=== PATIENT | male | born 1975 | race Caucasian/White ===

== ENCOUNTER → 2020-03-17 14:40 | Outpatient (CLI) | payer OTHER, SELFPAY ==
--- NOTE | ~2020-03-17 | XR_ITS ---
EXAMINATION: XR lumbar spine min 4V DATE: 03/17/2020 15:01 INDICATION: Low back pain. Right-sided sciatica. TECHNIQUE: 7 views of lumbar spine including flexion and extension views were obtained. COMPARISON: Lumbar spine radiographs 11/18/2015 FINDINGS: Bone alignment is normal. There is no abnormal motion with flexion and extension. Vertebral body heights are normal. There is mildly decreased disc height at L4-L5. The facet joints are normal . IMPRESSION: 1. Mild degenerative disc disease at L4-L5. Reviewed, dictated and finalized at location A. ING MACHINE OPERATOR
== END ==
PROVIDERS: PCP Family Medicine; Visit Provider Family Medicine
DX: M54.41 Lumbago with sciatica, right side (principal); M51.36 Other intervertebral disc degeneration, lumbar region
CPT/HCPCS: 72110

== ENCOUNTER 2020-04-30 12:30 | Outpatient (RCR) | payer OTHER, SELFPAY ==
--- NOTE | 2020-03-31 14:49 | PTOPEVAL ---
PHYSICAL THERAPY EVALUATION Thank you for referring Juno Sky to [facility].? Eliud was evaluated with a dx of low back pain/right leg radiculopathy. The patient is scheduled to be seen for therapy? 2x/week for 4 weeks. Please review, sign, date and return this plan of care JAKE. I agree with and certify that the following plan of care is medically necessary. Referring Physician Date Attending Provider: Ximena Swan, MD *PT Outpatient Evaluation Start: 03/31/20 13:25 Freq: Status: Active Protocol: Document 03/31/20 13:25 MLV (Rec: 03/31/20 14:49 MLV [id number]) Therapy Assessment Status Assessment Status Assessment Status Evaluation Outpatient Past Medical History Cardiovascular History Hx Hypertension Yes Evaluation Information Problem Diagnosis low back pain with left leg radiculopathy Onset 2 months Cause sneezed Additional Evaluation Detail Pain began 2 months ago, was helping parents do rehab on their home. Patient sneezed and had pain immediately. Patient now has numbness at thigh into toes-constant at the thigh and off/on at lower leg. Patient had very minimal back issues in past. Subjective Information patient stretches every Query Text:As Reported By Patient/ morning as part of a martial Family arts routine he had 5 years ago. 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 Patient is off work now due to pain. Diagnostic Tests X-Rays For This Problem Yes: results unknown Previous Treatments Previous Treatments For This Problem none Pain Assessment Timing of Pain Assessment Timing of Pain Assessment Assessment Pain Scale Pain Scale Used Numeric (1 - 10) Self Report Pain Assessment Right Leg(s) Reported Pain Level 0 Pain Description Numbness,Sharp,Shooting Pain Frequency Acute Other Pain Description pain is sharp and short lived Greatest Pain Intensity 10 Pain Aggravating Factors Walking,Weight Bearing/ Standing Right Back Reported Pain Level 0 Pain Description Aching,Dull Pain Frequency Acute Other Pain Description certain movements flares pain Pain Aggravating Factors Prolonged Position,Walking Other Pain Aggravating Factors sidelying Pain Score Pain Score 0,0: Self Report Inte
--- NOTE | 2020-04-02 10:37 | PCPTNOTE ---
Patient did not show up for scheduled appointment this date. Called patient, however, his message stated he was not accepting call at this time.
--- NOTE | 2020-04-21 13:10 | PCPTNOTE ---
Patient called & cancelled scheduled appointment this date. Will reschedule at next appointment.
--- NOTE | 2020-04-30 12:58 | PTOPEVAL ---
PHYSICAL THERAPY DISCHARGE Thank you for referring Juno Sky to [facility].? The patient has been seen for therapy? 2x/week for 4 weeks. Progress has peaked and goals are not met. Physical therapy is discontinued at this time. Please review, sign, date and return this plan of care. I agree with and certify the following plan of care. Referring Physician Date Attending Provider: Ximena Swan, MD *PT Outpatient Evaluation Start: 03/31/20 13:25 Freq: Status: Active Protocol: Document 04/30/20 12:35 MLV (Rec: 04/30/20 12:58 MLV [id number]) Assessment Status Discharge Discharge Information Problem Additional Evaluation Detail Patient reports feeling about 25% better than when first starting therapy. The patient reports continued leg numbness (constant)-no change. The back pain is still aggravated by bending and lifting. Pain Assessment Timing of Pain Assessment Timing of Pain Assessment Assessment Pain Scale Pain Scale Used Numeric (1 - 10) Self Report Pain Assessment Right Leg(s) Reported Pain Level 0 Pain Description Numbness Right Back Reported Pain Level 2 Other Pain Description certain movements flares pain Greatest Pain Intensity 8 Pain Aggravating Factors Exercise/Activity,Weight Bearing/Standing Other Pain Aggravating Factors severe pain with standing longer than 5 minutes Pain Score Pain Score 0,2: Self Report Interventions Used Interventions Used By Clinicians Education,Electrical Stimulation,Exercise,Heat Pain Relief Interventions Used By Inactivity/Rest Patient Other Alleviating Interventions tylenol/advil gives no relief Cervical and Lumbar ROM Lumbar ROM Lumbar Flexion Active Mid Dejesus Query Text:Hands to: Lumbar Extension (0-40) 30 Query Text:Active in Degrees Lumbar Lateral Flexion Right (0-40) 30 Query Text:Active in Degrees Lumbar Lateral Flexion Left (0-40) 40 Query Text:Active in Degrees Lateral Rotation Right (0-45) 45 Query Text:Active in Degrees Lateral Rotation Left (0-45) 45 Query Text:Active in Degrees Lumbar Comments pain at right hip/leg with flexion and right sidebending Lower Extremity Range of Motion General Lower Extremity Range of Motion Gross Lower Extremity Range of Motion hip rotation limited dong. but Comments movement more fluid and less painful
== END 2020-04-30 15:26 | disposition home or self-care (01) ==
LOC: ANHPT 12:30
PROVIDERS: PCP Family Medicine; Visit Provider Family Medicine
DX: M54.41 Lumbago with sciatica, right side (principal)
CPT/HCPCS: 97012; 97014; 97110; 97140; 97162; G0283

== ENCOUNTER 2021-05-18 11:04 | Emergency (ER) | payer OTHER, SELFPAY ==
[2021-05-18] VITALS (39 sets, daily range): BP systolic 127–239; BP diastolic 76–164; PULSE 54–103; RESP 11–27; TEMP 36.6; O2SAT 96–100
--- NOTE | ~2021-05-18 | CT_ITS ---
EXAMINATION: CT brain wo con DATE: 05/18/2021 12:17 INDICATION: Headache. TECHNIQUE: Computed tomography (CT) of the head was performed without intravenous contrast. The mA wa s adjusted according to patient size. Iterative reconstruction technique was employed. The dose-lengt h product was 605.33 mGy-cm. COMPARISON: Head CT 12/21/2018 FINDINGS: There is no intracranial hemorrhage, acute infarction, or abnormal intracranial mass lesion . The ventricles are normal in size. The paranasal sinuses are clear. The orbits are normal. The mast oid air cells are normal. IMPRESSION: 1. Normal brain. Reviewed, dictated and finalized at location A. E STRIPPER IMPRESSION: 1. Normal brain.
--- NOTE | ~2021-05-18 | XR_ITS ---
EXAMINATION: XR chest 2V DATE: 05/18/2021 11:55 INDICATION: Hypertension, shortness of breath and left-sided chest pain TECHNIQUE: frontal and lateral views of the chest were obtained. COMPARISON: Chest radiograph dated 12/19/2018 FINDINGS: The lungs remain clear with no focal airspace opacities, pulmonary edema, pleural effusion or pneumot horax. The cardiomediastinal silhouette is normal. Visualized bones and soft tissues are unremarkable . IMPRESSION: 1. No acute cardiopulmonary disease. Reviewed, dictated and finalized at location B. ER OFF BEARER
--- NOTE | 2021-05-18 11:16 | ECG_ITS ---
Measurements Intervals [place] Rate: 81 P: 24 CA: 154 QRS: -15 QRSD: 92 T: 24 QT: 373 QTc: 435 Interpretive Statements SINUS RHYTHM POSSIBLE LEFT ATRIAL ENLARGEMENT INCOMPLETE RIGHT BUNDLE BRANCH BLOCK POSSIBLE LEFT VENTRICULAR HYPERTROPHY BORDERLINE R WAVE PROGRESSION, ANTERIOR LEADS BORDERLINE ECG Electronically Signed On 05-18-2021 11:25:48 LITHOGRAPHED PLATE INSPECTOR by Rodney Root D.O.
[2021-05-18 11:34] LABS: Basophils Absolute Auto 0.1 K/mm3 (0.0-0.1); Basophils Percent Auto 0.6 % (0.2-1.2); Eosinophils Absolute Auto 0.2 K/mm3 (0-0.3); Eosinophils Percent Auto 2.1 % (0-4.4); Hemoglobin 18.5 g/dL (14.0-18.0); Immature Granulocyte Absolute 0.06 K/mm3 (0.00-0.031); Immature Granulocyte Percent A 0.7 % (0-0.5); Lymphocytes Absolute Auto 2.14 K/mm3 (0.9-3.2); Lymphocytes Percent Auto 25.5 % (18.3-44.2); Mean Corpuscular HGB Conc 34.3 g/dl (32-36); Mean Corpuscular Volume 87.5 fl (80-100); Mean Platelet Volume 9.8 fl (7.4-10.4); Monocytes Absolute Auto 0.5 K/mm3 (0.1-0.6); Monocytes Percent Auto 5.6 % (2.6-8.5); Neutrophils Absolute Auto 5.5 K/mm3 (1.3-6.7); Neutrophils Percent Auto 65.5 % (45.5-73.1); Platelet Count Result 211 k/mm3 (150-375); Red Blood Count 6.17 M/mm3 (4.6-6.20); Red Cell Distribution Width 13.2 % (11.5-14.5); White Blood Count 8.4 K/mm3 (4.5-10.0)
--- NOTE | 2021-05-18 11:34 | ED.CHESTPAIN ---
HPI - Chest Pain General Chief Complaint: Chest Pain Stated Complaint: sob, rubio, arm pain Time Seen by Provider: 05/18/21 11:33 Source: patient Mode of arrival: ambulatory Limitations: no limitations History of Present Illness HPI narrative: Patient is a 45 yo male with a history of HTN presenting with severe headache on the superior part of his head which has been present and constant over the past 2 days. Patient states he has been off of his medications for two weeks as his PCP Dr. Swan reportedly retired, and he did not refill his prescriptions prior to this. Pt previously was taking Losartan and Spironolactone. Pt reports blurry vision over past two weeks. Pt reports sharp chest pain on the left side with radiation to the left arm. No jaw or neck pain. Pt with nausea without vomiting. Denies focal weakness or numbness. No thunderclap sensation to headache. Pt has had one of his covid vaccinations. Pt has never followed with a web merchant. Related Data Allergies Allergy/AdvReac Type Severity Reaction Status Date / Time No Known Allergies Allergy Unverified 12/19/18 18:39 Review of Systems Review of Systems: CONSTITUTIONAL: Denies fever, chills, or sweats. EYES: Denies visual changes, redness, or discharge. ENT: Denies rhinorrhea, congestion, sore throat, or otalgia. CARDIOVASCULAR: Reports chest pain, denies palpitations RESPIRATORY: Denies cough, reports shortness of breath with GASTROINTESTINAL: Denies abdominal pain, nausea without vomiting GENITOURINARY: Denies dysuria or hematuria. SKIN: Denies rash or itching. MUSCULOSKELETAL: Denies back pain, joint pain, or myalgia. NEUROLOGIC: Reports headache PSYCH: reports history of anxiety [facility] Family History Family History (Updated 11/10/17 @ 14:19 by DOCTOR UNKNOWN) Mother Family history of glaucoma Hypertension Other Family history of kidney disease Family history of mental disorder Social History Social History Smoking status: Current every day smoker Alcohol intake: current Exam Narrative: GENERAL: Awake, alert, conversant HEAD: Normocephalic, atraumatic. EYES: PERRLA and EOMI. ENT: Nares clear, no rhinorrhea or epistaxis. Mucous membranes moist. NECK: Supple. CHEST: No respiratory distress, breathing even and non labored, no chest wall tenderness HEART: Regular rate, sinus rhythm ABDOMEN:Non distended, non tender EXTREMITIES: Normal range of motion. No edema. SKIN: Warm, dry, no rash. NEURO:No focal deficits. Alert and oriented x3. Finger to nose intact bilaterally. EOMs intact without nystagmus. No facial droop/asymmetry noted bilaterally. Grimace intact. Intact sensation in face. Hearing intact bilaterally. Shoulder shrug intact. Strength 5/5 bilateral upper extremities. Strength 5/5 bilateral lower extremities. Reflexes 2+ patellar. Heel to aceves intact bilaterally. Ambulatory exam with a normal based, steady gait. Course Vital Signs Vital signs: Vital Signs Temperature 36.6 C 05/18/21 11:18 Pulse Rate 87 05/18/21 11:18 Respiratory Rate 20 05/18/21 11:18 Blood Pressure 239/164 H 05/18/21 11:18 Pulse Oximetry 98 05/18/21 11:18 Temperature 36.6 C 05/18/21 11:18 Pulse Rate 78 05/18/21 17:16 Respiratory Rate 18 05/18/21 17:16 Blood Pressure 135/93 H 05/18/21 17:16 Pulse Oximetry 99 05/18/21 17:16 MDM - Chest Pain MDM Narrative Medical decision making narrative: The patient was evaluated in the emergency department for headache in the setting of elevated BP. Patient's headache pain was not sudden or maximal in onset. There are no focal deficits on exam. Pt with negative CT head. There is no history of fever and neck is supple to evaluation without meningismus. Meningitis is felt to be unlikely. No traumatic history or signs of trauma on evaluation. Risk factors for cerebral venous thrombosis reviewed,and seems unlikely. No ocular signs of acute glaucoma. Patient was given anti hypertensives of
[2021-05-18 11:45] LABS: Alanine Aminotransferase 63 U/L (4-50); Albumin Level 3.9 g/dL (3.5-5.1); Alkaline Phosphatase 93 U/L (38-126); Anion Gap 9 mmol/L (8-16); Aspartate Amino Transferase 38 U/L (17-59); Bilirubin,Total 0.3 mg/dL (0.2-1.3); Blood Urea Nitrogen 16 mg/dL (9-20); Calcium 8.7 mg/dL (8.4-10.2); Carbon Dioxide 21 mmol/L (22-30); Chloride 108 mmol/L (98-107); Estimated CRCL calculation 83 ml/min; Estimated Glomerular Filt Rate 60; Glucose 138 mg/dL (65-110); Lipase 78 U/L (23-300); Potassium 4.3 mmol/L (3.4-5.0); Sodium 138 mmol/L (137-145)
[2021-05-18] MEDS: ASPIRIN 81 MG CHEWABLE TABLET 324 MG PO (11:46)
[2021-05-18 11:47] LABS: INR 0.9; Prothrombin Time 12.4 Seconds (11.1-14.7)
[2021-05-18 11:48] LABS: Partial Thromboplastin Time 28.3 SECONDS (22.3-36.8)
[2021-05-18 11:57] LABS: Troponin I < 0.012 ng/mL (0.000-0.034)
[2021-05-18] MEDS: ONDANSETRON INJ 4 MG/2 ML VIAL IV PUSH ×2 (12:21→14:27)
[2021-05-18] MEDS: ACETAMINOPHEN 500 MG TABLET 1000 MG PO (12:21)
[2021-05-18] MEDS: hydrALAZINE HCL 20 MG/ML VIAL IV PUSH (12:21)
[2021-05-18] MEDS: SODIUM CHLORIDE 0.9% IV 1,000 ML 999 ML IV CONT (12:21)
[2021-05-18] MEDS: KETOROLAC 15 MG/ML VIAL (*BKC) IV PUSH (13:29)
[2021-05-18] MEDS: LORazepam INJ (*CRX) 2 MG/ML VIAL 0.5 MG IV PUSH (13:29)
[2021-05-18] MEDS: NITROGLYCERIN SL 0.4 MG TABLET SUBLINGUAL (13:38)
[2021-05-18 13:44] LABS: Add Urine Microscopic? YES; Appearance Urine Clear (Clear); Bilirubin Urine Negative (Negative); Blood Urine Negative (Negative); Color Urine Yellow (Yellow); Glucose Urine UA 1+ mg/dL (Negative); Ketones Urine Negative (Negative); Leukocyte Esterase Ur Negative LEU/UL (Negative); Mucus Urine Rare /lpf; Nitrate Urine Negative (Negative); Protein Urine 3+ mg/dL (Negative); Specific Grav Ur 1.013 (1.001-1.035); Squamous Epithelial Cell Urine Rare /hpf (Few); Urobilinogen Urine Negative mg/dL (<2.0); WBC Urine 0-3 /hpf
[2021-05-18] MEDS: LOSARTAN POTASSIUM 100 MG TABLET PO (14:27)
[2021-05-18 15:52] LABS: Troponin I < 0.012 ng/mL (0.000-0.034)
[2021-05-18] MEDS: diazePAM (*CRX) 2 MG TABLET PO (17:10)
== END 2021-05-18 17:20 | disposition home or self-care (01) ==
PROVIDERS: Emergency Provider Emergency Medicine
DX: I16.9 Hypertensive crisis, unspecified (principal); R51.9 Headache, unspecified; F17.200 Nicotine dependence, unspecified, uncomplicated; R94.31 Abnormal electrocardiogram [ECG] [EKG]; I45.10 Unspecified right bundle-branch block
CPT/HCPCS: 36415; 70450; 71046; 80053; 81001; 83690; 84484; 85025; 85610; 85730; 93005; 96361; 96374; 96375; 96376; 99284; A9270; J0360; J1885; J2060; J2405; J7030

== ENCOUNTER 2021-07-15 14:29 | Emergency (ER) | payer OTHER, SELFPAY ==
[2021-07-15 14:44] VITALS: BP 159/119; PULSE 97; RESP 18; TEMP 36.8; O2SAT 99
[2021-07-15 14:47] VITALS: BP 159/119; PULSE 97; RESP 18; TEMP 36.8; O2SAT 99
--- NOTE | 2021-07-15 14:55 | ED.GENADULT ---
HPI - General Adult General Chief complaint: Unspecified Stated complaint: Medication Time Seen by Provider: 07/15/21 14:56 Source: patient Mode of arrival: ambulatory Limitations: no limitations History of Present Illness HPI narrative: 45-year-old male presented for complaint of right sided headache, onset last night. He states this is how he feels when he runs out of his blood pressure medication. He states he has not had any medicine for about 2 weeks. He takes spironolactone and losartan. Was seen in the ER on 06/14/2021 for the same, however he was in hypertensive crisis at the time. Head CT neg at that time, did not stay for recommended CTA. Patient has not followed up with ekg tech. He has not been able to establish with a new PCP after his retired. Denies chest pain, palpitations, shortness of breath, dizziness/syncope, vision changes, n/v, fever or chills. Related Data Home Medications Medication Instructions Recorded Confirmed hydroxyzine pamoate 25 mg PO PRN PRN 07/15/21 07/15/21 Allergies Allergy/AdvReac Type Severity Reaction Status Date / Time No Known Allergies Allergy Verified 07/15/21 14:45 Review of Systems Review of Systems: CONSTITUTIONAL: Denies body aches, fever, chills, or sweats. EYES: Denies visual changes, redness, or discharge. ENT: Denies rhinorrhea, congestion, sore throat, or otalgia. CARDIOVASCULAR: Denies chest pain, palpitations, or edema. RESPIRATORY: Denies cough or dyspnea. GASTROINTESTINAL: Denies abdominal pain, nausea, vomiting, or diarrhea. GENITOURINARY: Denies dysuria or hematuria. SKIN: Denies rash, itching, or wounds. MUSCULOSKELETAL: Denies back pain, joint pain, or myalgia. NEUROLOGIC: Endorses headache, denies numbness, tingling, or weakness. PSYCH: Denies depression or anxiety. All systems reviewed & are unremarkable except as noted in HPI and below PMFSH Family History Family History Mother Family history of glaucoma Hypertension Other Family history of kidney disease Family history of mental disorder Social History Social History Smoking status: Current every day smoker Alcohol intake: current Comments At time of signature, I have reviewed and agree with nursing past medical, surgical, social and family history unless otherwise noted. Please see nursing chart for further information. There is no relevant family history pertinent to the presenting complaint Exam Narrative: GENERAL: Well-appearing, well-nourished HEAD: Normocephalic, atraumatic. EYES: PERRLA, EOMI. No redness or drainage. Conjunctivae normal. ENT: Mucous membranes pink and moist. No rhinorrhea. TMs normal bilaterally. Throat normal. Uvula midline. NECK: Normal AROM. Supple. No lymphadenopathy. CHEST: No respiratory distress. Clear to auscultation. HEART: Regular rate and rhythm. No murmur appreciated. Normal peripheral pulses. ABDOMEN: Soft, nontender, nondistended, normal active bowel sounds. MUSCULOSKELETAL: No bony tenderness. EXTREMITIES: Normal range of motion. No edema. SKIN: Warm, dry, no rash. Capillary refill normal. Normal skin turgor. NEURO: No focal deficits. No facial droop. Alert and oriented x3. Gait steady. PSYCH: Normal affect. No signs of depression or anxiety. Course Course Emergency Course: Patient is aware of diagnosis, understands and agrees to treatment plan. Plans to call insurance company to help with finding PCP. Reviewed lifestyle modifications to help reduce bp. Anticipatory guidance given. Patient agrees to follow-up as directed and is aware of reasons to seek care at the emergency department. Portions of this record may have been created with voice recognition software Level of Care: Express Care Visit Vital Signs Vital signs: Vital Signs Temperature 98.2 F 07/15/21 14:44 Pulse Rate 97 07/15/21 14:44 Respira
== END 2021-07-15 15:09 | disposition home or self-care (01) ==
PROVIDERS: Emergency Provider Nurse Practitioner Family
DX: I10 Essential (primary) hypertension (principal); K21.9 Gastro-esophageal reflux disease without esophagitis; F41.9 Anxiety disorder, unspecified
CPT/HCPCS: 99211; G0463

== ENCOUNTER 2021-09-12 13:13 | Emergency (ER) | payer OTHER, SELFPAY ==
[2021-09-12 13:23] VITALS: BP 205/148; PULSE 80; RESP 18; TEMP 36.7; O2SAT 99
--- NOTE | 2021-09-12 13:41 | ED.GENADULT ---
HPI - General Adult General Chief complaint: Recheck/Abnormal Lab/Rx Stated complaint: requesting blood pressure check Source: patient Mode of arrival: ambulatory Limitations: no limitations History of Present Illness HPI narrative: Patient presents for evaluation of headache that started last night. Pain was in right parietal region. He indicates he has experienced similar symptoms in the past when his blood pressure has not been well controlled. He was previously on spironolactone 100mg daily and losartan 100mg daily. He ran out of medication about one month ago. He has been unable to schedule and appointment with a PCP as he has been told that they are not accepting new patients with [facility]. He states his headache has resolved. No chest pain or SOB. Reports high stress levels related to previous DIU and difficulty finding employment as a result of this. 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 No other illicit drugs. No additional complaints or concerns. Related Data Home Medications Medication Instructions Recorded Confirmed No Home Medications 09/12/21 09/12/21 Allergies Allergy/AdvReac Type Severity Reaction Status Date / Time No Known Allergies Allergy Verified 09/12/21 13:32 Review of Systems Review of Systems: CONSTITUTIONAL: Denies fever, chills, or sweats. EYES: Denies visual changes, redness, or discharge. ENT: Denies rhinorrhea, congestion, sore throat, or otalgia. CARDIOVASCULAR: Denies chest pain, palpitations, or edema. RESPIRATORY: Denies cough or dyspnea. GASTROINTESTINAL: Denies abdominal pain, nausea, vomiting, or diarrhea. GENITOURINARY: Denies dysuria or hematuria. SKIN: Denies rash or itching. MUSCULOSKELETAL: Denies back pain, joint pain, or myalgia. NEUROLOGIC: Reports recent headache, none currently. Denies numbness, dizziness, or weakness. PSYCHIATRIC: Denies anxiety or depression. [facility] Past Medical History Medical History Anxiety Anxiety Hypertension Surgical History Surgical History Hx of cholecystectomy Family History Family History Mother Family history of glaucoma Hypertension Father Hypertension Other Family history of kidney disease Family history of mental disorder Social History Social History Smoking status: Current every day smoker Additional smoking assessment comments: 4 cigarettes/week Alcohol intake: current Alcohol use details: Once per week, 4 beers at a time Substance use type: amphetamines Living arrangements: with family Gender identity (if verbalized by the patient): Male Sexual Orientation (if Verbalized by the Patient): Straight or Heterosexual Spiritual care concerns: No Exam Narrative: GENERAL: Well-appearing, well-nourished, and in no acute distress. HEAD: Normocephalic, atraumatic. EYES: PERRLA and EOMI. ENT: Nares clear, no rhinorrhea or epistaxis. Mucous membranes moist. Oropharynx without tonsillar hypertrophy exudate or other lesions. Bilateral TMs pearly mustafa nonbulging NECK: Supple. No adenopathy or masses. No carotid bruits or JVD CHEST: Clear to auscultation. No respiratory distress. No wheezes rales or rhonchi HEART: Regular rate and rhythm. No murmur heard. Normal peripheral pulses. ABDOMEN: Soft, nontender, nondistended, normal active bowel sounds. EXTREMITIES: Normal range of motion. No edema. SKIN: Warm, dry, no rash. NEURO: No focal deficits. Alert and oriented x3. PSYCH: Normal mood and affect. Course Course Emergency Course: This is a 45-year-old male who presented with complaints of headache last night now resolved with a history of hypertension, off medication. Blood pressure here was 205/148. He has a neurolog
== END 2021-09-12 13:40 | disposition short-term general hospital (02) ==
PROVIDERS: Emergency Provider Nurse Practitioner
DX: I16.0 Hypertensive urgency (principal); F17.210 Nicotine dependence, cigarettes, uncomplicated
CPT/HCPCS: 99211; 99212; G0463

== ENCOUNTER 2022-07-18 09:22 | Emergency (ER) | payer OTHER, SELFPAY ==
--- NOTE | ~2022-07-18 | CT_ITS ---
EXAMINATION: CT soft tissue neck w con DATE: 07/18/2022 10:59 INDICATION: Left facial swelling. TECHNIQUE: Computed tomography (CT) of the neck was performed with 75 mL Omnipaque-350 intravenous co ntrast. Automated exposure control and iterative reconstruction technique were employed. The dose-shantanu gth product was 552.36 mGy-cm. COMPARISON: None FINDINGS: Tooth 2 is broken with periapical lucencies extending to the roots of tooth 3. Tooth 31 has a carious lesion and periapical lucencies. Tooth 19 has a carious lesion and periapical lucencies wi th breech of the buccal cortex of the alveolar process. Tooth 18 has a carious lesion and periapical lucencies. There is a 2.3 x 0.4 cm abscess deep to the body of left mandible containing fluid and gas . There is gas and free fluid in the left submandibular region. Free fluid extends to the left side o f the pharynx and supraglottic larynx with mass effect on the airway. There is fat stranding in the l eft neck. There are enlarged left submandibular and high left internal jugular lymph nodes. The inter nal jugular veins are patent. IMPRESSION: 1. Extensive dental disease with subperiosteal abscess at the left body of the mandible with gas and fluid extending in the left neck deep spaces. 2. Mild left submandibular and internal jugular chain lymphadenopathy, likely reactive. Reviewed, dictated and finalized at location A. [place] [facility] IMPRESSION: 1. Extensive dental disease with subperiosteal abscess at the left body of the mandible with gas and fluid extending in the left neck deep spaces. 2. Mild left submandibular and internal jugular chain lymphadenopathy, likely r eactive.
[2022-07-18 09:25] VITALS: BP 185/120; PULSE 123; RESP 19; TEMP 37; O2SAT 99
--- NOTE | 2022-07-18 09:38 | ED.DENTAL ---
HPI - Dental/Oral General Chief complaint: Dental/Oral <Gem Ramirez PA-C - Last Filed: 07/18/22 17:29> Stated complaint: tooth abcess <RANDELL Rosado Last Filed: 07/18/22 17:29> Time Seen by Provider: 07/18/22 09:29 <RANDELL Rosado Last Filed: 07/18/22 17:29> History of Present Illness HPI Narrative: 46-year-old male here for evaluation of left-sided facial pain for the past several weeks. Patient states that he has a cavity but has been unable to see a dentist until September. With the past several days he is pain has progressed and the left side of his face is now very swollen and painful. States that he noticed some sort of pus material come out of his mouth this morning and he could not swallow his medicines which prompted his ED eval. he is tolerating his secretions. Denies any fevers. No new medicines or history of allergic reactions. <Gem Ramirez PA-C - Last Filed: 07/18/22 17:29> Related Data Home medications: Home Medications Medication Instructions Recorded Confirmed amlodipine 10 mg tablet mg 07/18/22 hydralazine 50 mg tablet mg 07/18/22 hydroxyzine pamoate 25 mg capsule mg 07/18/22 losartan 100 mg tablet mg 07/18/22 07/18/22 <RANDELL Rosado Last Filed: 07/18/22 17:29> Allergies/adverse reactions: Allergies Allergy/AdvReac Type Severity Reaction Status Date / Time No Known Allergies Allergy Verified 07/18/22 09:28 <RANDELL Rosado Last Filed: 07/18/22 17:29> Review of Systems Review of Systems: Gen: Denies fevers or chills Eyes: Denies eye pain or visual change ENT: Reports dental pain Respiratory: Denies shortness of breath or cough CV: Denies chest pain or palpitations GI: Denies abdominal pain nausea, emesis or diarrhea denies burning, urgency, frequency or hematuria Musculoskeletal: Denies back pain or muscle pain Neuro: Denies numbness, tingling, weakness or focal weakness Skin: Denies rash Except as documented, all other systems reviewed and negative <Gem Ramirez PA-C - Last Filed: 07/18/22 17:29> [facility] Past Medical History Medical History: Medical History Anxiety Anxiety Hypertension <Gem Ramirez PA-C - Last Filed: 07/18/22 17:29> Surgical History Surgical History: Surgical History Hx of cholecystectomy <Gem Ramirez PA-C - Last Filed: 07/18/22 17:29> Family History Family History: Family History Mother Family history of glaucoma Hypertension Father Hypertension Other Family history of kidney disease Family history of mental disorder <Gem Ramirez PA-C - Last Filed: 07/18/22 17:29> Social History Social History: Social History Smoking status: Current every day smoker Additional smoking assessment comments: 4 cigarettes/week Alcohol intake: current Alcohol use details: Once per week, 4 beers at a time Substance use type: amphetamines Living arrangements: with family Gender identity (if verbalized by the patient): Male Sexual Orientation (if Verbalized by the Patient): Straight or Heterosexual Spiritual care concerns: No <Gem Ramirez PA-C - Last Filed: 07/18/22 17:29> Exam Narrative: APPEARANCE: Uncomfortable appearing, large amount of facial swelling, speaking in full sentences and tolerating his secretions Head: Normocephalic and atraumatic. EYES: PERRLA/EOMI, conjunctivae clear NOSE: No nasal drainage EARS: External ear normal in appearance THROAT: Patient has purulent/scaly material noted on his tongue with a large amount of fluctuance and induration to his left lower gumline near his molars. Dry mucous membranes. No
[2022-07-18] MEDS: AMPICILLIN SULB 3 GM/NS 100 ML 3 GM/100 ML VIAL IVPB ×2 (09:55→18:14)
[2022-07-18] MEDS: methylPREDNISolone SOD SUCC 125 MG VIAL IV PUSH (09:56)
[2022-07-18] MEDS: LACTATED RINGERS 1,000 ML 999 ML IV CONT ×2 (09:56→11:13)
[2022-07-18] MEDS: KETOROLAC 15 MG/ML VIAL (*BKC) IV PUSH (09:59)
[2022-07-18 10:10] LABS: Basophils Absolute Auto 0.1 K/mm3 (0.0-0.1); Basophils Percent Auto 0.3 % (0.2-1.2); Eosinophils Absolute Auto 0.1 K/mm3 (0-0.3); Eosinophils Percent Auto 0.3 % (0-4.4); Hemoglobin 16.9 g/dL (14.0-18.0); Immature Granulocyte Percent A 0.7 % (0-0.5); Lymphocytes Absolute Auto 1.16 K/mm3 (0.9-3.2); Lymphocytes Percent Auto 7.8 % (18.3-44.2); Mean Corpuscular HGB Conc 33.8 g/dl (32-36); Mean Corpuscular Hemoglobin 29.3 pg (26-34); Mean Corpuscular Volume 86.7 fl (80-100); Mean Platelet Volume 10.5 fl (7.4-10.4); Monocytes Absolute Auto 0.8 K/mm3 (0.1-0.6); Monocytes Percent Auto 5.5 % (2.6-8.5); Neutrophils Absolute Auto 12.7 K/mm3 (1.3-6.7); Neutrophils Percent Auto 85.4 % (45.5-73.1); Platelet Count Result 235 k/mm3 (150-375); Red Blood Count 5.77 M/mm3 (4.6-6.20); Red Cell Distribution Width 13.2 % (11.5-14.5); White Blood Count 14.9 K/mm3 (4.5-10.0)
[2022-07-18 10:23] LABS: Lactic Acid Reflex 1.3 mmol/L (0.7-2.0)
[2022-07-18 10:24] LABS: Alanine Aminotransferase 50 U/L (6-50); Albumin Level 4.3 g/dL (3.5-5.1); Alkaline Phosphatase 126 U/L (38-126); Anion Gap 10 mmol/L (8-16); Aspartate Amino Transferase 40 U/L (17-59); Bilirubin,Total 0.9 mg/dL (0.2-1.3); Blood Urea Nitrogen 16 mg/dL (9-20); Calcium 9.2 mg/dL (8.4-10.2); Carbon Dioxide 22 mmol/L (22-30); Chloride 102 mmol/L (98-107); Estimated CRCL calculation 71 ml/min; Estimated Glomerular Filt Rate 51; Glucose 256 mg/dL (65-110); Sodium 134 mmol/L (137-145)
[2022-07-18 11:13] VITALS: BP 170/112; PULSE 115; RESP 21; O2SAT 96
[2022-07-18 12:06] VITALS: BP 175/115; PULSE 109; RESP 18; O2SAT 95
[2022-07-18 12:39] LABS: Influenza A QL RT-PCR Negative (Negative); Influenza B QL RT-PCR Negative (Negative); SARS-CoV-2 RNA PCR Negative
[2022-07-18 13:13] VITALS: BP 180/129; PULSE 107; RESP 18; O2SAT 95
[2022-07-18] MEDS: LACTATED RINGERS 1,000 ML 150 ML IV CONT (13:13)
[2022-07-18] MEDS: hydrALAZINE HCL 20 MG/ML VIAL 10 MG IV PUSH (13:35)
[2022-07-18 15:25] VITALS: BP 172/100; PULSE 103; RESP 21; O2SAT 98
--- NOTE | 2022-07-18 18:21 | PC.NURSE ---
1130 am [facility] waiting for bed, [facility] accepted to ICU, waiting for a bed in ICU to become available/cleaned., 1624 called [facility] transfer line for update, vitals and no status change given per [employer], 1710 accepted to [facility]. [address] [facility] to do transfer eta about 45 min., Amb. here 1800.
--- NOTE | 2022-07-27 10:52 | PC.NURSE ---
LATE ENTRY This note is being entered to document information to the patient's record. The following information was omitted on [07/18/22], by [Livier Navarrete RN]. Ampicillin infusion completed at 1910, Lactated ringers completed at 1410
== END 2022-07-18 18:17 | disposition short-term general hospital (02) ==
PROVIDERS: Emergency Provider Physician Assistant
DX: M27.2 Inflammatory conditions of jaws (principal); K02.9 Dental caries, unspecified; Z20.822 Contact with and (suspected) exposure to COVID-19; I10 Essential (primary) hypertension; F17.210 Nicotine dependence, cigarettes, uncomplicated
CPT/HCPCS: 36415; 70491; 80053; 83605; 85025; 87040; 87636; 96361; 96365; 96367; 96375; 99285; J0131; J0295; J0360; J1885; J2930; J7120; Q9967

== ENCOUNTER 2022-09-10 11:23 | Emergency (ER) | payer OTHER, SELFPAY ==
[2022-09-10 11:37] VITALS: BP 143/93; PULSE 108; RESP 18; TEMP 36.7; O2SAT 99
--- NOTE | 2022-09-10 11:42 | ED.URI ---
HPI - URI/Sore Throat General Chief Complaint: Upper Respiratory Infection Stated Complaint: Sinus Time Seen by Provider: 09/10/22 11:36 Source: patient and RN notes reviewed Mode of arrival: ambulatory Limitations: no limitations History of Present Illness HPI Narrative: Patient presents today complaining of a 10+ day history of cough, congestion, hoarse voice, rhinorrhea. Denies sore throat, shortness cough, fever. Denies history of asthma or COPD. He has been taking Mucinex and Benadryl without much relief. History of diabetes for which he takes Jardiance, Lantus, and Januvia. States his blood sugars are under control. Related Data Home Medications Medication Instructions Recorded Confirmed amlodipine 10 mg tablet 10 mg PO DAILY 07/18/22 09/10/22 hydralazine 50 mg tablet 50 mg PO DAILY 07/18/22 09/10/22 losartan 100 mg tablet 50 mg PO DAILY 07/18/22 09/10/22 aspirin 81 mg chewable tablet 81 mg PO DAILY 09/10/22 09/10/22 empagliflozin 25 mg tablet 25 mg PO DAILY 09/10/22 09/10/22 (Jardiance) insulin glargine 100 unit/mL 14 unit subcut DAILY 09/10/22 09/10/22 subcutaneous solution (Lantus U-100 Insulin) sitagliptin phosphate 50 mg tablet 50 mg PO DAILY 09/10/22 09/10/22 (Januvia) Allergies Allergy/AdvReac Type Severity Reaction Status Date / Time No Known Allergies Allergy Verified 09/10/22 11:33 Review of Systems Review of Systems: CONSTITUTIONAL: Denies body aches, fever, chills, or sweats. EYES: Denies visual changes, redness, or discharge. ENT: Denies sore throat, or otalgia.+ rhinorrhea, congestion, hoarseness CARDIOVASCULAR: Denies chest pain, palpitations, or edema. RESPIRATORY: Denies dyspnea.+ cough GASTROINTESTINAL: Denies abdominal pain, nausea, vomiting, or diarrhea. GENITOURINARY: Denies dysuria or hematuria. SKIN: Denies rash, itching, or wounds. MUSCULOSKELETAL: Denies back pain, joint pain, or myalgia. NEUROLOGIC: Denies headache, numbness, tingling, or weakness. PSYCH: Denies depression or anxiety. [facility] Past Medical History Medical History Anxiety Anxiety Hypertension Surgical History Surgical History Hx of cholecystectomy Family History Family History Mother Family history of glaucoma Hypertension Father Hypertension Other Family history of kidney disease Family history of mental disorder Social History Social History Smoking status: Current every day smoker Additional smoking assessment comments: 4 cigarettes/week Alcohol intake: current Alcohol use details: Once per week, 4 beers at a time Substance use type: amphetamines Living arrangements: with family Gender identity (if verbalized by the patient): Male Sexual Orientation (if Verbalized by the Patient): Straight or Heterosexual Spiritual care concerns: No Comments At time of signature, I have reviewed and agree with nursing past medical, surgical, social and family history unless otherwise noted. Please see nursing chart for further information. There is no relevant family history pertinent to the presenting complaint Exam Narrative: GENERAL: Well-appearing, well-nourished, and in no acute distress. HEAD: Normocephalic, atraumatic. EYES: EOMI. No redness or drainage. Conjunctivae normal. ENT: Mucous membranes pink and moist. Nares congested. No rhinorrhea. TMs normal bilaterally. Throat mildly erythematous without edema or exudate. Uvula midline. NECK: Normal AROM. Supple. No lymphadenopathy. CHEST: No respiratory distress. Clear to auscultation. HEART: Regular rate and rhythm. No murmur appreciated. EXTREMITIES: Normal range of motion. No edema. SKIN: Warm, dry, no rash. Capillary refill normal. Normal skin turgor. NEURO: N
== END 2022-09-10 11:47 | disposition home or self-care (01) ==
PROVIDERS: Emergency Provider Nurse Practitioner; PCP Family Medicine
DX: J32.9 Chronic sinusitis, unspecified (principal); F17.210 Nicotine dependence, cigarettes, uncomplicated; I10 Essential (primary) hypertension; F41.9 Anxiety disorder, unspecified; F15.90 Other stimulant use, unspecified, uncomplicated; Z79.82 Long term (current) use of aspirin
CPT/HCPCS: 99213; G0463

== ENCOUNTER 2022-10-30 10:46 | Emergency (ER) | payer OTHER, SELFPAY ==
[2022-10-30] VITALS (30 sets, daily range): BP systolic 111–150; BP diastolic 63–112; PULSE 73–96; RESP 9–24; TEMP 36.4; O2SAT 91–100
--- NOTE | ~2022-10-30 | XR_ITS ---
XR chest 1V portable DATE: 10/30/2022 11:22 INDICATION: Chest pressure starting today. History of hypertension. TECHNIQUE: Portable AP chest on 10/30/2022 at 1117 hours 06/04/2021 COMPARISON: Two-view chest on 05/18/2021 FINDINGS: Normal heart size. No hilar or mediastinal enlargement. No pulmonary infiltrate or consolidation, pleural effusion or pulmonary vascular congestion or pneumo thorax is detected. Included skeletal structures are unremarkable. IMPRESSION: No active cardiopulmonary disease Reviewed, dictated and finalized at location A.
--- NOTE | 2022-10-30 10:58 | ECG_ITS ---
Measurements Intervals [place] Rate: 87 P: 14 AL: 151 QRS: 9 QRSD: 101 T: 24 QT: 362 QTc: 436 Interpretive Statements SINUS RHYTHM NORMAL ECG COMPARED TO ECG 05/18/2021 11:20:42 NO SIGNIFICANT CHANGES Electronically Signed On 10-30-2022 13:23:03 CDT by Saurabh Mukherjee M.D.
--- NOTE | 2022-10-30 11:08 | ED.CHESTPAIN ---
HPI - Chest Pain General Chief Complaint: Chest Pain Stated Complaint: chest pressure Time Seen by Provider: 10/30/22 10:52 History of Present Illness HPI narrative: Patient is a 46-year-old male with a history of diabetes and hypertension, previous smoking history here for evaluation of chest pressure today. Patient states he woke up with a pressure-like sensation in the center of his chest that does not radiate, mild, not ripping or tearing in nature. States he tried to walk it off but the sensation persisted. Did not worsen with exertion. 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 +nausea but no vomiting. Patient remembers having a stress test about a decade ago when he was diagnosed with hypertension that he states was normal but he has never had chest pain in the past. Related Data Home Medications Medication Instructions Recorded Confirmed amlodipine 10 mg tablet 10 mg PO DAILY 07/18/22 09/10/22 hydralazine 50 mg tablet 50 mg PO DAILY 07/18/22 09/10/22 losartan 100 mg tablet 50 mg PO DAILY 07/18/22 09/10/22 aspirin 81 mg chewable tablet 81 mg PO DAILY 09/10/22 09/10/22 empagliflozin 25 mg tablet 25 mg PO DAILY 09/10/22 09/10/22 (Jardiance) insulin glargine 100 unit/mL 14 unit subcut DAILY 09/10/22 09/10/22 subcutaneous solution (Lantus U-100 Insulin) sitagliptin phosphate 50 mg tablet 50 mg PO DAILY 09/10/22 09/10/22 (Januvia) Allergies Allergy/AdvReac Type Severity Reaction Status Date / Time No Known Allergies Allergy Verified 09/10/22 11:33 Review of Systems Review of Systems: Gen.: Denies fevers or chills Eyes: Denies eye pain or visual change ENT: Denies congestion Respiratory: Denies shortness of breath or cough CV: Reports chest pain GI: Denies abdominal pain nausea, emesis or diarrhea denies burning, urgency, frequency or hematuria Musculoskeletal: Denies back pain or muscle pain Neuro: Denies numbness, tingling, weakness or focal weakness Skin: Denies rash Except as documented, all other systems reviewed and negative [facility] Past Medical History Medical History Anxiety Anxiety Hypertension Surgical History Surgical History Hx of cholecystectomy Family History Family History Mother Family history of glaucoma Hypertension Father Hypertension Other Family history of kidney disease Family history of mental disorder Social History Social History Smoking status: Current every day smoker Additional smoking assessment comments: 4 cigarettes/week Alcohol intake: current Alcohol use details: Once per week, 4 beers at a time Substance use type: amphetamines Living arrangements: with family Gender identity (if verbalized by the patient): Male Sexual Orientation (if Verbalized by the Patient): Straight or Heterosexual Spiritual care concerns: No Exam Narrative: APPEARANCE: Well appearing, no pain in distress, well-nourished. Head: Normocephalic and atraumatic. EYES: PERRLA/EOMI, conjunctivae clear NOSE: No nasal drainage EARS: External ear normal in appearance THROAT: Oropharynx is clear. Mucous membranes are moist. NECK: Supple. No adenopathy, no masses. RESPIRATORY: Airway patent, respirations nonlabored. Clear to auscultation bilaterally, no rales, rhonchi, wheezing. CARDIOVASCULAR: Regular rate and rhythm without murmurs, rubs, or gallops. ABDOMINAL: Normoactive bowel sounds. Soft, nontender, nondistended. No rebound tenderness or guarding. MUSCULOSKELETAL: no tenderness to palpation of the chest wall. Extremities are warm and well-perfused. Moves all extremities well. No edema.
[2022-10-30 11:19] LABS: Basophils Absolute Auto 0.1 K/mm3 (0.0-0.1); Basophils Percent Auto 0.8 % (0.2-1.2); Eosinophils Absolute Auto 0.1 K/mm3 (0-0.3); Eosinophils Percent Auto 0.8 % (0-4.4); Hematocrit 50.2 % (42.0-52.0); Hemoglobin 16.3 g/dL (14.0-18.0); Immature Granulocyte Absolute 0.04 K/mm3 (0.00-0.031); Immature Granulocyte Percent A 0.5 % (0-0.5); Lymphocytes Absolute Auto 1.51 K/mm3 (0.9-3.2); Lymphocytes Percent Auto 19.6 % (18.3-44.2); Mean Corpuscular HGB Conc 32.5 g/dl (32-36); Mean Corpuscular Hemoglobin 28.9 pg (26-34); Mean Platelet Volume 9.5 fl (7.4-10.4); Monocytes Absolute Auto 0.5 K/mm3 (0.1-0.6); Monocytes Percent Auto 6.5 % (2.6-8.5); Neutrophils Absolute Auto 5.5 K/mm3 (1.3-6.7); Neutrophils Percent Auto 71.8 % (45.5-73.1); Platelet Count Result 260 k/mm3 (150-375); Red Blood Count 5.64 M/mm3 (4.6-6.20); Red Cell Distribution Width 13.8 % (11.5-14.5); White Blood Count 7.7 K/mm3 (4.5-10.0)
[2022-10-30 11:38] LABS: D Dimer < 0.27 ug/mL (<0.48)
[2022-10-30 11:38] LABS: Alanine Aminotransferase 35 U/L (6-50); Albumin Level 4.4 g/dL (3.5-5.1); Alkaline Phosphatase 56 U/L (38-126); Anion Gap 13 mmol/L (8-16); Aspartate Amino Transferase 36 U/L (17-59); Bilirubin,Total 0.4 mg/dL (0.2-1.3); Blood Urea Nitrogen 25 mg/dL (9-20); Calcium 8.4 mg/dL (8.4-10.2); Carbon Dioxide 18 mmol/L (22-30); Chloride 110 mmol/L (98-107); Estimated CRCL calculation 51 ml/min; Estimated Glomerular Filt Rate 36; Glucose 91 mg/dL (65-110); Lipase 70 U/L (23-300); Potassium 4.3 mmol/L (3.4-5.0); Sodium 141 mmol/L (137-145)
[2022-10-30 11:43] LABS: Prothrombin Time 13.2 Seconds (11.1-14.7)
[2022-10-30 11:45] LABS: Troponin I < 0.012 ng/mL (0.000-0.034)
[2022-10-30] MEDS: NITROGLYCERIN SL 0.4 MG TABLET SUBLINGUAL (11:59)
[2022-10-30] MEDS: SODIUM CHLORIDE 0.9% IV 1,000 ML 999 ML IV CONT (12:00)
[2022-10-30 14:39] LABS: Troponin I < 0.012 ng/mL (0.000-0.034)
== END 2022-10-30 15:18 | disposition home or self-care (01) ==
PROVIDERS: Emergency Provider Physician Assistant; PCP Family Medicine
DX: R07.89 Other chest pain (principal); I10 Essential (primary) hypertension; E11.9 Type 2 diabetes mellitus without complications; Z90.49 Acquired absence of other specified parts of digestive tract; Z79.82 Long term (current) use of aspirin; Z79.84 Long term (current) use of oral hypoglycemic drugs; Z79.4 Long term (current) use of insulin; F17.210 Nicotine dependence, cigarettes, uncomplicated
CPT/HCPCS: 36415; 71045; 80053; 83690; 84484; 85025; 85380; 85610; 85730; 93005; 96360; 99284; A9270; J7030

== ENCOUNTER 2023-04-18 11:27 | Emergency (ER) | payer OTHER, SELFPAY ==
[2023-04-18 11:53] VITALS: BP 142/109; PULSE 108; RESP 18; TEMP 36.6; O2SAT 100
--- NOTE | 2023-04-18 12:14 | ED.URI ---
HPI - URI/Sore Throat General Chief Complaint: Upper Respiratory Infection Stated Complaint: congestion,cough,fever Time Seen by Provider: 04/18/23 12:03 Source: patient and RN notes reviewed Mode of arrival: ambulatory Limitations: no limitations History of Present Illness HPI Narrative: Patient presents today with a 2 week history of headache, body aches, congestion, fever up to 101, cough, fatigue, and shortness of breath with exertion which is tightness. He has been taking DayQuil, Tylenol p.m. without much relief. 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 Related Data Home Medications Medication Instructions Recorded Confirmed amlodipine 10 mg tablet 10 mg PO DAILY 07/18/22 04/18/23 hydralazine 50 mg tablet 50 mg PO DAILY 07/18/22 04/18/23 losartan 100 mg tablet 50 mg PO DAILY 07/18/22 04/18/23 aspirin 81 mg chewable tablet 81 mg PO DAILY 09/10/22 04/18/23 empagliflozin 25 mg tablet 25 mg PO DAILY 09/10/22 04/18/23 (Jardiance) insulin glargine 100 unit/mL 14 unit subcut DAILY 09/10/22 04/18/23 subcutaneous solution (Lantus U-100 Insulin) sitagliptin phosphate 50 mg tablet 50 mg PO DAILY 09/10/22 04/18/23 (Januvia) Allergies Allergy/AdvReac Type Severity Reaction Status Date / Time No Known Allergies Allergy Verified 04/18/23 12:04 Review of Systems Review of Systems: CONSTITUTIONAL: + body aches, fever, fatigue EYES: Denies visual changes, redness, or discharge. ENT: Denies rhinorrhea, sore throat, or otalgia.+ congestion CARDIOVASCULAR: Denies chest pain, palpitations, or edema. RESPIRATORY: + cough, shortness of breath with exertion GASTROINTESTINAL: Denies abdominal pain, nausea, vomiting, or diarrhea. GENITOURINARY: Denies dysuria or hematuria. SKIN: Denies rash, itching, or wounds. MUSCULOSKELETAL: Denies back pain, joint pain, or myalgia. NEUROLOGIC: Denies numbness, tingling, or weakness.+ headache PSYCH: Denies depression or anxiety. [facility] Past Medical History Medical History Anxiety Anxiety Hypertension Surgical History Surgical History Hx of cholecystectomy Family History Family History Mother Family history of glaucoma Hypertension Father Hypertension Other Family history of kidney disease Family history of mental disorder Social History Social History Smoking status: Current every day smoker Additional smoking assessment comments: 4 cigarettes/week Alcohol intake: current Alcohol use details: Once per week, 4 beers at a time Substance use type: amphetamines Living arrangements: with family Gender identity (if verbalized by the patient): Male Sexual Orientation (if Verbalized by the Patient): Straight or Heterosexual Spiritual care concerns: No Comments At time of signature, I have reviewed and agree with nursing past medical, surgical, social and family history unless otherwise noted. Please see nursing chart for further information. There is no relevant family history pertinent to the presenting complaint Exam Narrative: GENERAL: Ill-appearing, well-nourished, and in no acute distress. HEAD: Normocephalic, atraumatic. EYES: EOMI. No redness or drainage. Conjunctivae normal. ENT: Mucous membranes pink and moist. Nares congested with purulent nasal discharge. TMs normal bilaterally. Throat normal. Uvula midline. NECK: Normal AROM. Supple. No lymphadenopathy. CHEST: No respiratory distress. Clear to auscultation. HEART: Regular rate and rhythm. No murmur appreciated. EXTREMITIES: Normal range of motion. No edema. SKIN: Warm, dry, no rash. Capillary refill normal. Normal skin turgor. NEURO: No focal deficits. Alert and oriented x3. Gait steady. PSYCH: Normal affect.
== END 2023-04-18 12:22 | disposition home or self-care (01) ==
PROVIDERS: Emergency Provider Nurse Practitioner; PCP Family Medicine
DX: J01.90 Acute sinusitis, unspecified (principal); F17.210 Nicotine dependence, cigarettes, uncomplicated; F15.90 Other stimulant use, unspecified, uncomplicated; F41.9 Anxiety disorder, unspecified; I10 Essential (primary) hypertension; E11.9 Type 2 diabetes mellitus without complications; Z79.4 Long term (current) use of insulin; Z79.84 Long term (current) use of oral hypoglycemic drugs
CPT/HCPCS: 99213; G0463

== ENCOUNTER 2023-08-22 15:00 | Emergency (ER) | payer BC, OTHER, SELFPAY ==
--- NOTE | ~2023-08-22 | XR_ITS ---
EXAMINATION: XR wrist LT min 3V DATE: 08/22/2023 15:53 INDICATION: Left wrist injury and pain. TECHNIQUE: 4 views of left wrist were obtained. COMPARISON: None. FINDINGS: There is a nondisplaced transverse fracture of scaphoid waist. Joint spaces are normal. IMPRESSION: 1. Nondisplaced transverse fracture of scaphoid waist. Reviewed, dictated and finalized at location A.
[2023-08-22 15:29] VITALS: BP 153/130; PULSE 107; RESP 14; TEMP 36.6; O2SAT 98
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
[2023-08-22 16:09] VITALS: BP 150/109
== END 2023-08-22 16:40 | disposition home or self-care (01) ==
PROVIDERS: Emergency Provider Nurse Practitioner; PCP Family Medicine
DX: S62.002A Unspecified fracture of navicular [scaphoid] bone of left wrist, initial encounter for closed fracture (principal); V48.5XXA Car driver injured in noncollision transport accident in traffic accident, initial encounter; I10 Essential (primary) hypertension; F17.210 Nicotine dependence, cigarettes, uncomplicated
CPT/HCPCS: 29125; 73110; 99214; A4565; G0463

== ENCOUNTER 2024-10-18 17:27 | Observation (INO) | payer OTHER, SELFPAY ==
[2024-10-18] VITALS (10 sets, daily range): BP systolic 159–200; BP diastolic 103–136; PULSE 90–105; RESP 18–21; TEMP 36.5–36.8; O2SAT 94–100; BMI 31.8
--- NOTE | ~2024-10-18 | US_ITS ---
EXAMINATION: US retroperitoneal duplex ltd DATE: 10/19/2024 12:18 CDT INDICATION: Uncontrolled hypertension. TECHNIQUE: Sonographic imaging of the kidneys was performed with a 3.5 MHz transducer. Retroperitone al duplex sonogram of the renal arteries also obtained. FINDINGS: No focal flow abnormalities are seen in the renal arteries on color Doppler. The peak syst olic velocity ranges of the right and left renal arteries and aorta are 31 cm per second, 28 cm per s econd, and 83 cm per second, respectively. The velocities and renal to aortic ratios are within freeman l limits. IMPRESSION: 1. No Doppler evidence of renal artery stenosis. Reviewed, dictated and finalized at location A.
--- NOTE | ~2024-10-18 | CT_ITS ---
CT brain wo con Ordering provider: Gem Bahena History: 48 years Male with . headache, hypertension . Comparison: May 18, 2021 Technique: CT of the head without contrast. Radiation reduction technique utilized.The dose-length pr oduct was 681 mGy-cm. FINDINGS: BRAIN PARENCHYMA AND CSF SPACES: No midline shift, mass effect or hemorrhage. The brain parenchyma a nd CSF spaces are otherwise normal. VISUALIZED PARANASAL SINUSES: Well aerated. MASTOIDS: Well aerated. BONES: The bones appear intact. SOFT TISSUES: Visualized nasopharynx is normal. Superficial soft tissues are normal. IMPRESSION: No acute intracranial findings. Reviewed, dictated and finalized at location A.
--- NOTE | ~2024-10-18 | NM_ITS ---
EXAMINATION: NM [place] stress w perfusion DATE: 10/22/2024 13:41 INDICATION: Chest pain TECHNIQUE: Rest images were obtained following intravenous administration of 9.5 mCi Tc99m tetrofosmi n (Myoview). The patient was infused intravenously with Lexiscan (Regadenoson). Then, 28.4 mCi Tc99m tetrofosmin (Myoview) was administered intravenously, and stress images were obtained. Data was recon structed into short axis and horizontal and vertical long axis SPECT images. Gated SPECT images were also obtained. COMPARISON: None. FINDINGS: Small mild fixed perfusion defect at the apical lateral segment consistent with infarct. No reversible perfusion defects to suggest ischemia. There is normal left ventricular chamber size wit h mild global hypokinesis resulting in mildly decreased left ventricular ejection fraction measuring 44%. IMPRESSION: 1. Small mild fixed infarct at the apical lateral segment. No reversible ischemia. 2. Mild global hypokinesis with mildly decreased left ventricular ejection fraction measuring 44%. Reviewed, dictated and finalized at location A. IMPRESSION: 1. Small mild fixed infarct at the apical lateral segment. No reversible ischem ia. 2. Mild global hypokinesis with mildly decreased left ventricular ejection frac tion measuring 44%.
--- NOTE | ~2024-10-18 | XR_ITS ---
XR chest 2V Ordering provider: Nahid Russo MD History: 48 years Male with . cp . Comparison: October 30, 2022 FINDINGS: MEDIASTINUM: The cardiac silhouette is not enlarged. LUNGS: No infiltrates, effusions or pneumothorax. OTHER: No free air under the diaphragm. IMPRESSION: No acute cardiopulmonary pathology. Reviewed, dictated and finalized at location A.
--- NOTE | ~2024-10-18 | US_ITS ---
US renal BI 10/19/2024 12:08 Procedure: Realtime transabdominal ultrasound of the kidneys and bladder. Indication: Uncontrolled hypertension. Chronic kidney disease. Comparison: 12/20/2018 Findings: Renal echotexture is normal bilaterally without hydronephrosis, contour deforming mass or r enal calculus. Increased renal cortical echotexture with decreased cortical medullary differentiation , consistent with chronic medical renal disease. The right kidney measures 9.8 cm and left kidney nia sures 10.2 cm. Bladder within normal limits. Impression: 1: Increased renal cortical echotexture, consistent with chronic renal disease. Reviewed, dictated and finalized at location A. Impression: 1: Increased renal cortical echotexture, consistent with chronic renal disease.
--- OUTSIDE RECORDS SUMMARY | 2024-10-18 17:29 | XMS_ITS | Clinical Summary ---
Author Organization [facility] Address [address] [place] [address] Phone Care Team Providers Care Senior Warehouse Clerk Name Role Phone Unavailable Primary Care Provider Unavailabl e Allergies No known active allergies Medications hydralazine HCl (HYDRALAZINE ORAL) Take by mouth. Activ e amlodipine besylate (AMLODIPINE ORAL) Take by mouth. Activ e blood sugar diagnostic Strip TEST BLOOD GLUCOSE FOUR TIMES DAILY DIRECTED 100 Each 07/23/2022 4:05 PM AUTOMATION SALES MANAGER 3 Active Blood-Glucose Meter (OneTouch Verio Reflect Meter) USE DIRECTED TO TEST BLOOD GLUCOSE 1 Each 07/23/2022 4:05 PM AUTOMATION SALES MANAGER 3 Active lancets (One Touch Delica) 33 gauge USE DIRECTED TO TEST BLOOD GLUCOSE FOUR TIMES DAILY 100 Each 07/23/2022 4:05 PM AUTOMATION SALES MANAGER 3 Active oxyCODONE-aceta minophen (PERCOCET) 5-325 mg tabletIndicatio ns:Dental abscess Take 1-2 Tablets by mouth every 4 hours as needed for Pain. Max Daily Amount: 12 Tablets 20 Tablet 07/23/2022 4:05 PM AUTOMATION SALES MANAGER 3 Active sennosides-docu sate sodium (SENNA-S) 8.6-50 mg tablet Take 1 Tablet by mouth 1 time daily as needed for Constipation. 3 Active insulin glargine-yfgn 100 unit/mL pen syringe Inject 23 Units by subcutaneous injection daily with breakfast. 15 mL 3 Active insulin lispro (HumaLOG) 100 unit/mL pen syringe Inject 0-9 Units by subcutaneous injection 4 times daily with meals and at bedtime. Check blood sugar before Eating. Give the following Insulin dose based on before meal blood sugar reading. 80-100 = give 0 units, 100 - 139 = give 3 units, 140 - 175 = give 5 units, 176 - 200 = give 6 units, 201 - 250 = give 8 units, 251 - 299 = give 10 units, 300 and greater = give 12 units 15 mL Active Active Problems Problem Noted Date Diagnosed Date Type 2 diabetes mellitus with hyperglycemia 12/2022 New onset type 2 diabetes mellitus 07/21/2022 Class 1 obesity due to exces s calories with serious comorbidity and body mass index (BMI) of 34.0 to 34.9 in adult 07/21/2022 Dental abscess 07/19/2022 Encounter for weaning from ventilator 07/19/2022 Laryngeal edema 07/19/2022 Pain 07/19/2022 HTN (hypertension), benign 07/18/2022 Submandibular abscess 07/18/2022 Respiratory failure 07/18/2022 Social History Tobacco Use Types Packs/Day Years Used Date Smoking Tobacco: Former Cigarettes Tobacco Cessation:Counseling Given: No Alcohol Use Standard Drinks/Week Comments Not Currently 5 (1 standard drink = 0.6 oz pur e alcohol) Sex and Gender Information Value Date Recorded Sex Assigned at Not on file Legal Sex Male 11:16 PM CDT Gender Identity Not on file Sexual Orientation Not on file Last Filed Vital Signs Vital Sign Reading Time Taken Comments Blood Pressure 128/82 07/23/2022 5:06 PM AUTOMATION SALES MANAGER Pulse 82 07/23/2022 5:06 PM AUTOMATION SALES MANAGER Temperature 36.7 C (98.1 F) 07/23/2022 5:06 PM AUTOMATION SALES MANAGER Respiratory Rate 16 07/23/2022 5:06 PM AUTOMATION SALES MANAGER Oxygen Saturation 97% 07/23/2022 5:06 PM AUTOMATION SALES MANAGER Inhaled Oxygen Concentration - - Weight 113.6 kg (250 lb 6.4 oz) 07/20/2022 6:00 AM AUTOMATION SALES MANAGER Height 180.3 cm (5' 11) 07/18/2022 7:39 PM AUTOMATION SALES MANAGER Body Mass Index 34.92 07/18/2022 7:39 PM AUTOMATION SALES MANAGER Plan of Treatment Health Maintenance Due Date Last Done Comments DIABETES ANNUAL FOOT EXAM 11/24/1995 DIABETES ANNUAL RETINAL EXAM 11/24/1995 DIABETES MICROALBUMIN ANNUAL SCREEN 11/24/1995 DTAP/TDAP/TD VACCINES (1 - Tdap) 1996 HEPATITIS B VACCINES (1 of 3 - 19+ 3-dose series) 1996 COLORECTAL SCREENING 2022 Colorectal Cancer Screening 2022 FIT-DNA Q 3 years 2022 FIT/FOBT Q 1 year 2022 Flex Sig/CT Colonography Q 5 years 2022 DIABETES HBA1C Q 6 MONTHS 01/20/20232022, 09/13/2021 LDL CHOLESTEROL ANNUAL 07/23/2023 07/22/2022 INFLUENZA VACCINE (#1) 2023 HPV VACCINES Aged Out No longer eligi ble based on patient's age to complete this topic Procedures Procedure Name Priority Date/Time Associated Diagnosis Comments LIPID PANEL Routine 07/22/2022 7:43 AM AUTOMATION SALES MANAGER HEMOGLOBIN A1C Routine 07/20/2022 4:18 AM AUTOMATION SALES MANAGER from Last 3 Months or Most Recently Relevant to Health Maintenance Results * (ABNORMAL) LIPID PANEL (07/22/2022 7:43 AM AUTOMATION SALES MANAGER) Pathologist [facility] CHOLESTEROL 206(H) <200 mg/dL 07/22/2022 9:06 AM [facility] [email or web address] [facility] TRIGLYCERIDE 379(H) <150 mg/dL 07/22/2022 9:06 AM [facility] [email or web address] [facility] HDL 34(L) 40 - 59 mg/dL 07/22/2022 9:06 AM [facility] LDL CALCULATED 96 <100 mg/dL 07/22/2022 9:06 AM [facility] [email or web address] [facility] NON-HDL CHOLESTEROL 172(H) <130 mg/dL 07/22/2022 9:06 AM [facility] Blood Venipuncture / Unknown 07/22/2022 7:43 AM AUTOMATION SALES MANAGER 07/22/2022 8:33 AM AUTOMATION SALES MANAGER [facility] LABORATORY [facility] - 07/22/2022 9:06 AM AUTOMATION SALES MANAGER TOTAL CHOLESTEROL mg/dL Desirable <200 Borderline high 200-239 High >=240 TRIGLYCERIDES mg/dL Normal <150 Borderline high 150-199 High 200-499 Very high >=500 HDL CHOLESTEROL mg/dL Low <40 Normal 40-59 Desirable >=60 NON HDL CHOLESTEROL mg/dL Optimal <130 Near Optimal 130-159 Borderline High 160-189 Very High >=190 CALCULATED LDL mg/dL LDL <70, OPTIMAL if have Atherosclerotic cardiovascular disease (ASCVD) or intermediate or higher (>7.5%) 10 year risk of ASCVD including most adults with diabetes. LDL <100, Optimal in adult patients with low (<7.5%) 10 year ASCVD risk LDL 100-160, Suboptimal LDL >160, High LDL >190, Very high ATPIII Guidelines Reference Ranges for Lipid Panels (NCEP/AMA) . Patrice Fontana DO CHEMISTRY ORDERABLES Final Resu lt Performing Organization Address [facility]/ZIP Co de Phone Number [facility] [email or web address] [facility] CLIA# [id number] [place] [address] * (ABNORMAL) HEMOGLOBIN A1C (07/20/2022 4:18 AM AUTOMATION SALES MANAGER) HEMOGLOBIN A1C 11.6(H) <=5.6 % 07/20/2022 7:55 PM AUTOMATION SALES MANAGER [facility] [email or web address] [facility] EST. AVG GLUCOSE, A1C 286 mg/dL 07/20/2022 7:55 PM AUTOMATION SALES MANAGER [facility] [email or web address] [facility] Blood Venipuncture / Unknown 07/20/2022 4:18 AM AUTOMATION SALES MANAGER 07/20/2022 4:29 AM AUTOMATION SALES MANAGER Narrative [facility] LABORATORY [facility] - 07/20/2022 7:55 PM AUTOMATION SALES MANAGER HGB A1C INTERPRETATION NORMAL: <5.7% PRE-DIABETES: 5.7 - 6.4% DIABETES: 6.5% OR GREATER Nic Ramos NP CHEMISTRY ORDERABLES Final Yajaira gill Performing Organization Address [facility]/ZIP Co de Phone Number [facility] [email or web address] [facility] CLIA# [id number] [place] [address] from Last 3 Months or Most Recently Relevant to Health Maintenance Insurance [facility] [employer] [facility] [employer] Commercial Advance Directives For more information, please contact: [phone] * Full Code (Latest Code Status on File) Date Activated Date Inactivated Comments 07/18/2022 8:41 PM 07/23/2022 7:47 PM
--- OUTSIDE RECORDS SUMMARY | 2024-10-18 17:29 | XMS_ITS | Encounter Summary ---
Author Organization [facility] Address [address] [place] [address] Care Team Providers Care Open Hearth Melter Name Role Phone Unavailable Primary Care Provider Unavailabl e Reason for Visit * Reason Onset Date Comments new diabetes diagonosis 07/22/2022 Spoke jim Burns at 's office Encounter Details Date Type Department Care Team (Late st Contact Info) Description 07/22/2022 Telephone [facility] Admitting [address] [place] [address] Patrice Fontana DO NO ADDRESS ON FILE new diabetes diagonosis (Spoke with Katy at 's office) Social History Tobacco Use Types Packs/Day Years Used Date Smoking Tobacco: Former Cigarettes Alcohol Use Standard Drinks/Week Comments Not Currently 5 (1 standard drink = 0.6 oz pur e alcohol) Sex and Gender Information Value Date Recorded Sex Assigned at Not on file Legal Sex Male 11:16 PM CDT Gender Identity Not on file Sexual Orientation Not on file COVID-19 Exposure Response Date Recorded In the last 10 days, have yo u been in contact with someone who was confirmed or suspected to have Coronavirus/COVID-19? No / Unsure 07/18/2022 7:45 PM PREPARATION SUPERVISOR [employer] documented as of this encounter Plan of Treatment Not on file documented as of this encounter Visit Diagnoses Not on filedocumented in this encounter
--- OUTSIDE RECORDS SUMMARY | 2024-10-18 17:29 | XMS_ITS | CONTINUITY OF CARE DOCUMENT ---
Author Name nitin taveras Address Unknown Organization [facility] Address [address] [place] [address] Phone [phone] Care Team Providers Care Electrical Design Engineer Name Role Phone Scott KHAN, [facility] Unavailable PANDA DARLING MD Unavailable PANDA DARLING MD Unavailable [phone] INSURANCE PROVIDERS Payer name Policy type / Coverage type [place] red democrat ID [facility] Blue [facility] [id number] [place] [employer] (2) Medicaid [id number]
--- OUTSIDE RECORDS SUMMARY | 2024-10-18 17:29 | XMS_ITS | Continuity of Care Document ---
Author Organization [facility] Address [address] [place] [address] Phone Care Team Providers Care Director Of Midwifery/Staff Midwife Name Role Phone Juan Carlos Tran MD Unavailable Unavailable Allergies, Adverse Reactions, Alerts Substance Reaction Status Criticality No Known Allergies Active No Inform ation Medications Medication Instructions Dosage Effective Dates (start - stop) Status Comments losartan 50 mg tablet take 1 tablet (50M G) by oral route every day 50 MG - Active Norvasc 10 mg tablet take 1 tablet (10MG ) by oral route every day 10 MG - Active Procedures Procedure Date PREV VISIT, EST, AGE 18-39 OFFICE/OUTPATIENT VISIT, [facility] Advance Directives Directive Yes / No Effective Date File Name No Information Encounters Encounter Description Practice Location Reason(s) For Visit Diagnoses Date Provider Providers Copied on Encounter [facility], [address] [employer] [place], [place], [id number], tel:[phone] [facility] Medicine No Information 4 Marc Rangel. [address], [place], [id number] , [place]. tel:[phone] Referring Provider: Juan Carlos Tran, [address], [place], [place], [id number]. tel:[phone] PREV VISIT, EST, AGE 18-39 [facility], [address] [employer] [place], [id number], tel:[phone] [facility] Medicine Physical (chief complaint) Dietary surveillance and counselingRoutine Medical ExamRoutine Medical Exam 3 Marc Rangel. [address], [address], [id number] , . tel:[phone] Referring Provider: Juan Carlos Tran, [address], [place], [place], [id number]. tel:[phone] OFFICE/OUTPA TIENT VISIT, [facility], [address], [place], [place], [id number], [place] tel:[phone] [facility] Muscle pain (chief complaint) HTN (chief complaint) Dietary surveillance and counselingHypertens ion, UnspecifiedMyalgia and myositis, unspecified 3 Marc Rangel. [address], [place], [place], [id number] , [place]. tel:[phone] Family History Family Member Type Diagnosis Age At Onset Mother Problem (finding) Alive and well Mother Problem (finding) unknwno Brother Problem (finding) Alcoholism Brother Problem (finding) Alive and well Father Problem (finding) Hyperlipidemia Father Problem (finding) Hypertension Father Problem (finding) Anxiety Payers Payer name Insurance type Covered alliance party ID Authoriza tion(s) No Information Social History Type Description Quantity Date Captured Comments Sex Male Smoking Status No Information Chief Complaint And Reason For Visit No Information Plan Of Treatment Date Type Action Status Goal Tobacco cessation counseling completed Goal Tobacco cessation counseling completed History Of Present Illness Encounter Date Complaint History Of Prese nt Illness No Information Instructions Date Instruction Additional Infor mation Dietary counseling Related to Di etary surveillance counseling Decrease caloric intake Related to Dietary surveillance counseling Decrease caloric intake Related to Dietary surveillance counseling Dietary counseling Related to Di etary surveillance counseling Assessments Type Assessment Date No Information
--- OUTSIDE RECORDS SUMMARY | 2024-10-18 17:30 | XMS_ITS | Data Portability ---
Author Organization [facility], Main Office Address [address] [place] [address] Care Team Providers Care Crown Blocker Name Role Phone GLEN AUGUSTE Primary Care Provider [phone] Assessment Encounter Date Assessment Date Assessment LastModified by Organization Details LastModified Time 09/28/2022 09/28/2022 Assessment: Very severe OSAHS, AHI = 72 PLMD Narcolepsy Hypoventilation Plan: The following were reviewed and explained to the patient: primary care/referral note [facility] home sleep study 09/08/22 AHI = 72, supine AHI = 73 General information on sleep disordered breathing, evaluation of sleep disordered breathing, treatment with PAP therapy, and living with PAP therapy were covered. Chapter 3 of educational DVD was shown. PSG is medically necessary to determine the degree of and management of sleep apnea. We discussed with the patient the impact of weight on: Sleep disordered breathing Hypertension Mixed hyperlipidemia DM DELROY CKD We discussed with the patient the benefit of PAP therapy on: Sleep disordered breathing Anxiety Rhinitis Erythrocytosis Hypertension DM DELROY CKD Educated the patient on sleep hygiene measures. Relaxing rituals to rest easy, understanding foods with positive and negative impact on sleep, creating a peaceful sleep environment, timing of exercise, using herbal sleep aids, and practicing sleep-friendly meditation were covered. To determine how much sleep is needed, the patient will assess where he falls on the spectrum, examine what lifestyle factors such as work schedules and stress are affecting the quality and quantity of sleep. In general, adults need 7-9 hours of sleep. Educated the patient regarding foods that promote sleep. These include but are not limited to cherries, bananas, toast, oatmeal, and warm milk. Educated the patient regarding foods and drinks to avoid before bedtime. These include but are not limited to aged cheese, chocolate, spicy foods, tomato-based sauces, soy, ginseng tea and processed meat. Advocated influenza vaccination annually and pneumonia vaccination JAKE. Advocated weight loss through diet and exercise. Patient's ideal body weight according to height and gender is up to 180 lbs. Encouraged patient to adjust caloric intake to maintain/achieve ideal body weight, emphasizing on fruits, vegetables, whole grains, and fat-free or low-fat products. These include lean meats, poultry, fish, beans, eggs, and nuts and foods that are low in saturated fats, trans-fats, cholesterol, salt (sodium), and glycemic index. Stressed the importance of regular exercise up to the patient's capacity limits. In this case, we recommend 20 min daily walking, 2 days a week of resistance training. Patient to monitor BP daily and bring records to PCP for further management. Follow-up: 1 week after titration sleep study Not available 09/28/2022 16:25:57 10/26/2022 10/26/2022 46 yo M with - WELL ADULT VISIT - DM II, uncontrolled - HLD, uncontrolled - HTG, uncontrolled - HTN - ANXIETY - ALLERGIC RHINITIS, Seasonal - CALVIN - OBESITY I - EX-SMOKER (Quitted 04/06) HbA1c: 9.1(08/09/22) CT head wo: 09/13/21. CXR: 09/13/21. D/w pt in detail about his findings, recent labs & imagines and further plan of care. Will do routine labs, cxr. Explained about different options for him. Meds as directed. Diet and exercise explained in detail. BP & DM diary education given and call us if any concerns. Encouraged pt to quit smoking. Educated pt about alarming symptoms to monitor at home. F/u with Nephro as per schedule. F/u with Cardio as per schedule. F/u with Psych as per schedule. Cont f/u with sleep study as per schedule. Cont f/u with Ophtho as per schedule. Offered to refer to counsellor; but pt declined. Offered to refer to Endo; but pt declined. HM: Flu - Pt declined. Tdap - At HD. F/u in 2-3 weeks. Annual labs in 11/06. [email or web address] Not available 10/26/2022 11:01:04 07/04/2023 07/04/2023 Assessment: Hypertension Rhinitis Very severe OSAHS, AHI = 72 PLMD Plan: The following were reviewed and explained to the patient: [facility] home sleep study 09/08/22 AHI = 72, supine AHI = 73 [facility] titration sleep study 01/12/23 ResMed medium AirFit F30 full face mask @ 6-11 cmH2O, PLMI = 8 Elevation in periodic limb movement index may be contributed by hydroxyzine. Non-pharmacologic therapy options for periodic limb movement disorder include avoidance of aggravating drugs and substances, mental alerting activities, short daily hemodialysis for patients in renal failure, exercise, leg massage, stretching calf muscles, use of a weighted blanket and applied heat. Patient will cut down on alcohol consumption and caffeine intake. We will check BUN, Creatinine, Vitamin E, Vitamin B12, RBC folate, Iron, TIBC, Ferritin, ESR, Magnesium, Hgb and Hct levels. Educated the patient on problems and solutions associated with positive airway pressure (PAP) use. Difficulty tolerating pressure, mask leaks, intolerance of interface, nasal congestion, claustrophobic response, dry mouth, and unintentional mask removal during sleep were covered. Patient experiences nasal congestion. Patient will use nasal saline spray before starting PAP, use heated PAP humidifier, clean/air dry humidifier reservoir daily, use nasal steroid spray, use ipratropium bromide nasal spray if rhinitis/rhinorrhe a is present or obtain an oronasal/oral interface. Patient experiences claustrophobic response. Patient will practice wearing PAP mask daily while awake and undergo PAP desensitization. We will check fit of patient's mask and provide a sleeker alternative as necessary. Dry mouth is a normal occurrence for people who just start out on PAP therapy because they are not used to air blowing in to the throat to hold open. Dry mouth is exacerbated for people who wear nasal PAP mask and whose jaw drops open during sleep. Not only does this create a much less efficient therapy because of leakage, it also causes dry mouth. There are a couple solutions to help prevent this type of problem. A simple solution would be to wear a chinstrap which essentially holds the jaw in place. A second solution would be a switch to a full face mask which covers both the nose and mouth. Although this is another easy solution, using a full face mask for some could seem claustrophobic or confining. There is no silver bullet solution as no single mask is right for everybody. Sometimes it takes a bit of experimentation to find a PAP mask which best meets the patient's needs as well as fits comfortably. Another tactic is to use a humidifier on your PAP machine. Most new PAP machines have integrated humidifiers. Humidification is pham when dealing with symptoms of dry mouth because the humidifier can supply both warm and room temperate air. Even a small amount of humidity in the airflow will help nasal passages to stay hydrated. If a person is using both a full face mask and a PAP machine with a heated humidifier and is still experiencing dry mouth, an ill-fitted PAP mask might be causing the problem. Leakage can be caused by a mask that is to large or small, the wrong style mask, the cushion is degraded or simply because the mask's straps aren't adjusted correctly. If leakage occurs, dry air from the room can leak in while humidification escapes. The result is reduced humidification within the circuit and resulting in dry throat and mouth. Finally, beyond factors involving the PAP machine and mask, dry mouth can also be caused or worsened by dehydration. The general recommendation to during eight 8 oz. glasses of water a day might be too little for many people. When people drink large amounts of coffee or other caffeine beverages, or sweat a lot during the day, making sure to rehydrate is an important part of PAP therapy. ResMed Air Sense 11 auto set unit with heated humidifier, supplies, ResMed medium AirFit F30 full face mask @ 6-11 cmH2O ordered. Further titration will be based on clinical response. Provided the patient with a list of local home care stores where positive airway pressure (PAP) units, accoutrement, and services are available. Home care store selection is based on patient's insurance carrier. Patient will setup an appointment with [facility] for supplies and pressure adjustments. A major predictor of success with use of PAP is follow-up with both the respiratory supplier and the treating physician. The respiratory supplier optimally will follow-up within two weeks after starting use while the treating physician optimally will follow-up within 90 days after starting therapy to assess adherence and effectiveness of treatment. The download results can show the treating physician information about adherence to treatment, residual AHI while on treatment and presence of large mask leakage. This information is especially helpful if the patient has residual sleepiness despite treatment. General information on sleep disordered breathing, evaluation of sleep disordered breathing, treatment with PAP therapy, and living with PAP therapy were covered. We discussed with the patient the impact of weight on: Sleep disordered breathing Hypertension Mixed hyperlipidemia DM DELROY CKD We discussed with the patient the benefit of PAP therapy on: Sleep disordered breathing Anxiety Rhinitis Erythrocytosis Hypertension DM DELROY CKD Educated the patient on sleep hygiene measures. Relaxing rituals to rest easy, understanding foods with positive and negative impact on sleep, creating a peaceful sleep environment, timing of exercise, using herbal sleep aids, and practicing sleep-friendly meditation were covered. To determine how much sleep is needed, the patient will assess where he falls on the spectrum, examine what lifestyle factors such as work schedules and stress are affecting the quality and quantity of sleep. In general, adults need 7-9 hours of sleep. Educated the patient regarding foods that promote sleep. These include but are not limited to cherries, bananas, toast, oatmeal, and warm milk. Educated the patient regarding foods and drinks to avoid before bedtime. These include but are not limited to aged cheese, chocolate, spicy foods, tomato-based sauces, soy, ginseng tea and processed meat. Advocated influenza vaccination annually and pneumonia vaccination JAKE. Advocated weight loss through diet and exercise. Patient's ideal body weight according to height and gender is up to 180 lbs. Encouraged patient to adjust caloric intake to maintain/achieve ideal body weight, emphasizing on fruits, vegetables, whole grains, and fat-free or low-fat products. These include lean meats, poultry, fish, beans, eggs, and nuts and foods that are low in saturated fats, trans-fats, cholesterol, salt (sodium), and glycemic index. Stressed the importance of regular exercise up to the patient's capacity limits. In this case, we recommend 20 min daily walking, 2 days a week of resistance training. Patient to monitor BP daily and bring records to PCP for further management. Follow-up: 3 weeks Not available 07/04/2023 16:14:58 09/13/2023 09/13/2023 47 yo M with - WELL ADULT VISIT - DM II, uncontrolled - HLD, uncontrolled - HTG, uncontrolled - HTN - ANXIETY - ALLERGIC RHINITIS, Seasonal - CALVIN - OBESITY I - EX-SMOKER (Quitted 04/06) HbA1c: 9.1(08/09/22) CALVIN: 01/12/23. CXR: 10/30/22. CT head wo: 09/13/21. CXR: 09/13/21. D/w pt in detail about his findings, recent labs & imagines and further plan of care. Medication compliance and regular f/u explained in detail. Will do routine labs. Pt declined for cxr. Will refer pt to Cardio again. Explained about different options for him. Meds as directed. Diet and exercise explained in detail. BP & DM diary education given and call us if any concerns. Encouraged pt to quit smoking. Educated pt about alarming symptoms to monitor at home. F/u with Cardio as per schedule. F/u with Psych as per schedule. Cont f/u with Ophtho as per schedule. Cont f/u with Ortho as per schedule. Offered to refer to counsellor; but pt declined. Offered to refer to Endo; but pt declined. HM: Colonoscopy - Pt declined. Cologuard ordered. Flu - Pt declined. Tdap - At HD. F/u in 2-3 weeks. Annual labs in 09/07. Not available 09/13/2023 15:37:57 10/04/2023 10/04/2023 47 yo M with - ELEVATED LFTs, new - DM II, stable - HLD, uncontrolled - HTG, uncontrolled - HTN - CKD III - ANXIETY - ALLERGIC RHINITIS, Seasonal - CALVIN - VIT D DEFICIENCY - OBESITY I - EX-SMOKER (Quitted 04/06) HbA1c: 9.1(08/09/22) - 5.5(09/13/23) Annual labs: 09/13/23. CALVIN: 01/12/23. CXR: 10/30/22. CT head wo: 09/13/21. CXR: 09/13/21. D/w pt in detail about his findings, recent labs & imagines and further plan of care. Medication compliance and regular f/u explained in detail. Will refer pt to Nephro. Meds as directed. Diet and exercise explained in detail. BP & DM diary education given and call us if any concerns. Advised pt to cut down on alcohol intake and stop it. Encouraged pt to quit smoking. Educated pt about alarming symptoms to monitor at home. F/u with Nephro as per schedule. F/u with Cardio as per schedule. F/u with Psych as per schedule. Cont f/u with Ophtho as per schedule. Cont f/u with Ortho as per schedule. Offered to refer to counsellor; but pt declined. Offered to refer to Endo; but pt declined. HM: Colonoscopy - Pt declined. Cologuard ordered. Flu - Pt declined. Tdap - At HD. F/u in 3 months. A1c, lipids, LFT in 01/06. Annual labs in 09/07. [email or web address] Not available 10/04/2023 17:49:04 Plan of Treatment Reminders Order Date Submit Date Provider Last Modified By Organization Details Last Modified Time Details Appointments None recorded. Lab lipid panel, serum [address] (Lab), [address] [place], [address], 4 08:03:39 HbA1c (hemoglobi n A1c), blood [address] (Lab), [address] [place], [address], 4 08:03:39 hepatic function panel, serum [address] (Lab), [address] [place], [address], 4 08:03:39 CMP, serum or plasma 2023 024 [facility] (Lab), [address] [place], [address], 4 21:32:57 CBC w/ auto diff 2023 024 [facility] (Lab), [address] [place], [address], 4 19:42:50 lipid panel, blood [address] (Lab), [address] [place], [address], 4 08:04:00 TSH, serum, reflex free T4 [address] (Lab), [address] [place], [address], 4 08:04:00 PSA, serum or plasma [address] (Lab), [address] [place], [address], 4 08:04:00 urinalysis complete, reflex culture [address] (Lab), [address] [place], [address], 4 08:04:00 vitamin D, 25-hydroxy , total, serum [address] (Lab), [address] [place], [address], 4 08:04:01 microalbum in, urine [address] (Lab), [address] [place], [address], 4 08:04:00 HbA1c (hemoglobi n A1c), blood [address] (Lab), [address] [place], [address], 4 08:04:00 noninvasiv e colorectal cancer DNA + occult blood screening, QL, stool 2023 024 [email or web address] [address] [facility] (Cologuard Orders Only), [address], [address], [place], [address], 4 08:04:01 iron + TIBC + ferritin, serum 2023 024 [email or web address] 5 [facility] (Lab), [address] [place], [address], 4 11:15:15 folate, RBC 2023 024 5 [facility] (Lab), [address] [place], [address], 4 11:15:15 vitamin B12, serum 2023 024 [email or web address] 5 [facility] (Lab), [address] [place], [address], 4 11:15:15 ESR (erythrocy te sedimentat ion rate), blood 2023 024 [email or web address] 5 [facility] (Lab), [address] [place], [address], 4 11:15:15 hemoglobin + hematocrit , blood 2023 024 5 [facility] (Lab), [address] [place], [address], 4 11:15:16 bun (blood urea nitrogen), serum or plasma 2023 024 [email or web address] 5 [facility] (Lab), [address] [place], [address], 4 11:15:16 creatinine , serum or plasma 2023 024 5 [facility] (Lab), [address] [place], [address], 4 11:15:16 magnesium, serum or plasma 2023 024 [email or web address] 5 [facility] (Lab), [address] [place], [address], 4 11:15:16 vitamin E, serum 2023 024 [email or web address] 5 [facility] (Lab), [address] [place], [address], 4 11:15:16 CMP, serum or plasma [address] (Lab), [address] [place], [address], 3 10:56:58 CBC w/ auto diff [address] (Lab), [address] [place], [address], 3 10:56:58 lipid panel, blood [address] (Lab), [address] [place], [address], 3 10:56:58 TSH, serum, reflex free T4 [address] (Lab), [address] [place], [address], 3 10:56:58 PSA, serum or plasma [address] (Lab), [address] [place], [address], 3 10:56:58 urinalysis complete, reflex culture [address] (Lab), [address] [place], [address], 3 10:56:58 vitamin D, 25-hydroxy , total, serum [address] (Lab), [address] [place], [address], 3 10:56:59 microalbum in, urine [address] (Lab), [address] [place], [address], 3 10:56:58 HbA1c (hemoglobi n A1c), blood [address] (Lab), [address] [place], [address], 3 10:56:[address] referral - Please call patient to schedule an appointmen t. Thank you. 2023 024 [email or web address] Maxi Belcher MD, [address], [address], [place], [address], 4 09:05:[address] referral - Please call patient to schedule an appointmen t. Thank you 2023 024 [email or web address] Estuardo Aldridge MD, [address], [address], [place], [address], 4 09:14:[address] referral - Please call patient to schedule an appointmen t. Thank you. 2023 024 [email or web address] [facility], [address], [place], [address], 4 09:12:39 Procedures None recorded. Surgeries None recorded. Imaging XR, chest, 2 view 2022 023 [facility] ([facility]), [address] [place], [address], 3 13:13:37 polysomnog martine, titration study - no auth required 2022 023 [facility] [place], [address] [place], [address], 3 14:00:17 Medication Orders fenofibrat e 54 mg tablet 2023 024 [facility] #31768, [address], [place], [place], [id number], 4 17:16:02 amlodipine 10 mg tablet 2023 024 [facility] #41771, [address], [place], [place], [id number], 4 17:16:02 hydralazin e 50 mg tablet 2023 024 [facility] #60769, [address], [place], [place], [id number], 4 17:16:01 losartan 100 mg tablet 2023 024 [facility] #65192, [address], [place], [place], [id number], 4 17:16:02 Farxiga 10 mg tablet 2023 024 [facility] #85939, [address] [place], [place], [id number], 4 17:16:04 rosuvastat in 10 mg tablet 2023 024 [facility] #99553, [address], [place], [place], [id number], 4 17:16:02 Adult Low Dose Aspirin 81 mg tablet,del ayed release 2023 024 [facility] #73542, [address], [place], [place], [id number], 4 17:16:01 ergocalcif daniel (vitamin D2) 1,250 mcg (50,000 unit) capsule 2023 024 [facility] #45115, [address], [place], [place], [id number], 4 17:16:03 metformin ER 500 mg tablet,ext ended release 24 hr 2023 [facility] #81920, [address] [place], [place], [id number], 4 17:16:03 glipizide 5 mg tablet 2023 024 [facility] #17970, [address] [place], [place], [id number], 4 17:16:03 fenofibrat e 54 mg tablet 2023 024 [facility] #71439, [address] [place], [place], [id number], 4 15:28:46 amlodipine 10 mg tablet 2023 024 [facility] #32454, [address] [place], [place], [id number], 4 15:28:46 hydralazin e 50 mg tablet 2023 024 [facility] #46167, [address] [place], [place], [id number], 4 15:28:46 losartan 100 mg tablet 2023 024 [facility] #55479, [address], [place], [place], [id number], 4 15:28:44 rosuvastat in 10 mg tablet 2023 024 [facility] #42217, [address], [place], [place], [id number], 4 15:28:45 Adult Low Dose Aspirin 81 mg tablet,del ayed release 2023 024 [facility] #04830, [address], [place], [place], [id number], 4 15:28:44 metformin ER 500 mg tablet,ext ended release 24 hr 2023 024 [facility], [address], [place], [place], [id number], 4 15:28:43 glipizide 5 mg tablet 2023 024 [facility]183, [address], [place], [place], [id number], 4 15:28:45 amlodipine 10 mg tablet 2022 023 [facility]68769, [address], [place], [place], [id number], 3 10:48:02 hydralazin e 50 mg tablet 2022 023 [facility]680[facility], [address], [place], [place], [id number], 3 10:47:56 losartan 100 mg tablet 2022 023 [facility]88922, [address], [place], [place], [id number], 3 10:47:58 hydroxyzin e HCl 50 mg tablet 2022 023 [facility]46174, [address], [place], [place], [id number], 3 10:47:59 rosuvastat in 10 mg tablet 2022 023 [email or web address] #31586, [address], [place], [place], [id number], 4 14:49:37 Adult Low Dose Aspirin 81 mg tablet,del ayed release 2022 023 [facility] #34516, [address], [place], [place], [id number], 3 10:47:59 Jardiance 25 mg tablet 2022 023 [email or web address] [facility], [address], [place], [place], [id number], 3 10:54:32 Januvia 50 mg tablet 2022 023 [facility]32954, [address], [place], [place], [id number], 3 10:47:57 Patient TargetsNo targets recorded. Patient InstructionsNo instructions recorded. 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 Thank you. Referring Physician: Family [facility], Encounter Date: 09/13/2023 Psychiatrist Referral for An xiety disorder Please call patient to schedule an appointment. Thank you Referring Physician: [facility], Encounter Date: 09/13/2023 Account Development Associate Referral for Ch ronic kidney disease stage 3 Please call patient to schedule an appointment. Thank you. Referring Physician: Glen Auguste, Family Medicine, Encounter Date: 10/04/2023 Results Created Date Observation Date Name Description Value Unit Range Abnormal Flag Note LastModifiedBy Organization Detail LastModifiedTime 09/13/1909/12/2024 COLOG UARD cologuard result Cancel led - Order d not applic able Not Available [facility] (Cologuard Orders Only) [address], [place], [address], 09/12/2024 11:37:26 09/13/19 24 09/13/2023 CBC/C OMPLE TE BLD COUNT W/DIF F white blood cells 8.7 x10'3 /uL 4.2-10 .8 Not Available [facility] (Lab) [address] [place], [address], 09/13/2023 19:42:50 09/13/19 24 09/13/2023 CBC/C OMPLE TE BLD COUNT W/DIF F red blood cells 5.64 x10'6 /uL 4.10-5 .80 Not Available [facility] (Lab) [address] [place], [address], 09/13/2023 19:42:50 09/13/19 24 09/13/2023 CBC/C OMPLE TE BLD COUNT W/DIF F hemoglobin 16.9 g/dL 13.2-1 7.0 Not Available [facility] (Lab) [address] [place], [address], 09/13/2023 19:42:50 09/13/19 24 09/13/2023 CBC/C OMPLE TE BLD COUNT W/DIF F hematocrit 51.1 % 39.3-5 0.0 high Not Available [facility] (Lab) [address] [place], [address], 09/13/2023 19:42:50 09/13/19 24 09/13/2023 CBC/C OMPLE TE BLD COUNT W/DIF F mean red cell volume 90.6 fL 80.0-9 7.0 Not Available [facility] (Lab) [address] [place], [address], 09/13/2023 19:42:50 09/13/19 24 09/13/2023 CBC/C OMPLE TE BLD COUNT W/DIF F mean red cell hemoglobin 30.0 pg 27.0-3 3.0 Not Available [facility] (Lab) [address] [place], [address], 09/13/2023 19:42:50 09/13/19 24 09/13/2023 CBC/C OMPLE TE BLD COUNT W/DIF F mean RBC HGB concentratio n 33.1 g/dL 31.0-3 6.0 Not Available [facility] (Lab) [address] [place], [address], 09/13/2023 19:42:50 09/13/19 24 09/13/2023 CBC/C OMPLE TE BLD COUNT W/DIF F red cell distribution width 13.2 % 11.8-1 5.5 Not Available [facility] (Lab) [address] [place], [address], 09/13/2023 19:42:50 09/13/19 24 09/13/2023 CBC/C OMPLE TE BLD COUNT W/DIF F platelets 283 x10'3 /uL 150-40 0 Not Available [facility] (Lab) [address] [place], [address], 09/13/2023 19:42:50 09/13/19 24 09/13/2023 CBC/C OMPLE TE BLD COUNT W/DIF F mean platelet volume 10.8 fL 9.0-12 .4 Not Available [facility] (Lab) [address] [place], [address], 09/13/2023 19:42:50 09/13/19 24 09/13/2023 CBC/C OMPLE TE BLD COUNT W/DIF F neutrophils 70.0 % 39.0-7 2.0 Not Available [facility] (Lab) [address] [place], [address], 09/13/2023 19:42:50 09/13/19 24 09/13/2023 CBC/C OMPLE TE BLD COUNT W/DIF F lymphocytes 21.4 % 16.0-4 7.0 Not Available [facility] (Lab) [address] [place], [address], 09/13/2023 19:42:50 09/13/19 24 09/13/2023 CBC/C OMPLE TE BLD COUNT W/DIF F monocytes 6.2 % 5.0-12 .0 Not Available [facility] (Lab) [address] [place], [address], 09/13/2023 19:42:50 09/13/19 24 09/13/2023 CBC/C OMPLE TE BLD COUNT W/DIF F eosinophils 1.3 % 1.0-7. 0 Not Available [facility] (Lab) [address] [place], [address], 09/13/2023 19:42:50 09/13/19 24 09/13/2023 CBC/C OMPLE TE BLD COUNT W/DIF F basophils 0.6 % 0.0-2. 0 Not Available [facility] (Lab) [address] [place], [address], 09/13/2023 19:42:50 09/13/19 24 09/13/2023 CBC/C OMPLE TE BLD COUNT W/DIF F immature granulocytes 0.5 % 0.00-0 .50 Not Available [facility] (Lab) [address] [place], [address], 09/13/2023 19:42:50 09/13/19 24 09/13/2023 CBC/C OMPLE TE BLD COUNT W/DIF F neutrophils, absolute count 6.06 x10'3 /uL 1.5-8. 0 Not Available [facility] (Lab) [address] [place], [address], 09/13/2023 19:42:50 09/13/19 24 09/13/2023 CBC/C OMPLE TE BLD COUNT W/DIF F lymphocytes, absolute count 1.85 x10'3 /uL 1.07-3 .43 Not Available [facility] (Lab) [address] [place], [address], 09/13/2023 19:42:50 09/13/19 24 09/13/2023 CBC/C OMPLE TE BLD COUNT W/DIF F monocytes, absolute count 0.54 x10'3 /uL 0.29-0 .99 Not Available [facility] (Lab) [address] [place], [address], 09/13/2023 19:42:50 09/13/19 24 09/13/2023 CBC/C OMPLE TE BLD COUNT W/DIF F eosinophils, absolute count 0.11 x10'3 /uL 0.02-0 .53 Not Available [facility] (Lab) [address] [place], [address], 09/13/2023 19:42:50 09/13/19 24 09/13/2023 CBC/C OMPLE TE BLD COUNT W/DIF F basophils, absolute count 0.05 x10'3 /uL 0.01-0 .08 Not Available [facility] (Lab) [address] [place], [address], 09/13/2023 19:42:50 09/13/19 24 09/13/2023 CBC/C OMPLE TE BLD COUNT W/DIF F immature granulocytes ,absolute 0.04 x10'3 /uL 0.00-0 .05 Not Available [facility] (Lab) [address] [place], [address], 09/13/2023 19:42:50 09/13/19 24 09/13/2023 CBC/C OMPLE TE BLD COUNT W/DIF F nucleated red blood cells 0.0 % -0 Not Available [facility] (Lab) [address] [place], [address], 09/13/2023 19:42:50 09/13/19 24 09/13/2023 CBC/C OMPLE TE BLD COUNT W/DIF F NRBC# 0.00 x10'3 /uL Not Available [facility] (Lab) [address] [place], [address], 09/13/2023 19:42:50 09/13/19 24 09/13/2023 HEMOG LOBIN A1C HA1C 5.5 % 4.0-6. 0 Diabe melissa Scree jocelynn Crite denny: <5.7% Consi stent with absen ce of diabe melissa 5.7-6 .4% Consi stent with incre ased risk for diabe melissa (pred iabet es) >OR=6 .5% Consi stent with diabe melissa REFER ENCE: Diabe melissa Care 2015, 39(Posadas ppl.1 ):s13 -s22 Not Available [facility] (Lab) [address] [place], [address], 09/13/2023 21:06:25 09/13/1909/13/2023 VITAM IN D 25-HY DROXY [id number] <12.8 NG/mL 30-100 low Vitam in D Statu s: Defic ient: <20 ng/mL Insuf ficie nt: 20-29 ng/mL Suffi cient : 30-10 0 ng/mL Not Available [facility] (Lab) [address] [place], [address], 09/13/2023 21:16:35 09/13/1909/1209/13/2023 TSH W/REF ANAYA FT4 TSH with reflex free T4 2.320 uIU/m L 0.465- 4.680 Not Available [facility] (Lab) [address] [place], [address], 09/13/2023 21:20:18 09/13/19 24 09/13/2023 PSA SCREE N PSA medicare screen 0.86 NG/mL 0.00-4 .00 Not Available [facility] (Lab) [address] [place], [address], 09/13/2023 21:20:19 09/13/19 24 09/13/2023 COMPR EHENS ENID METAB OLIC PANEL sodium 140 mmol/ L 137-14 5 Not Available [facility] (Lab) [address] [place], [address], 09/13/2023 21:32:57 09/13/19 24 09/13/2023 COMPR EHENS ENID METAB OLIC PANEL potassium 4.5 mmol/ L 3.5-5. 1 Not Available [facility] (Lab) [address] [place], [address], 09/13/2023 21:32:57 09/13/19 24 09/13/2023 COMPR EHENS ENID METAB OLIC PANEL chloride 108 mmol/ L 98-107 high Not Available [facility] (Lab) [address] [place], [address], 09/13/2023 21:32:57 09/13/19 24 09/13/2023 COMPR EHENS ENID METAB OLIC PANEL carbon dioxide 19 mmol/ L 22-30 low Not Available [facility] (Lab) [address] [place], [address], 09/13/2023 21:32:57 09/13/19 24 09/13/2023 COMPR EHENS EIND METAB OLIC PANEL anion gap 17.5 mmol/ L 14-22 Not Available [facility] (Lab) [address] [place], [address], 09/13/2023 21:32:57 09/13/19 24 09/13/2023 COMPR EHENS ENID METAB OLIC PANEL glucose 84 mg/dL 70-99 Not Available [facility] (Lab) [address] [place], [address], 09/13/2023 21:32:57 09/13/19 24 09/13/2023 COMPR EHENS ENID METAB OLIC PANEL BUN 31 mg/dL 8-19 high Not Available [facility] (Lab) [address] [place], [address], 09/13/2023 21:32:57 09/13/19 24 09/13/2023 COMPR EHENS ENID METAB OLIC PANEL creatinine 2.15 mg/dL 0.66-1 .25 high Not Available [facility] (Lab) [address] [place], [address], 09/13/2023 21:32:57 09/13/19 24 09/13/2023 COMPR EHENS ENID METAB OLIC PANEL GFR 33 Refer ence Range : [place] ge GFR Healt hy Adult : >60 mL/mi n/1.7 3 m2 Chron ic Kidne y Disea se: 15-60 mL/mi n/1.7 3 m2 Kidne y Failu re: <15/m L/min /1.73 m2 www.n iddk. nih.g ov The MDRD study equat ion has not been valid ated in child patricia <18 years of age; pregn ant women ; the elder ly >85 years of age; or in some racia l or ethni c subgr oups, such as Hispa nics. Outsi de the valid ated dwight eters , estim ated GFR is less accur ate, requi ring clini linden judgm ent on a case- by-ca se basis . Clini linden inter preta tion for other races and ages must be made by the clini tim. The MDRD study equat ion has not been valid ated for the evalu ation of serum creat inine relat ed to nutri jonatan l statu s or medic ation usage . For perso ns <18 years of age, a pedia tric GFR calcu lator is avail able on the [facility] websi te: https :[email or web address] coleman.o manjeet/pr ofess ional s/kdo qi/gf r_cal culat or Not Available [facility] (Lab) [address] [place], [address], 09/13/2023 21:32:57 09/13/19 24 09/13/2023 COMPR EHENS ENID METAB OLIC PANEL alkaline phosphatase 68 U/L 38-126 Not Available [facility] (Lab) [address] [place], [address], 09/13/2023 21:32:57 09/13/19 24 09/13/2023 COMPR EHENS ENID METAB OLIC PANEL alanine aminotransfe rase 67 U/L 0-50 high Not Available [facility] (Lab) [address] [place], [address], 09/13/2023 21:32:57 09/13/19 24 09/13/2023 COMPR EHENS ENID METAB OLIC PANEL aspartate aminotransfe rase 130 U/L 15-46 high Not Available [facility] (Lab) [address] [place], [address], 09/13/2023 21:32:57 09/13/19 24 09/13/2023 COMPR EHENS ENID METAB OLIC PANEL bilirubin, total 0.80 mg/dL 0.20-1 .30 Not Available [facility] (Lab) [address] [place], [address], 09/13/2023 21:32:57 09/13/19 24 09/13/2023 COMPR EHENS ENID METAB OLIC PANEL calcium 9.7 mg/dL 8.4-10 .2 Not Available [facility] (Lab) [address] [place], [address], 09/13/2023 21:32:57 09/13/19 24 09/13/2023 COMPR EHENS ENID METAB OLIC PANEL total protein 8.0 g/dL 6.3-8. 2 Not Available [facility] (Lab) [address] [place], [address], 09/13/2023 21:32:57 09/13/19 24 09/13/2023 COMPR EHENS ENID METAB OLIC PANEL albumin 4.7 g/dL 3.4-5. 0 Not Available [facility] (Lab) [address] [place], [address], 09/13/2023 21:32:57 09/13/19 24 09/13/2023 COMPR EHENS ENID METAB OLIC PANEL globulin 3.3 g/dL 2.6-4. 2 Not Available [facility] (Lab) [address] [place], [address], 09/13/2023 21:32:57 09/13/19 24 09/13/2023 COMPR EHENS ENID METAB OLIC PANEL A/G ratio 1.4 ratio 1.0-2. 0 Not Available [facility] (Lab) [address] [place], [address], 09/13/2023 21:32:57 09/13/19 24 09/13/2023 LIPID PANEL cholesterol 257 mg/dL 140-19 9 high NIH KO NSUS RECOM MENDA TION FOR BARTOLOME STERO L: ADULT CHILD LOW RISK: <200 <170 BORDE RLINE : <200- 239 ----- HIGH RISK: >240 >200 Not Available [facility] (Lab) [address] [place], [address], 09/13/2023 21:33:07 09/13/19 24 09/13/2023 LIPID PANEL triglyceride s 219 mg/dL 0-150 high NIH KO NSUS REPOR T RECOM MENDA TION FOR TRIGL YCERI LORE: ADULT CHILD LOW RISK: <150 ----- BODER LINE: 150-1 99 ----- HIGH RISK: >200 ----- Not Available [facility] (Lab) [address] [place], [address], 09/13/2023 21:33:07 09/13/19 24 09/13/2023 LIPID PANEL HDL cholesterol 62 mg/dL 40- Not Available [facility] (Lab) [address] [place], [address], 09/13/2023 21:33:07 09/13/19 24 09/13/2023 LIPID PANEL LDL cholesterol, calculated 151 mg/dL 0-130 high NIH KO NSUS REPOR T RECOM MENDA TIONS FOR LDL: ADULT CHILD LOW RISK <130 <110 (OPTI MAL LDL) <100 ----- LEWDE RLINE : 130-1 59 ----- HIGH RISK: >160 >130 A TRIGL YCERI DE RESUL T >400 INVAL IDATE S THE CALCU LATIO N FOR LDL FRACT IONAT ION - THE LDL RESUL T WILL NOT BE REPOR ANTONIO. Not Available [facility] (Lab) [address] [place], [address], 09/13/2023 21:33:07 09/13/19 24 09/13/2023 TEST NOT PERFO RMED test not performed SEE COMMEN T NO URINE REC'D IN LAB. UNABL E TO PERFO RM MALB AND URINA LYSIS COMPL ETE W/RFX Not Available [facility] (Lab) [address] [place], [address], 09/13/2023 22:10:55 09/14/19 23 09/08/2022 home sleep study No observ ation record ed. [email or web address] [facility] [address] [place], [address], 10/26/2022 10:32:16 09/15/19 23 09/08/2022 home sleep study No observ ation record ed. [address] [place], [address], 10/26/2022 10:32:16 10/31/19 23 10/30/2022 XR, chest , 2 view No observ ation record ed. [address], [address], 09/13/2023 15:21:00 01/22/20 23 01/12/2023 polys omnog martine, titra tion study No observ ation record ed. [address] [place], [address], 09/13/2023 15:20:59 08/22/19 24 08/22/2023 XR, wrist No observ ation record ed. [address], [place], [address], 09/13/2023 15:20:59 Result Notes None recorded. Problems Name Problem SNOMED Code Status Onset Date Resolution Date Notes Provider Name and Address Organization Details Recorded Time Anxiety disorder 724940062 Active 2021 Not Available [facility] 3 00:59:08 Hypertensive disorder 97191581 Active 2021 Not Available [facility] 3 00:59:08 Obesity 487884069 Active 2021 Not Available [facility] 3 00:59:08 Uncontrolled type 2 diabetes mellitus 703680157 Active 2022 Glen Auguste MD [address] [facility], [place] [address], [place], [address] , [employer] 3 11:23:56 Vitamin D deficiency 28873384 Active 2022 Glen Auguste MD [address] [facility], [facility] [address], [place], [address] , [employer] 3 11:27:39 Hypertriglyce ridemia 014249724 Active 2022 Glen Auguste MD [address], [place], [address] , [facility] 3 11:28:23 Chronic kidney disease stage 3 743139951 Active 2022 Glen Auguste MD [address], [place], [address] , [facility] 3 14:13:05 Ex-smoker 3869615 Active 2022 Glen Auguste MD [address], [place], [address] , [facility] 3 14:28:26 Seasonal allergic rhinitis 389481932 Active 2022 Glen Auguste MD [address], [place], [address] , [facility] 3 10:13:55 Periodic limb movement disorder 796603668 Active 2023 Koby Lucas MD [address], [place], [address] , [facility] 4 16:09:54 Hyperlipidemi a 88959020 Active 2023 Glen Auguste MD [address], [place], [address] , [facility] 4 15:19:41 Family history of Cardiovascula r disease 596206585 Active 2023 Glen Auguste MD [address], [place], [address] , [facility] 4 15:21:31 Liver enzymes level above reference range 000357644 Active 2023 Glen Auguste MD [address], [place], [address] , [facility] 4 17:16:47 Notes:Medical History: Anxie ty Rhinitis with postnasal drip Erythrocytosis Early REM onset Obesity with very severe OSAHS, AHI = 72, 09/08/22, on autoCPAP c/o IVRC Hypertension Mixed hyperlipidemia T2DM DELROY Stage 3 CKD PLMD Vit D deficiency Procedure History: Cholecystectomy 2018 Left neck abscess I&D 2022 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 Medical Equipment None Reported. Allergies Allergen ID Allergen Name Allergen Category Reaction Reaction Severity Criticality Documentation Date Start Date Code Code System Note Provider Name and Address Organization Details Recorded Time 01559 venlafaxi ne medicatio n confusion moderate Not available 08/11/2022 68462 RxNorm Glen Auguste MD [address] [facility], [facility] [address], [place], [address], [facility] [employer] 14:10:59 Medications Name Sig Start Date Stop Date Status Note LastModified by Organization Details LastModified Time losartan 50 mg tablet Take 1 tablet every day by oral route as directed for 90 days. 01/13 completed Not Available Not Available Not Available venlafaxi ne ER 75 mg capsule,e xtended release 24 hr TAKE 1 CAPSULE BY MOUTH EVERY DAY IN THE MORNING 07/04 completed Not Available Not Available Not Available cetirizin e 10 mg tablet TAKE 1 TABLET BY MOUTH EVERY DAY NEEDED 09/28 completed Not Available Not Available Not Available hydrocodo ne 5 mg-acetam inophen 325 mg tablet TAKE 1 TABLET BY MOUTH EVERY 6 HOURS NEEDED FOR PAIN active Not Available Not Available No t Available spironola ctone 100 mg tablet TAKE 1 TABLET BY MOUTH DAILY 10/08 completed Not Available Not Available Not Available Debrox 6.5 % ear drops INSTILL 4 DROPS INTO AFFECTED EAR(S) BY OTIC ROUTE 2 TIMES PER DAY 07/28 completed Not Available Not Available Not Available hydroxyzi ne HCl 50 mg tablet TAKE 1 TABLET BY MOUTH EVERY 8 HOURS NEEDED active Not Available Not Available No t Available aspirin 81 mg tablet,de layed release TAKE 1 TABLET BY MOUTH EVERY DAY active Not Available Not Available No t Available oxycodone -acetamin ophen 5 mg-325 mg tablet 08/11 completed Not Available Not Available Not Available amlodipin e 10 mg tablet TAKE 1 TABLET BY MOUTH EVERY DAY DIRECTED active Not Available Not Available No t Available omeprazol e 20 mg capsule,d elayed release Take 1 capsule every day by oral route. active Not Available Not Available No t Available hydralazi ne 50 mg tablet TAKE 1 TABLET BY MOUTH EVERY 8 HOURS DIRECTED active Not Available Not Available No t Available ergocalci ferol (vitamin D2) 1,250 mcg (50,000 unit) capsule TAKE 1 CAPSULE BY MOUTH EVERY WEEK DIRECTED active Not Available Not Available No t Available losartan 100 mg tablet TAKE 1 TABLET BY MOUTH EVERY DAY DIRECTED active Not Available Not Available No t Available fluticaso ne propionat e 50 mcg/actua tion nasal spray,yani pension SHAKE LIQUID AND USE 2 SPRAYS IN EACH NOSTRIL EVERY DAY NEEDED 09/28 completed Not Available Not Available Not Available metformin ER 500 mg tablet,ex tended release 24 hr TAKE 1 TABLET BY MOUTH TWICE DAILY AFTER MEALS active Not Available Not Available No t Available glipizide 5 mg tablet TAKE 1 TABLET BY MOUTH TWICE DAILY WITH A MEAL active Not Available Not Available No t Available amoxicill in 875 mg-potass ium clavulana te 125 mg tablet TAKE 1 TABLET BY MOUTH EVERY 12 HOURS FOR 7 DAYS 07/04 completed Not Available Not Available Not Available hydroxyzi ne pamoate 25 mg capsule TAKE 1 CAPSULE BY MOUTH TWICE DAILY NEEDED 08/11 completed Not Available Not Available Not Available escitalop martine 10 mg tablet TAKE 1 TABLET BY MOUTH EVERY DAY IN THE MORNING 10/26 completed Not Available Not Available Not Available rosuvasta tin 10 mg tablet TAKE 1 TABLET BY MOUTH EVERY DAY AT BEDTIME active Not Available Not Available No t Available escitalop martine 5 mg tablet TAKE 1 TABLET BY MOUTH EVERY DAY IN THE MORNING 07/04 completed Not Available Not Available Not Available Januvia 50 mg tablet Take 1 tablet every day by oral route at noon for 90 days. active Not Available Not Available No t Available Lantus Solostar U-100 Insulin 100 unit/mL (3 mL) subcutane ous pen ADMINIST ER 23 UNITS UNDER THE SKIN DAILY WITH BREAKFAS T 07/04 completed stopped around 10/14 Not Available Not Available Not Available Humalog KwikPen (U-100) Insulin 100 unit/mL subcutane ous 09/28 completed Not Available Not Available Not Available fenofibra te 54 mg tablet TAKE 1 TABLET BY MOUTH EVERY DAY IN THE MORNING active Not Available Not Available No t Available OneTouch Verio test strips TAKE 1 STRIP THREE TIMES DAILY BY MSCELL 01/13 completed Not Available Not Available Not Available icosapent ethyl 1 gram capsule TAKE 2 CAPSULES BY MOUTH TWICE DAILY DIRECTED 09/28 completed Not Available Not Available Not Available Farxiga 10 mg tablet TAKE 1 TABLET BY MOUTH EVERY DAY DIRECTED active Not Available Not Available No t Available Jardiance 25 mg tablet Take 1 tablet every day by oral route in the morning for 90 days. active Not Available Not Available No t Available duloxetin e 40 mg capsule,d elayed release TAKE 1 CAPSULE BY MOUTH EVERY DAY DIRECTED 10/08 completed Not Available Not Available Not Available TRUEplus Pen Needle 31 gauge x 09/28 completed Not Available Not Available Not Available OneTouch Delica Plus Lancet 33 gauge USE TO TEST THREE TIMES DAILY 01/13 completed Not Available Not Available Not Available OneTouch Verio Reflect Meter 01/13 completed Not Available Not Available Not Available Vitals Date Recorded Heart rate Respiratory rate Provider N chao and Address Organization Details Last Updated DateTime 07/04/2023 90 /min 15 /min Koby Lucas MD [address], [address], [facility] [employer] 07/04/2023 16:11:29 Date Recorded Body height Body mass index (BMI) Body weight Body temperature Heart rate Oxygen saturation Oxygen saturation in Arterial blood by Pulse oximetry Systolic blood pressure Diastolic blood pressure Provider Name and Address Organization Details Last Updated DateTime 4 177.8 cm 34.4 kg/m2 931240. 73 g 98 [degF] 90 /min 97 % 97 % 138 mm[Hg] 92 mm[Hg] Rena Bee MA [facility] [employer] 4 14:48:33 Date Recorded Body height Body mass index (BMI) Body weight Body temperature Heart rate Oxygen saturation Oxygen saturation in Arterial blood by Pulse oximetry Systolic blood pressure Diastolic blood pressure Provider Name and Address Organization Details Last Updated DateTime 4 177.8 cm 34 kg/m2 332783. 74 g 98.1 [degF] 88 /min 97 % 97 % 142 mm[Hg] 88 mm[Hg] Nahid Sellers [facility] [employer] 4 15:16:28 Date Recorded Heart rate Heart rate Respiratory rate Provider Name and Address Organization Details Last Updated DateTime 09/28/2022 99 /min 99 /min 19 /min Koby Lucas MD [address], [place], [address], [facility] [employer] [facility] 09/28/2022 16:23:22 Date Recorded Body height Body mass index (BMI) Body weight Body temperature Oxygen saturation Oxygen saturation in Arterial blood by Pulse oximetry Systolic blood pressure Diastolic blood pressure Provider Name and Address Organization Details Last Updated DateTime 3 177.8 cm 33.9 kg/m2 237783. 95 g 98.1 [degF] 98 % 98 % 128 mm[Hg] 86 mm[Hg] Kajal Gambino MA [facility] [employer] 3 16:00:08 Date Recorded Heart rate Respiratory rate Provider N chao and Address Organization Details Last Updated DateTime 10/04/2023 94 /min 22 /min Glen Auguste MD [address] [place], [place], [address], [facility] [employer] 10/04/2023 17:46:52 Date Recorded Body height Body mass index (BMI) Body weight Body temperature Oxygen saturation Oxygen saturation in Arterial blood by Pulse oximetry Systolic blood pressure Diastolic blood pressure Provider Name and Address Organization Details Last Updated DateTime 4 177.8 cm 34.6 kg/m2 975129. 11 g 98.1 [degF] 98 % 98 % 136 mm[Hg] 80 mm[Hg] Nahid Sellers [facility] [employer] 4 17:08:09 Date Recorded Heart rate Systolic blood pressure Diastolic blood pressure Provider Name and Address Organization Details Last Updated DateTime 10/26/2022 94 /min 136 mm[Hg] 84 mm[Hg] Glen Auguste MD [address], [place], [place], [address], [facility] [employer] 10/26/2022 10:32:13 Date Recorded Body height Body mass index (BMI) Body weight Body temperature Respiratory rate Oxygen saturation Oxygen saturation in Arterial blood by Pulse oximetry Provider Name and Address Organization Details Last Updated DateTime 3 177.8 cm 32 kg/m2 839597. 1 g 98.4 [degF] 20 /min 98 % 98 % Pretty Walsh RN [facility] [employer] [facility] 3 10:29:22 Social History Question Answer Notes LastModified by Organizat ion Details LastModified Time Tobacco Smoking Status Former Smoker MERCEDEZ Palomares, [facility] [employer] [facility] 09/28/2022 15:55:38 Do You Have An Advance Directive? No [id number] Information not available 07/15/2022 Do You Wear A Helmet When Biking? No [id number] Information not available 07/15/2022 What Is Your Level Of Caffeine Consumption? Occasional [id number] Information not available 07/15/2022 In The 14 Days Before Symptom Onset, Have You Had Close Contact With A Laboratory-confi rmed COVID-19 While That Case Was Ill? No [id number] Information not available 07/15/2022 In The 14 Days Before Symptom Onset, Have You Had Close Contact With A Person Who Is Under Investigation For COVID-19 While That Person Was Ill? No [id number] Information not available 07/15/2022 What Type Of Diet Are You Following? REGULAR [id number] Information not available 07/15/2022 Do You Have An Electrostatic Air Filter? No Information not available 09/28/2022 Have There Been Any Changes To Your Family Or Social Situation? No [id number] Information not available 07/15/2022 What Is The Fluoride Status Of Your Home? Unknown [id number] Information not available 07/15/2022 When Did You Quit Smoking? 1-5yearssincelastci michael Information not available 09/28/2022 Are There Any Guns Present In Your Home? No [id number] Information not available 07/15/2022 Do You Have A Humidifier? No Information not available 09/28/2022 Do You Use Insect Repellent Routinely? Yes [id number] Information not available 07/15/2022 Where Do You Live? [place] [id number] Information not available 07/15/2022 Do You Have A Medical Power Of Stone Spreader Operator? No MIGRATION.[id number] Information not available 07/15/2022 Do You Have Moisture Problems In Your Home? No Information not available 09/28/2022 What Was The Date Of Your Most Recent Tobacco Screening? 09/28/2022 Information not available 09/28/2022 Have You Ever Been Counseled For Unhealthy Alcohol Use? No MIGRATION.[id number] Information not available 07/15/2022 Do You Have Any Pets? Yes MIGRATION.[id number] Information not available 07/15/2022 What Is Your Relationship Status? MIGRATION.[id number] Information not available 07/15/2022 Do You Use Your Seat Belt Or Car Seat Routinely? Yes MIGRATION.10819 [id number] Information not available 07/15/2022 Do You Have Smoke And Carbon Monoxide Detectors In Your Home? Yes MIGRATION.10235 [id number] Information not available 07/15/2022 Are You Passively Exposed To Smoke? No MIGRATION.67281 [id number] Information not available 07/15/2022 Are There Any Smokers In Your House? Yes MIGRATION.99353 73307 Information not available 07/15/2022 How Much Tobacco Do You Smoke? No Information not available 09/28/2022 Do You Participate In Social Media? No MIGRATION.13671 69066 Information not available 07/15/2022 Do You Use Sunscreen Routinely? Yes MIGRATION.44823 [id number] Information not available 07/15/2022 Has Tobacco Cessation Counseling Been Provided? No MIGRATION.34686 48983 Information not available 07/15/2022 Have You Recently Traveled Abroad? No MIGRATION.69907 69487 Information not available 07/15/2022 Are You Currently In School? No MIGRATION.36652 56233 Information not available 07/15/2022 Do You Have Any Dietary Restrictions? No MIGRATION.78543 60083 Information not available 07/15/2022 Sex: Male Functional Status Question Answer Note LastModified by Organizat ion Details LastModified Time Do you use any illicit or recreational drugs? No MIGRATION.459059 2580 Information not available 07/15/2022 Do you or have you ever used any other forms of tobacco or nicotine? No MIGRATION.263334 1140 Information not available 07/15/2022 What is your level of alcohol consumption? Occasional MIGRATION.265203 2634 Information not available 07/15/2022 Are you currently employed? Yes Information not available 09/28/2022 Have you been exposed to chemicals or toxins? 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 Heavy MIGRATION.311952 9796 Information not available 07/15/2022 Mental Status Question Answer Note LastModified by Organizat ion Details LastModified Time Do you feel stressed (tense, restless, nervous, or anxious, or unable to sleep at night)? [id number] [id number] Information not available 07/15/2022 Family History Relationship Description Onset Age of this Age Resolved Age Notes LastModified by Organization Details LastModified Time Paternal Grandfather Hypertensive disorder [id number] Not available 07/15/2022 00:57:55 Paternal Grandmother Hypertensive disorder [id number] Not available 07/15/2022 00:57:55 Maternal Grandmother Diabetes mellitus [id number] Not available 07/15/2022 00:57:56 Paternal Aunt Obstructive sleep apnea syndrome [email or web address] Not available 2022 16:25:37 Paternal Uncle Obstructive sleep apnea syndrome [email or web address] Not available 2022 16:25:45 Medical History Condition Response BLINDNESS N RHEUMATIC FEVER N BLADDER PROBLEMS N KIDNEY STONES N MRSA N OTHER # 1 N POLIO N LUNG DISEASE/DISORDER N HISTORY OF DRUG ABUSE N RADIATION / CHEMOTHERAPY N COPD N Other # 2 N BLOOD DISEASES N SURGERY N EAR OR HEARING PROBLEMS N MUMPS N SHINGLES N BOWEL PROBLEMS N FEMALE PROBLEMS / INFECTIONS N DEPRESSION (INCLUDING POST ) N STROKE/TIA N THYROID DISEASE N ULCERS N BENIGN PROSTATIC HYPERPLASIA N MEASLES N CERVICALGIA N HYPOTENSION N TB SKIN TEST N MYOCARDIAL INFARCTION N PARAPELGIA N OBESITY N GERD/NAUSEA N ANEURYSM N URINARY/BLADDER/KIDNEY PROBLEMS N CORONARY ARTERY DISEASE (CAD) N MENIERE'S DISEASE N ADDICTION CONCERNS N ENDOMETRIOSIS N USE OF BLOOD THINNERS N SKIN PROBLEMS N EMPHYSEMA N GASTROINTESTINAL DISORDER N MUSCLE,JOINT OR BONE PROBLEMS N GASTROINTESTINAL BLEEDING N BLOOD CLOTS N ASTHMA N CATARACTS N ERECTILE DYSFUNCTION N GI PROBLEMS N CHF N Low Testosterone N NEUROPATHY N INFERTILITY N AIDS/HIV N FRACTURES N CHEMOTHERAPY / RADIATION N VISION/EYE PROBLEMS N LIVER DISEASE N MALE HYPOGONADISM N HYPERTENSION N TOURETTE'S N ANXIETY DISORDER N BLOOD TRANSFUSION N ANEMIA/BLOOD DISORDER N CHRONIC EAR INFECTIONS N BRONCHITIS N TUBERCULOSIS N GLAUCOMA N FOOT PROBLEM N DIVERTICULITIS N CHICKENPOX N SLEEP APNEA N ALLERGIES/HAYFEVER N INFECTIOUS DISEASE N HEART ARRHYTHMIA N PROSTATE N INSOMNIA N HIGH CHOLESTEROL / HYPERLIPIDEMIA N HYPERTHYROIDISM N EYE PROBLEMS N EATING DISORDER N EDEMA N CHRONIC PAIN SYNDROME N CONSTIPATION N CAROTID BLOCKAGE N BACK / NECK PROBLEMS N HAVE YOU BEEN HOSPITALIZED OR SEEN IN [facility] IN THE PAST YEAR ? N ATHEROSCLEROSIS N BREAST PROBLEMS N DIALYSIS N ECZEMA N FIBROMYALGIA N OSTEOPOROSIS N ARTHRITIS N NO SIGNIFICANT PAST MEDICAL HISTORY N APPENDICITIS N DIABETES, TYPE N BAD TEETH N HEARTBURN / REFLUX N ADD/ADHD N AUTISM SPECTRUM DISORDER (ASD) N HEPATITIS / LIVER DISEASE N PULMONARY DISEASE N GOUT N SLEEP DISORDER N ALZHEIMER'S DISEASE N PAIN N HERPES N DEMENTIA N HEADACHES/MIGRAINES N SEIZURES/EPILEPSY N VASCULAR DISEASE N PACEMAKER N DIZZINESS N HEART DISEASE/HEART PROBLEMS N KIDNEY DISEASE N DEVELOPMENTAL OR BEHAVIORAL DISORDERS N MULTIPLE SCLEROSIS N SCARLET FEVER N MENTAL DISORDER/ILLNESS N CARDIAC ARRHYTHMIA N CANCER: SPECIFY N PNEUMONIA N ATRIAL FIBRILLATION N Gall Stones N PULMONARY EMBOLISM N AUTOIMMUNE DISEASE N Past Encounters Encounter ID Performer Location Encounter Start Date Encounter Closed Date Diagnosis/Indication Diagnosis SNOMED-CT Code Diagnosis ICD10 Code Diagnosis Note [id number] Glen Auguste MD [address] [address] 1 09/23/2021 00:00:00 09/23/2021 15:40:58 [id number] Glen Auguste MD [address] [address] 1 10/08/2021 00:00:00 10/08/2021 10:20:19 [id number] Glen Auguste MD [address] [address] 1 10/22/2021 00:00:00 10/22/2021 14:29:56 [id number] Glen Auguste MD [address] [address] 1 07/28/2022 11:02:19 07/28/2022 11:40:21 Hospital inpatient stay within past 30 days [id number] 106 Z76.89 Cellulitis and abscess of neck 142455369 L02.11 Lt side Hypertensive disorder 38 035007 I10 Uncontroll ed type 2 diabetes mellitus 136297760 E11.65 Anxiety disorder 7023658 06 F41.9 Vitamin D deficiency 347 31268 E55.9 Hyperlipidemia 71210164 E78.5 Hypertriglyceridemia 302 880313 E78.2 Obesity 983494660 E66.9 [id number] Glen Auguste MD [address] [address] 1 08/09/2022 11:09:48 08/09/2022 11:25:32 Sleep apnea 46275922 G47.30 [id number] Glen Auguste MD [address] [address] 1 08/11/2022 14:00:29 08/11/2022 14:22:43 Anxiety disorder 161463039 F41.9 Uncontroll ed type 2 diabetes mellitus 507873455 E11.65 Chronic ki dney disease stage 3 052828183 N18.30 Hypertensive disorder 38 311313 I10 Hyperlipidemia 07511601 E78.5 Hypertriglyceridemia 302 048710 E78.2 Obesity 963273057 E66.9 Ex-smoker 4011130 Z87.89 1 [id number] Glen Auguste MD [address] [address] 1 09/08/2022 09:57:56 09/08/2022 10:15:06 Anxiety disorder 649180064 F41.9 Uncontroll ed type 2 diabetes mellitus 436486140 E11.65 Chronic ki dney disease stage 3 349540494 N18.30 Hypertensive disorder 38 279088 I10 Hyperlipidemia 65272700 E78.5 Obesity 548183792 E66.9 Ex-smoker 3891858 Z87.89 1 Family his tory of Cardiovascular disease 334586321 Z82.49 Seasonal a llergic rhinitis 483328960 J30.2 [id number] Koby Lucas MD [address] [address] 0 09/28/2022 15:39:12 09/29/2022 08:35:44 Sleep apnea 65706473 G47.30 G47.33 G47.61 G47.36 G47.419 [id number] Glen Auguste MD [address] [address] 1 10/26/2022 10:24:07 10/26/2022 11:06:04 Anxiety disorder 541994190 F41.9 Uncontroll ed type 2 diabetes mellitus 213035418 E11.65 Chronic ki dney disease stage 3 365809057 N18.30 Hypertensive disorder 38 706011 I10 Hyperlipidemia 02604885 E78.5 Obesity 069478783 E66.9 Ex-smoker 2849215 Z87.89 1 Family his tory of Cardiovascular disease 817285039 Z82.49 Adult heal th examination 438727243 Z00.00 Vitamin D deficiency 347 91962 E55.9 [id number] Koby Lucas MD [address] [address] 0 07/04/2023 14:25:44 07/05/2023 08:28:21 Obstructive sleep apnea syndrome 42850404 G47.33 Periodic l imb movement disorder 070993311 G47.61 D50.8 E83.42 [id number] Glen Auguste MD [address] [address] 1 09/13/2023 15:07:45 09/13/2023 15:40:16 Adult health examination 818743927 Z00.00 Anxiety disorder 2671597 06 F41.9 Uncontroll ed type 2 diabetes mellitus 843955741 E11.65 Chronic ki dney disease stage 3 458095486 N18.30 Hypertensive disorder 38 351640 I10 Hyperlipidemia 96187424 E78.5 Obesity 911113801 E66.9 Ex-smoker 4404647 Z87.89 1 Family his tory of Cardiovascular disease 417143268 Z82.49 Vitamin D deficiency 347 98020 E55.9 Hypertriglyceridemia 302 460941 E78.2 Screening for malignant neoplasm of colon 034917678 Z12.11 [id number] Glen Auguste MD [facility] [address] [place] [address] 1 10/04/2023 16:59:52 10/04/2023 17:53:14 Anxiety disorder 909900734 F41.9 Uncontroll ed type 2 diabetes mellitus 081628086 E11.65 Chronic ki dney disease stage 3 359969425 N18.30 Hypertensive disorder 38 830498 I10 Hyperlipidemia 05179994 E78.5 Obesity 885613650 E66.9 Ex-smoker 6476240 Z87.89 1 Family his tory of Cardiovascular disease 476640460 Z82.49 Vitamin D deficiency 347 54891 E55.9 Hypertriglyceridemia 302 325846 E78.2 Liver enzy mes level above reference range 267941727 R74.01 Health Concerns Section Related Observation LastModified by Organization Detai ls LastModified Time None Recorded Concern Status LastModified by Organization Details LastModified Time None Recorded Advance Directives Directive N: Payers Encounter Date Sequence Insurance Name Policy Number Policy Mckinney Covered Member ID Mckinney Member ID Guarantor Name 09/28/2022 1 [facility] (MEDICARE REPLACEMENT/AD VANTAGE - HMO) Juno Sky [id number] Juno Sky 10/26/2022 1 [facility] (MEDICARE REPLACEMENT/AD VANTAGE - HMO) Juno Sky [id number] Juno Sky 07/04/2023 1 [facility] (MEDICARE REPLACEMENT/AD VANTAGE - HMO) Juno Sky [id number] Juno Sky 09/13/2023 1 [employer] [id number] Juno Sky [id number] Juno Sky 10/04/2023 2 [facility] - DOS ON OR AFTER 20 (MEDICAID REPLACEMENT - HMO) Juno Sky [id number] Juno Sky 10/04/2023 1 [place] [id number] Juno Sky [id number] Juno Sky Notes Date Note Type Note Provider Name and Address Organization Details Recorded Time 09/28/2022 text/html Primary care/Ref erring provider: Glen Auguste MD During the [facility] home sleep study on 09/08/22, AHI = 72, supine AHI = 73. At home, the patient sleeps from 11 pm to 8:30 am and wakes up with an alarm. Snoring: heavy, since . Snorting: no Choking: no Coughing: no Gasping: yes Gagging: yes Sighing: no Witnessed apnea: yes Twitching or jerking of leg(s), arm(s), body, head: yes Teeth grinding: no Teeth clenching: no Sleeptalking: yes Sleepwalking: no Sleep crying: yes Bedwetting: no Tongue/lip/gum/cheek biting: no Sleeping with open mouth: yes Sleep paralysis: yes Hypnagogic hallucinations: no Hypnopompic hallucinations: yes, sees figure on the door which is actually the robe Vivid dreams: yes, hand motion Difficulty with sleep onset: yes Difficulty with sleep maintenance: yes Sleep interruptions: gasping Patient wakes up with: fatigue, xerostomia, disorientation, cognitive impairment, mobility impairment, dexterity impairment Daytime cataplexy: no Morning hypersomnolence: yes Afternoon hypersomnolence: yes Caffeine sources in diet: soda 1 can per day Associated medical and psychiatric conditions: Congestive heart failure: no Coronary artery disease: no Myocardial infarction: no Hypertension: yes Stroke: no Bronchial asthma: no Chronic obstructive pulmonary disease: no Depression: no Bipolar disorder: no Anxiety: yes Panic disorder: no Posttraumatic stress disorder: no Attention deficit and hyperactivity disorder: no Obsessive Compulsive disorder: no Schizophrenia: no Schizoaffective disorder: no Personality disorder: no Chronic analgesic use: no Chronic sedative/hypnotic use: no EPWORTH SLEEPINESS SCALE (ESS) CHANCE OF DOZING SCORE 0 = would never doze 1 = slight chance of dozing 2 = moderate chance of dozing 3 = high chance of dozing SITUATION AND CHANCE OF DOZING Sitting and reading - 3 Watching television - 3 Sitting inactive in a public place (e.g. a theater or meeting) - 3 As a passenger in a car for an hour without a break - 3 Lying down to rest in the afternoon when circumstances permit - 3 Sitting and talking to someone - 1 Sitting quietly after lunch without alcohol - 3 In a car, while stopped for a few minutes in the traffic - 0 TOTAL SCORE 19 Subjectively, patient has a high chance of dozing. Koby Lucas MD [address] [facility] [facility], [facility] [address], [place], [address], [facility] [employer] [facility] Vocab 09/28/2022 16:34:46 10/26/2022 text/html Pt is here for h is annual visit. Feeling overall much better now. Pt says his DM is also getting better and he is not taking any bolus insulin since last visit. Pt has seen his Oral surgeon and he has cleared him to go for sleep study. He did not like Effexor & Lexapro and wants to wait until he see Psych in couple months. Pt was d/c from [facility] last month. Pt was seen at [facility] last week for an abscess over his neck (from his bad teeth) and it was pushing on his airway, so pt was transferred to [facility] next day for surgery. P was found to have A1c of 11 and he has been started on Basal and bolus insulin since than. Glen Auguste MD [address], [facility] [address], [place], [address], [employer] [facility] Vocab 10/26/2022 11:01:21 07/04/2023 text/html Primary care/Ref erring provider: Glen Auguste MD During the [facility] home sleep study on 09/08/22, AHI = 72, supine AHI = 73. During the [facility] titration sleep study 01/12/23, PLMI = 8. The patient uses a ResMed AirSense 11 autoset unit with heated humidification. The patient does not need the ramp to start low and go up slowly on the pressure. There is some xerostomia in a.m. There is no hose/mask condensation with water. The patient wears a [employer]Med medium AirFit F30 full face mask without chin strap. There is no claustrophobia, no nostril/nose bridge irritation, no facial rash, no facial numbness, no nosebleeding. The patient feels more refreshed upon waking and daytime alertness is improved. Energy levels are sustained until noon. At home, the patient sleeps from 11 pm to 8:30 am and wakes up with an alarm. Snoring: heavy, since .Snorting: noChoking: noCoughing: noGasping: yesGagging: yesSighing: noWitnessed apnea: yesTwitching or jerking of leg(s), arm(s), body, head: yesTeeth grinding: noTeeth clenching: noSleeptalking: yesSleepwalking: noSleep crying: yesBedwetting: noTongue/lip/gum/cheek biting: noSleeping with open mouth: yesSleep paralysis: yesHypnagogic hallucinations: noHypnopompic hallucinations: yes, sees figure on the door which is actually the robeVivid dreams: yes, hand motionDifficulty with sleep onset: yesDifficulty with sleep maintenance: yesSleep interruptions: gaspingPatient wakes up with: fatigue, xerostomia, disorientation, cognitive impairment, mobility impairment, dexterity impairmentDaytime cataplexy: noMorning hypersomnolence: yesAfternoon hypersomnolence: yesCaffeine sources in diet: soda 1 can per day Associated medical and psychiatric conditions:Congestive heart failure: noCoronary artery disease: noMyocardial infarction: noHypertension: yesStroke: noBronchial asthma: noChronic obstructive pulmonary disease: noDepression: noBipolar disorder: noAnxiety: yesPanic disorder: noPosttraumatic stress disorder: noAttention deficit and hyperactivity disorder: noObsessive Compulsive disorder: noSchizophrenia: noSchizoaffective disorder: noPersonality disorder: noChronic analgesic use: noChronic sedative/hypnotic use: no EPWORTH SLEEPINESS SCALE (ESS) CHANCE OF DOZING SCORE0 = would never doze1 = slight chance of dozing2 = moderate chance of dozing3 = high chance of dozing SITUATION AND CHANCE OF DOZINGSitting and reading - 3Watching television - 3Sitting inactive in a public place (e.g. a theater or meeting) - 3As a passenger in a car for an hour without a break - 3Lying down to rest in the afternoon when circumstances permit - 3Sitting and talking to someone - 2Sitting quietly after lunch without alcohol - 3In a car, while stopped for a few minutes in the traffic - 2TOTAL SCORE 22Subjectively, patient has a high chance of dozing. Koby Lucas MD [address] [facility], [place], [address], [employer] [facility] Vocab 07/04/2023 16:15:12 09/13/2023 text/html Pt is here for h is annual visit. Feeling overall better. Pt has some insurance issues and her DM meds are costly for him. Pt was last seen in 11/05 and since than, no labs/visit. Pt says he was very busy with his new work. Pt has not seen any specialists yet. He did not like Effexor & Lexapro and wants to wait until he see Psych in couple months. Pt was d/c from [facility] last month. Pt was seen at [facility] last week for an abscess over his neck (from his bad teeth) and it was pushing on his airway, so pt was transferred to [facility] next day for surgery. P was found to have A1c of 11 and he has been started on Basal and bolus insulin since than. Glen Auguste MD [address] [facility] [facility] [address], [place], [address], [employer] 09/13/2023 15:38:07 10/04/2023 text/html Pt is here for f /u on his annual labs. Feeling overall much better. Pt has some insurance issues and his DM meds are costly for him. Pt was last seen in 11/05 and since than, no labs/visit. Pt says he was very busy with his new work. Pt has not seen any specialists yet. Pt is f/u with Ortho for his Lt forearm fracture and is on cast by them. He did not like Effexor & Lexapro and wants to wait until he see Psych in couple months. Glen Auguste MD [address], [address], [place], [address], [employer] [facility] Vocab 10/04/2023 17:49:55
--- NOTE | 2024-10-18 17:32 | ECG_ITS ---
Test Date: 2024-10-18 17:35:38 Measurements Intervals [place] Rate: 97 P: 20 AR: 154 QRS: -17 QRSD: 89 T: 111 QT: 351 QTc: 446 Interpretive Statements SINUS RHYTHM POSSIBLE LEFT ATRIAL ENLARGEMENT DELAYED PRECORDIAL R/S TRANSITION LEFT VENTRICULAR HYPERTROPHY AND ST-T CHANGE BASELINE ARTIFACT- I, II, III, AVR BORDERLINE ECG No previous ECG available for comparison Electronically Signed On 10-18-2024 19:22:50 CDT by Rodney Root D.O.
--- NOTE | 2024-10-18 17:40 | ED.CHESTPAIN ---
HPI - Chest Pain General Chief Complaint: Chest Pain <RANDELL Mcclellan Last Filed: 10/19/24 00:18> Stated Complaint: chest pressure <RANDELL Mcclellan Last Filed: 10/19/24 00:18> Time Seen by Provider: 10/18/24 17:34 <RANDELL Mcclellan Last Filed: 10/19/24 00:18> Source: patient <RANDELL Mcclellan Last Filed: 10/19/24 00:18> Mode of arrival: ambulatory <RANDELL Mcclellan Last Filed: 10/19/24 00:18> Limitations: no limitations <RANDELL Mcclellan Last Filed: 10/19/24 00:18> History of Present Illness HPI narrative: This is a 48-year-old male that presents to the emergency department for elevated blood pressure. Reports he has not taken his blood pressure medication consistently and months. He has also not been taking his diabetes medications. Over the last couple of days he is noted chest pressure, headaches. He took his blood pressure at home and it was elevated to 190 systolic. This concerned him and prompted him to be seen. <RANDELL Mcclellan Last Filed: 10/19/24 00:18> Related Data Home Medications: Home Medications ?Medication ?Instructions ?Recorded ?Confirmed ?Last Taken ?Type omeprazole 20 mg tablet,delayed 20 mg PO DAILY 08/22/23 10/19/24 10/18/24 History release acetaminophen 325 mg tablet (Pain 650 mg PO Q6H PRN pain 10/19/24 10/19/24 10/19/24 History Reliever (acetaminophen)) hydralazine 50 mg tablet 50 mg PO BID 10/19/24 10/19/24 10/19/24 History <RANDELL Mcclellan Last Filed: 10/19/24 00:18> Allergies/Adverse Reactions: Allergies Allergy/AdvReac Type Severity Reaction Status Date / Time No Known Allergies Allergy Verified 11/21/23 16:10 <RANDELL Mcclellan Last Filed: 10/19/24 00:18> Review of Systems Review of Systems: CONSTITUTIONAL: Denies fever EYES: Denies visual changes CARDIOVASCULAR: Denies chest pain RESPIRATORY: Denies dyspnea. GASTROINTESTINAL: Denies vomiting NEUROLOGIC: Reports headache. Denies numbness, or weakness. <Gem Bahena PA-C - Last Filed: 10/19/24 00:18> All systems reviewed & are unremarkable except as noted in HPI and below <Gem Bahena PA-C - Last Filed: 10/19/24 00:18> [facility] Past Medical History Medical History: Medical History (Updated 10/19/24 @ 01:59 by Gordy Ewing APRN) CALVIN on CPAP Hyperlipidemia Obesity Diabetes Fracture of scaphoid bone of left wrist Hypertension Anxiety Anxiety <RANDELL Mcclellan Last Filed: 10/19/24 00:18> Surgical History Surgical History: Surgical History Hx of cholecystectomy <RANDELL Mcclellan Last Filed: 10/19/24 00:18> Family History Family History: Family History Mother Family history of glaucoma Hypertension Father Hypertension Unknown Diabetes mellitus Other Family history of kidney disease Family history of mental disorder <RANDELL Mcclellan Last Filed: 10/19/24 00:18> Social History Social History: Social History Social History: caffeine use Smoking packs per day: 1 Smoking cigarettes per day: 20.0 Years smoked: 15 Smoking pack-years: 15.00 Smoking status: Former smoker Alcohol intake: current Drinks per week: 8 Alcohol use details: Once per week, 4 beers at a time Substance use: never Substance use type: does not use Do You Feel Safe in your Home?: Yes Lack of Transportation: No Lack of Food: Never True Current Housing: I Have Housing Concerned About Future Housing: No Difficulty Paying Gas/Electric Bills: No Difficulty Paying for Meds: No Currently Unemployed: No Education: Trade/Vocational Certificate Difficulty w/ Childcare or Family Care: No Living arrangements: with family Occupation/Education: occupation 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 HEAD: Normocephalic, atraumatic. EYES: EOMI. ENT: Nares clear, no rhinorrhea or epistaxis. Mucous membranes moist. Oropharynx without tonsillar hypertrophy exudate or other lesions. NECK: Supple. No adenopathy or masses. CHEST: Clear to auscultation. No respiratory distress. No wheezes rales or rhonchi HEART: Regular rate and rhythm. No murmur heard. Normal peripheral pulses. EXTREMITIES: Normal range of motion. No edema. SKIN: Warm, dry, no rash. NEURO: No focal deficits. Alert and oriented x3. PSYCH: Normal mood and affect <Gem Bahena PA-C - Last Filed: 10/19/24 00:18> Course Course Emergency Course: Patient updated on his workup and need for admission <Gem Bahena PA-C - Last Filed: 10/19/24 00:18> SERVICE PORTER/PA Physician Supervision This visit was performed by both a physician and an APC. I performed all aspects of the MDM as documented. <Garrett Wilson MD - Last Filed: 10/19/24 04:55> Consultations Consultation #1: Spoke with hospitalist about patient and workup who accepts admission <Gem Bahena PA-C - Last Filed: 10/19/24 00:18> Date: 10/19/24 <RANDELL Mcclellan Last Filed: 10/19/24 00:18> Vital Signs Vital signs: Vital Signs Temperature 36.8 C 10/18/24 17:45 Pulse Rate 93 10/18/24 17:45 Respiratory Rate 18 10/18/24 17:45 Blood Pressure 194/133 H 10/18/24 17:45 Pulse Oximetry 94 10/18/24 17:45 Oxygen Delivery Room Air 10/18/24 17:45 Temperature 36.5 C 10/19/24 04:00 Pulse Rate 79 10/19/24 04:00 Respiratory Rate 18 10/19/24 04:00 Blood Pressure 144/95 H 10/19/24 04:00 Pulse Oximetry 97 10/19/24 04:00 Oxygen Delivery Autopap 10/19/24 00:45 <Gem Bahena PA-C - Last Filed: 10/19/24 00:18> Vital Signs Temperature 36.8 C 10/18/24 17:45 Pulse Rate 93 10/18/24 17:45 Respiratory Rate 18 10/18/24 17:45 Blood Pressure 194/133 H 10/18/24 17:45 Pulse Oximetry 94 10/18/24 17:45 Oxygen Delivery Room Air 10/18/24 17:45 Temperature 36.5 C 10/19/24 04:00 Pulse Rate 79 10/19/24 04:00 Respiratory Rate 18 10/19/24 04:00 Blood Pressure 144/95 H 10/19/24 04:00 Pulse Oximetry 97 10/19/24 04:00 Oxygen Delivery Autopap 10/19/24 00:45 <Garrett Wilson MD - Last Filed: 10/19/24 04:55> MDM - Chest Pain MDM Narrative Medical decision making narrative: Patient presents to the emergency department for headache, elevated blood pressure readings. Also endorsing intermittent chest pressure. No chest discomfort currently. All pressure is elevated to the 190 systolic upon arrival. Given labetalol, hydralazine with improvement. CBC without concerning findings. Metabolic panel with evidence of acute on chronic kidney dysfunction. EKG without acute ST changes. Chest x-ray without acute cardiopulmonary abnormality. CT brain without acute findings. His troponins are elevated, but flat. Suspect due to combination of hypertensive urgency and acute kidney failure. Will be admitted for further management. Spoke with hospitalist about patient and workup who accepts admission <Gem Bahena PA-C - Last Filed: 10/19/24 00:18> Differential Diagnosis Differential diagnosis: Likely stable angina, atypical chest pain, costochondritis and other (Hypertensive urgency, acute on chronic kidney dysfunction) <Gem Bahena PA-C - Last Filed: 10/19/24 00:18> Lab Data Attestation: I reviewed the patient's lab results. <Gem Bahena PA-C - Last Filed: 10/19/24 00:18> Result diagrams: 10/18/24 17:54 10/18/24 17:54 <Gem Bahena PA-C - Last Filed: 10/19/24 00:18> Labs: Lab Results 10/18/24 10/18/24 10/18/24 Range/Units 17:53 17:54 20:58 WBC 8.8 (4.5-10.0) K/mm3 RBC 5.36 (4.6-6.20) M/mm3 Hgb 15.3 (14.0-18.0) g/dL Hct 47.0 (42.0-52.0) % MCV 87.7 (80-100) fl MCH 28.5 (26-34) pg MCHC 32.6 (32-36) g/dl RDW 13.7 (11.5-14.5) % Plt Count 189 (150-375) k/mm3 MPV 9.8 (7.4-10.4) fl Immature Gran % (Auto) 0.5 (0-0.5) % Neut % (Auto) 73.6 H (45.5-73.1) % Lymph % (Auto) 18.6 (18.3-44.2) % [place] % (Auto) 5.4 (2.6-8.5) % Eos % (Auto) 1.4 (0-4.4) % Baso % (Auto) 0.5 (0.2-1.2) % Lymph # (Auto) 1.64 (0.9-3.2) K/mm3 [place] # (Auto) 0.5 (0.1-0.6) K/mm3 Eos # (Auto) 0.1 (0-0.3) K/mm3 Baso # (Auto) 0.0 (0.0-0.1) K/mm3 Abs Immat Gran (auto) 0.04 H (0.00-0.031) K/mm3 Absolute Neuts (auto) 6.5 (1.3-6.7) K/mm3 Absolute Nucleated RBC 0.000 (0.0-0.012) K/mm3 Nucleated RBC % 0.0 (0.0-0.2) % PT 13.3 (11.1-14.7) Seconds INR 1.0 APTT 28.9 (22.3-36.8) Seconds Sodium 139 (137-145) mmol/L Potassium 4.2 (3.4-5.0) mmol/L Chloride 110 H (98-107) mmol/L Carbon Dioxide 20 L (22-30) mmol/L Anion Gap 9 (4-12) mmol/L BUN 35 H D (9-20) mg/dL Creatinine 3.53 H (0.7-1.3) mg/dL Estim Creat Clear Calc Not Reportable Estimated GFR 19 L (59 - ) Glucose 120 H (65-110) mg/dL Hemoglobin A1c 5.2 (<5.7) % Calcium 8.6 (8.4-10.2) mg/dL Phosphorus 5.3 H (2.5-4.5) mg/dL Total Bilirubin 0.4 (0.2-1.3) mg/dL AST 31 (17-59) U/L ALT 27 (6-50) U/L Alkaline Phosphatase 64 (38-126) U/L Troponin I 0.055 H* 0.062 H* (0.000-0.034) ng/mL Total Protein 7.1 (6.3-8.2) g/dL Albumin 3.7 (3.5-5.1) g/dL Lipase 103 (23-300) U/L <Gem Bahena PA-C - Last Filed: 10/19/24 00:18> Lab Results 10/18/24 10/18/24 10/18/24 Range/Units 17:53 17:54 20:58 WBC 8.8 (4.5-10.0) K/mm3 RBC 5.36 (4.6-6.20) M/mm3 Hgb 15.3 (14.0-18.0) g/dL Hct 47.0 (42.0-52.0) % MCV 87.7 (80-100) fl MCH 28.5 (26-34) pg MCHC 32.6 (32-36) g/dl RDW 13.7 (11.5-14.5) % Plt Count 189 (150-375) k/mm3 MPV 9.8 (7.4-10.4) fl Immature Gran % (Auto) 0.5 (0-0.5) % Neut % (Auto) 73.6 H (45.5-73.1) % Lymph % (Auto) 18.6 (18.3-44.2) % [place] % (Auto) 5.4 (2.6-8.5) % Eos % (Auto) 1.4 (0-4.4) % Baso % (Auto) 0.5 (0.2-1.2) % Lymph # (Auto) 1.64 (0.9-3.2) K/mm3 [place] # (Auto) 0.5 (0.1-0.6) K/mm3 Eos # (Auto) 0.1 (0-0.3) K/mm3 Baso # (Auto) 0.0 (0.0-0.1) K/mm3 Abs Immat Gran (auto) 0.04 H (0.00-0.031) K/mm3 Absolute Neuts (auto) 6.5 (1.3-6.7) K/mm3 Absolute Nucleated RBC 0.000 (0.0-0.012) K/mm3 Nucleated RBC % 0.0 (0.0-0.2) % PT 13.3 (11.1-14.7) Seconds INR 1.0 APTT 28.9 (22.3-36.8) Seconds Sodium 139 (137-145) mmol/L Potassium 4.2 (3.4-5.0) mmol/L Chloride 110 H (98-107) mmol/L Carbon Dioxide 20 L (22-30) mmol/L Anion Gap 9 (4-12) mmol/L BUN 35 H D (9-20) mg/dL Creatinine 3.53 H (0.7-1.3) mg/dL Estim Creat Clear Calc Not Reportable Estimated GFR 19 L (59 - ) Glucose 120 H (65-110) mg/dL Hemoglobin A1c 5.2 (<5.7) % Calcium 8.6 (8.4-10.2) mg/dL Phosphorus 5.3 H (2.5-4.5) mg/dL Total Bilirubin 0.4 (0.2-1.3) mg/dL AST 31 (17-59) U/L ALT 27 (6-50) U/L Alkaline Phosphatase 64 (38-126) U/L Troponin I 0.055 H* 0.062 H* (0.000-0.034) ng/mL Total Protein 7.1 (6.3-8.2) g/dL Albumin 3.7 (3.5-5.1) g/dL Lipase 103 (23-300) U/L <Garrett Wilson MD - Last Filed: 10/19/24 04:55> Imaging Data Radiologist's impression: ITS Impressions Chest X-Ray 10/18/24 18:22 IMPRESSION: No acute cardiopulmonary pathology. Head CT 10/18/24 19:56 IMPRESSION: No acute intracranial findings. <Gem Bahena PA-C - Last Filed: 10/19/24 00:18> ECG Data EKG #1: ECG completion date: 10/18/24 <Gem Bahena PA-C - Last Filed: 10/19/24 00:18> EKG Interpretation: normal rate, sinus rhythm, no ST changes and normal QT <Gem Bahena PA-C - Last Filed: 10/19/24 00:18> Critical Care Time Critical Care Time Critical Care Time: Yes <Gem Bahena PA-C - Last Filed: 10/19/24 00:18> Total Critical Care Time: 35 <Gem Bahnea PA-C - Last Filed: 10/19/24 00:18> Discharge Plan Discharge Clinical Impression: Hypertensive urgency, Elevated troponin Hknvh-do-ayamwfu kidney injury Qualifiers: Acute renal failure type: unspecified Chronic kidney disease stage: stage 4 (GFR 15-29) Qualified Code(s): N17.9 - Acute kidney failure, unspecified <Gem Bahena PA-C - Last Filed: 10/19/24 00:18> Patient Disposition: Still a Patient <RANDELL Mcclellan Last Filed: 10/19/24 00:18> Condition: Serious <RANDELL Mcclellan Last Filed: 10/19/24 00:18>
[2024-10-18 17:59] LABS: Basophils Percent Auto 0.5 % (0.2-1.2); Eosinophils Absolute Auto 0.1 K/mm3 (0-0.3); Eosinophils Percent Auto 1.4 % (0-4.4); Hemoglobin 15.3 g/dL (14.0-18.0); Immature Granulocyte Absolute 0.04 K/mm3 (0.00-0.031); Immature Granulocyte Percent A 0.5 % (0-0.5); Lymphocytes Absolute Auto 1.64 K/mm3 (0.9-3.2); Lymphocytes Percent Auto 18.6 % (18.3-44.2); Mean Corpuscular HGB Conc 32.6 g/dl (32-36); Mean Corpuscular Hemoglobin 28.5 pg (26-34); Mean Corpuscular Volume 87.7 fl (80-100); Mean Platelet Volume 9.8 fl (7.4-10.4); Monocytes Absolute Auto 0.5 K/mm3 (0.1-0.6); Monocytes Percent Auto 5.4 % (2.6-8.5); Neutrophils Absolute Auto 6.5 K/mm3 (1.3-6.7); Neutrophils Percent Auto 73.6 % (45.5-73.1); Platelet Count Result 189 k/mm3 (150-375); Red Blood Count 5.36 M/mm3 (4.6-6.20); Red Cell Distribution Width 13.7 % (11.5-14.5); White Blood Count 8.8 K/mm3 (4.5-10.0)
[2024-10-18 18:11] LABS: Partial Thromboplastin Time 28.9 Seconds (22.3-36.8); Prothrombin Time 13.3 Seconds (11.1-14.7)
--- OUTSIDE RECORDS SUMMARY | 2024-10-18 18:12 | XMS_ITS | Clinical Summary ---
Author Organization [facility] Address [address] [place] [address] Phone Care Team Providers Care Research Spec Name Role Phone Unavailable Primary Care Provider Unavailabl e Allergies No known active allergies Medications hydralazine HCl (HYDRALAZINE ORAL) Take by mouth. Activ e amlodipine besylate (AMLODIPINE ORAL) Take by mouth. Activ e blood sugar diagnostic Strip TEST BLOOD GLUCOSE FOUR TIMES DAILY DIRECTED 100 Each 07/23/2022 4:05 PM ACCOUNT DEVELOPMENT MANAGER 3 Active Blood-Glucose Meter (OneTouch Verio Reflect Meter) USE DIRECTED TO TEST BLOOD GLUCOSE 1 Each 07/23/2022 4:05 PM ACCOUNT DEVELOPMENT MANAGER 3 Active lancets (One Touch Delica) 33 gauge USE DIRECTED TO TEST BLOOD GLUCOSE FOUR TIMES DAILY 100 Each 07/23/2022 4:05 PM ACCOUNT DEVELOPMENT MANAGER 3 Active oxyCODONE-aceta minophen (PERCOCET) 5-325 mg tabletIndicatio ns:Dental abscess Take 1-2 Tablets by mouth every 4 hours as needed for Pain. Max Daily Amount: 12 Tablets 20 Tablet 07/23/2022 4:05 PM ACCOUNT DEVELOPMENT MANAGER 3 Active sennosides-docu sate sodium (SENNA-S) [...] Comments Blood Pressure 128/82 07/23/2022 5:06 PM ACCOUNT DEVELOPMENT MANAGER Pulse 82 07/23/2022 5:06 PM ACCOUNT DEVELOPMENT MANAGER Temperature 36.7 C (98.1 F) 07/23/2022 5:06 PM ACCOUNT DEVELOPMENT MANAGER Respiratory Rate 16 07/23/2022 5:06 PM ACCOUNT DEVELOPMENT MANAGER Oxygen Saturation 97% 07/23/2022 5:06 PM ACCOUNT DEVELOPMENT MANAGER Inhaled Oxygen Concentration - - Weight 113.6 kg (250 lb 6.4 oz) 07/20/2022 6:00 AM ACCOUNT DEVELOPMENT MANAGER Height 180.3 cm (5' 11) 07/18/2022 7:39 PM ACCOUNT DEVELOPMENT MANAGER Body Mass Index 34.92 07/18/2022 7:39 PM ACCOUNT DEVELOPMENT MANAGER Plan of Treatment Health Maintenance Due [...] Comments LIPID PANEL Routine 07/22/2022 7:43 AM ACCOUNT DEVELOPMENT MANAGER HEMOGLOBIN A1C Routine 07/20/2022 4:18 AM ACCOUNT DEVELOPMENT MANAGER from Last 3 Months or Most Recently Relevant to Health Maintenance Results * (ABNORMAL) LIPID PANEL (07/22/2022 7:43 AM ACCOUNT DEVELOPMENT MANAGER) Pathologist [facility] CHOLESTEROL 206(H) <200 mg/dL 07/22/2022 9:06 AM [facility] addwish [facility] TRIGLYCERIDE 379(H) <150 mg/dL 07/22/2022 9:06 AM [facility] addwish [facility] HDL 34(L) 40 - 59 mg/dL 07/22/2022 9:06 AM [facility] LDL CALCULATED 96 <100 mg/dL 07/22/2022 9:06 AM [facility] addwish [facility] NON-HDL CHOLESTEROL 172(H) <130 mg/dL 07/22/2022 9:06 AM [facility] Blood Venipuncture / Unknown 07/22/2022 7:43 AM ACCOUNT DEVELOPMENT MANAGER 07/22/2022 8:33 AM ACCOUNT DEVELOPMENT MANAGER [facility] LABORATORY [facility] - 07/22/2022 9:06 AM ACCOUNT DEVELOPMENT MANAGER TOTAL CHOLESTEROL mg/dL Desirable <200 Borderline [...] ORDERABLES Final Resu lt Performing Organization Address [facility]/ZIP Co de Phone Number [facility] addwish [facility] CLIA# [id number] [place] [address] * (ABNORMAL) HEMOGLOBIN A1C (07/20/2022 4:18 AM ACCOUNT DEVELOPMENT MANAGER) HEMOGLOBIN A1C 11.6(H) <=5.6 % 07/20/2022 7:55 PM ACCOUNT DEVELOPMENT MANAGER [facility]ish [facility] EST. AVG GLUCOSE, A1C 286 mg/dL 07/20/2022 7:55 PM ACCOUNT DEVELOPMENT MANAGER [facility] addwish [facility] Blood Venipuncture / Unknown 07/20/2022 4:18 AM ACCOUNT DEVELOPMENT MANAGER 07/20/2022 4:29 AM ACCOUNT DEVELOPMENT MANAGER Narrative [facility] LABORATORY [facility] - 07/20/2022 7:55 PM ACCOUNT DEVELOPMENT MANAGER HGB A1C INTERPRETATION NORMAL: <5.7% PRE-DIABETES: 5.7 - 6.4% DIABETES: 6.5% OR GREATER Nic Ramos NP CHEMISTRY ORDERABLES Final Yajaira gill Performing Organization Address [facility]/ZIP Co de Phone Number [facility] addwish [facility] CLIA# [id number] [place] [address] from Last 3 Months or Most Recently Relevant to Health Maintenance Insurance [facility] PLAN MEDICAID RX [facility] [employer] Commercial Advance Directives For more information, please contact: [phone] * Full Code (Latest Code Status on File) Date Activated Date Inactivated Comments 07/18/2022 8:41 PM 07/23/2022 7:47 PM
--- OUTSIDE RECORDS SUMMARY | 2024-10-18 18:12 | XMS_ITS | CONTINUITY OF CARE DOCUMENT ---
Author Name nitin taveras Address Unknown Organization [facility] Address [address] [place] [address] Phone [phone] Care Team Providers Care Autoglazier Name Role Phone Scott KHAN, [facility] Unavailable PANDA DARLING MD Unavailable PANDA DARLING MD Unavailable [phone] INSURANCE PROVIDERS Payer name Policy type / Coverage type Ventress red democrat ID [facility] [id number] [place] [employer] (2) Medicaid [id number]
--- OUTSIDE RECORDS SUMMARY | 2024-10-18 18:12 | XMS_ITS | Continuity of Care Document ---
Author Organization [facility] Address [address] [place] [address] Phone Care Team Providers Care Telephone Services Sales Representative Name Role Phone Juan Carlos Tran MD Unavailable Unavailable Allergies, Adverse Reactions, Alerts Substance Reaction Status Criticality No Known Allergies Active No Inform ation Medications Medication Instructions Dosage Effective Dates (start - stop) Status Comments Norvasc 10 mg tablet take 1 tablet (10MG ) by oral route every day 10 MG - Active losartan 50 mg tablet take 1 tablet (50M G) by oral route every day 50 MG - Active Procedures Procedure Date PREV VISIT, EST, AGE 18-39 OFFICE/OUTPATIENT VISIT, [facility] Advance Directives Directive Yes / No Effective Date File Name No Information Encounters Encounter Description Practice Location Reason(s) For Visit Diagnoses Date Provider Providers Copied on Encounter [facility], [address] [place], [place], [id number], tel:[phone] [facility] No Information [address] Marc Rangel. [address], [facility] [place], [id number] , [place]. tel:[phone] Referring Provider: Juan Carlos Tran, [address], [place], [place], [id number]. tel:[phone] PREV VISIT, EST, AGE 18-39 [facility], [address] [employer] [place], [id number], tel:[phone] [facility] Physical (chief complaint) Dietary surveillance and counselingRoutine Medical ExamRoutine Medical Exam 3 Marc Rangel. [address], [address] [place], [id number] , . tel:[phone] Referring Provider: Juan Carlos Tran, [address] [facility] [address], [place], [place], [id number]. tel:[phone] OFFICE/OUTPA TIENT VISIT, [facility], [address], [place], [place], [id number], [place] tel:[phone] [facility] Muscle pain (chief complaint) HTN (chief complaint) Dietary surveillance and counselingHypertens ion, UnspecifiedMyalgia and myositis, unspecified 3 Marc Rangel. [address] [facility] [address], [place], [place], [id number] , [place]. tel:[phone] Family History Family Member Type Diagnosis Age At Onset Mother Problem (finding) Alive and well Mother Problem (finding) unknwno Brother Problem (finding) Alcoholism Brother Problem (finding) Alive and well Father Problem (finding) Hyperlipidemia Father Problem (finding) Hypertension Father Problem (finding) Anxiety Payers Payer name Insurance type Covered republican ID Authoriza tion(s) No Information Social History [...]
--- OUTSIDE RECORDS SUMMARY | 2024-10-18 18:12 | XMS_ITS | Encounter Summary ---
Author Organization [facility] Address [address] [place] [address] Care Team Providers Care Senior Sql Server Database Developer Name Role Phone Unavailable Primary Care Provider Unavailabl e Reason for Visit * Reason Onset Date Comments new diabetes diagonosis 07/22/2022 Spoke jim Burns at 's office Encounter Details Date Type Department Care Team (Late st Contact Info) Description 07/22/2022 Telephone [facility] Admitting [address] [place] [address] Patrice Fontana DO NO ADDRESS [...] Coronavirus/COVID-19? No / Unsure 07/18/2022 7:45 PM COOKING INSTRUCTOR documented as of this encounter Plan of Treatment Not on file documented as of this encounter Visit Diagnoses Not on filedocumented in this encounter
[2024-10-18 18:20] LABS: Alanine Aminotransferase 27 U/L (6-50); Albumin Level 3.7 g/dL (3.5-5.1); Alkaline Phosphatase 64 U/L (38-126); Anion Gap 9 mmol/L (4-12); Aspartate Amino Transferase 31 U/L (17-59); Bilirubin,Total 0.4 mg/dL (0.2-1.3); Blood Urea Nitrogen 35 mg/dL (9-20); Calcium 8.6 mg/dL (8.4-10.2); Carbon Dioxide 20 mmol/L (22-30); Chloride 110 mmol/L (98-107); Estimated Glomerular Filt Rate 19; Glucose 120 mg/dL (65-110); Lipase 103 U/L (23-300); Potassium 4.2 mmol/L (3.4-5.0); Sodium 139 mmol/L (137-145); Total Protein 7.1 g/dL (6.3-8.2)
[2024-10-18] MEDS: ASPIRIN 81 MG CHEWABLE TABLET 324 MG PO (18:23)
[2024-10-18 18:25] LABS: Troponin I 0.055 ng/mL (0.000-0.034)
[2024-10-18] MEDS: hydrALAZINE HCL 20 MG/ML VIAL 10 MG IV PUSH (18:25)
[2024-10-18] MEDS: SODIUM CHLORIDE 0.9% IV 1,000 ML 999 ML IV CONT (18:53)
--- NOTE | 2024-10-18 19:22 | PC.NURSE ---
PA made aware of patients continued blood pressure elevation and headache
[2024-10-18] MEDS: LABETALOL HCL INJ 100 MG/20 ML VIAL 10 MG IV PUSH ×2 (19:44→20:35)
[2024-10-18] MEDS: ACETAMINOPHEN 500 MG TABLET 1000 MG PO (20:30)
--- NOTE | 2024-10-18 20:56 | ECG_ITS ---
Test Date: 2024-10-18 20:56:28 Measurements Intervals [place] Rate: 93 P: 24 AL: 162 QRS: -11 QRSD: 99 T: 103 QT: 360 QTc: 448 Interpretive Statements SINUS RHYTHM POSSIBLE LEFT ATRIAL ENLARGEMENT INCOMPLETE RIGHT BUNDLE BRANCH BLOCK LEFT VENTRICULAR HYPERTROPHY WITH ST-T CHANGE BASELINE ARTIFACT- I, II, AVR, V1 BORDERLINE ECG Compared to ECG 10/18/2024 17:35:38 NO SIGNIFICANT CHANGE Electronically Signed On 10-19-2024 08:37:12 CDT by Rodney Root D.O.
[2024-10-18 21:54] LABS: Troponin I 0.062 ng/mL (0.000-0.034)
[2024-10-18 23:13] LABS: Hemoglobin A1C 5.2 % (<5.7)
[2024-10-18 23:25] LABS: Phosphorus 5.3 mg/dL (2.5-4.5)
--- NOTE | 2024-10-18 23:36 | P.HP_ITS ---
H&P: HPI History of Present Illness Date/Time: 10/18/24 23:36 Chief Complaint: chest heaviness and shortness of breath, hypertensive urgency, HAZEL on CKD Narrative: This is a 48-year-old male patient with a past medical history that includes high blood pressure, chronic kidney disease, anxiety, obstructive sleep apnea on CPAP and type 2 diabetes who is admitted to the hospital for hypertensive urgency with related shortness of breath and headache. Workup in the emergency department reveals significant worsening of renal function, uncertain if HAZEL on CKD or significant worsening of CKD alone. Additionally BNP noted to be 855. Patient having chest heaviness with mild dyspnea especially with lying back. Troponin also mildly elevated with slight increase on 3 hour repeat. EKG with findings consistent with LVH and possible left atrial enlargement. Chest x-ray no pneumonia or obvious cardiopulmonary dysfunction. Head CT obtained because of patient exhibiting headache symptoms this was also negative. Patient received several doses of IV antihypertensives including labetalol and hydralazine. Patient reports that he use to take Jardiance for his diabetes but when he lost his job and lost his insurance he could no longer afford it. He states that he does once in a while take a dose of hydralazine but he is not very consistent with it at all. Patient reports he takes omeprazole most days, Tylenol occasionally and once in a while takes alprazolam 0.25 mg tablets for anxiety. Patient uses CPAP for obstructive sleep apnea. He has a history of hyperlipidemia but does not take medication for this currently. Onset of symptoms of headache and chest discomfort has been over the last couple of days. Today he checked his blood pressure at home and was concerned when it was over 190 systolic so he came to the hospital for evaluation. Review of Systems Review of Systems: All systems reviewed & are unremarkable except as noted in HPI and below [facility] Past Medical History Medical History (Updated 10/19/24 @ 01:59 by Goryd Ewing APRN) CALVIN on CPAP Hyperlipidemia Obesity Diabetes Fracture of scaphoid bone of left wrist Hypertension Anxiety Anxiety Surgical History Surgical History Hx of cholecystectomy Family History Family History Mother Family history of glaucoma Hypertension Father Hypertension Unknown Diabetes mellitus Other Family history of kidney disease Family history of mental disorder Social History Social History Social History: caffeine use Smoking packs per day: 1 Smoking cigarettes per day: 20.0 Years smoked: 15 Smoking pack-years: 15.00 Smoking status: Former smoker Alcohol intake: current Drinks per week: 8 Alcohol use details: Once per week, 4 beers at a time Substance use: never Substance use type: does not use Do You Feel Safe in your Home?: Yes Lack of Transportation: No Lack of Food: Never True Current Housing: I Have Housing Concerned About Future Housing: No Difficulty Paying Gas/Electric Bills: No Difficulty Paying for Meds: No Currently Unemployed: No Education: Trade/Vocational Certificate Difficulty w/ Childcare or Family Care: No Living arrangements: with family Occupation/Education: occupation 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[employer]- [employer] Gender identity (if verbalized by the patient): Male Sexual Orientation (if Verbalized by the Patient): Straight or Heterosexual Spiritual care concerns: No Meds Home Medications and Allergies Home Medications ?Medication ?Instructions ?Recorded ?Confirmed ?Type omeprazole 20 mg tablet,delayed 20 mg PO DAILY 08/22/23 10/19/24 History release acetaminophen 325 mg tablet (Pain 650 mg PO Q6H PRN pain 10/19/24 10/19/24 History Reliever (acetaminophen)) hydralazine 50 mg tablet 50 mg PO BID 10/19/24 10/19/24 History Allergies Allergy/AdvReac Type Severity Reaction Status Date / Time No Known Allergies Allergy Verified 11/21/23 16:10 Vital Signs Vital Signs - 24 hr 10/18/24 17:45 10/18/24 18:00 10/18/24 18:08 Temperature 36.8 C Pulse Rate 93 93 Respiratory Rate 18 Blood Pressure 194/133 H Pulse Oximetry 94 Oxygen Delivery Room Air Room Air 10/18/24 18:30 10/18/24 19:00 10/18/24 19:19 Temperature 36.5 C Pulse Rate 95 93 105 H Respiratory Rate 19 19 18 Blood Pressure 199/129 H 190/135 H 192/131 H Pulse Oximetry 96 98 98 Oxygen Delivery 10/18/24 20:19 10/18/24 21:15 10/18/24 22:00 Temperature Pulse Rate 98 90 105 H Respiratory Rate 21 H 18 18 Blood Pressure 175/129 H 169/121 H 159/103 H Pulse Oximetry 99 99 100 Oxygen Delivery Exam Narrative: GENERAL: Generally anxious appearing, mild dyspnea HEAD: Normocephalic, atraumatic. EYES: EOMI. NECK: Supple. No adenopathy or masses. CHEST: Clear to auscultation. No wheezes rales or rhonchi. Mild dyspnea on exam HEART: Regular rate and rhythm. No murmur heard. Normal peripheral pulses. EXTREMITIES: Normal range of motion. No edema. SKIN: Warm, dry, no rash. NEURO: No focal deficits. Alert and oriented x3. PSYCH: generally anxious appearing H&P: Results Labs Labs: Short CBC 10/18/24 Range/Units 17:54 WBC 8.8 (4.5-10.0) K/mm3 Hgb 15.3 (14.0-18.0) g/dL Hct 47.0 (42.0-52.0) % Plt Count 189 (150-375) k/mm3 BMP 10/18/24 17:54 Sodium 139 Potassium 4.2 Chloride 110 H Carbon Dioxide 20 L BUN 35 H D Creatinine 3.53 H Glucose 120 H Calcium 8.6 Cardiac Enzymes 10/18/24 10/18/24 Range/Units 17:54 20:58 Troponin I 0.055 H* 0.062 H* (0.000-0.034) ng/mL Liver Function 10/18/24 Range/Units 17:54 Total Bilirubin 0.4 (0.2-1.3) mg/dL AST 31 (17-59) U/L ALT 27 (6-50) U/L Alkaline Phosphatase 64 (38-126) U/L Albumin 3.7 (3.5-5.1) g/dL Pulse Oximetry SpO2 results: 95-100% on room air Attestation: I personally reviewed and interpreted this pulse oximetry as follows: Interpretation: No need for supplemental oxygenation at this time, Autopap ordered as patient wears CPAP but home unit not available right now ECG Attestation: I personally reviewed and interpreted this ECG as follows: ECG completion date: 10/18/24 ECG completion time: 17:35 Prior ECG tracings: not available for review Interpretation: Sinus rhythm rate 97 LA interval 154 QRS duration 89 QTC 446 QRS axis -17? LVH findings present and ST abnormalities noted in V1and aVL, no STEMI Imaging CT scan - head: Radiologist's impression: CT brain wo con Ordering provider: Gem Bahena History: 48 years Male with . headache, hypertension . Comparison: May 18, 2021 Technique: CT of the head without contrast. Radiation reduction technique utilized.The dose-length product was 681 mGy-cm. FINDINGS: BRAIN PARENCHYMA AND CSF SPACES: No midline shift, mass effect or hemorrhage. The brain parenchyma and CSF spaces are otherwise normal. VISUALIZED PARANASAL SINUSES: Well aerated. MASTOIDS: Well aerated. BONES: The bones appear intact. SOFT TISSUES: Visualized nasopharynx is normal. Superficial soft tissues are normal. IMPRESSION: No acute intracranial findings. Reviewed, dictated and finalized at location A. Chest x-ray: Radiologist's impression: XR chest 2V Ordering provider: Nahid Russo MD History: 48 years Male with . cp . Comparison: October 30, 2022 FINDINGS: MEDIASTINUM: The cardiac silhouette is not enlarged. LUNGS: No infiltrates, effusions or pneumothorax. OTHER: No free air under the diaphragm. IMPRESSION: No acute cardiopulmonary pathology. Reviewed, dictated and finalized at location A. Assessment and Plan Assessment and plan (1) Hypertensive urgency: Code(s): I16.0 - Hypertensive urgency Status: Acute Assessment and Plan: -Significantly elevated blood pressure with past history of HTN and CKD -Associated headache and shortness of breath -Worsening renal function noted -Elevated BNP noted, Elevated troponin noted -Concern for possible new onset CHF on admission -Multiple doses of IV medications to achieve roughly 25% reduction in SBP at rest -BP elevated again upon move to IMU -IV furosemide ordered x1 dose after patient got a liter of IV fluids in ER -Nitro paste applied and Q2H vital signs ordered -IV hydralazine PRN orders placed -Echocardiogram ordered -Cardiology consult and Nephrology consult in the morning -If BP does not respond, patient may need Cardene drip and move to ICU -Ordered D-Dimer and repeat troponin with AM labs, patient not tachycardic or hypoxic but PE is possible -Due to renal function, patient would need VQ scan if D-Dimer positive (2) Elevated troponin: Code(s): R79.89 - Other specified abnormal findings of blood chemistry Status: Acute Assessment and Plan: -[facility] to be related to Hypertensive Crisis, CKD and possible new onset CHF -Cardiology consult in AM since patient notes chest heaviness with lying back -Nitro paste applied on admit to floor to assist with blood pressure, chest pressure and possible pulmonary edema (3) Diabetes: Code(s): E11.9 - Type 2 diabetes mellitus without complications Status: Acute Assessment and Plan: -No longer on medications, formerly on Jardiance -Hgb A1c 5.2 on admission -Heart healthy diet ok (4) Cdpij-ij-mztzcue kidney injury: Qualifiers: Acute renal failure type: unspecified Chronic kidney disease stage: stage 4 (GFR 15-29) Qualified Code(s): N17.9 - Acute kidney failure, unspecified; N18.4 - Chronic kidney disease, stage 4 (severe) Code(s): N17.9 - Acute kidney failure, unspecified; N18.9 - Chronic kidney disease, unspecified Status: Acute Assessment and Plan: -CKD history noted in prior records -Significant drop in renal function noted on labs on admission -Likely hypertension and diabetes related -Will consult Nephrology in the morning (5) Anxiety: Code(s): F41.9 - Anxiety disorder, unspecified Status: Acute Assessment and Plan: -Patient reports periodic use of alprazolam 0.25 mg tablets PRN for anxiety (6) Hyperlipidemia: Code(s): E78.5 - Hyperlipidemia, unspecified Status: Acute Assessment and Plan: -No home medications currently -Add on lipid panel (7) CALVIN on CPAP: Code(s): G47.33 - Obstructive sleep apnea (adult) (pediatric) Status: Acute Assessment and Plan: -Ordered AutoPAP as home unit not available [facility] Quality VTE Prophylaxis VTE prophylaxis: pharmacologic ordered (heparin) Total time spent on patient 120 minutes including critical care time listed below Due to a high probability of clinically significant, life threatening deterioration, the patient required my highest level of preparedness to intervene emergently and I personally spent this critical care time directly and personally managing the patient. This critical care time included obtaining a history; examining the patient; pulse oximetry; ordering and review of studies; arranging urgent treatment with development of a management plan; evaluation of patient's response to treatment; frequent reassessment; and discussions with other providers. It was exclusive of separately billable procedures and treating other patients and teaching time. Please see Assessment and Plan section and the rest of the note for further information on patient assessment and treatment. Critical Care time: 45 minutes Hospitalist MIPS Advance Care Plan I have confirmed that the patient's Advanced Care Plan is present, code status is documented, or surrogate decision maker is listed in patient medical record.: Yes Medication Reconciliation I have utilized all available resources to obtain, update and review the patients current medications (includes all prescriptions, OTC, herbals, cannabis, and nutritional supplements).: Yes
--- NOTE | 2024-10-18 23:40 | ADMGEN ---
This patient, Juno kSy, was admitted to IMU Room 203-01. Patient/family oriented to hospital policies and general routines including ID bracelet, bed and alarms, visiting hours, pain management, procedures, bathroom and other care routines, personal items, smoking policy, room service/diet, and visiting hours. Information on how to activate the Rapid Response Team has been discussed. Patient/Family are encouraged to report perceived risks to care and to ask questions if they do not understand what they are told or what they should do.
[2024-10-19] VITALS (22 sets, daily range): BP systolic 118–195; BP diastolic 72–124; PULSE 71–97; RESP 2–21; TEMP 36.4–36.8; O2SAT 94–99
--- NOTE | 2024-10-19 | ECHO_ITS ---
Patient Info Name: Juno Sky Age: 48 years : 1975 Gender: Male Ht: 70 in Wt: 215 lbs BSA: 2.22 m2 HR: 78 bpm BP: 144 / 95 mmHg Technical Quality: Good Exam Date: 10/19/2024 9:15 AM Patient Status: I Admit Date: 10/18/2024 Exam Type: CA echo doppler color flow Complete two-dimensional, color flow and Doppler transthoracic echocardiogram is performed. Staff Referring Physician: Sarai Franco Historical Guide: Ana Maria Noble Attending Provider: Herman Drew MD Summary 1. Complete two-dimensional, color flow and Doppler transthoracic echocardiogram is performed. 2. Left ventricular chamber dimension is normal. 3. Left ventricular systolic function is normal, estimated at 55-60. 4. There is mild concentric increased left ventricular wall thickness. 5. The left ventricular diastolic function is abnormal. 6. E/e' 15 is elevated. 7. Left atrial chamber dimension is moderately enlarged. 8. There is mild mitral valve regurgitation. 9. There is no tricuspid valve regurgitation. 10. No pulmonary hypertension, estimated pulmonary arterial systolic pressure is 24 mmHg. 11. There is trace pulmonic regurgitation. Left Ventricle E/e' 15 is elevated. Left ventricular chamber dimension is normal. Left ventricular systolic function is normal, estimated at 55-60. There is mild concentric increased left ventricular wall thickness. The left ventricular diastolic function is abnormal. Right Ventricle Right ventricular chamber dimension is normal. Right ventricular systolic function is normal. Left Atria Left atrial chamber dimension is moderately enlarged. Right Atria Right atrial chamber dimension is normal. Aortic Valve The aortic valve is trileaflet. There is no aortic valve stenosis. There is no aortic valve regurgitation. Pulmonic Valve There is trace pulmonic regurgitation. Mitral Valve There is no mitral valve stenosis. There is mild mitral valve regurgitation. Tricuspid Valve There is no tricuspid valve regurgitation. No pulmonary hypertension, estimated pulmonary arterial systolic pressure is 24 mmHg. Pericardium/Pleural There is no pericardial effusion. Inferior Vena Cava Normal inferior vena cava with >50% collapse upon inspiration consistent with normal right atrial pressure, 5 mmHg. Aorta The aortic root size at the sinus of Valsalva is normal. Left Ventricular Outflow Tract Name Value Normal LVOT 2D LVOT Diameter 2.0 cm LVOT Doppler LVOT Peak Velocity 99 cm/s LVOT Peak Gradient 4 mmHg LVOT Mean Gradient 3 mmHg LVOT VTI 19 cm LVOT VTI/AV VTI Ratio 0.7 LVOT Stroke Volume 60 ml LVOT CO 13.9 l/min LVOT CI 6.3 l/min/m2 Pulmonic Valve Name Value Normal PV Doppler PV Peak Velocity 81 cm/s PV Peak Gradient 3 mmHg Mitral Valve Name Value Normal MV Diastolic Function MV E Peak Velocity 101 cm/s MV A Peak Velocity 54 cm/s MV E/A 1.9 MV Decel Time (PW) 183 ms MV Annular TDI MV E/e' (Septal) 16.2 MV E/e' (Lateral) 15.3 MV E/e' (Average) 15.7 Tricuspid Valve Name Value Normal TV Regurgitation Doppler TR Peak Velocity 219 cm/s TR Peak Gradient 19 mmHg Estimated PAP/RSVP RA Pressure 5 mmHg <=5 PA Systolic Pressure 24 mmHg <36 RV Systolic Pressure 24 mmHg <36 TV Annular TDI TV Lateral Flora s' Velocity 12.2 cm/s >=9.5 Aorta Name Value Normal Ascending Aorta Ao Root Diameter (MM) 3.4 cm Ao Root Diam Index (MM) 1.5 cm/m2 Aortic Valve Name Value Normal AV Doppler AV Peak Velocity 154 cm/s AV Peak Gradient 9 mmHg AV Mean Gradient 6 mmHg AV VTI 27 cm AV Area (Cont Eq VTI) 2.2 cm2 >=3.0 AV Area (Cont Eq Jey) 2.0 cm2 AV DI (Jey) 0.64 AV Regurgitation 2D LVOT Area 3.1 cm2 Ventricles Name Value Normal LV Dimensions 2D/MM IVS Diastolic Thickness (2D) 1.2 cm 0.6-1.0 LVID Diastole (2D) 5.3 cm 4.2-5.8 LVIW Diastolic Thickness (2D) 1.3 cm 0.6-1.0 LVID Systole (2D) 4.1 cm 2.5-4.0 LVOT Diameter 2.0 cm LV Mass (2D Cubed) 285.34 g 88.00-224.00 LV Mass Index (2D Cubed) 128 g/m2 49-115 Relative Wall Thickness (2D) 0.51 <=0.42 LV Fractional Shortening/Ejection Fraction 2D/MM LV Fractional Shortening (2D) 22 % 25-43 LV EF (2D Teichholz) 45 % LV Diastolic Volume (4C MOD) 149 ml LV EF (4C MOD) 42 % LV Diastolic Volume (2C MOD) 139 ml LV EF (2C MOD) 44 % LV Diastolic Volume (BP MOD) 143 ml 62-150 LV Diastolic Volume Index (BP MOD) 65 ml/m2 34-74 LV Systolic Volume (BP MOD) 83 ml 21-61 LV Systolic Volume Index (BP MOD) 37 ml/m2 11-31 LV EF (BP MOD) 42 % 52-72 LV Diastolic Length (4C) 9.0 cm LV Systolic Length (4C) 8.4 cm LV Stroke Volume (4C MOD) 63 ml RV Dimensions 2D/MM RVID Diastole (2D) 3.8 cm 2.1-3.5 Atria Name Value Normal LA Dimensions LA Dimension (MM) 4.1 cm 3.0-4.0 LA Volume (4C A-L) 90 ml LA Volume (BP A-L) 85 ml RA Dimensions RA Systolic Major [place] Length (4C) 5.2 cm 2.1-2.7 RA Area (4C) 18.0 cm2 <=18.0 Report Signatures
[2024-10-19] MEDS: NITROGLYCERIN OINTMENT 1 INCH DOSE TRANSDERM ×5 (00:17→23:58)
[2024-10-19] MEDS: FUROSEMIDE INJ 40 MG/4 ML VIAL IV PUSH (00:18)
[2024-10-19] MEDS: ALPRAZolam (*CRX) 0.25 MG TABLET PO (00:55)
[2024-10-19] MEDS: ACETAMINOPHEN 325 MG TABLET 650 MG PO ×2 (04:40→13:38)
[2024-10-19 04:52] LABS: Basophils Absolute Auto 0.1 K/mm3 (0.0-0.1); Basophils Percent Auto 0.7 % (0.2-1.2); Eosinophils Absolute Auto 0.1 K/mm3 (0-0.3); Eosinophils Percent Auto 1.6 % (0-4.4); Hematocrit 46.6 % (42.0-52.0); Immature Granulocyte Absolute 0.02 K/mm3 (0.00-0.031); Immature Granulocyte Percent A 0.3 % (0-0.5); Lymphocytes Absolute Auto 1.88 K/mm3 (0.9-3.2); Mean Corpuscular HGB Conc 32.2 g/dl (32-36); Mean Corpuscular Hemoglobin 28.7 pg (26-34); Mean Corpuscular Volume 89.3 fl (80-100); Monocytes Absolute Auto 0.5 K/mm3 (0.1-0.6); Monocytes Percent Auto 6.9 % (2.6-8.5); Neutrophils Absolute Auto 4.9 K/mm3 (1.3-6.7); Neutrophils Percent Auto 65.5 % (45.5-73.1); Platelet Count Result 180 k/mm3 (150-375); Red Blood Count 5.22 M/mm3 (4.6-6.20); Red Cell Distribution Width 13.9 % (11.5-14.5); White Blood Count 7.5 K/mm3 (4.5-10.0)
[2024-10-19 05:09] LABS: D Dimer 0.51 ug/mL (<0.48)
[2024-10-19 05:20] LABS: Troponin I 0.071 ng/mL (0.000-0.034)
[2024-10-19 05:28] LABS: Cholesterol 266 mg/dL (0-200); HDL Direct 38 mg/dL; LDL Cholesterol Direct 155 mg/dL; Triglycerides 214 mg/dL (<150)
[2024-10-19 05:29] LABS: Alanine Aminotransferase 25 U/L (6-50); Albumin Level 3.6 g/dL (3.5-5.1); Alkaline Phosphatase 56 U/L (38-126); Anion Gap 9 mmol/L (4-12); Aspartate Amino Transferase 29 U/L (17-59); Bilirubin,Total 0.4 mg/dL (0.2-1.3); Blood Urea Nitrogen 34 mg/dL (9-20); Calcium 8.8 mg/dL (8.4-10.2); Carbon Dioxide 22 mmol/L (22-30); Chloride 109 mmol/L (98-107); Estimated CRCL calculation 28 ml/min; Estimated Glomerular Filt Rate 18; Glucose 102 mg/dL (65-110); Phosphorus 5.2 mg/dL (2.5-4.5); Potassium 3.9 mmol/L (3.4-5.0); Sodium 140 mmol/L (137-145); Total Protein 6.9 g/dL (6.3-8.2)
[2024-10-19 07:52] LABS: Glucose Point of Care 98 mg/dl (65-105)
--- NOTE | 2024-10-19 08:15 | P.PNIM_ITS ---
Progress Note: A&P Assessment and Plan (1) Hypertensive urgency: Code(s): I16.0 - Hypertensive urgency Status: Acute Assessment and Plan: -Significantly elevated blood pressure with past history of HTN and CKD -Associated headache and shortness of breath -Worsening renal function noted -Elevated BNP noted, Elevated troponin noted -Concern for possible new onset CHF on admission -Multiple doses of IV medications to achieve roughly 25% reduction in SBP at rest -BP elevated again upon move to IMU -IV furosemide ordered x1 dose after patient got a liter of IV fluids in ER -Nitro paste applied and Q2H vital signs ordered -IV hydralazine PRN orders placed -Echocardiogram ordered -Cardiology consult and Nephrology consult in the morning -If BP does not respond, patient may need Cardene drip and move to ICU -Ordered D-Dimer and repeat troponin with AM labs, patient not tachycardic or hypoxic but PE is possible -Due to renal function, patient would need VQ scan if D-Dimer positive -no clinical evidence to consider V/Q scan -CT chest reviewed -possible deescalation of antibiotic tomorrow (2) Elevated troponin: Code(s): R79.89 - Other specified abnormal findings of blood chemistry Status: Acute Assessment and Plan: -[place] to be related to Hypertensive Crisis, CKD and possible new onset CHF -Cardiology consult in AM and evaluated the patient -Nitro paste applied on admit to floor to assist with blood pressure, chest pressure and possible pulmonary edema (3) Diabetes: Code(s): E11.9 - Type 2 diabetes mellitus without complications Status: Acute Assessment and Plan: -No longer on medications, formerly on Jardiance -Hgb A1c 5.2 on admission -Heart healthy diet ok (4) [id number]-[id number] kidney injury: Qualifiers: Acute renal failure type: unspecified Chronic kidney disease stage: stage 4 (GFR 15-29) Qualified Code(s): N17.9 - Acute kidney failure, unspecified; N18.4 - Chronic kidney disease, stage 4 (severe) Code(s): N17.9 - Acute kidney failure, unspecified; N18.9 - Chronic kidney disease, unspecified Status: Acute Assessment and Plan: -CKD history noted in prior records -Significant drop in renal function noted on labs on admission -Likely hypertension and diabetes related -ordered renal ultrasound, urine electrolytes and CPK -Will consult Nephrology -order renal ultrasound (5) Anxiety: Code(s): F41.9 - Anxiety disorder, unspecified Status: Acute Assessment and Plan: -Patient reports periodic use of alprazolam 0.25 mg tablets PRN for anxiety (6) Hyperlipidemia: Code(s): E78.5 - Hyperlipidemia, unspecified Status: Acute Assessment and Plan: -No home medications currently -will start atorvastatin 40 mg p.o. q.h.s. -reviewed lipid panel (7) CALVIN on CPAP: Code(s): G47.33 - Obstructive sleep apnea (adult) (pediatric) Status: Acute Assessment and Plan: -Ordered AutoPAP as home unit not available tonight Subjective Date/time seen: 10/19/24 08:15 Interval history: Interval History:48-year-old male patient with a past medical history that includes high blood pressure, chronic kidney disease, anxiety, obstructive sleep apnea on CPAP and type 2 diabetes who is admitted to the hospital for hypertensive urgency with related shortness of breath and headache.Patient also has HAZEL on CKD. In regards HTN emergency in the ED patient received hydralazine 10 mg, labetalol 10 mg x2, furosemide 40 mg. Currently patient is on nitroglycerin patch and hydralazine 50 mg p.o. b.i.d.. Patient is also hydralazine 10 mg IV push q.4 hours p.r.n.. In regards to HAZEL on CKD nephrology is consulted. Will order renal ultrasound, urine electrolytes and CPK. Patient has elevated troponin possibly due to type 2 [place], cardiology is consulted as well. 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 Currently patient is on nitro patch, clonidine 0.1 mg p.o. q.8 hours, labetalol 20 mg IV push q.3 hours and amlodipine 10 mg p.o. b.i.d. Review of Systems Review of Systems: All systems reviewed & are unremarkable except as noted in HPI and below Objective Data Vital Signs Vital Signs: Vital Signs - 24 hr 10/18/24 17:45 10/18/24 18:00 10/18/24 18:08 Temperature 98.3 F Pulse Rate 93 93 Respiratory Rate 18 Blood Pressure 194/133 H Pulse Oximetry 94 Oxygen Delivery Room Air Room Air 10/18/24 18:30 10/18/24 19:00 10/18/24 19:19 Temperature 97.7 F Pulse Rate 95 93 105 H Respiratory Rate 19 19 18 Blood Pressure 199/129 H 190/135 H 192/131 H Pulse Oximetry 96 98 98 Oxygen Delivery 10/18/24 20:19 10/18/24 21:15 10/18/24 22:00 Temperature Pulse Rate 98 90 105 H Respiratory Rate 21 H 18 18 Blood Pressure 175/129 H 169/121 H 159/103 H Pulse Oximetry 99 99 100 Oxygen Delivery 10/18/24 23:58 10/18/24 23:59 10/19/24 00:00 Temperature 97.7 F Pulse Rate 98 95 Respiratory Rate 18 Blood Pressure 200/136 H 197/131 H Pulse Oximetry 100 Oxygen Delivery 10/19/24 00:45 10/19/24 02:00 10/19/24 03:00 Temperature Pulse Rate 85 86 86 Respiratory Rate Blood Pressure 162/115 H Pulse Oximetry 95 Oxygen Delivery Autopap 10/19/24 04:00 10/19/24 04:00 10/19/24 06:00 Temperature 97.7 F Pulse Rate 79 74 86 Respiratory Rate 18 Blood Pressure 144/95 H Pulse Oximetry 97 Oxygen Delivery 10/19/24 07:46 10/19/24 08:02 Temperature 98.2 F Pulse Rate 86 Respiratory Rate 21 H Blood Pressure 176/113 H Pulse Oximetry 98 99 Oxygen Delivery Room Air Intake/Output Intake/Output: Intake & Output 10/16/24 10/17/24 10/18/24 10/19/24 23:59 23:59 23:59 23:59 Intake Total 1000 Output Total 1800 Balance 1000 -1800 Meds/Results Medications: Active Medications Generic Name Dose Route Start Last Admin Trade Name Freq PRN Reason Stop Dose Admin Acetaminophen 650 mg 10/19/24 01:20 10/19/24 04:40 Acetaminophen 325 Mg Tablet PO 650 mg Q6H PRN Administration pain Heparin Sodium (Porcine) 5,000 units 10/19/24 09:00 Heparin Sodium 5,000 Units/Ml Vial SUB-Q Q12HR PACHECO Hydralazine HCl 10 mg 10/18/24 23:37 Hydralazine Hcl 20 Mg/Ml Vial IV PUSH Q4H PRN Blood Pressure - High Hydralazine HCl 50 mg 10/19/24 09:00 Hydralazine Hcl 50 Mg Tablet PO BID PACHECO Nitroglycerin 1 inch 10/18/24 23:35 10/19/24 06:02 Nitroglycerin Ointment 1 Inch Dose TRANSDERM 1 inch Q6HR PACHECO Administration Pantoprazole Sodium 20 mg 10/19/24 09:00 Pantoprazole Sod Sesquihydrate 20 Mg Tab PO QAM [facility] Perflutren Lipid Microsphere 0 ml 10/18/24 22:26 Perflutren Lipid Microspheres 1.5 Ml Vial Diluted To 10 Ml Total Volume IV PUSH 10/21/24 22:26 ONCE PRN adequate visualization Protocol Radiology Results: ITS Impressions Chest X-Ray 10/18/24 18:22 IMPRESSION: No acute cardiopulmonary pathology. Head CT 10/18/24 19:56 IMPRESSION: No acute intracranial findings. Labs Labs: Laboratory Results - last 24 hr 10/18/24 10/18/24 10/18/24 17:53 17:54 20:58 WBC 8.8 RBC 5.36 Hgb 15.3 Hct 47.0 MCV 87.7 MCH 28.5 MCHC 32.6 RDW 13.7 Plt Count 189 MPV 9.8 Immature Gran % (Auto) 0.5 Neut % (Auto) 73.6 H Lymph % (Auto) 18.6 [place] % (Auto) 5.4 Eos % (Auto) 1.4 Baso % (Auto) 0.5 Lymph # (Auto) 1.64 [place] # (Auto) 0.5 Eos # (Auto) 0.1 Baso # (Auto) 0.0 Abs Immat Gran (auto) 0.04 H Absolute Neuts (auto) 6.5 Absolute Nucleated RBC 0.000 Nucleated RBC % 0.0 PT 13.3 INR 1.0 APTT 28.9 D-Dimer Sodium 139 Potassium 4.2 Chloride 110 H Carbon Dioxide 20 L Anion Gap 9 BUN 35 H D Creatinine 3.53 H Estim Creat Clear Calc Not Reportable Estimated GFR 19 L Glucose 120 H POC Capillary Glucose Hemoglobin A1c 5.2 Calcium 8.6 Phosphorus 5.3 H Magnesium Total Bilirubin 0.4 AST 31 ALT 27 Alkaline Phosphatase 64 Troponin I 0.055 H* 0.062 H* Total Protein 7.1 Albumin 3.7 Triglycerides Cholesterol LDL Cholesterol Direct HDL Direct Lipase 103 10/19/24 10/19/24 04:33 07:38 WBC 7.5 RBC 5.22 Hgb 15.0 Hct 46.6 MCV 89.3 MCH 28.7 MCHC 32.2 RDW 13.9 Plt Count 180 MPV 10.0 Immature Gran % (Auto) 0.3 Neut % (Auto) 65.5 Lymph % (Auto) 25.0 [place] % (Auto) 6.9 Eos % (Auto) 1.6 Baso % (Auto) 0.7 Lymph # (Auto) 1.88 [place] # (Auto) 0.5 Eos # (Auto) 0.1 Baso # (Auto) 0.1 Abs Immat Gran (auto) 0.02 Absolute Neuts (auto) 4.9 Absolute Nucleated RBC 0.000 Nucleated RBC % 0.0 PT INR APTT D-Dimer 0.51 H Sodium 140 Potassium 3.9 Chloride 109 H Carbon Dioxide 22 Anion Gap 9 BUN 34 H Creatinine 3.60 H Estim Creat Clear Calc 28 Estimated GFR 18 L Glucose 102 POC Capillary Glucose 98 Hemoglobin A1c Calcium 8.8 Phosphorus 5.2 H Magnesium 2.0 Total Bilirubin 0.4 AST 29 ALT 25 Alkaline Phosphatase 56 Troponin I 0.071 H* Total Protein 6.9 Albumin 3.6 Triglycerides 214 H Cholesterol 266 H LDL Cholesterol Direct 155 HDL Direct 38 Lipase Quality VTE Prophylaxis VTE prophylaxis: pharmacologic ordered (heparin) Hospitalist MIPS Advance Care Plan I have confirmed that the patient's Advanced Care Plan is present, code status is documented, or surrogate decision maker is listed in patient medical record.: Yes Medication Reconciliation I have utilized all available resources to obtain, update and review the patients current medications (includes all prescriptions, OTC, herbals, cannabis, and nutritional supplements).: Yes
--- NOTE | 2024-10-19 08:31 | P.CONCA_ITS ---
Assessment and Plan Assessment and plan (1) Hypertension: Qualifiers: Hypertension type: unspecified Qualified Code(s): I10 - Essential (primary) hypertension Code(s): I10 - Essential (primary) hypertension Status: Acute Assessment and Plan: Uncontrolled hypertension. Presenting BP 194/133mm Hg. * Limited options for antihypertensive agents given his renal function currently * Will start him on low dose amlodipine - do not want to drop his blood pressure too quickly * Continue hydralazine 50mg b.i.d. * Will check renal artery US to rule out renal artery stenosis * Q4h BP * IV hydralazine p.r.n (2) Hyperlipidemia: Code(s): E78.5 - Hyperlipidemia, unspecified Status: Acute Assessment and Plan: On statin (3) Elevated troponin: Code(s): R79.89 - Other specified abnormal findings of blood chemistry Status: Acute Assessment and Plan: Probably related to uncontrolled HTN. However, he does describe angina concerning for myocardial ischemia. He does have multiple risk factors (HLD, HTN, family history,? diabetes), so would be reasonable to obtain a stress test while he is here. Echo is pending. Will order lexiscan for Tuesday if he remains in the hospital until that time. If not, could be obtained as an outpatient. History of Present Illness History of Present Illness Consult date/time: 10/19/24 08:31 Requesting physician: Cristofer Guerrero MD Consult reason: hypertension Reason For Visit: Hypertensive urgency, acute on chronic kidney Narrative: Juno Sky is a 48 year old male with uncontrolled hypertension, CALVIN on CPAP, CKD. He comes to the hospital with significantly elevated blood pressure and complaints of headache and chest pain. He has had hypertension for about 15 years and has been on antihypertensives in the past but most recently has only been taking hydralazine and not taking it as prescribed. He also has chest pain which he describes as a heaviness in his chest that radiates to his back. Chest pain occurs with activity and subsides with rest. This has been going on for about a month. At the time of my evaluation he is feeling well and does not have any specific complaints. Review of Systems 2 Review of Systems: All systems reviewed & are unremarkable except as noted in HPI and below PMFSH Past Medical History Medical History CALVIN on CPAP Hyperlipidemia Obesity Diabetes Fracture of scaphoid bone of left wrist Hypertension Anxiety Anxiety Surgical History Surgical History Hx of cholecystectomy Family History Family History Mother Family history of glaucoma Hypertension Father Hypertension Unknown Diabetes mellitus Other Family history of kidney disease Family history of mental disorder Social History Social History Social History: caffeine use Smoking packs per day: 1 Smoking cigarettes per day: 20.0 Years smoked: 15 Smoking pack-years: 15.00 Smoking status: Former smoker Alcohol intake: current Drinks per week: 8 Alcohol use details: Once per week, 4 beers at a time Substance use: never Substance use type: does not use Do You Feel Safe in your Home?: Yes Lack of Transportation: No Lack of Food: Never True Current Housing: I Have Housing Concerned About Future Housing: No Difficulty Paying Gas/Electric Bills: No Difficulty Paying for Meds: No Currently Unemployed: No Education: Trade/Vocational Certificate Difficulty w/ Childcare or Family Care: No Living arrangements: with family Occupation/Education: occupation 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- [employer] Gender identity (if verbalized by the patient): Male Sexual Orientation (if Verbalized by the Patient): Straight or Heterosexual Spiritual care concerns: No Meds Home Medications and Allergies Home Medications ?Medication ?Instructions ?Recorded ?Confirmed ?Type omeprazole 20 mg tablet,delayed 20 mg PO DAILY 08/22/23 10/19/24 History release acetaminophen 325 mg tablet (Pain 650 mg PO Q6H PRN pain 10/19/24 10/19/24 History Reliever (acetaminophen)) hydralazine 50 mg tablet 50 mg PO BID 10/19/24 10/19/24 History Allergies Allergy/AdvReac Type Severity Reaction Status Date / Time No Known Allergies Allergy Verified 11/21/23 16:10 Vital Signs Vital Signs - 24 hr 10/18/24 17:45 10/18/24 18:00 10/18/24 18:08 Temperature 36.8 C Pulse Rate 93 93 Respiratory Rate 18 Blood Pressure 194/133 H Pulse Oximetry 94 Oxygen Delivery Room Air Room Air 10/18/24 18:30 10/18/24 19:00 10/18/24 19:19 Temperature 36.5 C Pulse Rate 95 93 105 H Respiratory Rate 19 19 18 Blood Pressure 199/129 H 190/135 H 192/131 H Pulse Oximetry 96 98 98 Oxygen Delivery 10/18/24 20:19 10/18/24 21:15 10/18/24 22:00 Temperature Pulse Rate 98 90 105 H Respiratory Rate 21 H 18 18 Blood Pressure 175/129 H 169/121 H 159/103 H Pulse Oximetry 99 99 100 Oxygen Delivery 10/18/24 23:58 10/18/24 23:59 10/19/24 00:00 Temperature 36.5 C Pulse Rate 98 95 Respiratory Rate 18 Blood Pressure 200/136 H 197/131 H Pulse Oximetry 100 Oxygen Delivery 10/19/24 00:45 10/19/24 02:00 10/19/24 03:00 Temperature Pulse Rate 85 86 86 Respiratory Rate Blood Pressure 162/115 H Pulse Oximetry 95 Oxygen Delivery Autopap 10/19/24 04:00 10/19/24 04:00 10/19/24 06:00 Temperature 36.5 C Pulse Rate 79 74 86 Respiratory Rate 18 Blood Pressure 144/95 H Pulse Oximetry 97 Oxygen Delivery 10/19/24 07:46 10/19/24 08:02 Temperature 36.8 C Pulse Rate 86 Respiratory Rate 21 H Blood Pressure 176/113 H Pulse Oximetry 98 99 Oxygen Delivery Room Air Exam 2 Const: General: comfortable, no acute distress, alert and awake O rientation/consciousness: patient oriented x3 HENMT: Head: normal to inspection Eyes: General: appearance normal, both eyes and all related structures P upils: Equal, round and reactive pupils present Neck: Neck: normal visual inspection, supple and no JVD Carotids: normal carotid upstroke Resp: Effort & Inspection: normal respiratory effort Auscultation: clear to auscultation bilaterally Cardio: Rate: regular rate Rhythm: regular rhythm Heart sounds: S1 normal heart sound present, S2 normal heart sound present and no murmurs GI: Auscultation: normal bowel sounds Skin: General skin exam: normal color Neuro: General: patient oriented x3 Cranial nerves: Yes Equal, round and reactive pupils present Extrem: General: normal to inspection Psych: Appearance: grossly normal Mental Status: mental status grossly normal Results Labs and Meds 10/19/24 04:33 10/19/24 04:33 Lab results: Cardiac Enzymes 10/18/24 10/18/24 10/19/24 Range/Units 17:54 20:58 04:33 AST 31 29 (17-59) U/L Troponin I 0.055 H* 0.062 H* 0.071 H* (0.000-0.034) ng/mL Coagulation 10/18/24 Range/Units 17:54 PT 13.3 (11.1-14.7) Seconds APTT 28.9 (22.3-36.8) Seconds Lipids 10/19/24 Range/Units 04:33 Triglycerides 214 H (<150) mg/dL Cholesterol 266 H (0-200) mg/dL CBC 10/18/24 10/19/24 Range/Units 17:54 04:33 WBC 8.8 7.5 (4.5-10.0) K/mm3 RBC 5.36 5.22 (4.6-6.20) M/mm3 Hgb 15.3 15.0 (14.0-18.0) g/dL Hct 47.0 46.6 (42.0-52.0) % Plt Count 189 180 (150-375) k/mm3 Lymph # (Auto) 1.64 1.88 (0.9-3.2) K/mm3 [place] # (Auto) 0.5 0.5 (0.1-0.6) K/mm3 Eos # (Auto) 0.1 0.1 (0-0.3) K/mm3 Baso # (Auto) 0.0 0.1 (0.0-0.1) K/mm3 Comprehensive Metabolic Panel 10/18/24 10/19/24 Range/Units 17:54 04:33 Sodium 139 140 (137-145) mmol/L Potassium 4.2 3.9 (3.4-5.0) mmol/L Chloride 110 H 109 H (98-107) mmol/L Carbon Dioxide 20 L 22 (22-30) mmol/L BUN 35 H D 34 H (9-20) mg/dL Creatinine 3.53 H 3.60 H (0.7-1.3) mg/dL Glucose 120 H 102 (65-110) mg/dL Calcium 8.6 8.8 (8.4-10.2) mg/dL AST 31 29 (17-59) U/L ALT 27 25 (6-50) U/L Alkaline Phosphatase 64 56 (38-126) U/L Total Protein 7.1 6.9 (6.3-8.2) g/dL Albumin 3.7 3.6 (3.5-5.1) g/dL Intake and Output 10/18/24 10/19/24 10/19/24 23:59 07:59 15:59 Intake Total 1000 Output Total 1800 Balance 1000 -1800 Intake: IV 1000 Sodium Chloride 0.9% IV 1,000 1000 ml @ 999 mls/hr IV CONT .Q1H1M STA Rx#:[id number] Output: Urine 1800 Patient Weight 10/19/24 23:59 Weight 97.6 kg
[2024-10-19 10:26] LABS: Creatine Kinase 71 U/L (55-170)
[2024-10-19] MEDS: ATORVASTATIN 40 MG TABLET PO (10:44)
[2024-10-19] MEDS: PANTOPRAZOLE SOD SESQUIHYDRATE 20 MG TAB PO (10:46)
[2024-10-19] MEDS: hydrALAZINE HCL 50 MG TABLET PO (10:47)
[2024-10-19] MEDS: HEPARIN SODIUM 5,000 UNITS/ML VIAL 5000 UNITS SUB-Q ×2 (10:47→21:43)
[2024-10-19] MEDS: amLODIPine BESYLATE 2.5 MG TABLET PO (10:47)
[2024-10-19 11:24] LABS: Glucose Point of Care 84 mg/dl (65-105)
--- NOTE | 2024-10-19 11:34 | P.CONNP_ITS ---
Assessment and Plan Assessment and plan (1) [id number] kidney injury: Qualifiers: Acute renal failure type: unspecified Chronic kidney disease stage: s tage 4 (GFR 15-29) Qualified Code(s): N17.9 - Acute kidney failure, unspecified; N18.4 - Chronic kidney disease, stage 4 (severe) Code(s): N17.9 - Acute kidney failure, unspecified; N18.9 - Chronic kidney disease, unspecified Status: Acute Assessment and Plan: The patient has chronic kidney disease. His creatinine was 2.0 a couple of years ago and with his poor control of blood pressure I suspect that his current creatinine is probably a chronic issue. I agree with Dr. Marino on eugenio that most likely diabetes, hypertension, and vascular disease are probably responsible. He did not get any of the tests that Dr. Marino on go ordered so I will repeat all of these for him to get now. There is always a possibility of superimposed acute kidney injury however. The severity of his blood pressure could responsible for hypertensive nephritis. It is remotely possibly has some sort of glomerulonephritis from the hydralazine or on its own. Obstruction, rhabdomyolysis etc. are also possibilities. I think these are much less likely however. At this point will get serology, immunofix, CPK, urine electrolytes and eosinophils, and a renal ultrasound. (2) CALVIN on CPAP: Code(s): G47.33 - Obstructive sleep apnea (adult) (pediatric) Status: Acute Assessment and Plan: He continues to use a CPAP machine. He uses this religiously at night (3) Hypertensive urgency: Code(s): I16.0 - Hypertensive urgency Status: Acute Assessment and Plan: His blood pressure is quite high. I will hold off on the hydralazine for now. I will increase his amlodipine. We can add clonidine for an as needed and will add chlorthalidone to help with salt excretion. Consider labetalol as an additional medication and consider MIGUEL-inhibitor or ARB if the creatinine remains stable. (4) Hyperlipidemia: Code(s): E78.5 - Hyperlipidemia, unspecified Status: Acute Assessment and Plan: He is on a torvastatin (5) Diabetes: Code(s): E11.9 - Type 2 diabetes mellitus without complications Status: Acute Assessment and Plan: Hospitalists to manage this. His A1c was good. History of Present Illness Reason for Consult Consult date: 10/19/24 Chief Complaint Chief complaint: Hypertensive urgency, acute on chronic kidney History of Present Illness Narrative: Juno is a very pleasant 48-year-old gentleman who has multiple medical problems including severe hypertension, sleep apnea on the CPAP machine, hyperlipidemia, diabetes, anxiety, high body mass index. The patient came in the hospital because his blood pressure was high. He says that before 1 year ago he was on medications to control his blood pressure. He does not remember how his numbers were back then but his DrVick would comment that his blood pressure is slightly high and doing pretty well on the medicine he was on. He knows he was on hydralazine before isn't sure of what else he was on except for amlodipine which used to make him swell. One year ago the patient lost his insurance. So he could not afford to take medications. He would try to avoid salty foods. He did have a gigantic supply of hydralazine at home so he would occasionally take that, may be 1 pill every 2 or 3 days to keep the edge off his blood pressure. He did not check his blood pressure readings at home for the last year. He has as that for the last few weeks he has been having headaches. In the last couple of weeks he has been having chest pressure and shortness of breath when he lay flat. In the past few days his headaches have been especially bad and so he was taking lots of ibuprofen to prevent the pain, however then he realized he was supposed to be taking ibuprofen so stop that the day of admission. He went over to his mom's house and told her how bad he felt so she took his blood pressure and the reading was 190 something so she had him go to the ER. In the ER his blood pressure was indeed elevated. Evaluation included out chest x-ray which was unremarkable, CT brain which was unremarkable, CBC which was okay, a creatinine which was elevated at 3.5, as bicarbonate level of only 20, a mildly elevated troponin. The patient was admitted. The patient was given antihypertensives. The blood pressure is mildly better but not a lot. His creatinine today was about the same as it was yesterday so renal consultation was requested. It turns out that back in 2022 his creatinine was 1.5 in July and 2.0 in October. He actually saw Dr. Marino on go in the office in November of 2023 and was diagnosed with chronic kidney disease due to hypertension vascular disease and diabetes. Dr. Belcher ordered a renal ultrasound which was not done as well as multiple labs which were not done either. I think this is because the patient had lost his insurance by then. Review of Systems 2 Constitutional: Constitutional: Reports no additional constitutional complaints Eyes: Eyes: Reports no additional eye complaints ENT: Reports system reviewed and no additional complaints, except as documented Cardiovascular: Cardiovascular: Reports no additional cardiovascular complaints Respiratory: Respiratory: Reports no additional respiratory complaints Gastrointestinal: Gastrointestinal: Reports no additional gastrointestinal complaints Genitourinary: Genitourinary: Reports no additional male genitourinary complaints Musculoskeletal: Musculoskeletal: Reports no additional musculoskeletal complaints Integumentary/Breasts: Skin/Breast: Reports system reviewed and no additional complaints, except as docu Neurologic: Reports system reviewed and no additional complaints, except as documented Psychiatric: Psychiatric: Reports no additional psychiatric complaints Endocrine: Endocrine: Reports no additional endocrine complaints PMFSH Past Medical History Medical History CALVIN on CPAP Hyperlipidemia Obesity Diabetes Fracture of scaphoid bone of left wrist Hypertension Anxiety Anxiety Surgical History Surgical History Hx of cholecystectomy Family History Family History Mother Family history of glaucoma Hypertension Father Hypertension Unknown Diabetes mellitus Other Family history of kidney disease Family history of mental disorder Social History Social History Social History: caffeine use Smoking packs per day: 1 Smoking cigarettes per day: 20.0 Years smoked: 15 Smoking pack-years: 15.00 Smoking status: Former smoker Alcohol intake: current Drinks per week: 8 Alcohol use details: Once per week, 4 beers at a time Substance use: never Substance use type: does not use Do You Feel Safe in your Home?: Yes Lack of Transportation: No Lack of Food: Never True Current Housing: I Have Housing Concerned About Future Housing: No Difficulty Paying Gas/Electric Bills: No Difficulty Paying for Meds: No Currently Unemployed: No Education: Trade/Vocational Certificate Difficulty w/ Childcare or Family Care: No Living arrangements: with family Occupation/Education: occupation 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- [employer] Gender identity (if verbalized by the patient): Male Sexual Orientation (if Verbalized by the Patient): Straight or Heterosexual Spiritual care concerns: No Meds Home Medications and Allergies Home Medications ?Medication ?Instructions ?Recorded ?Confirmed ?Type omeprazole 20 mg tablet,delayed 20 mg PO DAILY 08/22/23 10/19/24 History release acetaminophen 325 mg tablet (Pain 650 mg PO Q6H PRN pain 10/19/24 10/19/24 History Reliever (acetaminophen)) hydralazine 50 mg tablet 50 mg PO BID 10/19/24 10/19/24 History Allergies Allergy/AdvReac Type Severity Reaction Status Date / Time No Known Allergies Allergy Verified 11/21/23 16:10 Vital Signs Vital Signs - 24 hr 10/18/24 17:45 10/18/24 18:00 10/18/24 18:08 Temperature 98.3 F Pulse Rate 93 93 Respiratory Rate 18 Blood Pressure 194/133 H Pulse Oximetry 94 Oxygen Delivery Room Air Room Air 10/18/24 18:30 10/18/24 19:00 10/18/24 19:19 Temperature 97.7 F Pulse Rate 95 93 105 H Respiratory Rate 19 19 18 Blood Pressure 199/129 H 190/135 H 192/131 H Pulse Oximetry 96 98 98 Oxygen Delivery 10/18/24 20:19 10/18/24 21:15 10/18/24 22:00 Temperature Pulse Rate 98 90 105 H Respiratory Rate 21 H 18 18 Blood Pressure 175/129 H 169/121 H 159/103 H Pulse Oximetry 99 99 100 Oxygen Delivery 10/18/24 23:58 10/18/24 23:59 10/19/24 00:00 Temperature 97.7 F Pulse Rate 98 95 Respiratory Rate 18 Blood Pressure 200/136 H 197/131 H Pulse Oximetry 100 Oxygen Delivery 10/19/24 00:45 10/19/24 02:00 10/19/24 03:00 Temperature Pulse Rate 85 86 86 Respiratory Rate Blood Pressure 162/115 H Pulse Oximetry 95 Oxygen Delivery Autopap 10/19/24 04:00 10/19/24 04:00 10/19/24 06:00 Temperature 97.7 F Pulse Rate 79 74 86 Respiratory Rate 18 Blood Pressure 144/95 H Pulse Oximetry 97 Oxygen Delivery 10/19/24 07:46 10/19/24 08:02 Temperature 98.2 F Pulse Rate 86 Respiratory Rate 21 H Blood Pressure 176/113 H Pulse Oximetry 98 99 Oxygen Delivery Room Air Exam 2 Narrative: Exam Narrative: Well developed well-nourished male in no acute distress Skin is warm and dry without rash Head normocephalic atraumatic Eyes normal sclerae and conjunctivae Mouth normal lips teeth and gums Neck no nodes no thyromegaly no carotid bruits Axillae no nodes Back no CVA tenderness Lungs symmetric and clear to auscultation and percussion Heart regular rate and rhythm without rub or gallop Abdomen bowel sounds positive soft nontender, no HSM, masses, or bruits. Extremities no cyanosis, clubbing, or edema Pulses 2+ equal in radial arteries Psychological not anxious or depressed Neuro alert and oriented x3 motor 5/5 cranial nerves 2-12 intact reflexes 2+ and equal in the biceps and patellar tendons cerebellar normal rapid alternating movements Results Lab Results 10/19/24 04:33 10/19/24 04:33 Lab results: Most recent lab results Calcium 8.8 mg/dL (8.4-10.2) 10/19/24 04:33 Phosphorus 5.2 mg/dL (2.5-4.5) H 10/19/24 04:33 Magnesium 2.0 mg/dL (1.6-2.3) 10/19/24 04:33
[2024-10-19 12:47] LABS: Creatine Kinase 65 U/L (55-170)
[2024-10-19 13:00] LABS: Complement C3 167 mg/dL (88-165)
[2024-10-19 13:01] LABS: Erythrocyte Sedimentation Rate 16 mm/hr (0-20); Parathyroid Intact 94.5 pg/mL (14.5-75.2)
[2024-10-19 13:10] LABS: Vitamin D 25 Hydroxy < 12.8 ng/mL
[2024-10-19] MEDS: amLODIPine BESYLATE 5 MG TABLET PO (13:27)
[2024-10-19] MEDS: cloNIDine HCL 0.1 MG TABLET PO ×2 (13:28→21:43)
[2024-10-19 14:22] LABS: Urea Random Urine 133 MG/DL
[2024-10-19 14:23] LABS: Sodium Urine Random 117 meq/L; Urea Random Urine 132 MG/DL
[2024-10-19 14:24] LABS: Total Protein Urine Random 94 mg/dL; Ur Ttl Prot Creatinine Ratio 3.92 mg/mg (0-0.20)
[2024-10-19 14:29] LABS: Eosinophil Urine None Seen % (None Seen)
[2024-10-19 14:30] LABS: Urine Eos QC 2nd Tech Confirmed
[2024-10-19 15:41] LABS: Add Urine Microscopic? YES
[2024-10-19 15:42] LABS: Appearance Urine Clear (Clear); Bacteria Urine None Seen /hpf; Color Urine Light Yellow (Yellow); Non Pathogenic Casts 0-2; Protein Urine 2+ mg/dL (Negative); RBC Urine 0-2 /hpf (0-2); Specific Grav Ur 1.015 (1.001-1.035); Squamous Epithelial Cell Urine None Seen /hpf (Few); WBC Urine 0-5 /hpf (0-3)
[2024-10-19 15:43] LABS: Bilirubin Urine Negative (Negative); Blood Urine Trace-Lysed (Negative); Glucose Urine UA Negative (Negative); Ketones Urine Negative (Negative); Leukocyte Esterase Ur Negative LEU/UL (Negative); Nitrate Urine Negative (Negative); Urobilinogen Urine 0.2 mg/dL (<2.0)
[2024-10-19] MEDS: LABETALOL HCL INJ 100 MG/20 ML VIAL 20 MG IV PUSH (16:39)
[2024-10-19 16:51] LABS: Glucose Point of Care 117 mg/dl (65-105)
[2024-10-19] MEDS: WATER FOR IRRIGATION, STERILE 1,000 ML BOTTLE 1000 ML (19:38)
[2024-10-19 21:14] LABS: Glucose Point of Care 113 mg/dl (65-105)
[2024-10-20] VITALS (13 sets, daily range): BP systolic 117–141; BP diastolic 70–97; PULSE 64–85; RESP 14–16; TEMP 36.4–36.9; O2SAT 98–100
[2024-10-20 04:27] LABS: Basophils Percent Auto 0.4 % (0.2-1.2); Eosinophils Absolute Auto 0.2 K/mm3 (0-0.3); Eosinophils Percent Auto 2.2 % (0-4.4); Hematocrit 42.4 % (42.0-52.0); Hemoglobin 13.8 g/dL (14.0-18.0); Immature Granulocyte Absolute 0.04 K/mm3 (0.00-0.031); Immature Granulocyte Percent A 0.5 % (0-0.5); Lymphocytes Absolute Auto 2.16 K/mm3 (0.9-3.2); Lymphocytes Percent Auto 27.6 % (18.3-44.2); Mean Corpuscular HGB Conc 32.5 g/dl (32-36); Mean Corpuscular Hemoglobin 29.2 pg (26-34); Mean Corpuscular Volume 89.8 fl (80-100); Mean Platelet Volume 9.7 fl (7.4-10.4); Monocytes Absolute Auto 0.6 K/mm3 (0.1-0.6); Monocytes Percent Auto 7.5 % (2.6-8.5); Neutrophils Absolute Auto 4.8 K/mm3 (1.3-6.7); Neutrophils Percent Auto 61.8 % (45.5-73.1); Platelet Count Result 168 k/mm3 (150-375); Red Blood Count 4.72 M/mm3 (4.6-6.20); Red Cell Distribution Width 13.8 % (11.5-14.5); White Blood Count 7.8 K/mm3 (4.5-10.0)
[2024-10-20 04:45] LABS: Alanine Aminotransferase 23 U/L (6-50); Albumin Level 3.4 g/dL (3.5-5.1); Alkaline Phosphatase 47 U/L (38-126); Anion Gap 7 mmol/L (4-12); Aspartate Amino Transferase 24 U/L (17-59); Bilirubin,Total 0.3 mg/dL (0.2-1.3); Blood Urea Nitrogen 32 mg/dL (9-20); Calcium 8.6 mg/dL (8.4-10.2); Carbon Dioxide 22 mmol/L (22-30); Chloride 109 mmol/L (98-107); Estimated CRCL calculation 29 ml/min; Estimated Glomerular Filt Rate 19; Glucose 101 mg/dL (65-110); Phosphorus 5.1 mg/dL (2.5-4.5); Potassium 4.2 mmol/L (3.4-5.0); Sodium 138 mmol/L (137-145); Total Protein 6.3 g/dL (6.3-8.2)
[2024-10-20] MEDS: NITROGLYCERIN OINTMENT 1 INCH DOSE TRANSDERM ×3 (06:27→17:40)
[2024-10-20] MEDS: cloNIDine HCL 0.1 MG TABLET PO ×2 (06:27→13:11)
[2024-10-20 08:21] LABS: Glucose Point of Care 117 mg/dl (65-105)
[2024-10-20] MEDS: ATORVASTATIN 40 MG TABLET PO (08:44)
[2024-10-20] MEDS: amLODIPine BESYLATE 10 MG TABLET PO (08:45)
[2024-10-20] MEDS: HEPARIN SODIUM 5,000 UNITS/ML VIAL 5000 UNITS SUB-Q ×2 (08:45→21:28)
[2024-10-20] MEDS: PANTOPRAZOLE SOD SESQUIHYDRATE 20 MG TAB PO (08:45)
--- NOTE | 2024-10-20 09:42 | P.PNCA_ITS ---
Progress Note: A&P Assessment and Plan (1) Hypertension: Qualifiers: Hypertension type: unspecified Qualified Code(s): I10 - Essential (primary) hypertension Code(s): I10 - Essential (primary) hypertension Status: Acute Assessment and Plan: Uncontrolled hypertension. Presenting BP 194/133mm Hg. * Now his blood pressure is much better. Continue amlodipine 10 mg daily and clonidine 0.1 mg t.i.d. and hydralazine 50 mg b.i.d.. Apparently in the past he took amlodipine caused ankle edema. I explained to the patients we have limited options to treat hypertension given his advanced chronic kidney disease. Avoid p.r.n. antihypertensives for now and try to adjust the scheduled medication to treat his hypertension. * Renal Doppler ultrasound negative for renal artery stenosis. (2) Hyperlipidemia: Code(s): E78.5 - Hyperlipidemia, unspecified Status: Acute Assessment and Plan: Continue statin (3) Elevated troponin: Code(s): R79.89 - Other specified abnormal findings of blood chemistry Status: Acute Assessment and Plan: Probably related to uncontrolled HTN. However, he does describe angina concerning for myocardial ischemia. He does have multiple risk factors (HLD, HTN, family history,? diabetes), so would be reasonable to obtain a stress test while he is here. Echo is showed normal LV systolic function. Will order lexiscan for Tuesday if he remains in the hospital until that time. If not, could be obtained as an outpatient. (4) Rcwnb-[id number] kidney injury: Qualifiers: Acute renal failure type: unspecified Chronic kidney disease stage: stage 4 (GFR 15-29) Qualified Code(s): N17.9 - Acute kidney failure, unspecifi ed; N18.4 - Chronic kidney disease, stage 4 (severe) Code(s): N17.9 - Acute kidney failure, unspecified; N18.9 - Chronic kidney disease, unspecified Status: Acute Plan Nephrology is following and slew of tests are being done. Could be related to uncontrolled hypertension Subjective Date/time seen: 10/20/24 09:42 Juno Sky is a 48 year old male with uncontrolled hypertension, CALIVN on CPAP, CKD. He comes to the hospital with significantly elevated blood pressure and complaints of headache and chest pain. He has had hypertension for about 15 years and has been on antihypertensives in the past but most recently has only been taking hydralazine and not taking it as prescribed. He also has chest pain which he describes as a heaviness in his chest that radiates to his back. Chest pain occurs with activity and subsides with rest. This has been going on for about a month. At the time of my evaluation he is feeling well and does not have any specific complaints. Interval history: Date of service 10/20/2024-resting comfortably in bed. Denies recurrence of chest pain. Denies shortness of breath. His blood pressures are well controlled I am now. Has not received any p.r.n. antihypertensives Review of Systems Review of Systems: All systems reviewed & are unremarkable except as noted in HPI and below Exam Const: General: comfortable, no acute distress, alert and awake Orientation/consciousness: patient oriented x3 HENMT: Head: normal to inspection Eyes: General: appearance normal, both eyes and all related structures Pupils: Equal, round and reactive pupils present Neck: Neck: normal visual inspection, supple and no JVD Carotids: normal carotid upstroke Resp: Effort & Inspection: normal respiratory effort Auscultation: clear to auscultation bilaterally Cardio: Rate: regular rate Rhythm: regular rhythm Heart sounds: S1 normal heart sound present, S2 normal heart sound present and no murmurs GI: Auscultation: normal bowel sounds Skin: General skin exam: normal color Neuro: General: patient oriented x3 Cranial nerves: Yes Equal, round and reactive pupils present Extrem: General: normal to inspection Psych: Appearance: grossly normal Mental Status: mental status grossly normal Objective Data Vital Signs Vital Signs: Vital Signs - 24 hr 10/19/24 10:00 10/19/24 11:54 10/19/24 11:54 Temperature 36.7 C 36.7 C Pulse Rate 79 92 92 Respiratory Rate 2 L 21 H Blood Pressure 195/124 H Pulse Oximetry 97 Oxygen Delivery Fraction of Inspired Oxygen 10/19/24 12:00 10/19/24 12:00 10/19/24 14:00 Temperature Pulse Rate 92 89 86 Respiratory Rate 21 H Blood Pressure Pulse Oximetry 97 Oxygen Delivery Room Air Fraction of Inspired Oxygen 10/19/24 16:00 10/19/24 16:00 10/19/24 16:57 Temperature 36.4 C L Pulse Rate 97 85 97 Respiratory Rate 18 18 Blood Pressure 182/122 H Pulse Oximetry 98 98 Oxygen Delivery Room Air Fraction of Inspired Oxygen 10/19/24 18:00 10/19/24 20:00 10/19/24 20:00 Temperature 36.6 C Pulse Rate 85 79 Respiratory Rate 18 Blood Pressure 126/88 Pulse Oximetry 98 Oxygen Delivery Room Air Fraction of Inspired Oxygen 10/19/24 20:00 10/19/24 21:30 10/19/24 21:30 Temperature Pulse Rate 83 81 81 Respiratory Rate Blood Pressure Pulse Oximetry 97 97 Oxygen Delivery CPAP CPAP Fraction of Inspired Oxygen 21 10/19/24 21:46 10/19/24 21:47 10/19/24 22:00 Temperature Pulse Rate 79 76 78 Respiratory Rate 16 Blood Pressure 136/96 H Pulse Oximetry 94 Oxygen Delivery Fraction of Inspired Oxygen 10/19/24 23:52 10/20/24 00:00 10/20/24 00:00 Temperature 36.5 C Pulse Rate 71 81 Respiratory Rate 16 Blood Pressure 118/72 Pulse Oximetry 96 Oxygen Delivery Room Air Fraction of Inspired Oxygen 10/20/24 01:41 10/20/24 02:00 10/20/24 04:00 Temperature 36.5 C Pulse Rate 72 78 66 Respiratory Rate 16 Blood Pressure 117/72 119/70 Pulse Oximetry 98 98 Oxygen Delivery Fraction of Inspired Oxygen 10/20/24 04:00 10/20/24 04:00 10/20/24 06:00 Temperature Pulse Rate 81 64 Respiratory Rate Blood Pressure Pulse Oximetry Oxygen Delivery Room Air Fraction of Inspired Oxygen 10/20/24 06:00 10/20/24 08:00 10/20/24 08:00 Temperature 36.9 C Pulse Rate 79 75 Respiratory Rate 14 16 Blood Pressure 127/88 126/92 H Pulse Oximetry 99 99 Oxygen Delivery Room Air Fraction of Inspired Oxygen Intake/Output Intake/Output: Intake & Output 10/17/24 10/18/24 10/19/24 10/20/24 23:59 23:59 23:59 23:59 Intake Total 8042 388 4629 Output Total 3260 400 Balance 1000 -7200 1340 Meds/Results Medications: Active Medications Generic Name Dose Route Start Last Admin Trade Name Freq PRN Reason Stop Dose Admin Acetaminophen 650 mg 10/19/24 01:20 10/19/24 13:38 Acetaminophen 325 Mg Tablet PO 650 mg Q6H PRN Administration pain Amlodipine Besylate 10 mg 10/20/24 09:00 10/20/24 08:45 Amlodipine Besylate 10 Mg Tablet PO 10 mg DAILY PACHECO Administration Atorvastatin Calcium 40 mg 10/19/24 09:55 10/20/24 08:44 Atorvastatin 40 Mg Tablet PO 40 mg DAILY PACHECO Administration Clonidine HCl 0.1 mg 10/19/24 14:00 10/20/24 06:27 Clonidine Hcl 0.1 Mg Tablet PO 0.1 mg Q8HR PACHECO Administration Clonidine HCl 0.1 mg 10/19/24 11:52 Clonidine Hcl 0.1 Mg Tablet PO Q6H PRN systolic above 170 Heparin Sodium (Porcine) 5,000 units 10/19/24 09:00 10/20/24 08:45 Heparin Sodium 5,000 Units/Ml Vial SUB-Q 5,000 units Q12HR PACHECO Administration Labetalol HCl 10 mg 10/20/24 09:33 Labetalol Hcl Inj 100 Mg/20 Ml Vial IV PUSH Q3H PACHECO Nitroglycerin 1 inch 10/18/24 23:35 10/20/24 06:27 Nitroglycerin Ointment 1 Inch Dose TRANSDERM 1 inch Q6HR PACHECO Administration Pantoprazole Sodium 20 mg 10/19/24 09:00 10/20/24 08:45 Pantoprazole Sod Sesquihydrate 20 Mg Tab PO 20 mg QAM PACHECO Administration Perflutren Lipid Microsphere 0 ml 10/18/24 22:26 Perflutren Lipid Microspheres 1.5 Ml Vial Diluted To 10 Ml Total Volume IV PUSH 10/21/24 22:26 ONCE PRN adequate visualization Protocol Radiology Results: ITS Impressions Chest X-Ray 10/18/24 18:22 IMPRESSION: No acute cardiopulmonary pathology. Head CT 10/18/24 19:56 IMPRESSION: No acute intracranial findings. Arterial/Peripheral Duplex 10/19/24 12:15 IMPRESSION: 1. No Doppler evidence of renal artery stenosis. Renal Ultrasound 10/19/24 12:20 Impression: 1: Increased renal cortical echotexture, consistent with chronic renal disease. Labs Labs: Laboratory Results - last 24 hr 10/19/24 10/19/24 10/19/24 04:29 11:19 12:04 WBC RBC Hgb Hct MCV MCH MCHC RDW Plt Count MPV Immature Gran % (Auto) Neut % (Auto) Lymph % (Auto) [place] % (Auto) Eos % (Auto) Baso % (Auto) Lymph # (Auto) [place] # (Auto) Eos # (Auto) Baso # (Auto) Abs Immat Gran (auto) Absolute Neuts (auto) Absolute Nucleated RBC Nucleated RBC % ESR 16 Sodium Potassium Chloride Carbon Dioxide Anion Gap BUN Creatinine Estim Creat Clear Calc Estimated GFR Glucose POC Capillary Glucose 84 Calcium Phosphorus Magnesium Total Bilirubin AST ALT Alkaline Phosphatase Total Creatine Kinase 71 65 Total Protein Albumin Vitamin D 25-Hydroxy < 12.8 TSH (Reflex) 3.170 PTH Intact 94.5 H Urine Color Urine Appearance Urine pH Ur Specific [place] Urine Protein Urine Glucose (UA) Urine Ketones Ur Blood (Man) Urine Nitrate Urine Bilirubin Urine Urobilinogen Ur Leukocyte Esterase Urine RBC Urine WBC Ur Squamous Epith Cells Urine Bacteria Urine Casts Urine Eosinophils U Random Total Protein Ur Random Sodium Ur Random Urea Urine Creatinine Protein/Creat Ratio 2 Complement C3 167 H Complement C4 41.3 10/19/24 10/19/24 10/19/24 13:47 13:47 13:48 WBC RBC Hgb Hct MCV MCH MCHC RDW Plt Count MPV Immature Gran % (Auto) Neut % (Auto) Lymph % (Auto) [place] % (Auto) Eos % (Auto) Baso % (Auto) Lymph # (Auto) [place] # (Auto) Eos # (Auto) Baso # (Auto) Abs Immat Gran (auto) Absolute Neuts (auto) Absolute Nucleated RBC Nucleated RBC % ESR Sodium Potassium Chloride Carbon Dioxide Anion Gap BUN Creatinine Estim Creat Clear Calc Estimated GFR Glucose POC Capillary Glucose Calcium Phosphorus Magnesium Total Bilirubin AST ALT Alkaline Phosphatase Total Creatine Kinase Total Protein Albumin Vitamin D 25-Hydroxy TSH (Reflex) PTH Intact Urine Color Light yellow Urine Appearance Clear Urine pH 6.0 Ur Specific [place] 1.015 Urine Protein Cancelled 2+ H Urine Glucose (UA) Negative Urine Ketones Negative Ur Blood (Man) Trace-lysed H Urine Nitrate Negative Urine Bilirubin Negative Urine Urobilinogen 0.2 Ur Leukocyte Esterase Negative Urine RBC 0-2 Urine WBC 0-5 Ur Squamous Epith Cells None seen Urine Bacteria None seen Urine Casts 0-2 Urine Eosinophils None seen U Random Total Protein 94 Ur Random Sodium 117 Ur Random Urea 132 133 Urine Creatinine 24.0 Protein/Creat Ratio 2 3.92 H Complement C3 Complement C4 10/19/24 10/19/24 10/20/24 16:28 21:10 04:20 WBC 7.8 RBC 4.72 Hgb 13.8 L Hct 42.4 MCV 89.8 MCH 29.2 MCHC 32.5 RDW 13.8 Plt Count 168 MPV 9.7 Immature Gran % (Auto) 0.5 Neut % (Auto) 61.8 Lymph % (Auto) 27.6 [place] % (Auto) 7.5 Eos % (Auto) 2.2 Baso % (Auto) 0.4 Lymph # (Auto) 2.16 [place] # (Auto) 0.6 Eos # (Auto) 0.2 Baso # (Auto) 0.0 Abs Immat Gran (auto) 0.04 H Absolute Neuts (auto) 4.8 Absolute Nucleated RBC 0.000 Nucleated RBC % 0.0 ESR Sodium 138 Potassium 4.2 Chloride 109 H Carbon Dioxide 22 Anion Gap 7 BUN 32 H Creatinine 3.44 H Estim Creat Clear Calc 29 Estimated GFR 19 L Glucose 101 POC Capillary Glucose 117 H 113 H Calcium 8.6 Phosphorus 5.1 H Magnesium 2.0 Total Bilirubin 0.3 AST 24 ALT 23 Alkaline Phosphatase 47 Total Creatine Kinase Total Protein 6.3 Albumin 3.4 L Vitamin D 25-Hydroxy TSH (Reflex) PTH Intact Urine Color Urine Appearance Urine pH Ur Specific [place] Urine Protein Urine Glucose (UA) Urine Ketones Ur Blood (Man) Urine Nitrate Urine Bilirubin Urine Urobilinogen Ur Leukocyte Esterase Urine RBC Urine WBC Ur Squamous Epith Cells Urine Bacteria Urine Casts Urine Eosinophils U Random Total Protein Ur Random Sodium Ur Random Urea Urine Creatinine Protein/Creat Ratio 2 Complement C3 Complement C4 10/20/24 07:59 WBC RBC Hgb Hct MCV MCH MCHC RDW Plt Count MPV Immature Gran % (Auto) Neut % (Auto) Lymph % (Auto) [place] % (Auto) Eos % (Auto) Baso % (Auto) Lymph # (Auto) [place] # (Auto) Eos # (Auto) Baso # (Auto) Abs Immat Gran (auto) Absolute Neuts (auto) Absolute Nucleated RBC Nucleated RBC % ESR Sodium Potassium Chloride Carbon Dioxide Anion Gap BUN Creatinine Estim Creat Clear Calc Estimated GFR Glucose POC Capillary Glucose 117 H Calcium Phosphorus Magnesium Total Bilirubin AST ALT Alkaline Phosphatase Total Creatine Kinase Total Protein Albumin Vitamin D 25-Hydroxy TSH (Reflex) PTH Intact Urine Color Urine Appearance Urine pH Ur Specific [place] Urine Protein Urine Glucose (UA) Urine Ketones Ur Blood (Man) Urine Nitrate Urine Bilirubin Urine Urobilinogen Ur Leukocyte Esterase Urine RBC Urine WBC Ur Squamous Epith Cells Urine Bacteria Urine Casts Urine Eosinophils U Random Total Protein Ur Random Sodium Ur Random Urea Urine Creatinine Protein/Creat Ratio 2 Complement C3 Complement C4
[2024-10-20 12:02] LABS: Glucose Point of Care 63 mg/dl (65-105)
[2024-10-20 13:02] LABS: Glucose Point of Care 116 mg/dl (65-105)
--- NOTE | 2024-10-20 13:09 | PM.PNNEP ---
Progress Note: A&P Assessment and Plan (1) [id number] kidney injury: Qualifiers: Acute renal failure type: unspecified Chronic kidney disease stage: stage 4 (GFR 15-29) Qualified Code(s): N17.9 - Acute kidney failure, unspecified; N18.4 - Chronic kidney disease, stage 4 (severe) Code(s): N17.9 - Acute kidney failure, unspecified; N18.9 - Chronic kidney disease, unspecified Status: Acute Assessment and Plan: The patient has chronic kidney disease. His creatinine was 2.0 a couple of years ago and with his poor control of blood pressure I suspect that his current creatinine is probably a chronic issue. His renal ultrasound shows increased cortical echotexture. UA shows a tiny bit of blood. Urine eosinophils are negative. Urine electrolytes are non pre renal. His urine protein is 3920 milligrams/gram of creatinine. Complements are normal the remainder of thenserology and immunofixation are pending most likely this is going to returned materials inspector to be diabetes and hypertension related kidney diseease Will continue to follow the patient (2) CALVIN on CPAP: Code(s): G47.33 - Obstructive sleep apnea (adult) (pediatric) Status: Acute Assessment and Plan: He continues to use a CPAP machine. He uses this religiously at night (3) Hypertensive urgency: Code(s): I16.0 - Hypertensive urgency Status: Acute Assessment and Plan: His blood pressure is much better. He is on amlodipine 5, clonidine 0.1 t.i.d.. Will hold the clonidine switch to carvedilol which would be more cardio friendly (4) Hyperlipidemia: Code(s): E78.5 - Hyperlipidemia, unspecified Status: Acute Assessment and Plan: He is on atorvastatin (5) Diabetes: Code(s): E11.9 - Type 2 diabetes mellitus without complications Status: Acute Assessment and Plan: Hospitalists to manage this. His A1c was good. Subjective Date/time seen: 10/20/24 13:09 Interval history: Juno is feeling well. He feels better than when he came in. No chest pain or shortness of breath. He can lie flat comfortably now. Review of Systems Cardiovascular: Cardiovascular: Reports no additional cardiovascular complaints Respiratory: Respiratory: Reports no additional respiratory complaints Gastrointestinal: Gastrointestinal: Reports no additional gastrointestinal complaints Genitourinary: Genitourinary: Reports no additional male genitourinary complaints Exam Narrative: WDWN in NAD skin no rash head ncat lungs clear cor reg no rub abd BS+ nontender and soft ext no edema. Objective Data Vital Signs Vital Signs: Vital Signs - 24 hr 10/19/24 14:00 10/19/24 16:00 10/19/24 16:00 Temperature Pulse Rate 86 97 85 Respiratory Rate 18 Blood Pressure Pulse Oximetry 98 Oxygen Delivery Room Air Fraction of Inspired Oxygen 10/19/24 16:57 10/19/24 18:00 10/19/24 20:00 Temperature 97.5 F L 97.8 F Pulse Rate 97 85 79 Respiratory Rate 18 18 Blood Pressure 182/122 H 126/88 Pulse Oximetry 98 98 Oxygen Delivery Fraction of Inspired Oxygen 10/19/24 20:00 10/19/24 20:00 10/19/24 21:30 Temperature Pulse Rate 83 81 Respiratory Rate Blood Pressure Pulse Oximetry 97 Oxygen Delivery Room Air CPAP Fraction of Inspired Oxygen 10/19/24 21:30 10/19/24 21:46 10/19/24 21:47 Temperature Pulse Rate 81 79 76 Respiratory Rate 16 Blood Pressure 136/96 H Pulse Oximetry 97 94 Oxygen Delivery CPAP Fraction of Inspired Oxygen 21 10/19/24 22:00 10/19/24 23:52 10/20/24 00:00 Temperature 97.7 F Pulse Rate 78 71 Respiratory Rate 16 Blood Pressure 118/72 Pulse Oximetry 96 Oxygen Delivery Room Air Fraction of Inspired Oxygen 10/20/24 00:00 10/20/24 01:41 10/20/24 02:00 Temperature Pulse Rate 81 72 78 Respiratory Rate Blood Pressure 117/72 Pulse Oximetry 98 Oxygen Delivery Fraction of Inspired Oxygen 10/20/24 04:00 10/20/24 04:00 10/20/24 04:00 Temperature 97.7 F Pulse Rate 66 81 Respiratory Rate 16 Blood Pressure 119/70 Pulse Oximetry 98 Oxygen Delivery Room Air Fraction of Inspired Oxygen 10/20/24 06:00 10/20/24 06:00 10/20/24 08:00 Temperature 98.5 F Pulse Rate 64 79 75 Respiratory Rate 14 16 Blood Pressure 127/88 126/92 H Pulse Oximetry 99 Oxygen Delivery Fraction of Inspired Oxygen 10/20/24 08:00 10/20/24 08:00 10/20/24 10:00 Temperature Pulse Rate 72 74 Respiratory Rate Blood Pressure Pulse Oximetry 99 Oxygen Delivery Room Air Fraction of Inspired Oxygen 10/20/24 12:00 10/20/24 12:57 Temperature 97.9 F Pulse Rate 76 80 Respiratory Rate 16 Blood Pressure 137/93 H Pulse Oximetry 100 Oxygen Delivery Fraction of Inspired Oxygen Intake/Output Intake/Output: Intake & Output 10/17/24 10/18/24 10/19/24 10/20/24 23:59 23:59 23:59 23:59 Intake Total 6077 850 1907 Output Total 3260 400 Balance 1000 -2380 1580 Meds/Results Medications: Active Medications Generic Name Dose Route Start Last Admin Trade Name Freq PRN Reason Stop Dose Admin Acetaminophen 650 mg 10/19/24 01:20 10/19/24 13:38 Acetaminophen 325 Mg Tablet PO 650 mg Q6H PRN Administration pain Amlodipine Besylate 10 mg 10/20/24 09:00 10/20/24 08:45 Amlodipine Besylate 10 Mg Tablet PO 10 mg DAILY PACHECO Administration Atorvastatin Calcium 40 mg 10/19/24 09:55 10/20/24 08:44 Atorvastatin 40 Mg Tablet PO 40 mg DAILY PACHECO Administration Clonidine HCl 0.1 mg 10/19/24 14:00 10/20/24 06:27 Clonidine Hcl 0.1 Mg Tablet PO 0.1 mg Q8HR PACHECO Administration Clonidine HCl 0.1 mg 10/19/24 11:52 Clonidine Hcl 0.1 Mg Tablet PO Q6H PRN systolic above 170 Heparin Sodium (Porcine) 5,000 units 10/19/24 09:00 10/20/24 08:45 Heparin Sodium 5,000 Units/Ml Vial SUB-Q 5,000 units Q12HR PACHECO Administration Nitroglycerin 1 inch 10/18/24 23:35 10/20/24 06:27 Nitroglycerin Ointment 1 Inch Dose TRANSDERM 1 inch Q6HR PACHECO Administration Pantoprazole Sodium 20 mg 10/19/24 09:00 10/20/24 08:45 Pantoprazole Sod Sesquihydrate 20 Mg Tab PO 20 mg QAM PACHECO Administration Perflutren Lipid Microsphere 0 ml 10/18/24 22:26 Perflutren Lipid Microspheres 1.5 Ml Vial Diluted To 10 Ml Total Volume IV PUSH 10/21/24 22:26 ONCE PRN adequate visualization Protocol Radiology Results: ITS Impressions Chest X-Ray 10/18/24 18:22 IMPRESSION: No acute cardiopulmonary pathology. Head CT 10/18/24 19:56 IMPRESSION: No acute intracranial findings. Arterial/Peripheral Duplex 10/19/24 12:15 IMPRESSION: 1. No Doppler evidence of renal artery stenosis. Renal Ultrasound 10/19/24 12:20 Impression: 1: Increased renal cortical echotexture, consistent with chronic renal disease. Labs Labs: Laboratory Results - last 24 hr 10/19/24 10/19/24 10/19/24 12:04 13:47 13:47 WBC RBC Hgb Hct MCV MCH MCHC RDW Plt Count MPV Immature Gran % (Auto) Neut % (Auto) Lymph % (Auto) [place] % (Auto) Eos % (Auto) Baso % (Auto) Lymph # (Auto) [place] # (Auto) Eos # (Auto) Baso # (Auto) Abs Immat Gran (auto) Absolute Neuts (auto) Absolute Nucleated RBC Nucleated RBC % Sodium Potassium Chloride Carbon Dioxide Anion Gap BUN Creatinine Estim Creat Clear Calc Estimated GFR Glucose POC Capillary Glucose Calcium Phosphorus Magnesium Total Bilirubin AST ALT Alkaline Phosphatase Total Protein Albumin Vitamin D 25-Hydroxy < 12.8 TSH (Reflex) 3.170 Urine Color Urine Appearance Urine pH Ur Specific [place] Urine Protein Cancelled Urine Glucose (UA) Urine Ketones Ur Blood (Man) Urine Nitrate Urine Bilirubin Urine Urobilinogen Ur Leukocyte Esterase Urine RBC Urine WBC Ur Squamous Epith Cells Urine Bacteria Urine Casts Urine Eosinophils None seen U Random Total Protein 94 Ur Random Sodium 117 Ur Random Urea 132 133 Urine Creatinine 24.0 Protein/Creat Ratio 2 3.92 H 10/19/24 10/19/24 10/19/24 13:48 16:28 21:10 WBC RBC Hgb Hct MCV MCH MCHC RDW Plt Count MPV Immature Gran % (Auto) Neut % (Auto) Lymph % (Auto) [place] % (Auto) Eos % (Auto) Baso % (Auto) Lymph # (Auto) [place] # (Auto) Eos # (Auto) Baso # (Auto) Abs Immat Gran (auto) Absolute Neuts (auto) Absolute Nucleated RBC Nucleated RBC % Sodium Potassium Chloride Carbon Dioxide Anion Gap BUN Creatinine Estim Creat Clear Calc Estimated GFR Glucose POC Capillary Glucose 117 H 113 H Calcium Phosphorus Magnesium Total Bilirubin AST ALT Alkaline Phosphatase Total Protein Albumin Vitamin D 25-Hydroxy TSH (Reflex) Urine Color Light yellow Urine Appearance Clear Urine pH 6.0 Ur Specific [place] 1.015 Urine Protein 2+ H Urine Glucose (UA) Negative Urine Ketones Negative Ur Blood (Man) Trace-lysed H Urine Nitrate Negative Urine Bilirubin Negative Urine Urobilinogen 0.2 Ur Leukocyte Esterase Negative Urine RBC 0-2 Urine WBC 0-5 Ur Squamous Epith Cells None seen Urine Bacteria None seen Urine Casts 0-2 Urine Eosinophils U Random Total Protein Ur Random Sodium Ur Random Urea Urine Creatinine Protein/Creat Ratio 2 10/20/24 10/20/24 10/20/24 04:20 07:59 11:43 WBC 7.8 RBC 4.72 Hgb 13.8 L Hct 42.4 MCV 89.8 MCH 29.2 MCHC 32.5 RDW 13.8 Plt Count 168 MPV 9.7 Immature Gran % (Auto) 0.5 Neut % (Auto) 61.8 Lymph % (Auto) 27.6 [place] % (Auto) 7.5 Eos % (Auto) 2.2 Baso % (Auto) 0.4 Lymph # (Auto) 2.16 [place] # (Auto) 0.6 Eos # (Auto) 0.2 Baso # (Auto) 0.0 Abs Immat Gran (auto) 0.04 H Absolute Neuts (auto) 4.8 Absolute Nucleated RBC 0.000 Nucleated RBC % 0.0 Sodium 138 Potassium 4.2 Chloride 109 H Carbon Dioxide 22 Anion Gap 7 BUN 32 H Creatinine 3.44 H Estim Creat Clear Calc 29 Estimated GFR 19 L Glucose 101 POC Capillary Glucose 117 H 63 L Calcium 8.6 Phosphorus 5.1 H Magnesium 2.0 Total Bilirubin 0.3 AST 24 ALT 23 Alkaline Phosphatase 47 Total Protein 6.3 Albumin 3.4 L Vitamin D 25-Hydroxy TSH (Reflex) Urine Color Urine Appearance Urine pH Ur Specific [place] Urine Protein Urine Glucose (UA) Urine Ketones Ur Blood (Man) Urine Nitrate Urine Bilirubin Urine Urobilinogen Ur Leukocyte Esterase Urine RBC Urine WBC Ur Squamous Epith Cells Urine Bacteria Urine Casts Urine Eosinophils U Random Total Protein Ur Random Sodium Ur Random Urea Urine Creatinine Protein/Creat Ratio 2 10/20/24 13:00 WBC RBC Hgb Hct MCV MCH MCHC RDW Plt Count MPV Immature Gran % (Auto) Neut % (Auto) Lymph % (Auto) [place] % (Auto) Eos % (Auto) Baso % (Auto) Lymph # (Auto) [place] # (Auto) Eos # (Auto) Baso # (Auto) Abs Immat Gran (auto) Absolute Neuts (auto) Absolute Nucleated RBC Nucleated RBC % Sodium Potassium Chloride Carbon Dioxide Anion Gap BUN Creatinine Estim Creat Clear Calc Estimated GFR Glucose POC Capillary Glucose 116 H Calcium Phosphorus Magnesium Total Bilirubin AST ALT Alkaline Phosphatase Total Protein Albumin Vitamin D 25-Hydroxy TSH (Reflex) Urine Color Urine Appearance Urine pH Ur Specific [place] Urine Protein Urine Glucose (UA) Urine Ketones Ur Blood (Man) Urine Nitrate Urine Bilirubin Urine Urobilinogen Ur Leukocyte Esterase Urine RBC Urine WBC Ur Squamous Epith Cells Urine Bacteria Urine Casts Urine Eosinophils U Random Total Protein Ur Random Sodium Ur Random Urea Urine Creatinine Protein/Creat Ratio 2
--- NOTE | 2024-10-20 15:32 | P.PNIM_ITS ---
Progress Note: A&P Assessment and Plan (1) Hypertensive urgency: Code(s): I16.0 - Hypertensive urgency Status: Acute Assessment and Plan: -Significantly elevated blood pressure with past history of HTN and CKD -Associated headache and shortness of breath -Worsening renal function noted -Elevated BNP noted, Elevated troponin noted -Concern for possible new onset CHF on admission -Multiple doses of IV medications to achieve roughly 25% reduction in SBP at rest -BP elevated again upon move to IMU -IV furosemide ordered x1 dose after patient got a liter of IV fluids in ER -Nitro paste applied and Q2H vital signs ordered -IV hydralazine PRN orders placed -Echocardiogram ordered -Cardiology consult and Nephrology consult in the morning -If BP does not respond, patient may need Cardene drip and move to ICU -Ordered D-Dimer and repeat troponin with AM labs, patient not tachycardic or hypoxic but PE is possible -Due to renal function, patient would need VQ scan if D-Dimer positive -no clinical evidence to consider V/Q scan -CT chest reviewed -possible deescalation of antibiotic tomorrow (2) Elevated troponin: Code(s): R79.89 - Other specified abnormal findings of blood chemistry Status: Acute Assessment and Plan: -[place] to be related to Hypertensive Crisis, CKD and possible new onset CHF -Cardiology consult -Nitro paste applied on admit to floor to assist with blood pressure, chest pressure and possible pulmonary edema (3) Diabetes: Code(s): E11.9 - Type 2 diabetes mellitus without complications Status: Acute Assessment and Plan: -No longer on medications, formerly on Jardiance -Hgb A1c 5.2 on admission -Heart healthy diet ok (4) [id number] kidney injury: Qualifiers: Acute renal failure type: unspecified Chronic kidney disease stage: stage 4 (GFR 15-29) Qualified Code(s): N17.9 - Acute kidney failure, unspecified; N18.4 - Chronic kidney disease, stage 4 (severe) Code(s): N17.9 - Acute kidney failure, unspecified; N18.9 - Chronic kidney disease, unspecified Status: Acute Assessment and Plan: -CKD history noted in prior records -Significant drop in renal function noted on labs on admission -Likely hypertension and diabetes related -ordered renal ultrasound, urine electrolytes and CPK -Will consult Nephrology -renal ultrasound shows increased cortical echotexture UA shows a tiny bit of blood. Urine eosinophils are negative. Urine electrolytes are non pre renal. His urine protein is 3920 milligrams/gram of creatinine. Complements are normal The remainder of the serology and immunofixation are pending most likely this is going to returned item clerk to be diabetes and hypertension related kidney diseease (5) Anxiety: Code(s): F41.9 - Anxiety disorder, unspecified Status: Acute Assessment and Plan: -Patient reports periodic use of alprazolam 0.25 mg tablets PRN for anxiety (6) Hyperlipidemia: Code(s): E78.5 - Hyperlipidemia, unspecified Status: Acute Assessment and Plan: -No home medications currently -will start atorvastatin 40 mg p.o. q.h.s. -reviewed lipid panel (7) CALVIN on CPAP: Code(s): G47.33 - Obstructive sleep apnea (adult) (pediatric) Status: Acute Assessment and Plan: -Ordered AutoPAP as home unit not available tonight Subjective Date/time seen: 10/20/24 15:32 Interval history: Patient blood pressure is currently doing better. Review of Systems Review of Systems: All systems reviewed & are unremarkable except as noted in HPI and below Exam Narrative: GENERAL: Generally anxious appearing, mild dyspnea HEAD: Normocephalic, atraumatic. EYES: EOMI. NECK: Supple. No adenopathy or masses. CHEST: Clear to auscultation. No wheezes rales or rhonchi. Mild dyspnea on exam HEART: Regular rate and rhythm. No murmur heard. Normal peripheral pulses. EXTREMITIES: Normal range of motion. No edema. SKIN: Warm, dry, no rash. NEURO: No focal deficits. Alert and oriented x3. PSYCH: generally anxious appearing Objective Data Vital Signs Vital Signs: Vital Signs - 24 hr 10/19/24 16:00 10/19/24 16:00 10/19/24 16:57 Temperature 97.5 F L Pulse Rate 97 85 97 Respiratory Rate 18 18 Blood Pressure 182/122 H Pulse Oximetry 98 98 Oxygen Delivery Room Air Fraction of Inspired Oxygen 10/19/24 18:00 10/19/24 20:00 10/19/24 20:00 Temperature 97.8 F Pulse Rate 85 79 Respiratory Rate 18 Blood Pressure 126/88 Pulse Oximetry 98 Oxygen Delivery Room Air Fraction of Inspired Oxygen 10/19/24 20:00 10/19/24 21:30 10/19/24 21:30 Temperature Pulse Rate 83 81 81 Respiratory Rate Blood Pressure Pulse Oximetry 97 97 Oxygen Delivery CPAP CPAP Fraction of Inspired Oxygen 21 10/19/24 21:46 10/19/24 21:47 10/19/24 22:00 Temperature Pulse Rate 79 76 78 Respiratory Rate 16 Blood Pressure 136/96 H Pulse Oximetry 94 Oxygen Delivery Fraction of Inspired Oxygen 10/19/24 23:52 10/20/24 00:00 10/20/24 00:00 Temperature 97.7 F Pulse Rate 71 81 Respiratory Rate 16 Blood Pressure 118/72 Pulse Oximetry 96 Oxygen Delivery Room Air Fraction of Inspired Oxygen 10/20/24 01:41 10/20/24 02:00 10/20/24 04:00 Temperature 97.7 F Pulse Rate 72 78 66 Respiratory Rate 16 Blood Pressure 117/72 119/70 Pulse Oximetry 98 98 Oxygen Delivery Fraction of Inspired Oxygen 10/20/24 04:00 10/20/24 04:00 10/20/24 06:00 Temperature Pulse Rate 81 64 Respiratory Rate Blood Pressure Pulse Oximetry Oxygen Delivery Room Air Fraction of Inspired Oxygen 10/20/24 06:00 10/20/24 08:00 10/20/24 08:00 Temperature 98.5 F Pulse Rate 79 75 Respiratory Rate 14 16 Blood Pressure 127/88 126/92 H Pulse Oximetry 99 99 Oxygen Delivery Room Air Fraction of Inspired Oxygen 10/20/24 08:00 10/20/24 10:00 10/20/24 12:00 Temperature 97.9 F Pulse Rate 72 74 76 Respiratory Rate 16 Blood Pressure 137/93 H Pulse Oximetry 100 Oxygen Delivery Fraction of Inspired Oxygen 10/20/24 12:57 Temperature Pulse Rate 80 Respiratory Rate Blood Pressure Pulse Oximetry Oxygen Delivery Fraction of Inspired Oxygen Intake/Output Intake/Output: Intake & Output 10/17/24 10/18/24 10/19/24 10/20/24 23:59 23:59 23:59 23:59 Intake Total 8952 742 6728 Output Total 3260 400 Balance 1000 -2380 1580 Meds/Results Medications: Active Medications Generic Name Dose Route Start Last Admin Trade Name Freq PRN Reason Stop Dose Admin Acetaminophen 650 mg 10/19/24 01:20 10/19/24 13:38 Acetaminophen 325 Mg Tablet PO 650 mg Q6H PRN Administration pain Amlodipine Besylate 10 mg 10/20/24 09:00 10/20/24 08:45 Amlodipine Besylate 10 Mg Tablet PO 10 mg DAILY PACHECO Administration Atorvastatin Calcium 40 mg 10/19/24 09:55 10/20/24 08:44 Atorvastatin 40 Mg Tablet PO 40 mg DAILY PACHECO Administration Carvedilol 12.5 mg 10/20/24 21:00 Carvedilol 12.5 Mg Tablet PO Q12HR PACHECO Clonidine HCl 0.1 mg 10/19/24 11:52 Clonidine Hcl 0.1 Mg Tablet PO Q6H PRN systolic above 170 Heparin Sodium (Porcine) 5,000 units 10/19/24 09:00 10/20/24 08:45 Heparin Sodium 5,000 Units/Ml Vial SUB-Q 5,000 units Q12HR PACHECO Administration Nitroglycerin 1 inch 10/18/24 23:35 10/20/24 13:11 Nitroglycerin Ointment 1 Inch Dose TRANSDERM 1 inch Q6HR PACHECO Administration Pantoprazole Sodium 20 mg 10/19/24 09:00 10/20/24 08:45 Pantoprazole Sod Sesquihydrate 20 Mg Tab PO 20 mg QAM PACHECO Administration Perflutren Lipid Microsphere 0 ml 10/18/24 22:26 Perflutren Lipid Microspheres 1.5 Ml Vial Diluted To 10 Ml Total Volume IV PUSH 10/21/24 22:26 ONCE PRN adequate visualization Protocol Radiology Results: ITS Impressions Chest X-Ray 10/18/24 18:22 IMPRESSION: No acute cardiopulmonary pathology. Head CT 10/18/24 19:56 IMPRESSION: No acute intracranial findings. Arterial/Peripheral Duplex 10/19/24 12:15 IMPRESSION: 1. No Doppler evidence of renal artery stenosis. Renal Ultrasound 10/19/24 12:20 Impression: 1: Increased renal cortical echotexture, consistent with chronic renal disease. Labs Labs: Laboratory Results - last 24 hr 10/19/24 10/19/24 10/19/24 13:48 16:28 21:10 WBC RBC Hgb Hct MCV MCH MCHC RDW Plt Count MPV Immature Gran % (Auto) Neut % (Auto) Lymph % (Auto) [place] % (Auto) Eos % (Auto) Baso % (Auto) Lymph # (Auto) [place] # (Auto) Eos # (Auto) Baso # (Auto) Abs Immat Gran (auto) Absolute Neuts (auto) Absolute Nucleated RBC Nucleated RBC % Sodium Potassium Chloride Carbon Dioxide Anion Gap BUN Creatinine Estim Creat Clear Calc Estimated GFR Glucose POC Capillary Glucose 117 H 113 H Calcium Phosphorus Magnesium Total Bilirubin AST ALT Alkaline Phosphatase Total Protein Albumin Urine Color Light yellow Urine Appearance Clear Urine pH 6.0 Ur Specific [place] 1.015 Urine Protein 2+ H Urine Glucose (UA) Negative Urine Ketones Negative Ur Blood (Man) Trace-lysed H Urine Nitrate Negative Urine Bilirubin Negative Urine Urobilinogen 0.2 Ur Leukocyte Esterase Negative Urine RBC 0-2 Urine WBC 0-5 Ur Squamous Epith Cells None seen Urine Bacteria None seen Urine Casts 0-2 10/20/24 10/20/24 10/20/24 04:20 07:59 11:43 WBC 7.8 RBC 4.72 Hgb 13.8 L Hct 42.4 MCV 89.8 MCH 29.2 MCHC 32.5 RDW 13.8 Plt Count 168 MPV 9.7 Immature Gran % (Auto) 0.5 Neut % (Auto) 61.8 Lymph % (Auto) 27.6 [place] % (Auto) 7.5 Eos % (Auto) 2.2 Baso % (Auto) 0.4 Lymph # (Auto) 2.16 [place] # (Auto) 0.6 Eos # (Auto) 0.2 Baso # (Auto) 0.0 Abs Immat Gran (auto) 0.04 H Absolute Neuts (auto) 4.8 Absolute Nucleated RBC 0.000 Nucleated RBC % 0.0 Sodium 138 Potassium 4.2 Chloride 109 H Carbon Dioxide 22 Anion Gap 7 BUN 32 H Creatinine 3.44 H Estim Creat Clear Calc 29 Estimated GFR 19 L Glucose 101 POC Capillary Glucose 117 H 63 L Calcium 8.6 Phosphorus 5.1 H Magnesium 2.0 Total Bilirubin 0.3 AST 24 ALT 23 Alkaline Phosphatase 47 Total Protein 6.3 Albumin 3.4 L Urine Color Urine Appearance Urine pH Ur Specific [place] Urine Protein Urine Glucose (UA) Urine Ketones Ur Blood (Man) Urine Nitrate Urine Bilirubin Urine Urobilinogen Ur Leukocyte Esterase Urine RBC Urine WBC Ur Squamous Epith Cells Urine Bacteria Urine Casts 10/20/24 13:00 WBC RBC Hgb Hct MCV MCH MCHC RDW Plt Count MPV Immature Gran % (Auto) Neut % (Auto) Lymph % (Auto) [place] % (Auto) Eos % (Auto) Baso % (Auto) Lymph # (Auto) [place] # (Auto) Eos # (Auto) Baso # (Auto) Abs Immat Gran (auto) Absolute Neuts (auto) Absolute Nucleated RBC Nucleated RBC % Sodium Potassium Chloride Carbon Dioxide Anion Gap BUN Creatinine Estim Creat Clear Calc Estimated GFR Glucose POC Capillary Glucose 116 H Calcium Phosphorus Magnesium Total Bilirubin AST ALT Alkaline Phosphatase Total Protein Albumin Urine Color Urine Appearance Urine pH Ur Specific [place] Urine Protein Urine Glucose (UA) Urine Ketones Ur Blood (Man) Urine Nitrate Urine Bilirubin Urine Urobilinogen Ur Leukocyte Esterase Urine RBC Urine WBC Ur Squamous Epith Cells Urine Bacteria Urine Casts Quality VTE Prophylaxis VTE prophylaxis: pharmacologic ordered (heparin) Hospitalist MIPS Advance Care Plan I have confirmed that the patient's Advanced Care Plan is present, code status is documented, or surrogate decision maker is listed in patient medical record.: Yes Medication Reconciliation I have utilized all available resources to obtain, update and review the patients current medications (includes all prescriptions, OTC, herbals, can nabis, and nutritional supplements).: Yes
[2024-10-20] MEDS: ACETAMINOPHEN 325 MG TABLET 650 MG PO (16:20)
[2024-10-20 17:17] LABS: Glucose Point of Care 135 mg/dl (65-105)
[2024-10-20] MEDS: carvediloL 12.5 MG TABLET PO (21:28)
[2024-10-21] VITALS (10 sets, daily range): BP systolic 118–138; BP diastolic 93–98; PULSE 64–82; RESP 14–24; TEMP 36.5–37; O2SAT 96–100
[2024-10-21] MEDS: NITROGLYCERIN OINTMENT 1 INCH DOSE TRANSDERM (00:58)
[2024-10-21 01:22] LABS: Sodium Urine Random 79 meq/L
[2024-10-21 04:23] LABS: Basophils Percent Auto 0.5 % (0.2-1.2); Eosinophils Absolute Auto 0.2 K/mm3 (0-0.3); Eosinophils Percent Auto 2.1 % (0-4.4); Hematocrit 44.1 % (42.0-52.0); Hemoglobin 13.9 g/dL (14.0-18.0); Immature Granulocyte Absolute 0.03 K/mm3 (0.00-0.031); Immature Granulocyte Percent A 0.4 % (0-0.5); Lymphocytes Percent Auto 26.4 % (18.3-44.2); Mean Corpuscular HGB Conc 31.5 g/dl (32-36); Mean Corpuscular Hemoglobin 28.6 pg (26-34); Mean Corpuscular Volume 90.7 fl (80-100); Monocytes Absolute Auto 0.5 K/mm3 (0.1-0.6); Monocytes Percent Auto 6.8 % (2.6-8.5); Neutrophils Absolute Auto 5.1 K/mm3 (1.3-6.7); Neutrophils Percent Auto 63.8 % (45.5-73.1); Platelet Count Result 177 k/mm3 (150-375); Red Blood Count 4.86 M/mm3 (4.6-6.20); Red Cell Distribution Width 13.9 % (11.5-14.5)
--- NOTE | 2024-10-21 04:32 | ECG_ITS ---
Test Date: 2024-10-21 04:40:14 Measurements Intervals [place] Rate: 67 P: 19 MS: 142 QRS: 0 QRSD: 98 T: 137 QT: 425 QTc: 450 Interpretive Statements SINUS RHYTHM LEFT VENTRICULAR HYPERTROPHY AND ST-T CHANGE T WAVE ABNORMALITY IN ANTEROLATERAL LEADS- CONSIDER ISCHEMIA ABNORMAL ECG Compared to ECG 10/18/2024 20:56:28 T WAVE ABNORMALITY NOW PRESENT POSSIBLE ISCHEMIA NOW PRESENT Electronically Signed On 10-21-2024 07:14:46 CDT by Rodney Root D.O.
[2024-10-21 05:05] LABS: Alanine Aminotransferase 23 U/L (6-50); Albumin Level 3.4 g/dL (3.5-5.1); Alkaline Phosphatase 46 U/L (38-126); Anion Gap 6 mmol/L (4-12); Aspartate Amino Transferase 24 U/L (17-59); Bilirubin,Total 0.3 mg/dL (0.2-1.3); Blood Urea Nitrogen 31 mg/dL (9-20); Calcium 8.7 mg/dL (8.4-10.2); Carbon Dioxide 20 mmol/L (22-30); Chloride 110 mmol/L (98-107); Estimated CRCL calculation 32 ml/min; Estimated Glomerular Filt Rate 21; Glucose 102 mg/dL (65-110); Phosphorus 4.6 mg/dL (2.5-4.5); Potassium 4.5 mmol/L (3.4-5.0); Sodium 136 mmol/L (137-145); Total Protein 6.5 g/dL (6.3-8.2)
--- NOTE | 2024-10-21 05:15 | PC.NURSE ---
The patient was having a reoccurrence of his chest discomfort shortly after 0400. An EKG was performed and O2 was applied to the patient. The manager trade marketing was notified, and she advised this RN to contact cardiology who is following the patient. Orders were received from the on-call funds transfer clerk for morphine, SL nitro, and to stop the nitro paste at the next dosing interval. She also requested to receive a call back if the patients pain was not resolved with these measures. Currently, the patient is resting comfortably and morphine is being held for now as it was not necessary yet. I will put an addendum on this note if any further intervention is necessary.
[2024-10-21 07:43] LABS: Glucose Point of Care 108 mg/dl (65-105)
[2024-10-21] MEDS: carvediloL 12.5 MG TABLET PO ×2 (08:30→20:08)
[2024-10-21] MEDS: amLODIPine BESYLATE 10 MG TABLET PO (08:30)
[2024-10-21] MEDS: PANTOPRAZOLE SOD SESQUIHYDRATE 20 MG TAB PO (08:31)
[2024-10-21] MEDS: ATORVASTATIN 40 MG TABLET PO (08:31)
[2024-10-21] MEDS: HEPARIN SODIUM 5,000 UNITS/ML VIAL 5000 UNITS SUB-Q ×2 (08:31→20:08)
--- NOTE | 2024-10-21 09:27 | P.PNCA_ITS ---
Progress Note: A&P Assessment and Plan (1) Hypertension: Qualifiers: Hypertension type: unspecified Qualified Code(s): I10 - Essential (primary) hypertension Code(s): I10 - Essential (primary) hypertension Status: Acute Assessment and Plan: Uncontrolled hypertension. Presenting BP 194/133mm Hg. * At this time continue clonidine, carvedilol, amlodipine. In the past he developed s some ankle edema with amlodipine. Blood pressure improved. I explained to the patient that they are limited medications to treat his hypertension in setting of kidney disease. Therefore except some edema side effect from amlodipine * Renal Doppler ultrasound negative for renal artery stenosis. (2) Hyperlipidemia: Code(s): E78.5 - Hyperlipidemia, unspecified Status: Acute Assessment and Plan: Continue atorvastatin (3) Elevated troponin: Code(s): R79.89 - Other specified abnormal findings of blood chemistry Status: Acute Assessment and Plan: Probably related to uncontrolled HTN. However, he does describe angina concerning for myocardial ischemia. He does have multiple risk factors (HLD, HTN, family history,? diabetes), so would be reasonable to obtain a stress test while he is here. Echo is showed normal LV systolic function. Order Lexiscan stress test for tomorrow. (4) Kzjgd-ou-hybrfei kidney injury: Qualifiers: Acute renal failure type: unspecified Chronic kidney disease stage: stage 4 (GFR 15-29) Qualified Code(s): N17.9 - Acute kidney failure, unspecified; N18.4 - Chronic kidney disease, stage 4 (severe) Code(s): N17.9 - Acute kidney failure, unspecified; N18.9 - Chronic kidney disease, unspecified Status: Acute Plan Nephrology is following and slew of tests are being done. Could be related to uncontrolled hypertension. Creatinine slightly better today. Subjective Date/time seen: 10/21/24 09:27 Interval history: Date of service 10/20/2024-resting comfortably in bed. Denies recurrence of chest pain. Denies shortness of breath. His blood pressures are well controlled I am now. Has not received any p.r.n. antihypertensives Date of service 10/21/2024-blood pressure improved. Had shortness of breath and some discomfort in the upper back. Review of Systems Review of Systems: All systems reviewed & are unremarkable except as noted in HPI and below Exam Const: General: comfortable, no acute distress, alert and awake Orientation/consciousness: patient oriented x3 HENMT: Head: normal to inspection Eyes: General: appearance normal, both eyes and all related structures Pupils: Equal, round and reactive pupils present Neck: Neck: normal visual inspection, supple and no JVD Carotids: normal carotid upstroke Resp: Effort & Inspection: normal respiratory effort Auscultation: clear to auscultation bilaterally Cardio: Rate: regular rate Rhythm: regular rhythm Heart sounds: S1 normal heart sound present, S2 normal heart sound present and no murmurs GI: Auscultation: normal bowel sounds Skin: General skin exam: normal color Neuro: General: patient oriented x3 Cranial nerves: Yes Equal, round and reactive pupils present Extrem: General: normal to inspection Psych: Appearance: grossly normal Mental Status: mental status grossly normal Objective Data Vital Signs Vital Signs: Vital Signs - 24 hr 10/20/24 10:00 10/20/24 12:00 10/20/24 12:57 Temperature 36.6 C Pulse Rate 74 76 80 Respiratory Rate 16 Blood Pressure 137/93 H Pulse Oximetry 100 Oxygen Delivery Oxygen Flow Rate 10/20/24 16:00 10/20/24 16:00 10/20/24 20:00 Temperature 36.4 C Pulse Rate 85 78 Respiratory Rate 16 Blood Pressure 137/94 H Pulse Oximetry 99 Oxygen Delivery Room Air Oxygen Flow Rate 10/20/24 20:00 10/20/24 20:27 10/20/24 21:28 Temperature 36.5 C Pulse Rate 78 77 75 Respiratory Rate 16 Blood Pressure 141/97 H Pulse Oximetry 98 Oxygen Delivery Oxygen Flow Rate 10/21/24 00:00 10/21/24 00:00 10/21/24 04:00 Temperature 36.5 C Pulse Rate 64 65 64 Respiratory Rate 16 Blood Pressure Pulse Oximetry 98 Oxygen Delivery Oxygen Flow Rate 10/21/24 07:49 10/21/24 08:00 10/21/24 08:00 Temperature 36.5 C Pulse Rate 71 68 Respiratory Rate 16 Blood Pressure 130/98 H Pulse Oximetry 100 100 Oxygen Delivery Nasal Cannula Oxygen Flow Rate 2 10/21/24 08:30 Temperature Pulse Rate 75 Respiratory Rate Blood Pressure Pulse Oximetry Oxygen Delivery Oxygen Flow Rate Intake/Output Intake/Output: Intake & Output 10/18/24 10/19/24 10/20/24 10/21/24 23:59 23:59 23:59 23:59 Intake Total 5585 417 8308 1000 Output Total 3260 1600 Balance 1000 -2380 1700 1000 Meds/Results Medications: Active Medications Generic Name Dose Route Start Last Admin Trade Name Freq PRN Reason Stop Dose Admin Acetaminophen 650 mg 10/19/24 01:20 10/20/24 16:20 Acetaminophen 325 Mg Tablet PO 650 mg Q6H PRN Administration pain Amlodipine Besylate 10 mg 10/20/24 09:00 10/21/24 08:30 Amlodipine Besylate 10 Mg Tablet PO 10 mg DAILY PACHECO Administration Atorvastatin Calcium 40 mg 10/19/24 09:55 10/21/24 08:31 Atorvastatin 40 Mg Tablet PO 40 mg DAILY PACHECO Administration Carvedilol 12.5 mg 10/20/24 21:00 10/21/24 08:30 Carvedilol 12.5 Mg Tablet PO 12.5 mg Q12HR PACHECO Administration Clonidine HCl 0.1 mg 10/19/24 11:52 Clonidine Hcl 0.1 Mg Tablet PO Q6H PRN systolic above 170 Heparin Sodium (Porcine) 5,000 units 10/19/24 09:00 10/21/24 08:31 Heparin Sodium 5,000 Units/Ml Vial SUB-Q 5,000 units Q12HR PACHECO Administration Nitroglycerin 0.4 mg 10/21/24 05:00 Nitroglycerin Sl 0.4 Mg Tablet SUBLINGUAL Q5MIN PRN Chest Pain Pantoprazole Sodium 20 mg 10/19/24 09:00 10/21/24 08:31 Pantoprazole Sod Sesquihydrate 20 Mg Tab PO 20 mg QAM PACHECO Administration Perflutren Lipid Microsphere 0 ml 10/18/24 22:26 Perflutren Lipid Microspheres 1.5 Ml Vial Diluted To 10 Ml Total Volume IV PUSH 10/21/24 22:26 ONCE PRN adequate visualization Protocol Radiology Results: ITS Impressions Chest X-Ray 10/18/24 18:22 IMPRESSION: No acute cardiopulmonary pathology. Head CT 10/18/24 19:56 IMPRESSION: No acute intracranial findings. Arterial/Peripheral Duplex 10/19/24 12:15 IMPRESSION: 1. No Doppler evidence of renal artery stenosis. Renal Ultrasound 10/19/24 12:20 Impression: 1: Increased renal cortical echotexture, consistent with chronic renal disease. Labs Labs: Laboratory Results - last 24 hr 10/19/24 10/20/24 10/20/24 17:35 11:43 13:00 WBC RBC Hgb Hct MCV MCH MCHC RDW Plt Count MPV Immature Gran % (Auto) Neut % (Auto) Lymph % (Auto) [place] % (Auto) Eos % (Auto) Baso % (Auto) Lymph # (Auto) [place] # (Auto) Eos # (Auto) Baso # (Auto) Abs Immat Gran (auto) Absolute Neuts (auto) Absolute Nucleated RBC Nucleated RBC % Sodium Potassium Chloride Carbon Dioxide Anion Gap BUN Creatinine Estim Creat Clear Calc Estimated GFR Glucose POC Capillary Glucose 63 L 116 H Calcium Phosphorus Magnesium Total Bilirubin AST ALT Alkaline Phosphatase Total Protein Albumin Ur Random Sodium 79 10/20/24 10/21/24 10/21/24 16:10 04:14 07:39 WBC 8.0 RBC 4.86 Hgb 13.9 L Hct 44.1 MCV 90.7 MCH 28.6 MCHC 31.5 L RDW 13.9 Plt Count 177 MPV 10.0 Immature Gran % (Auto) 0.4 Neut % (Auto) 63.8 Lymph % (Auto) 26.4 [place] % (Auto) 6.8 Eos % (Auto) 2.1 Baso % (Auto) 0.5 Lymph # (Auto) 2.10 [place] # (Auto) 0.5 Eos # (Auto) 0.2 Baso # (Auto) 0.0 Abs Immat Gran (auto) 0.03 Absolute Neuts (auto) 5.1 Absolute Nucleated RBC 0.000 Nucleated RBC % 0.0 Sodium 136 L Potassium 4.5 Chloride 110 H Carbon Dioxide 20 L Anion Gap 6 BUN 31 H Creatinine 3.14 H Estim Creat Clear Calc 32 Estimated GFR 21 L Glucose 102 POC Capillary Glucose 135 H 108 H Calcium 8.7 Phosphorus 4.6 H Magnesium 2.0 Total Bilirubin 0.3 AST 24 ALT 23 Alkaline Phosphatase 46 Total Protein 6.5 Albumin 3.4 L Ur Random Sodium Quality VTE Prophylaxis VTE prophylaxis: pharmacologic ordered (heparin)
--- NOTE | 2024-10-21 10:07 | P.PNNP_ITS ---
Progress Note: A&P Assessment and Plan (1) Iuymi-hv-jeolhyb kidney injury: Qualifiers: Acute renal failure type: unspecified Chronic kidney disease stage: stage 4 (GFR 15-29) Qualified Code(s): N17.9 - Acute kidney failure, unspecified; N18.4 - Chronic kidney disease, stage 4 (severe) Code(s): N17.9 - Acute kidney failure, unspecified; N18.9 - Chronic kidney disease, unspecified Status: Acute Assessment and Plan: The patient has chronic kidney disease. His creatinine was 2.0 a couple of years ago and with his poor control of blood pressure I suspect that his current creatinine is probably a chronic issue. His renal ultrasound shows increased cortical echotexture. UA shows a tiny bit of blood. Urine eosinophils are negative. Urine electrolytes are non pre renal. His urine protein is 3920 milligrams/gram of creatinine. Complements are normal the remainder of thenserology and immunofixation are pending Probably the patient has kidney as well. He does have near nephrotic range proteinuria Will continue to follow the patient (2) CALVIN on CPAP: Code(s): G47.33 - Obstructive sleep apnea (adult) (pediatric) Status: Acute Assessment and Plan: He continues to use a CPAP machine. He uses this religiously at night (3) Hypertensive urgency: Code(s): I16.0 - Hypertensive urgency Status: Acute Assessment and Plan: His blood pressure is much better. He is on amlodipine 5, and carvedilol 12.5 b.i.d.. Blood pressure is doing very well. He has insurance again now so he should be able to get his medications. (4) Hyperlipidemia: Code(s): E78.5 - Hyperlipidemia, unspecified Status: Acute Assessment and Plan: He is on atorvastatin (5) Diabetes: Code(s): E11.9 - Type 2 diabetes mellitus without complications Status: Acute Assessment and Plan: Hospitalists to manage this. His A1c was good. Subjective Date/time seen: 10/21/24 10:08 Interval history: Patient feels okay today. Last night he did have some chest pressure when lying down again. It did go to the back. He had some shortness of breath Exam Narrative: WDWN in NAD skin no rash or subcu nodule head ncat lungs clear cor reg no rub or gallop abd BS+ nontender and soft ext no edema. Objective Data Vital Signs Vital Signs: Vital Signs - 24 hr 10/20/24 12:00 10/20/24 12:57 10/20/24 16:00 Temperature 97.9 F Pulse Rate 76 80 85 Respiratory Rate 16 Blood Pressure 137/93 H Pulse Oximetry 100 Oxygen Delivery Oxygen Flow Rate 10/20/24 16:00 10/20/24 20:00 10/20/24 20:00 Temperature 97.6 F Pulse Rate 78 78 Respiratory Rate 16 Blood Pressure 137/94 H Pulse Oximetry 99 Oxygen Delivery Room Air Oxygen Flow Rate 10/20/24 20:27 10/20/24 21:28 10/21/24 00:00 Temperature 97.7 F 97.7 F Pulse Rate 77 75 64 Respiratory Rate 16 16 Blood Pressure 141/97 H Pulse Oximetry 98 98 Oxygen Delivery Oxygen Flow Rate 10/21/24 00:00 10/21/24 04:00 10/21/24 07:49 Temperature 97.7 F Pulse Rate 65 64 71 Respiratory Rate 16 Blood Pressure 130/98 H Pulse Oximetry 100 Oxygen Delivery Oxygen Flow Rate 10/21/24 08:00 10/21/24 08:00 10/21/24 08:30 Temperature Pulse Rate 68 75 Respiratory Rate Blood Pressure Pulse Oximetry 100 Oxygen Delivery Nasal Cannula Oxygen Flow Rate 2 Intake/Output Intake/Output: Intake & Output 10/18/24 10/19/24 10/20/24 10/21/24 23:59 23:59 23:59 23:59 Intake Total 3120 053 5325 1000 Output Total 3260 1600 Balance 1000 -2380 1700 1000 Meds/Results Medications: Active Medications Generic Name Dose Route Start Last Admin Trade Name Freq PRN Reason Stop Dose Admin Acetaminophen 650 mg 10/19/24 01:20 10/20/24 16:20 Acetaminophen 325 Mg Tablet PO 650 mg Q6H PRN Administration pain Amlodipine Besylate 10 mg 10/20/24 09:00 10/21/24 08:30 Amlodipine Besylate 10 Mg Tablet PO 10 mg DAILY PACHECO Administration Atorvastatin Calcium 40 mg 10/19/24 09:55 10/21/24 08:31 Atorvastatin 40 Mg Tablet PO 40 mg DAILY PACHECO Administration Carvedilol 12.5 mg 10/20/24 21:00 10/21/24 08:30 Carvedilol 12.5 Mg Tablet PO 12.5 mg Q12HR PACHECO Administration Clonidine HCl 0.1 mg 10/19/24 11:52 Clonidine Hcl 0.1 Mg Tablet PO Q6H PRN systolic above 170 Heparin Sodium (Porcine) 5,000 units 10/19/24 09:00 10/21/24 08:31 Heparin Sodium 5,000 Units/Ml Vial SUB-Q 5,000 units Q12HR PACHECO Administration Nitroglycerin 0.4 mg 10/21/24 05:00 Nitroglycerin Sl 0.4 Mg Tablet SUBLINGUAL Q5MIN PRN Chest Pain Pantoprazole Sodium 20 mg 10/19/24 09:00 10/21/24 08:31 Pantoprazole Sod Sesquihydrate 20 Mg Tab PO 20 mg QAM PACHECO Administration Perflutren Lipid Microsphere 0 ml 10/18/24 22:26 Perflutren Lipid Microspheres 1.5 Ml Vial Diluted To 10 Ml Total Volume IV PUSH 10/21/24 22:26 ONCE PRN adequate visualization Protocol Radiology Results: ITS Impressions Chest X-Ray 10/18/24 18:22 IMPRESSION: No acute cardiopulmonary pathology. Head CT 10/18/24 19:56 IMPRESSION: No acute intracranial findings. Arterial/Peripheral Duplex 10/19/24 12:15 IMPRESSION: 1. No Doppler evidence of renal artery stenosis. Renal Ultrasound 10/19/24 12:20 Impression: 1: Increased renal cortical echotexture, consistent with chronic renal disease. Labs Labs: Laboratory Results - last 24 hr 10/19/24 10/20/24 10/20/24 17:35 11:43 13:00 WBC RBC Hgb Hct MCV MCH MCHC RDW Plt Count MPV Immature Gran % (Auto) Neut % (Auto) Lymph % (Auto) [place] % (Auto) Eos % (Auto) Baso % (Auto) Lymph # (Auto) [place] # (Auto) Eos # (Auto) Baso # (Auto) Abs Immat Gran (auto) Absolute Neuts (auto) Absolute Nucleated RBC Nucleated RBC % Sodium Potassium Chloride Carbon Dioxide Anion Gap BUN Creatinine Estim Creat Clear Calc Estimated GFR Glucose POC Capillary Glucose 63 L 116 H Calcium Phosphorus Magnesium Total Bilirubin AST ALT Alkaline Phosphatase Total Protein Albumin Ur Random Sodium 79 10/20/24 10/21/24 10/21/24 16:10 04:14 07:39 WBC 8.0 RBC 4.86 Hgb 13.9 L Hct 44.1 MCV 90.7 MCH 28.6 MCHC 31.5 L RDW 13.9 Plt Count 177 MPV 10.0 Immature Gran % (Auto) 0.4 Neut % (Auto) 63.8 Lymph % (Auto) 26.4 [place] % (Auto) 6.8 Eos % (Auto) 2.1 Baso % (Auto) 0.5 Lymph # (Auto) 2.10 [place] # (Auto) 0.5 Eos # (Auto) 0.2 Baso # (Auto) 0.0 Abs Immat Gran (auto) 0.03 Absolute Neuts (auto) 5.1 Absolute Nucleated RBC 0.000 Nucleated RBC % 0.0 Sodium 136 L Potassium 4.5 Chloride 110 H Carbon Dioxide 20 L Anion Gap 6 BUN 31 H Creatinine 3.14 H Estim Creat Clear Calc 32 Estimated GFR 21 L Glucose 102 POC Capillary Glucose 135 H 108 H Calcium 8.7 Phosphorus 4.6 H Magnesium 2.0 Total Bilirubin 0.3 AST 24 ALT 23 Alkaline Phosphatase 46 Total Protein 6.5 Albumin 3.4 L Ur Random Sodium
--- NOTE | 2024-10-21 11:00 | PM.IMPN ---
Progress Note: A&P Assessment and Plan (1) Hypertensive urgency: Code(s): I16.0 - Hypertensive urgency Status: Acute Assessment and Plan: -Significantly elevated blood pressure with past history of HTN and CKD -Associated headache and shortness of breath -Worsening renal function noted -Elevated BNP noted, Elevated troponin noted -Concern for possible new onset CHF on admission -Multiple doses of IV medications to achieve roughly 25% reduction in SBP at rest -BP elevated again upon move to IMU -IV furosemide ordered x1 dose after patient got a liter of IV fluids in ER -Nitro paste applied and Q2H vital signs ordered -IV hydralazine PRN orders placed -Echocardiogram ordered -Cardiology consult and Nephrology consult in the morning -If BP does not respond, patient may need Cardene drip and move to ICU -Ordered D-Dimer and repeat troponin with AM labs, patient not tachycardic or hypoxic but PE is possible -Due to renal function, patient would need VQ scan if D-Dimer positive -no clinical evidence to consider V/Q scan -CT chest reviewed -possible deescalation of antibiotic tomorrow (2) Elevated troponin: Code(s): R79.89 - Other specified abnormal findings of blood chemistry Status: Acute Assessment and Plan: -[place] to be related to Hypertensive Crisis, CKD and possible new onset CHF -Cardiology consult -Nitro paste applied on admit to floor to assist with blood pressure, chest pressure and possible pulmonary edema (3) Diabetes: Code(s): E11.9 - Type 2 diabetes mellitus without complications Status: Acute Assessment and Plan: -No longer on medications, formerly on Jardiance -Hgb A1c 5.2 on admission -Heart healthy diet ok (4) Ocwjt-zh-ortrpyv kidney injury: Qualifiers: Acute renal failure type: unspecified Chronic kidney disease stage: stage 4 (GFR 15-29) Qualified Code(s): N17.9 - Acute kidney failure, unspecified; N18.4 - Chronic kidney disease, stage 4 (severe) Code(s): N17.9 - Acute kidney failure, unspecified; N18.9 - Chronic kidney disease, unspecified Status: Acute Assessment and Plan: -CKD history noted in prior records -Significant drop in renal function noted on labs on admission -Likely hypertension and diabetes related -ordered renal ultrasound, urine electrolytes and CPK -Will consult Nephrology -renal ultrasound shows increased cortical echotexture UA shows a tiny bit of blood. Urine eosinophils are negative. Urine electrolytes are non pre renal. His urine protein is 3920 milligrams/gram of creatinine. Complements are normal The remainder of the serology and immunofixation are pending most likely this is going to hospitalist nocturnist physician to be diabetes and hypertension related kidney diseease (5) Anxiety: Code(s): F41.9 - Anxiety disorder, unspecified Status: Acute Assessment and Plan: -Patient reports periodic use of alprazolam 0.25 mg tablets PRN for anxiety (6) Hyperlipidemia: Code(s): E78.5 - Hyperlipidemia, unspecified Status: Acute Assessment and Plan: -No home medications currently -will start atorvastatin 40 mg p.o. q.h.s. -reviewed lipid panel (7) CALVIN on CPAP: Code(s): G47.33 - Obstructive sleep apnea (adult) (pediatric) Status: Acute Assessment and Plan: -Ordered AutoPAP as home unit not available tonight Subjective Date/time seen: 10/21/24 11:00 Interval history: Blood pressure on target. Patient is currently on amlodipine 10 mg p.o. q.d. and carvedilol 12.5 mg p.o. b.i.d.. Possible stress test tomorrow. Review of Systems Review of Systems: All systems reviewed & are unremarkable except as noted in HPI and below Exam Narrative: GENERAL: Generally anxious appearing, mild dyspnea HEAD: Normocephalic, atraumatic. EYES: EOMI. NECK: Supple. No adenopathy or masses. CHEST: Clear to auscultation. No wheezes rales or rhonchi. Mild dyspnea on exam HEART: Regular rate and rhythm. No murmur heard. Normal peripheral pulses. EXTREMITIES: Normal range of motion. No edema. SKIN: Warm, dry, no rash. NEURO: No focal deficits. Alert and oriented x3. PSYCH: generally anxious appearing Objective Data Vital Signs Vital Signs: Vital Signs - 24 hr 10/20/24 12:00 10/20/24 12:57 10/20/24 16:00 Temperature 97.9 F Pulse Rate 76 80 85 Respiratory Rate 16 Blood Pressure 137/93 H Pulse Oximetry 100 Oxygen Delivery Oxygen Flow Rate 10/20/24 16:00 10/20/24 20:00 10/20/24 20:00 Temperature 97.6 F Pulse Rate 78 78 Respiratory Rate 16 Blood Pressure 137/94 H Pulse Oximetry 99 Oxygen Delivery Room Air Oxygen Flow Rate 10/20/24 20:27 10/20/24 21:28 10/21/24 00:00 Temperature 97.7 F 97.7 F Pulse Rate 77 75 64 Respiratory Rate 16 16 Blood Pressure 141/97 H Pulse Oximetry 98 98 Oxygen Delivery Oxygen Flow Rate 10/21/24 00:00 10/21/24 04:00 10/21/24 07:49 Temperature 97.7 F Pulse Rate 65 64 71 Respiratory Rate 16 Blood Pressure 130/98 H Pulse Oximetry 100 Oxygen Delivery Oxygen Flow Rate 10/21/24 08:00 10/21/24 08:00 10/21/24 08:30 Temperature Pulse Rate 68 75 Respiratory Rate Blood Pressure Pulse Oximetry 100 Oxygen Delivery Nasal Cannula Oxygen Flow Rate 2 Intake/Output Intake/Output: Intake & Output 10/18/24 10/19/24 10/20/24 10/21/24 23:59 23:59 23:59 23:59 Intake Total 5006 772 4808 1000 Output Total 3260 1600 Balance 1000 -2380 1700 1000 Meds/Results Medications: Active Medications Generic Name Dose Route Start Last Admin Trade Name Freq PRN Reason Stop Dose Admin Acetaminophen 650 mg 10/19/24 01:20 10/20/24 16:20 Acetaminophen 325 Mg Tablet PO 650 mg Q6H PRN Administration pain Amlodipine Besylate 10 mg 10/20/24 09:00 10/21/24 08:30 Amlodipine Besylate 10 Mg Tablet PO 10 mg DAILY PACHECO Administration Atorvastatin Calcium 40 mg 10/19/24 09:55 10/21/24 08:31 Atorvastatin 40 Mg Tablet PO 40 mg DAILY PACHECO Administration Carvedilol 12.5 mg 10/20/24 21:00 10/21/24 08:30 Carvedilol 12.5 Mg Tablet PO 12.5 mg Q12HR PACHECO Administration Clonidine HCl 0.1 mg 10/19/24 11:52 Clonidine Hcl 0.1 Mg Tablet PO Q6H PRN systolic above 170 Heparin Sodium (Porcine) 5,000 units 10/19/24 09:00 10/21/24 08:31 Heparin Sodium 5,000 Units/Ml Vial SUB-Q 5,000 units Q12HR PACHECO Administration Nitroglycerin 0.4 mg 10/21/24 05:00 Nitroglycerin Sl 0.4 Mg Tablet SUBLINGUAL Q5MIN PRN Chest Pain Pantoprazole Sodium 20 mg 10/19/24 09:00 10/21/24 08:31 Pantoprazole Sod Sesquihydrate 20 Mg Tab PO 20 mg QAM PACHECO Administration Perflutren Lipid Microsphere 0 ml 10/18/24 22:26 Perflutren Lipid Microspheres 1.5 Ml Vial Diluted To 10 Ml Total Volume IV PUSH 10/21/24 22:26 ONCE PRN adequate visualization Protocol Radiology Results: ITS Impressions Chest X-Ray 10/18/24 18:22 IMPRESSION: No acute cardiopulmonary pathology. Head CT 10/18/24 19:56 IMPRESSION: No acute intracranial findings. Arterial/Peripheral Duplex 10/19/24 12:15 IMPRESSION: 1. No Doppler evidence of renal artery stenosis. Renal Ultrasound 10/19/24 12:20 Impression: 1: Increased renal cortical echotexture, consistent with chronic renal disease. Labs Labs: Laboratory Results - last 24 hr 10/19/24 10/20/24 10/20/24 17:35 11:43 13:00 WBC RBC Hgb Hct MCV MCH MCHC RDW Plt Count MPV Immature Gran % (Auto) Neut % (Auto) Lymph % (Auto) [place] % (Auto) Eos % (Auto) Baso % (Auto) Lymph # (Auto) [place] # (Auto) Eos # (Auto) Baso # (Auto) Abs Immat Gran (auto) Absolute Neuts (auto) Absolute Nucleated RBC Nucleated RBC % Sodium Potassium Chloride Carbon Dioxide Anion Gap BUN Creatinine Estim Creat Clear Calc Estimated GFR Glucose POC Capillary Glucose 63 L 116 H Calcium Phosphorus Magnesium Total Bilirubin AST ALT Alkaline Phosphatase Total Protein Albumin Ur Random Sodium 79 10/20/24 10/21/24 10/21/24 16:10 04:14 07:39 WBC 8.0 RBC 4.86 Hgb 13.9 L Hct 44.1 MCV 90.7 MCH 28.6 MCHC 31.5 L RDW 13.9 Plt Count 177 MPV 10.0 Immature Gran % (Auto) 0.4 Neut % (Auto) 63.8 Lymph % (Auto) 26.4 [place] % (Auto) 6.8 Eos % (Auto) 2.1 Baso % (Auto) 0.5 Lymph # (Auto) 2.10 [place] # (Auto) 0.5 Eos # (Auto) 0.2 Baso # (Auto) 0.0 Abs Immat Gran (auto) 0.03 Absolute Neuts (auto) 5.1 Absolute Nucleated RBC 0.000 Nucleated RBC % 0.0 Sodium 136 L Potassium 4.5 Chloride 110 H Carbon Dioxide 20 L Anion Gap 6 BUN 31 H Creatinine 3.14 H Estim Creat Clear Calc 32 Estimated GFR 21 L Glucose 102 POC Capillary Glucose 135 H 108 H Calcium 8.7 Phosphorus 4.6 H Magnesium 2.0 Total Bilirubin 0.3 AST 24 ALT 23 Alkaline Phosphatase 46 Total Protein 6.5 Albumin 3.4 L Ur Random Sodium Quality VTE Prophylaxis VTE prophylaxis: pharmacologic ordered (heparin) Hospitalist MIPS Advance Care Plan I have confirmed that the patient's Advanced Care Plan is present, code status is documented, or surrogate decision maker is listed in patient medical record.: Yes Medication Reconciliation I have utilized all available resources to obtain, update and review the patients current medications (includes all prescriptions, OTC, herbals, cannabis, and nutritional supplements).: Yes
[2024-10-21 11:45] LABS: Glucose Point of Care 90 mg/dl (65-105)
[2024-10-21 16:42] LABS: Glucose Point of Care 102 mg/dl (65-105)
--- NOTE | 2024-10-21 18:40 | PC.NURSE ---
This patient, Juno Sky, was transferred to [facility] on 10/21/24 at 1840. Personal belongings sent with patient. Report given to NAHUM Gramajo. Appropriate documentation sent with patient. Js Kumari RN
[2024-10-21 20:26] LABS: Glucose Point of Care 140 mg/dl (65-105)
[2024-10-22] VITALS: BP 127/79; PULSE 63; PULSE 65; RESP 20; TEMP 36; O2SAT 98
--- NOTE | 2024-10-22 | EST_ITS ---
Patient Info Name: Juno Sky Age: 48 years : 1975 Gender: Male Ht: 70 in Wt: 218 lbs BSA: 2.24 m2 HR: 74 bpm BP: 136 / 66 mmHg Exam Date: 10/22/2024 12:01 AM Patient Status: I Admit Date: 10/18/2024 Exam Type: CA stress [place] w NM A regadenoson stress test was performed. Staff Referring Physician: Sarai Franco Attending Provider: Herman Drew MD Exercise Technologist: Lili Harper Exercise Physician: Tracy Grissom Summary 1. Good exercise capacity. 10 METS. Patient did not experience any chest pain but had to stop due to shortness of breath. 2. Patient unable to reach target heart rate likely secondary to beta-srinivas therapy. 3. There were no ischemic EKG changes other than the baseline abnormalities at rest during sub optimal treadmill stress test and with regadenoson. 4. Please correlate with nuclear medicine images, reported separately. Protocol: Alexey Stress ECG Details Stage: REST Duration (min): 1 min : 39 sec Speed (mph): 0.0 Grade (%): 0 HR (bpm): 74 SBP (mmHg): 136 DBP (mmHg): 106 METS: --- Stage: REST Duration (min): 3 min : 16 sec Speed (mph): 0.0 Grade (%): 0 HR (bpm): 87 SBP (mmHg): 136 DBP (mmHg): 106 METS: --- Stage: STAGE 1 Duration (min): 1 min : 0 sec Speed (mph): 1.7 Grade (%): 10 HR (bpm): 95 SBP (mmHg): 136 DBP (mmHg): 106 METS: --- Stage: STAGE 1 Duration (min): 2 min : 0 sec Speed (mph): 1.7 Grade (%): 10 HR (bpm): 100 SBP (mmHg): 136 DBP (mmHg): 106 METS: --- Stage: STAGE 1 Duration (min): 3 min : 0 sec Speed (mph): 1.7 Grade (%): 10 HR (bpm): 103 SBP (mmHg): 149 DBP (mmHg): 108 METS: --- Stage: STAGE 2 Duration (min): 1 min : 0 sec Speed (mph): 2.5 Grade (%): 12 HR (bpm): 109 SBP (mmHg): 149 DBP (mmHg): 108 METS: --- Stage: STAGE 2 Duration (min): 2 min : 0 sec Speed (mph): 2.5 Grade (%): 12 HR (bpm): 114 SBP (mmHg): 164 DBP (mmHg): 110 METS: --- Stage: STAGE 2 Duration (min): 3 min : 0 sec Speed (mph): 2.5 Grade (%): 12 HR (bpm): 116 SBP (mmHg): 164 DBP (mmHg): 110 METS: --- Stage: STAGE 3 Duration (min): 1 min : 0 sec Speed (mph): 3.4 Grade (%): 14 HR (bpm): 127 SBP (mmHg): 179 DBP (mmHg): 28 METS: --- Stage: STAGE 3 Duration (min): 1 min : 45 sec Speed (mph): 3.4 Grade (%): 14 HR (bpm): 133 SBP (mmHg): 179 DBP (mmHg): 28 METS: --- Stage: RECOVERY Duration (min): 0 min : 14 sec Speed (mph): 0.0 Grade (%): 0 HR (bpm): 129 SBP (mmHg): 179 DBP (mmHg): 28 METS: --- Stage: RECOVERY Duration (min): 1 min : 14 sec Speed (mph): 0.0 Grade (%): 0 HR (bpm): 113 SBP (mmHg): 179 DBP (mmHg): 28 METS: --- Stage: RECOVERY Duration (min): 2 min : 14 sec Speed (mph): 0.0 Grade (%): 0 HR (bpm): 115 SBP (mmHg): 179 DBP (mmHg): 28 METS: --- Stage: RECOVERY Duration (min): 3 min : 14 sec Speed (mph): 0.0 Grade (%): 0 HR (bpm): 110 SBP (mmHg): 158 DBP (mmHg): 90 METS: --- Stage: RECOVERY Duration (min): 4 min : 14 sec Speed (mph): 0.0 Grade (%): 0 HR (bpm): 104 SBP (mmHg): 158 DBP (mmHg): 90 METS: --- Stage: RECOVERY Duration (min): 5 min : 4 sec Speed (mph): 0.0 Grade (%): 0 HR (bpm): 103 SBP (mmHg): 116 DBP (mmHg): 88 METS: --- Rest HR: 87 bpm Peak HR: 133 bpm Rest Sys BP: 136 mmHg Peak Sys BP: 179 mmHg Max Pred HR: 174 bpm % Max Pred HR: 76 % Target HR: 148 bpm Max RPP: 23,807 bpm*mmHg Ortiz Score: -[address] Seg Deviation: 1.60 mm Total Time: 7 min : 45 sec Rest Coyne BP: 106 mmHg Peak Coyne BP: 28 mmHg Angina Score: None Total METS: 10.1 Resting ECG Sinus rhythm with a ventricular rate of 74 beats per minute. T-wave inversions in leads II and V4-6. Stress ECG Patient did not reach target heart rate with treadmill exercise and was converted to Lexiscan. There were no ischemic changes other than the baseline abnormalities at rest. Arrhythmias None. Report Signatures
[2024-10-22 02:01] VITALS: PULSE 72; O2SAT 98
[2024-10-22 04:00] VITALS: PULSE 63
[2024-10-22 05:59] LABS: Basophils Absolute Auto 0.1 K/mm3 (0.0-0.1); Basophils Percent Auto 0.7 % (0.2-1.2); Eosinophils Absolute Auto 0.1 K/mm3 (0-0.3); Hematocrit 45.2 % (42.0-52.0); Hemoglobin 14.5 g/dL (14.0-18.0); Immature Granulocyte Absolute 0.03 K/mm3 (0.00-0.031); Immature Granulocyte Percent A 0.4 % (0-0.5); Lymphocytes Absolute Auto 1.79 K/mm3 (0.9-3.2); Lymphocytes Percent Auto 26.1 % (18.3-44.2); Mean Corpuscular HGB Conc 32.1 g/dl (32-36); Mean Corpuscular Hemoglobin 29.1 pg (26-34); Mean Corpuscular Volume 90.6 fl (80-100); Mean Platelet Volume 10.5 fl (7.4-10.4); Monocytes Absolute Auto 0.5 K/mm3 (0.1-0.6); Monocytes Percent Auto 7.6 % (2.6-8.5); Neutrophils Absolute Auto 4.3 K/mm3 (1.3-6.7); Neutrophils Percent Auto 63.2 % (45.5-73.1); Platelet Count Result 179 k/mm3 (150-375); Red Blood Count 4.99 M/mm3 (4.6-6.20); Red Cell Distribution Width 13.5 % (11.5-14.5); White Blood Count 6.9 K/mm3 (4.5-10.0)
[2024-10-22 06:23] LABS: Alanine Aminotransferase 28 U/L (6-50); Albumin Level 3.6 g/dL (3.5-5.1); Alkaline Phosphatase 51 U/L (38-126); Anion Gap 9 mmol/L (4-12); Aspartate Amino Transferase 29 U/L (17-59); Bilirubin,Total 0.2 mg/dL (0.2-1.3); Blood Urea Nitrogen 34 mg/dL (9-20); Calcium 9.1 mg/dL (8.4-10.2); Carbon Dioxide 22 mmol/L (22-30); Chloride 108 mmol/L (98-107); Estimated CRCL calculation 31 ml/min; Estimated Glomerular Filt Rate 21; Glucose 105 mg/dL (65-110); Magnesium 2.2 mg/dL (1.6-2.3); Potassium 4.4 mmol/L (3.4-5.0); Sodium 139 mmol/L (137-145); Total Protein 6.8 g/dL (6.3-8.2)
[2024-10-22 07:56] LABS: Glucose Point of Care 107 mg/dl (65-105)
[2024-10-22 08:30] VITALS: O2SAT 98
--- NOTE | 2024-10-22 10:00 | P.PNNP_ITS ---
Progress Note: A&P Assessment and Plan (1) Vjjrs-xh-zieypfe kidney injury: Qualifiers: Acute renal failure type: unspecified Chronic kidney disease stage: s tage 4 (GFR 15-29) Qualified Code(s): N17.9 - Acute kidney failure, unspecified; N18.4 - Chronic kidney disease, stage 4 (severe) Code(s): N17.9 - Acute kidney failure, unspecified; N18.9 - Chronic kidney disease, unspecified Status: Acute Assessment and Plan: * rather than an acute insult, evidence to date implies progression of disease * creatinine was 2.0mg/dl a couple of years ago * on admission/presentation, creatinine up to 3.5 - 3.6mg/dl * suspect underlying CKD due to hypertension, diabetes, and vascular disease * evaluation to date noted: * renal ultrasoud with finidings c/w medical renal disease * urine electrolytes non-prerenal * nephrotic range proteinuria noted * UA with some blood * CPK normal * serologies pending * creatinine down to 3.1 - 3.2mg/dl -- possible new baseline... * follow trend of repeat labs and UOP (2) Hypertensive urgency: Code(s): I16.0 - Hypertensive urgency Status: Acute Assessment and Plan: * better control noted at this time * on amlodipine 5mg qday and carvedilol 12.5mg b.i.d * continue to follow trend of hemodynamics (3) CALVIN on CPAP: Code(s): G47.33 - Obstructive sleep apnea (adult) (pediatric) Status: Acute Assessment and Plan: * using CPAP at night (4) Diabetes: Code(s): E11.9 - Type 2 diabetes mellitus without complications Status: Acute Assessment and Plan: * follow accu-cheks * glycemic control per hospitalist Will continue to follow. L Subjective Date/time seen: 10/22/24 10:00 Interval history: Follow-up for chronic kidney disease. Chart reviewed -- assuming care from Dr. Ching; appears to be doing reasonably well at the time of my visit; awaiting stress test today scheduled for early afternoon; renal function/creatinine remains relatively stable; no apparent distress noted; no issues/events overnight or earlier this morning. Exam 2 Narrative: General: WD/WN male in NAD Heart: normal S1 and S2; no rub Lungs: clear to auscultation Abdomen: soft, nontender, nondistended, positive bowel sounds Extremities: no cyanosis or clubbing; no edema Skin: warm and dry Objective Data Vital Signs Vital Signs: Vital Signs Temp Pulse Resp BP Pulse Ox O2 Del Method 10/22/24 08:30 98 Room Air 10/22/24 04:00 63 10/22/24 02:01 72 98 CPAP 10/22/24 00:00 63 10/22/24 00:00 96.8 F L 65 20 127/79 98 10/21/24 21:53 76 96 CPAP 10/21/24 20:42 97.8 F 80 24 H 138/97 H 97 10/21/24 20:00 82 Intake/Output Intake/Output: Intake & Output 10/19/24 10/20/24 10/21/24 10/22/24 23:59 23:59 23:59 23:59 Intake Total 880 3300 1600 Output Total 3260 1600 Balance -2380 1700 1600 Meds/Results Medications: Active Medications Generic Name Dose Route Start Trade Name Freq PRN Reason Stop Acetaminophen 650 mg 10/19/24 01:20 Acetaminophen 325 Mg Tablet PO Q6H PRN pain Amlodipine Besylate 10 mg 10/20/24 09:00 Amlodipine Besylate 10 Mg Tablet PO DAILY [facility] Atorvastatin Calcium 40 mg 10/19/24 09:55 Atorvastatin 40 Mg Tablet PO DAILY [facility] Carvedilol 12.5 mg 10/20/24 21:00 Carvedilol 12.5 Mg Tablet PO Q12HR [facility] Clonidine HCl 0.1 mg 10/19/24 11:52 Clonidine Hcl 0.1 Mg Tablet PO Q6H PRN systolic above 170 Heparin Sodium (Porcine) 5,000 units 10/19/24 09:00 Heparin Sodium 5,000 Units/Ml Vial SUB-Q Q12HR [facility] Nitroglycerin 0.4 mg 10/21/24 05:00 Nitroglycerin Sl 0.4 Mg Tablet SUBLINGUAL Q5MIN PRN Chest Pain Pantoprazole Sodium 20 mg 10/19/24 09:00 Pantoprazole Sod Sesquihydrate 20 Mg Tab PO QAM [facility] Perflutren Lipid Microsphere 0 ml 10/18/24 22:26 Perflutren Lipid Microspheres 1.5 Ml Vial Diluted To 10 Ml Total Volume IV PUSH 10/21/24 22:26 ONCE PRN adequate visualization Protocol Radiology Results: ITS Impressions Chest X-Ray 10/18/24 18:22 IMPRESSION: No acute cardiopulmonary pathology. Head CT 10/18/24 19:56 IMPRESSION: No acute intracranial findings. Arterial/Peripheral Duplex 10/19/24 12:15 IMPRESSION: 1. No Doppler evidence of renal artery stenosis. Renal Ultrasound 10/19/24 12:20 Impression: 1: Increased renal cortical echotexture, consistent with chronic renal disease. Labs Labs: Laboratory Tests 10/22/24 05:31 10/22/24 05:31 Calcium 9.1 Magnesium 2.2 Total Bilirubin 0.2 AST 29 ALT 28 Alkaline Phosphatase 51 Total Protein 6.8 Albumin 3.6
[2024-10-22 11:03] VITALS: PULSE 75
[2024-10-22] MEDS: carvediloL 12.5 MG TABLET PO (11:03)
[2024-10-22 11:14] LABS: Kappa\\Lambda Light Chains 0.91 (0.26-1.65); Lambda Light Chain 69.7 mg/L (5.7-26.3)
[2024-10-22 12:49] LABS: Anti Glomerular Basement Memb <1.0 AI
[2024-10-22 13:31] VITALS: BP 120/96; PULSE 78; RESP 17; TEMP 36; O2SAT 97
--- NOTE | 2024-10-22 14:17 | P.DS_ITS ---
DS: Admitting Diagnosis Discharge Date 10/22/2024 Admitting Diagnosis Hypertension DS: Discharge Diagnosis Discharge Diagnosis (1) Hypertensive urgency: Code(s): I16.0 - Hypertensive urgency Status: Acute Assessment and Plan: -Significantly elevated blood pressure with past history of HTN and CKD -Associated headache and shortness of breath -Worsening renal function noted -Elevated BNP noted, Elevated troponin noted -Concern for possible new onset CHF on admission -Multiple doses of IV medications to achieve roughly 25% reduction in SBP at rest -BP elevated again upon move to IMU -IV furosemide ordered x1 dose after patient got a liter of IV fluids in ER -Nitro paste applied and Q2H vital signs ordered -IV hydralazine PRN orders placed -Echocardiogram ordered -Cardiology consult and Nephrology consult in the morning -If BP does not respond, patient may need Cardene drip and move to ICU -Ordered D-Dimer and repeat troponin with AM labs, patient not tachycardic or hypoxic but PE is possible -Due to renal function, patient would need VQ scan if D-Dimer positive -no clinical evidence to consider V/Q scan -CT chest reviewed -possible deescalation of antibiotic tomorrow (2) Elevated troponin: Code(s): R79.89 - Other specified abnormal findings of blood chemistry Status: Acute Assessment and Plan: -Joppa to be related to Hypertensive Crisis, CKD and possible new onset CHF -Cardiology consult -Nitro paste applied on admit to floor to assist with blood pressure, chest pressure and possible pulmonary edema (3) Diabetes: Code(s): E11.9 - Type 2 diabetes mellitus without complications Status: Acute Assessment and Plan: -No longer on medications, formerly on Jardiance -Hgb A1c 5.2 on admission -Heart healthy diet ok (4) Fvfzk-xf-rjwgmqe kidney injury: Qualifiers: Acute renal failure type: unspecified Chronic kidney disease stage: stage 4 (GFR 15-29) Qualified Code(s): N17.9 - Acute kidney failure, unspecified; N18.4 - Chronic kidney disease, stage 4 (severe) Code(s): N17.9 - Acute kidney failure, unspecified; N18.9 - Chronic kidney disease, unspecified Status: Acute Assessment and Plan: -CKD history noted in prior records -Significant drop in renal function noted on labs on admission -Likely hypertension and diabetes related -ordered renal ultrasound, urine electrolytes and CPK -Will consult Nephrology -renal ultrasound shows increased cortical echotexture UA shows a tiny bit of blood. Urine eosinophils are negative. Urine electrolytes are non pre renal. His urine protein is 3920 milligrams/gram of creatinine. Complements are normal The remainder of the serology and immunofixation are pending most likely this is going to bar turner to be diabetes and hypertension related kidney diseease (5) Anxiety: Code(s): F41.9 - Anxiety disorder, unspecified Status: Acute Assessment and Plan: -Patient reports periodic use of alprazolam 0.25 mg tablets PRN for anxiety (6) Hyperlipidemia: Code(s): E78.5 - Hyperlipidemia, unspecified Status: Acute Assessment and Plan: -No home medications currently -will start atorvastatin 40 mg p.o. q.h.s. -reviewed lipid panel (7) CALVIN on CPAP: Code(s): G47.33 - Obstructive sleep apnea (adult) (pediatric) Status: Acute Assessment and Plan: -Ordered AutoPAP as home unit not available tonight DS: Summary Hospital Course Hospital Course: 48-year-old male patient with a past medical history that includes high blood pressure, chronic kidney disease, anxiety, obstructive sleep apnea on CPAP and type 2 diabetes who is admitted to the hospital for hypertensive urgency with related shortness of breath and headache. Workup in the emergency department reveals significant worsening of renal function, uncertain if HAZEL on CKD or significant worsening of CKD alone. Additionally BNP noted to be 855. Patient having chest heaviness with mild dyspnea especially with lying back. Troponin also mildly elevated with slight increase on 3 hour repeat. EKG with findings consistent with LVH and possible left atrial enlargement. Chest x-ray no pneumonia or obvious cardiopulmonary dysfunction. Head CT obtained because of patient exhibiting headache symptoms this was also negative. Patient received several doses of IV antihypertensives including labetalol and hydralazine. Patient reports that he use to take Jardiance for his diabetes but when he lost his job and lost his insurance he could no longer afford it. He states that he does once in a while take a dose of hydralazine but he is not very consistent with it at all. Patient reports he takes omeprazole most days, Tylenol occasionally and once in a while takes alprazolam 0.25 mg tablets for anxiety. Patient uses CPAP for obstructive sleep apnea. He has a history of hyperlipidemia but does not take medication for this currently. Onset of symptoms of headache and chest discomfort has been over the last couple of days. Today he checked his blood pressure at home and was concerned when it was over 190 systolic so he came to the hospital for evaluation. In regards to hypertension patient received multiple medications including hydralazine p.r.n., scheduled amlodipine, carvedilol, labetalol , and Catapres during hospitalization. Currently his blood pressure is on target with the amlodipine 10 mg p.o. q.d. well 12.5 mg p.o. b.i.d.. Emphasized the importance of keeping blood pressure under control. Advised the patient to measure at least 5 times in a day. Patient underwent stress test the preliminary result shows no abnormal finding but no official report. Patient needs to closely follow-up with Cardiology and Nephrology. Patient wants to be discharged today. On the day of discharge, the patient was seen and examined. Vital signs were stable. Physical exam were stable and labs were reviewed at length. Discharge instructions, medications, and follow-up appointments were discussed with the patient at length and all day questions were answered. ER warnings were given. Status at Discharge Cognitive/behavioral status at discharge: Stable Time Spent with Patient Time attestation: Total time spent providing and/or coordinating discharge services: 45 minutes Exam Narrative: GENERAL: Generally anxious appearing, mild dyspnea HEAD: Normocephalic, atraumatic. EYES: EOMI. NECK: Supple. No adenopathy or masses. CHEST: Clear to auscultation. No wheezes rales or rhonchi. Mild dyspnea on exam HEART: Regular rate and rhythm. No murmur heard. Normal peripheral pulses. EXTREMITIES: Normal range of motion. No edema. SKIN: Warm, dry, no rash. NEURO: No focal deficits. Alert and oriented x3. PSYCH: generally anxious appearing DS: Data Data Completed and Pending Labs on day of discharge: Labs from last 24 hours 10/22/24 10/22/24 10/21/24 07:46 05:31 20:00 WBC 6.9 RBC 4.99 Hgb 14.5 Hct 45.2 MCV 90.6 MCH 29.1 MCHC 32.1 RDW 13.5 Plt Count 179 MPV 10.5 H Immature Gran % (Auto) 0.4 Neut % (Auto) 63.2 Lymph % (Auto) 26.1 [place] % (Auto) 7.6 Eos % (Auto) 2.0 Baso % (Auto) 0.7 Lymph # (Auto) 1.79 [place] # (Auto) 0.5 Eos # (Auto) 0.1 Baso # (Auto) 0.1 Abs Immat Gran (auto) 0.03 Absolute Neuts (auto) 4.3 Absolute Nucleated RBC 0.000 Nucleated RBC % 0.0 Sodium 139 Potassium 4.4 Chloride 108 H Carbon Dioxide 22 Anion Gap 9 BUN 34 H Creatinine 3.22 H Estim Creat Clear Calc 31 Estimated GFR 21 L Glucose 105 POC Capillary Glucose 107 H 140 H Calcium 9.1 Magnesium 2.2 Total Bilirubin 0.2 AST 29 ALT 28 Alkaline Phosphatase 51 Total Protein 6.8 Albumin 3.6 Glomerular Base Memb Ab [place]/Lambda Ratio Free [place] Light Chains Free Lambda Light Chain 10/21/24 10/19/24 16:39 12:04 WBC RBC Hgb Hct MCV MCH MCHC RDW Plt Count MPV Immature Gran % (Auto) Neut % (Auto) Lymph % (Auto) [place] % (Auto) Eos % (Auto) Baso % (Auto) Lymph # (Auto) [place] # (Auto) Eos # (Auto) Baso # (Auto) Abs Immat Gran (auto) Absolute Neuts (auto) Absolute Nucleated RBC Nucleated RBC % Sodium Potassium Chloride Carbon Dioxide Anion Gap BUN Creatinine Estim Creat Clear Calc Estimated GFR Glucose POC Capillary Glucose 102 Calcium Magnesium Total Bilirubin AST ALT Alkaline Phosphatase Total Protein Albumin Glomerular Base Memb Ab <1.0 [place]/Lambda Ratio 0.91 Free [place] Light Chains 63.1 H Free Lambda Light Chain 69.7 H Imaging Radiologist's impression: ITS Impressions Chest X-Ray 10/18/24 18:22 IMPRESSION: No acute cardiopulmonary pathology. Head CT 10/18/24 19:56 IMPRESSION: No acute intracranial findings. Arterial/Peripheral Duplex 10/19/24 12:15 IMPRESSION: 1. No Doppler evidence of renal artery stenosis. Renal Ultrasound 10/19/24 12:20 Impression: 1: Increased renal cortical echotexture, consistent with chronic renal disease. Discharge Plan Discharge Attending physician on discharge: Cristofer Guerrero Consulting providers: Sarai Franco; Aurelio Ching Discharging Clinician: Cristofer Guerrero Anticipated Discharge Date/Time: 10/22/24 14:22 Patient Disposition: Home Activity: as tolerated Diet: heart healthy Discharge Instructions: Needs to measure blood pressure at least 5 times a day Needs to follow-up closely with Cardiology, Nephrology and PCP Check blood pressure 1 to 2 times a day. Record and bring into your doctor for review. Call your doctor if your blood pressure is greater than 180/110 or less than 90/45. Walk with cane or other assist device. Take precautions to avoid falls. Rise slowly from a lying or sitting position. Pause before standing or walking. Contact your doctor or call 911 and come to the Emergency Room if you have any type of trauma, lightheadedness with standing or other worrisome symptoms. Avoid NSAIDs (ibuprofen, naproxen, Aleve). Tylenol is safe to take. Follow-up with your primary care provider in 1-2 weeks. Please call for appointment. Follow-up with Cardiology in 2-4 weeks. Please call for an appointment. Thank you for using [facility] for your health care needs. Patient Instructions: Antibiotic Form Patient Language: Greenlandic Stand Alone Forms: General Discharge Information Follow-up/Referrals: Sarai Franco APN-C [Advanced Practice Nurse] - Molina,MD Glen [Primary Care Provider] - Aurelio Ching MD [Physician] - Discharge Medications: New atorvastatin 40 mg Tablet 40 mg PO DAILY Qty: 30 0RF amlodipine 10 mg Tablet 10 mg PO DAILY Qty: 30 0RF carvedilol [Coreg] 12.5 mg Tablet 12.5 mg PO Q12HR Qty: 30 0RF Continued omeprazole 20 mg Tablet,Delayed Release (Dr/Ec) 20 mg PO DAILY acetaminophen [Pain Reliever (acetaminophen)] 325 mg tablet 650 mg PO Q6H PRN (Reason: pain) Patient Comments: OTC for daily aches and pains. Last dose 10/20/19 at lunch time aside from ED dose. Discontinued hydralazine 50 mg tablet 50 mg PO BID Date of admission: 10/18/24 22:10 Primary Care Provider: Molina,Glen Admitting Provider: Herman Drew Attending physician on admission: Herman Drew Condition: Serious
[2024-10-22 16:34] LABS: Complement Total CH50 >60 U/mL (31-60)
[2024-10-22 20:47] LABS: Immunofixation, Serum Normal pattern.
[2024-10-23 03:13] LABS: Creat 24 Hr 2.01 g/24 h (0.50-2.15); Pro/Creat Ratio 2791 mg/g creat (<100); Pro/Creat Ratio mg/mg 2.791 (<0.100); Protein,total, 24 Hr Ur 5610 mg/24 h (<150)
[2024-10-23 15:34] LABS: ANCA Screen NEGATIVE (NEGATIVE)
[2024-10-23 18:29] LABS: Histone Antibody <1.0 U
== END 2024-10-22 15:00 | disposition home or self-care (01) ==
LOC: ANHED 18:22 → ANHIMU 23:19 → ANH3MEDSUR 10-22 14:24 → ANHIMU 10-23 07:30
PROVIDERS: Emergency Medicine; Internal Medicine Nephrology; Nurse Practitioner; Admitting Provider Family Medicine; Emergency Provider Physician Assistant; PCP Family Medicine; Visit Provider General Practice
DX: I16.0 Hypertensive urgency (principal); I12.9 Hypertensive chronic kidney disease with stage 1 through stage 4 chronic kidney disease, or unspecified chronic kidney disease; N18.4 Chronic kidney disease, stage 4 (severe); E11.22 Type 2 diabetes mellitus with diabetic chronic kidney disease; N17.9 Acute kidney failure, unspecified; R79.89 Other specified abnormal findings of blood chemistry; R06.02 Shortness of breath; E78.5 Hyperlipidemia, unspecified; F41.9 Anxiety disorder, unspecified; G47.33 Obstructive sleep apnea (adult) (pediatric); Z99.89 Dependence on other enabling machines and devices; Z87.891 Personal history of nicotine dependence; Z79.899 Other long term (current) drug therapy
CPT/HCPCS: 36415; 70450; 71046; 76775; 78452; 80053; 80061; 81001; 81002; 82088; 82306; 82550; 82570; 82948; 83036; 83070; 83520; 83690; 83735; 83835; 83883; 83970; 84100; 84156; 84244; 84300; 84443; 84484; 84540; 85025; 85380; 85610; 85652; 85730; 85999; 86036; 86038; 86039; 86160; 86162; 86334; 86335; 86364; 93005; 93017; 93306; 93976; 94002; 96361; 96372; 96374; 96375; 96376; 99285; A9270; A9502; G0378; G0379; J0360; J1644; J1938; J2785; J7030

== ENCOUNTER 2024-11-29 10:43 | Emergency (ER) | payer OTHER, SELFPAY ==
[2024-11-29] VITALS (7 sets, daily range): BP systolic 140–161; BP diastolic 97–111; PULSE 56–72; RESP 16–21; TEMP 36.7; O2SAT 96–99
--- OUTSIDE RECORDS SUMMARY | 2024-11-29 11:00 | XMS_ITS | Clinical Summary ---
Author Organization [facility] Address [address] [place] [address] Phone Care Team Providers Care Analytical Scientist Name Role Phone Unavailable Primary Care Provider Unavailabl e Allergies No known active allergies Medications hydralazine HCl (HYDRALAZINE ORAL) Take by mouth. Activ e amlodipine besylate (AMLODIPINE ORAL) Take by mouth. Activ e blood sugar diagnostic Strip TEST BLOOD GLUCOSE FOUR TIMES DAILY DIRECTED 100 Each 07/23/2022 4:05 PM MONORAIL HOOKER 3 Active Blood-Glucose Meter (OneTouch Verio Reflect Meter) USE DIRECTED TO TEST BLOOD GLUCOSE 1 Each 07/23/2022 4:05 PM MONORAIL HOOKER 3 Active lancets (One Touch Delica) 33 gauge USE DIRECTED TO TEST BLOOD GLUCOSE FOUR TIMES DAILY 100 Each 07/23/2022 4:05 PM MONORAIL HOOKER 3 Active oxyCODONE-aceta minophen (PERCOCET) 5-325 mg tabletIndicatio ns:Dental abscess Take 1-2 Tablets by mouth every 4 hours as needed for Pain. Max Daily Amount: 12 Tablets 20 Tablet 07/23/2022 4:05 PM MONORAIL HOOKER 3 Active sennosides-docu sate sodium (SENNA-S) 8.6-50 [...] Comments Blood Pressure 128/82 07/23/2022 5:06 PM MONORAIL HOOKER Pulse 82 07/23/2022 5:06 PM MONORAIL HOOKER Temperature 36.7 C (98.1 F) 07/23/2022 5:06 PM MONORAIL HOOKER Respiratory Rate 16 07/23/2022 5:06 PM MONORAIL HOOKER Oxygen Saturation 97% 07/23/2022 5:06 PM MONORAIL HOOKER Inhaled Oxygen Concentration - - Weight 113.6 kg (250 lb 6.4 oz) 07/20/2022 6:00 AM MONORAIL HOOKER Height 180.3 cm (5' 11) 07/18/2022 7:39 PM MONORAIL HOOKER Body Mass Index 34.92 07/18/2022 7:39 PM MONORAIL HOOKER Plan of Treatment Health Maintenance Due Date [...] years 2022 DIABETES HBA1C Q 6 MONTHS 01/20/2023 07/20/2022, 05/2021 LDL CHOLESTEROL ANNUAL 07/23/2023 07/22/2022 INFLUENZA VACCINE (#1) 2024 Procedures Procedure Name Priority Date/Time Associated Diagnosis Comments LIPID PANEL Routine 07/22/2022 7:43 AM MONORAIL HOOKER HEMOGLOBIN A1C Routine 07/20/2022 4:18 AM MONORAIL HOOKER from Last 3 Months or Most Recently Relevant to Health Maintenance Results * (ABNORMAL) LIPID PANEL (07/22/2022 7:43 AM MONORAIL HOOKER) CHOLESTEROL 206(H) <200 mg/dL 07/22/2022 9:06 AM [facility] Program [facility] TRIGLYCERIDE 379(H) <150 mg/dL 07/22/2022 9:06 AM [facility] Program [facility] HDL 34(L) 40 - 59 mg/dL 07/22/2022 9:06 AM [facility] LDL CALCULATED 96 <100 mg/dL 07/22/2022 9:06 AM [facility] NON-HDL CHOLESTEROL 172(H) <130 mg/dL 07/22/2022 9:06 AM [facility] Blood Venipuncture / Unknown 07/22/2022 7:43 AM MONORAIL HOOKER 07/22/2022 8:33 AM MONORAIL HOOKER [facility] LABORATORY [facility] - 07/22/2022 9:06 AM MONORAIL HOOKER TOTAL CHOLESTEROL mg/dL Desirable <200 Borderline high [...] ORDERABLES Final Resu lt Performing Organization Address City/[facility]/ZIP Co de Phone Number [id number] [place] [address] * (ABNORMAL) HEMOGLOBIN A1C (07/20/2022 4:18 AM MONORAIL HOOKER) HEMOGLOBIN A1C 11.6(H) <=5.6 % 07/20/2022 7:55 PM MONORAIL HOOKER [facility] LABORATORY [facility] EST. AVG GLUCOSE, A1C 286 mg/dL 07/20/2022 7:55 PM MONORAIL HOOKER [facility] Program [facility] Blood Venipuncture / Unknown 07/20/2022 4:18 AM MONORAIL HOOKER 07/20/2022 4:29 AM MONORAIL HOOKER Narrative [facility] LABORATORY [facility] - 07/20/2022 7:55 PM MONORAIL HOOKER HGB A1C INTERPRETATION NORMAL: <5.7% PRE-DIABETES: 5.7 - 6.4% DIABETES: 6.5% OR GREATER Nic Ramos NP CHEMISTRY ORDERABLES Final Re sult Performing Organization Address [facility]/ZIP Co de Phone Number [facility] [id number] [place] [address] from Last 3 Months or Most Recently Relevant to Health Maintenance Insurance [facility] MEDICAID RX [employer] Commercial Advance Directives For more information, please contact: [phone] * Full Code (Latest Code Status on File) Date Activated Date Inactivated Comments 07/18/2022 8:41 PM 07/23/2022 7:47 PM
--- OUTSIDE RECORDS SUMMARY | 2024-11-29 11:00 | XMS_ITS | Continuity of Care Document ---
Author Organization [facility] Address [address] [place] [address] [place] [address] Phone Care Team Providers Care Sustainability Consultant Name Role Phone Juan Carlos Tran MD [...] PREV VISIT, EST, AGE 18-39 OFFICE/OUTPATIENT VISIT, [facility] Advance Directives Directive Yes / No Effective Date File Name No Information Encounters Encounter Description Practice Location Reason(s) For Visit Diagnoses Date Provider Providers Copied on Encounter [facility], [address] [place], [place], [id number], tel:[phone] [facility] Medicine No Information 4 Marc Rangel. [address], [facility], [id number] , [place]. tel:[phone] Referring Provider: Juan Carlos Tran, [address], [place], [place], [id number]. tel:[phone] PREV VISIT, EST, AGE 18-39 [facility], [address] [place], [id number], tel:[phone] [facility] Medicine Physical (chief complaint) Dietary surveillance and counselingRoutine Medical ExamRoutine Medical Exam 3 Marc Rangel. [address], [address] [place], [id number] , . tel:[phone] Referring Provider: Juan Carlos Tran, [address] [facility] [address], [place], [place], [id number]. tel:[phone] OFFICE/OUTPA TIENT VISIT, [facility], [address], [place], [place], [id number], [place] tel:[phone] [facility] Muscle pain (chief complaint) HTN (chief complaint) Dietary surveillance and counselingHypertens ion, UnspecifiedMyalgia and myositis, unspecified 3 Marc Rangel. [address] [facility] [address], [place], [place], [id number] , [place]. tel:[phone] Family History Family Member Type Diagnosis Age [...]
--- OUTSIDE RECORDS SUMMARY | 2024-11-29 11:00 | XMS_ITS | Encounter Summary ---
Author Organization [facility] Address [address] [place] [address] Care Team Providers Care Lubrication Servicer Name Role Phone Unavailable Primary Care Provider Unavailabl e Reason for Visit * Reason Onset Date Comments new diabetes diagonosis 07/22/2022 Spoke jim Burns at 's office Encounter Details Date Type Department Care Team (Late st Contact Info) Description 07/22/2022 Telephone [facility] [address] [place] [address] Patrice Fontana DO NO ADDRESS [...] Coronavirus/COVID-19? 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
--- OUTSIDE RECORDS SUMMARY | 2024-11-29 11:00 | XMS_ITS | Patient Health Record ---
Author Organization [facility] [employer] Address [address] [place] [address] Care Team Providers Care Fellmongery Worker Name Role Phone Joslyn Kunz Unavailable [phone] Reason For Referral No Information Medications Medication SIG (Take, Route, Frequency, Duration) Notes Start Date End Date Status amLODIPine Besylate 10 MG Oral Active Januvia 50 MG Oral Active OneTouch Verio In Vitro Activ e Aspirin Adult Low Strength 81 MG Oral Active OneTouch Delica Plus [id number] Active Venlafaxine HCl ER 75 MG Oral Active Fenofibrate 54 MG Oral Ac tive Amoxicillin-Pot Clavulanate 875-125 MG Oral Active Escitalopram Oxalate 10 MG Oral Active Ergocalciferol 1.25 MG (04874 UT) Oral Active hydrOXYzine HCl 50 MG Oral Active HYDROcodone-Acetaminophen 5-325 MG Oral Active Jardiance 25 MG Oral Acti ve hydrALAZINE HCl 50 MG Oral Active Rosuvastatin Calcium 10 MG Oral Active Escitalopram Oxalate 5 MG Oral Active Losartan Potassium 100 MG Oral Active Plan Of Treatment No Information Insurance Providers Payer Name Payer Address Payer Phone Subscriber Number Group Number Insured Name Patient Relationship to Insured Coverage Start Date Coverage End Date [facility] [address] [place] [address] [id number] [place] Self - patient is the insured
--- OUTSIDE RECORDS SUMMARY | 2024-11-29 11:01 | XMS_ITS | Data Portability ---
Author Organization [place] [facility], Main Office Address [address] [place] [address] Care Team Providers Care Analysis Lead Name Role Phone GLEN AUGUSTE Primary Care Provider Assessment Encounter Date Assessment Date Assessment LastModified by Organization Details LastModified Time 07/04/2023 07/04/2023 Assessment: Hypertension Rhinitis Very severe OSAHS, AHI = 72 PLMD Plan: The following were reviewed and explained to the patient: [facility] home sleep study 09/08/22 AHI = 72, supine AHI = 73 [facility] titration sleep study 01/12/23 ResMed medium AirFit [...] is an important part of PAP therapy. [employer] Air Sense 11 auto set unit with [...] carrier. Patient will setup an appointment with [facility] for supplies and pressure adjustments. A [...] PCP for further management. Follow-up: 3 weeks [email or web address] Not available 07/04/2023 16:14:58 09/13/2023 09/13/2023 45 [...] in 2-3 weeks. Annual labs in 09/07. [email or web address] Not available 09/13/2023 15:37:57 10/04/2023 10/04/2023 45 [...] LFT in 01/06. Annual labs in 09/07. Not available 10/04/2023 17:49:04 10/25/2024 10/25/2024 I have reconcile d the patient's medications post their discharge from inpatient facility. [email or web address] Not available 10/25/2024 12:37:27 Plan of Treatment Reminders Order Date Submit Date Provider Last Modified By Organization Details Last Modified Time Details Appointments Follow Up 15 2024 09:00A Kathy Auguste MD Not available Not available Not available Lab lipid panel, serum [address] (Lab), [address] [place], [address], 12/26/2023 08:03:39 HbA1c (hemoglob in A1c), blood [address] (Lab), [address] [place], [address], 12/26/2023 08:03:39 hepatic function panel, serum [address] (Lab), [address] [place], [address], 12/26/2023 08:03:39 CMP, serum or plasma 2023 024 [facility] (Lab), [address] [place], [address], 09/13/2023 21:32:57 CBC w/ auto diff 2023 024 [facility] (Lab), [address] [place], [address], 09/13/2023 19:42:50 lipid panel, blood [address] (Lab), [address] [place], [address], 09/20/2023 08:04:00 TSH, serum, reflex free T4 [address] (Lab), [address] [place], [address], 09/20/2023 08:04:00 PSA, serum or plasma [address] (Lab), [address] [place], [address], 09/20/2023 08:04:00 urinalysi s complete, reflex culture [address] (Lab), [address] [place], [address], 09/20/2023 08:04:00 vitamin D, 25-hydrox y, total, serum [address] (Lab), [address] [place], [address], 09/20/2023 08:04:01 microalbu min, urine [address] (Lab), [address] [place], [address], 09/20/2023 08:04:00 HbA1c (hemoglob in A1c), blood [address] (Lab), [address] [place], [address], 09/20/2023 08:04:00 noninvasi ve colorecta l cancer DNA + occult blood screening , QL, stool 2023 024 [email or web address] [facility] (Cologuard Orders Only), [address], [address], [place], [address], 09/20/2023 08:04:01 iron + TIBC + ferritin, serum [address] [place] [address] (Lab), [address] [place], [address], 09/27/2023 11:15:15 folate, RBC [address]23 [email or web address] [place] [address] (Lab), [address] [place], [address], 09/27/2023 11:15:15 vitamin B12, serum [email or web address] [place] [address] (Lab), [address] [place], [address], 09/27/2023 11:15:15 ESR (erythroc yte sedimenta tion rate), blood 2023 024 [email or web address] 5 [facility] (Lab), [address] [place], [address], 09/27/2023 11:15:15 hemoglobi n + hematocri t, blood 2023 024 [email or web address] 5 [facility] (Lab), [address] [place], [address], 09/27/2023 11:15:16 bun (blood urea nitrogen) , serum or plasma 2023 024 5 [facility] (Lab), [address] [place], [address], 09/27/2023 11:15:16 creatinin e, serum or plasma 2023 024 [email or web address] 5 [facility] (Lab), [address] [place], [address], 09/27/2023 11:15:16 magnesium , serum or plasma 2023 024 [email or web address] 5 [facility] (Lab), [address] [place], [address], 09/27/2023 11:15:16 vitamin E, serum 2023 024 5 [facility] (Lab), [address] [place], [address], 09/27/2023 11:15:16 Referral nephrolog ist referral - Please call patient to schedule an appointme nt. Thank you. 2024 025 AJAY Belcher MD, [address], [address], [place], [address], 10/26/2024 13:10:31 cardiolog ist referral - Please call patient to schedule an appointme nt. Thank you. 2024 025 AJAY [facility], [address], [address], [place], [address], 10/26/2024 12:15:31 nephrolog ist referral - Please call patient to schedule an appointme nt. Thank you. 2023 024 [email or web address] Maxi Belcher MD, [address], [address], [place], [address], 11/02/2023 09:05:39 psychiatr ist referral - Please call patient to schedule an appointme nt. Thank you 2023 024 [email or web address] Estuardo Aldridge MD, [address], [address], [place], [address], 10/11/2023 09:14:43 cardiolog ist referral - Please call patient to schedule an appointme nt. Thank you. 2023 024 [email or web address] [facility] Fax Line, [address], [address], [place], [address], 10/11/2023 09:12:39 Procedures None recorded. Surgeries None recorded. Imaging None recorded. Medication Orders Adult Low Dose Aspirin 81 mg tablet,de layed release 2024 025 [facility], [address], [place], [id number], 10/25/2024 12:57:54 atorvasta tin 40 mg tablet 2024 025 [facility] #41265, [address], [place], [id number], 10/25/2024 12:58:09 amlodipin e 10 mg tablet 2024 025 [facility] #65821, [address], [place], [id number], 10/25/2024 12:58:12 hydralazi ne 25 mg tablet 2024 025 [facility] #40846, [address] [facility], [place], [place], [id number], 10/25/2024 12:59:38 buspirone 10 mg tablet 2024 025 [facility] #17806, [address] [facility], [place], [place], [id number], 10/25/2024 12:58:18 escitalop martine 5 mg tablet 2024 025 [facility] #12097, [address] [facility], [place], [place], [id number], 10/25/2024 12:58:19 omeprazol e 20 mg capsule,d elayed release 2024 025 [facility] #15458, [address] [facility], [place], [place], [id number], 10/25/2024 12:58:01 carvedilo l 12.5 mg tablet 2024 025 [facility] #78838, [address] [facility], [place], [place], [id number], 10/25/2024 12:57:52 fenofibra te 54 mg tablet 2023 024 [email or web address] [facility] #34554, [address] [facility], [place], [place], [id number], 10/25/2024 12:54:33 amlodipin e 10 mg tablet 2023 024 [facility] #75211, [address] [facility], [place], [place], [id number], 10/04/2023 17:16:02 hydralazi ne 50 mg tablet [address] [facility] #39694, [address] [facility], [place], [place], [id number], 10/25/2024 12:54:45 losartan 100 mg tablet [address] [facility] #61457, [address] [facility], [place], [place], [id number], 10/25/2024 12:55:27 Farxiga 10 mg tablet [address] [facility] #61968, [address], [place], [id number], 10/25/2024 12:54:28 rosuvasta tin 10 mg tablet [address] [facility] #41712, [address] [facility], [place], [place], [id number], 10/25/2024 12:55:36 Adult Low Dose Aspirin 81 mg tablet,de layed release 2023 024 [facility] #07684, [address] [facility], [place], [place], [id number], 10/04/2023 17:16:01 ergocalci ferol (vitamin D2) 1,250 mcg (50,000 unit) capsule [address] [facility] #35580, [address] [facility], [place], [place], [id number], 10/25/2024 12:55:44 metformin ER 500 mg tablet,ex tended release 24 hr [address] [facility] #90378, [address] [facility], [place], [place], [id number], 10/25/2024 12:55:31 glipizide 5 mg tablet [address] [facility] #56349, [address] [facility], [place], [place], [id number], 10/25/2024 12:54:38 fenofibra te 54 mg tablet [address] [facility] #92896, [address], [place], [id number], 10/25/2024 12:54:33 amlodipin e 10 mg tablet 2023 024 [facility] #99106, [address], [place], [id number], 09/13/2023 15:28:46 hydralazi ne 50 mg tablet [address] [facility] #55072, [address] [facility], [place], [place], [id number], 10/25/2024 12:54:45 losartan 100 mg tablet [address] [facility] #05000, [address], [place], [id number], 10/25/2024 12:55:27 rosuvasta tin 10 mg tablet [address] [facility] #33185, [address], [place], [id number], 10/25/2024 12:55:36 Adult Low Dose Aspirin 81 mg tablet,de layed release 2023 024 [facility] #24269, [address], [place], [id number], 09/13/2023 15:28:44 metformin ER 500 mg tablet,ex tended release 24 hr 2023 024 [email or web address] [facility] #48120, [address], [place], [id number], 10/25/2024 12:55:31 glipizide 5 mg tablet 2023 024 [email or web address] [facility] #05380, [address], [place], [id number], 10/25/2024 12:54:38 Patient TargetsNo targets recorded. Patient Instructions Encounter Date Encounter Id Patient Instructions Last Modified By Organization Details Last Modified Time 10/25/2024 [id number] high cholesterol : care instructions [email or web address] Not available 10/25/2024 13:02:35 high blood pressure: care instructions [email or web address] Not available 10/25/2024 13:02:35 dash diet: care instructions [email or web address] Not available 10/25/2024 13:02:35 When You Want to Lose Weight: Care Instructions [email or web address] Not available 10/25/2024 13:02:35 limiting sodium with heart failure: care instructions [email or web address] Not available 10/25/2024 13:02:35 Thank you for your visit to our office today. We would like to request that you reach out to your referring or previous provider and request that they send us a Summary of Care in electronic form, so that we may have it on file in your medical record. At your visit, we had the medical records we needed to provide you with the best possible care; however, for insurance purposes, an electronic Summary of Care is beneficial. Thank you for your assistance in obtaining this information and we look forward to providing continued care to you. Please review your medication list from the Summary of Care for this visit. If there are any differences from what you are currently taking at home, please call us to discuss. [email or web address] Not available 10/25/2024 12:37:28 Reason for Referral House Decorator Referral for Blair leonardo history of Cardiovascular disease Strong FH of CVD Please call patient to schedule an appointment. Thank you. Referring Physician: Glen Auguste, Family Medicine, Encounter Date: 09/13/2023 Psychiatrist Referral for An xiety disorder Please call patient to schedule an appointment. Thank you Referring Physician: Glen Auguste [facility], Encounter Date: 09/13/2023 Feeder Worker Power Unit Operator Referral for Ch ronic kidney disease stage 3 Please call patient to schedule an appointment. Thank you. Referring Physician: Glen Auguste [facility], Encounter Date: 10/04/2023 House Decorator Referral for Co ngestive heart failure Please call patient to schedule an appointment. Thank you. Referring Physician: Glen Auguste [facility], Encounter Date: 10/25/2024 Feeder Worker Power Unit Operator Referral for Ch ronic kidney disease stage 4 Please call patient to schedule an appointment. Thank you. Referring Physician: Glen Auguste [facility], Encounter Date: 10/25/2024 Results Created Date Observation Date Name Description Value Unit Range Abnormal Flag Note LastModifiedBy Organization Detail LastModifiedTime 09/13/1909/12/2024 COLOG UARD cologuard result CANCEL LED - ORDER D not applic able Not Available [facility] (Cologuard Orders Only) [address], [place], [address], 09/12/2024 11:37:26 09/13/19 24 09/13/2023 CBC/C OMPLE TE BLD COUNT W/DIF F white blood cells 8.7 x10'3 /uL 4.2-10 .8 Not Available [facility] (Lab) [address] [place], [address], 09/13/2023 19:42:50 09/13/19 24 09/13/2023 CBC/C OMPLE TE BLD COUNT W/DIF F red blood cells 5.64 x10'6 /uL 4.10-5 .80 Not Available [facility] (Lab) [address] [place], [address], 09/13/2023 19:42:50 09/13/19 24 09/13/2023 CBC/C OMPLE TE BLD COUNT W/DIF F hemoglobin 16.9 g/dL 13.2-1 7.0 Not Available [facility] (Lab) [address] [place], [address], 09/13/2023 19:42:50 09/13/19 24 09/13/2023 CBC/C OMPLE TE BLD COUNT W/DIF F hematocrit 51.1 % 39.3-5 0.0 high Not Available [facility] (Lab) [address] [place], [address], 09/13/2023 19:42:50 09/13/19 24 09/13/2023 CBC/C OMPLE TE BLD COUNT W/DIF F mean red cell volume 90.6 fL 80.0-9 7.0 Not Available [facility] (Lab) [address] [place], [address], 09/13/2023 19:42:50 09/13/19 24 09/13/2023 CBC/C OMPLE TE BLD COUNT W/DIF F mean red cell hemoglobin 30.0 pg 27.0-3 3.0 Not Available [facility] (Lab) [address] [place], [address], 09/13/2023 19:42:50 09/13/19 24 09/13/2023 CBC/C OMPLE TE BLD COUNT W/DIF F mean RBC HGB concentratio n 33.1 g/dL 31.0-3 6.0 Not Available [facility] (Lab) [address] [place], [address], 09/13/2023 19:42:50 09/13/19 24 09/13/2023 CBC/C OMPLE TE BLD COUNT W/DIF F red cell distribution width 13.2 % 11.8-1 5.5 Not Available [facility] (Lab) [address] [place], [address], 09/13/2023 19:42:50 09/13/19 24 09/13/2023 CBC/C OMPLE TE BLD COUNT W/DIF F platelets 283 x10'3 /uL 150-40 0 Not Available [facility] (Lab) [address] [place], [address], 09/13/2023 19:42:50 09/13/19 24 09/13/2023 CBC/C OMPLE TE BLD COUNT W/DIF F mean platelet volume 10.8 fL 9.0-12 .4 Not Available [facility] (Lab) [address] [place], [address], 09/13/2023 19:42:50 09/13/19 24 09/13/2023 CBC/C OMPLE TE BLD COUNT W/DIF F neutrophils 70.0 % 39.0-7 2.0 Not Available [facility] (Lab) [address] [place], [address], 09/13/2023 19:42:50 09/13/19 24 09/13/2023 CBC/C OMPLE TE BLD COUNT W/DIF F lymphocytes 21.4 % 16.0-4 7.0 Not Available [facility] (Lab) [address] [place], [address], 09/13/2023 19:42:50 09/13/19 24 09/13/2023 CBC/C OMPLE TE BLD COUNT W/DIF F monocytes 6.2 % 5.0-12 .0 Not Available [facility] (Lab) [address] [place], [address], 09/13/2023 19:42:50 09/13/19 24 09/13/2023 CBC/C OMPLE TE BLD COUNT W/DIF F eosinophils 1.3 % 1.0-7. 0 Not Available [facility] (Lab) [address] [place], [address], 09/13/2023 19:42:50 09/13/19 24 09/13/2023 CBC/C OMPLE TE BLD COUNT W/DIF F basophils 0.6 % 0.0-2. 0 Not Available [facility] (Lab) [address] [place], [address], 09/13/2023 19:42:50 09/13/19 24 09/13/2023 CBC/C OMPLE TE BLD COUNT W/DIF F immature granulocytes 0.5 % 0.00-0 .50 Not Available [facility] (Lab) [address] [place], [address], 09/13/2023 19:42:50 09/13/19 24 09/13/2023 CBC/C OMPLE TE BLD COUNT W/DIF F neutrophils, absolute count 6.06 x10'3 /uL 1.5-8. 0 Not Available [facility] (Lab) [address] [place], [address], 09/13/2023 19:42:50 09/13/19 24 09/13/2023 CBC/C OMPLE TE BLD COUNT W/DIF F lymphocytes, absolute count 1.85 x10'3 /uL 1.07-3 .43 Not Available [facility] (Lab) [address] [place], [address], 09/13/2023 19:42:50 09/13/19 24 09/13/2023 CBC/C OMPLE TE BLD COUNT W/DIF F monocytes, absolute count 0.54 x10'3 /uL 0.29-0 .99 Not Available [facility] (Lab) [address] [place], [address], 09/13/2023 19:42:50 09/13/19 24 09/13/2023 CBC/C OMPLE TE BLD COUNT W/DIF F eosinophils, absolute count 0.11 x10'3 /uL 0.02-0 .53 Not Available [facility] (Lab) [address] [place], [address], 09/13/2023 19:42:50 09/13/19 24 09/13/2023 CBC/C OMPLE TE BLD COUNT W/DIF F basophils, absolute count 0.05 x10'3 /uL 0.01-0 .08 Not Available [facility] (Lab) [address] [place], [address], 09/13/2023 19:42:50 09/13/19 24 09/13/2023 CBC/C OMPLE TE BLD COUNT W/DIF F immature granulocytes ,absolute 0.04 x10'3 /uL 0.00-0 .05 Not Available [facility] (Lab) [address] [place], [address], 09/13/2023 19:42:50 09/13/19 24 09/13/2023 CBC/C OMPLE TE BLD COUNT W/DIF F nucleated red blood cells 0.0 % -0 Not Available [facility] (Lab) [address] [place], [address], 09/13/2023 19:42:50 09/13/19 24 09/13/2023 CBC/C OMPLE TE BLD COUNT W/DIF F NRBC# 0.00 x10'3 /uL Not Available [facility] (Lab) [address] [place], [address], 09/13/2023 19:42:50 09/13/19 24 09/13/2023 HEMOG LOBIN A1C HA1C 5.5 % 4.0-6. 0 Diabe melissa Scree jocelynn Crite denny: <5.7% Consi stent with absen ce of diabe melissa 5.7-6 .4% Consi stent with incre ased risk for diabe melissa (pred iabet es) >OR=6 .5% Consi stent with diabe melissa REFER ENCE: Diabe melissa Care 2016, 39(Posadas ppl.1 ):s13 -s22 Not Available [facility] (Lab) [address] [place], [address], 09/13/2023 21:06:25 09/13/19 24 09/13/2023 VITAM IN D 25-HY DROXY vd25oh <12.8 NG/mL 30-100 low Vitam in D Statu s: Defic ient: <20 ng/mL Insuf ficie nt: 20-29 ng/mL Suffi cient : 30-10 0 ng/mL Not Available [facility] (Lab) [address] [place], [address], 09/13/2023 21:16:35 09/13/19 24 09/13/2023 TSH W/REF ANAYA FT4 TSH with reflex free T4 2.320 uIU/m L 0.465- 4.680 Not Available [facility] (Lab) [address] [place], [address], 09/13/2023 21:20:18 09/13/19 24 09/13/2023 PSA SCREE N PSA medicare screen 0.86 NG/mL 0.00-4 .00 Not Available [facility] (Lab) [address] [place], [address], 09/13/2023 21:20:19 09/13/19 24 09/13/2023 COMPR EHENS ENID METAB OLIC PANEL sodium 140 mmol/ L 137-14 5 Not Available [facility] (Lab) [address] [place], [address], 09/13/2023 21:32:57 09/13/19 24 09/13/2023 COMPR EHENS ENID METAB OLIC PANEL potassium 4.5 mmol/ L 3.5-5. 1 Not Available [facility] (Lab) [address] [place], [address], 09/13/2023 21:32:57 09/13/19 24 09/13/2023 COMPR EHENS ENID METAB OLIC PANEL chloride 108 mmol/ L 98-107 high Not Available [facility] (Lab) [address] [place], [address], 09/13/2023 21:32:57 09/13/19 24 09/13/2023 COMPR EHENS ENID METAB OLIC PANEL carbon dioxide 19 mmol/ L 22-30 low Not Available [facility] (Lab) [address] [place], [address], 09/13/2023 21:32:57 09/13/19 24 09/13/2023 COMPR EHENS ENID METAB OLIC PANEL anion gap 17.5 mmol/ L 14-22 Not Available [facility] (Lab) [address] [place], [address], 09/13/2023 21:32:57 09/13/19 24 09/13/2023 COMPR EHENS ENID METAB OLIC PANEL glucose 84 mg/dL 70-99 Not Available [facility] (Lab) [address] [place], [address], 09/13/2023 21:32:57 09/13/19 24 09/13/2023 COMPR EHENS ENID METAB OLIC PANEL BUN 31 mg/dL 8-19 high Not Available [facility] (Lab) [address] [place], [address], 09/13/2023 21:32:57 09/13/19 24 09/13/2023 COMPR EHENS ENID METAB OLIC PANEL creatinine 2.15 mg/dL 0.66-1 .25 high Not Available [facility] (Lab) [address] [place], [address], 09/13/2023 21:32:57 09/13/19 24 09/13/2023 COMPR EHENS ENID METAB OLIC PANEL GFR 33 Refer ence Range : Tilden ge GFR Healt hy Adult : >60 [...] calcu lator is avail able on the [facility] websi te: https :[email or web address] [email or web address] burroughs/pr ofess ional s/kdo qi/gf r_cal culat or Not Available [facility] (Lab) [address] [place], [address], 09/13/2023 21:32:57 09/13/19 24 09/13/2023 COMPR EHENS ENID METAB OLIC PANEL alkaline phosphatase 68 U/L 38-126 Not Available [facility] (Lab) [address] [place], [address], 09/13/2023 21:32:57 09/13/19 24 09/13/2023 COMPR EHENS ENID METAB OLIC PANEL alanine aminotransfe rase 67 U/L 0-50 high Not Available [facility] (Lab) [address] [place], [address], 09/13/2023 21:32:57 09/13/19 24 09/13/2023 COMPR EHENS ENID METAB OLIC PANEL aspartate aminotransfe rase 130 U/L 15-46 high Not Available [facility] (Lab) [address] [place], [address], 09/13/2023 21:32:57 09/13/19 24 09/13/2023 COMPR EHENS ENID METAB OLIC PANEL bilirubin, total 0.80 mg/dL 0.20-1 .30 Not Available [facility] (Lab) [address] [facility] [place], [address], 09/13/2023 21:32:57 09/13/19 24 09/13/2023 COMPR EHENS ENID METAB OLIC PANEL calcium 9.7 mg/dL 8.4-10 .2 Not Available [facility] (Lab) [address] [place], [address], 09/13/2023 21:32:57 09/13/19 24 09/13/2023 COMPR EHENS ENID METAB OLIC PANEL total protein 8.0 g/dL 6.3-8. 2 Not Available [facility] (Lab) [address] [place], [address], 09/13/2023 21:32:57 09/13/19 24 09/13/2023 COMPR EHENS ENID METAB OLIC PANEL albumin 4.7 g/dL 3.4-5. 0 Not Available [facility] (Lab) [address] [place], [address], 09/13/2023 21:32:57 09/13/19 24 09/13/2023 COMPR EHENS ENID METAB OLIC PANEL globulin 3.3 g/dL 2.6-4. 2 Not Available [facility] (Lab) [address] [place], [address], 09/13/2023 21:32:57 09/13/19 24 09/13/2023 COMPR EHENS ENID METAB OLIC PANEL A/G ratio 1.4 ratio 1.0-2. 0 Not Available [facility] (Lab) [address] [place], [address], 09/13/2023 21:32:57 09/13/19 24 09/13/2023 LIPID PANEL cholesterol 257 mg/dL 140-19 9 high NIH KO NSUS RECOM MENDA TION FOR BARTOLOME STERO L: ADULT CHILD LOW RISK: <200 <170 BORDE RLINE : <200- 239 ----- HIGH RISK: >240 >200 Not Available [facility] (Lab) [address] [place], [address], 09/13/2023 21:33:07 09/13/19 24 09/13/2023 LIPID PANEL triglyceride s 219 mg/dL 0-150 high NIH KO NSUS REPOR T RECOM MENDA TION FOR TRIGL YCERI LORE: ADULT CHILD LOW RISK: <150 ----- BODER LINE: 150-1 99 ----- HIGH RISK: >200 ----- Not Available [facility] (Lab) [address] [place], [address], 09/13/2023 21:33:07 09/13/19 24 09/13/2023 LIPID PANEL HDL cholesterol 62 mg/dL 40- Not Available [facility] (Lab) [address] [place], [address], 09/13/2023 21:33:07 09/13/19 24 09/13/2023 LIPID PANEL LDL cholesterol, calculated 151 mg/dL 0-130 high NIH KO NSUS REPOR T RECOM MENDA TIONS FOR LDL: ADULT CHILD LOW RISK <130 <110 (OPTI MAL LDL) <100 ----- BORDE RLINE : 130-1 59 ----- HIGH RISK: >160 >130 A TRIGL YCERI DE RESUL T >400 INVAL IDATE S THE CALCU LATIO N FOR LDL FRACT IONAT ION - THE LDL RESUL T WILL NOT BE REPOR ANTONIO. Not Available [facility] (Lab) [address] [place], [address], 09/13/2023 21:33:07 09/13/19 24 09/13/2023 TEST NOT PERFO RMED test not performed SEE COMMEN T NO URINE REC'D IN LAB. UNABL E TO PERFO RM MALB AND URINA LYSIS COMPL ETE W/RFX Not Available [facility] (Lab) [address] [place], [address], 09/13/2023 22:10:55 08/22/19 24 08/22/2023 XR, wrist No observ ation record ed. [address], [place], [address], 09/13/2023 15:20:59 10/19/19 25 10/18/2024 XR, chest , 2 view No observ ation record ed. [address], [place], [address], 10/25/2024 12:48:25 10/19/19 25 10/18/2024 CT, brain , w/o contr ast No observ ation record ed. [address], [place], [address], 10/25/2024 12:48:25 10/20/19 25 10/19/2024 US, doppl er echoc ardio gram No observ ation record ed. [address], [place], [address], 10/25/2024 12:48:24 10/20/19 25 10/19/2024 US, duple x, renal arter y No observ ation record ed. [address], [place], [address], 10/25/2024 12:48:24 10/20/19 25 10/19/2024 US, renal arter y No observ ation record ed. [address], [place], [address], 10/25/2024 12:48:24 10/23/19 25 10/18/2024 cardi ac stres s test No observ ation record ed. [email or web address] [facility] [address] [facility] [address], [place], [address], 10/25/2024 12:48:24 10/23/19 25 10/22/2024 marisol mari cardi olite stres s test (PROC ) No observ ation record ed. [facility] [address] [facility] [address], [place], [address], 10/25/2024 12:48:24 Result Notes None recorded. Problems Name Problem SNOMED Code Status Onset Date Resolution Date Notes Provider Name and Address Organization Details Recorded Time Anxiety disorder 052539287 Active [address] [facility] 3 00:59:08 Hypertensi ve disorder 96606539 Active 2021 Not [address] [facility] 3 00:59:08 Obesity 238005634 Active 2021 Not Available [facility] 00:59:08 Uncontroll ed type 2 diabetes mellitus 464844352 Active 2022 Glen Auguste MD [address], [place], [address] , [email or web address] 3 11:23:56 Vitamin D deficiency 58833471 Active 2022 Glen Auguste MD [address], [place], [address] , [email or web address] 3 11:27:39 Hypertrigl yceridemia 944026194 Active 2022 Glen Auguste MD [address], [place], [address] , [email or web address] 3 11:28:23 Chronic kidney disease stage 3 325250616 Active 2022 Glen Auguste MD [address], [place], [address] , [email or web address] 3 14:13:05 Ex-smoker 9913396 Active 2022 Glen Auguste MD [address], [place], [address] , [place] [facility] 3 14:28:26 Seasonal allergic rhinitis 467680369 Active 2022 Glen Auguste MD [address], [place], [address] , [place] [facility] 3 10:13:55 Periodic limb movement disorder 066564311 Active 2023 Koby Lucas MD [address], [place], [address] , [place] [facility] 4 16:09:54 Hyperlipid emia 25230436 Active 2023 Glen Auguste MD [address], [place], [address] , [place] [facility] 4 15:19:41 Family history of Cardiovasc ular disease 190316021 Active 2023 Glen Auguste MD [address], [place], [address] , [place] [facility] 4 15:21:31 Liver enzymes level above reference range 526350741 Active 2023 Glen Auguste MD [address], [place], [address] , [place] [facility] 4 17:16:47 Benign hypertensi on 42665719 Active 2024 Glen Auguste MD [address], [place], [address] , [place] [facility] 5 12:49:04 Congestive heart failure 54730737 Active 2024 Glen Auguste MD [address], [place], [address] , [place] [facility] 5 12:49:18 Mixed hyperlipid emia 677019108 Active 2024 Glen Auguste MD [address], [place], [address] , [email or web address] 5 12:49:27 Obese class I 1130512142230 07 Active 2024 Glen Auguste MD [address], [place], [address] , [email or web address] 5 12:49:35 Chronic kidney disease stage 4 002762398 Active 2024 Glen Auguste MD [address], [place], [address] , [email or web address] 5 12:51:48 Gastroesop hageal reflux disease without esophagiti s 208867493 Active 2024 Glen Auguste MD [address], [place], [address] , [email or web address] 5 12:53:52 Chronic anxiety 424577976 Active 2024 Glen Auguste MD [address], [place], [address] , [email or web address] 5 12:56:05 Ex-cigaret te smoker 808837392 Active 2024 Glen Auguste MD [address], [place], [address] , [email or web address] 5 13:01:18 Diabetes mellitus 13364609 Active 2024 Glen Auguste MD [address], [place], [address] , [email or web address] 5 13:07:47 Obstructiv e sleep apnea syndrome 58486158 Active 2024 Lauren Ram NP [address], [place], [address] , [email or web address] 5 16:22:31 Notes:Medical History: Anxie ty Rhinitis with postnasal drip Erythrocytosis Early REM onset Obesity with very severe OSAHS, AHI = 72, 09/08/22, on autoCPAP c/o IVRC Hypertension Mixed hyperlipidemia T2DM DELROY Stage 3 CKD PLMD Vit D deficiency Procedure History: Cholecystectomy 2018 Left neck abscess I&D 2022 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 Procedures Surgical History Date Name Laterality Status Provider Name and Address Organization Details Recorded Time 10/25/2024 Transition al_Care_Ma nagement completed Tracey Epps RN [facility] [employer] 10/25/2024 12:37:28 Imaging Results None recorded. Procedure Notes None recorded. Medical Equipment None Reported. Allergies Allergen ID Allergen Name Allergen Category Reaction Reaction Severity Criticality Documentation Date Start Date Code Code System Note Provider Name and Address Organization Details Recorded Time 45093 venlafaxi ne medicatio n confusion moderate Not available 08/11/2022 50831 RxNorm Glen Auguste MD [address] [facility], [facility] [address], [place], [address] [place] [address] [employer] 14:10:59 Medications Name Sig Start Date Stop Date Status Note LastModified by Organization Details LastModified Time losartan 50 mg tablet Take 1 tablet every day by oral route as directed for 90 days. 01/13 completed Not Available Not Available Not Available atorvasta tin 40 mg tablet Take 1 tablet every day by oral route at bedtime for 90 days. 2024 active Not Available Not Available Not Avai lable venlafaxi ne ER 75 mg capsule,e xtended release 24 hr TAKE 1 CAPSULE BY MOUTH EVERY DAY IN THE MORNING 07/04 completed Not Available Not Available Not Available carvedilo l 12.5 mg tablet TAKE 1 TABLET BY MOUTH TWICE DAILY DIRECTED active Not Available Not Available No t Available cetirizin e 10 mg tablet TAKE 1 TABLET BY MOUTH EVERY DAY NEEDED 09/28 completed Not Available Not Available Not Available hydrocodo ne 5 mg-acetam inophen 325 mg tablet TAKE 1 TABLET BY MOUTH EVERY 6 HOURS NEEDED FOR PAIN 10/25 completed Not Available Not Available Not Available spironola ctone 100 mg tablet TAKE 1 TABLET BY MOUTH DAILY 10/08 completed Not Available Not Available Not Available Debrox 6.5 % ear drops INSTILL 4 DROPS INTO AFFECTED EAR(S) BY OTIC ROUTE 2 TIMES PER DAY 07/28 completed Not Available Not Available Not Available hydralazi ne 25 mg tablet TAKE 1 TABLET BY MOUTH TWICE DAILY DIRECTED active Not Available Not Available No t Available hydroxyzi ne HCl 50 mg tablet TAKE 1 TABLET BY MOUTH EVERY 8 HOURS NEEDED 10/25 completed Not Available Not Available Not Available oxycodone -acetamin ophen 5 mg-325 mg tablet 08/11 completed Not Available Not Available Not Available amlodipin e 10 mg tablet TAKE 1 TABLET BY MOUTH EVERY DAY DIRECTED 2024 active Not Available Not Available Not Avai lable buspirone 10 mg tablet TAKE 1 TABLET BY MOUTH TWICE DAILY NEEDED active Not Available Not Available No t Available omeprazol e 20 mg capsule,d elayed release TAKE 1 CAPSULE BY MOUTH EVERY DAY IN THE MORNING active Not Available Not Available No t Available hydralazi ne 50 mg tablet TAKE 1 TABLET BY MOUTH EVERY 8 HOURS DIRECTED 10/25 completed Not Available Not Available Not Available ergocalci ferol (vitamin D2) 1,250 mcg (50,000 unit) capsule TAKE 1 CAPSULE BY MOUTH EVERY WEEK DIRECTED 10/25 completed Not Available Not Available Not Available losartan 100 mg tablet TAKE 1 TABLET BY MOUTH EVERY DAY DIRECTED 10/25 completed Not Available Not Available Not Available fluticaso ne propionat e 50 mcg/actua tion nasal spray,yani pension SHAKE LIQUID AND USE 2 SPRAYS IN EACH NOSTRIL EVERY DAY NEEDED 09/28 completed Not Available Not Available Not Available metformin ER 500 mg tablet,ex tended release 24 hr TAKE 1 TABLET BY MOUTH TWICE DAILY AFTER MEALS 10/25 completed Not Available Not Available Not Available glipizide 5 mg tablet TAKE 1 TABLET BY MOUTH TWICE DAILY WITH A MEAL 10/25 completed Not Available Not Available Not Available amoxicill in 875 mg-potass ium clavulana te 125 mg tablet TAKE 1 TABLET BY MOUTH EVERY 12 HOURS FOR 7 DAYS 07/04 completed Not Available Not Available Not Available hydroxyzi ne pamoate 25 mg capsule TAKE 1 CAPSULE BY MOUTH TWICE DAILY NEEDED 08/11 completed Not Available Not Available Not Available Adult Low Dose Aspirin 81 mg tablet,de layed release Take 1 tablet every day by oral route as directed for 90 days. 2024 active Not Available Not Available Not Avai lable escitalop martine 10 mg tablet TAKE 1 TABLET BY MOUTH EVERY DAY IN THE MORNING 10/26 completed Not Available Not Available Not Available rosuvasta tin 10 mg tablet TAKE 1 TABLET BY MOUTH EVERY DAY AT BEDTIME 10/25 completed Not Available Not Available Not Available escitalop martine 5 mg tablet TAKE 1 TABLET BY MOUTH EVERY DAY IN THE MORNING active Not Available Not Available No t Available Januvia 50 mg tablet Take 1 tablet every day by oral route at noon for 90 days. 10/25 completed Not Available Not Available Not Available Lantus Solostar U-100 Insulin 100 unit/mL [...] BY MOUTH EVERY DAY IN THE MORNING 10/25 completed Not Available Not Available Not Available OneTouch Verio test strips TAKE 1 STRIP THREE TIMES DAILY BY MSCELL 01/13 completed Not Available Not Available Not Available icosapent ethyl 1 gram capsule TAKE 2 CAPSULES BY MOUTH TWICE DAILY DIRECTED 09/28 completed Not Available Not Available Not Available Farxiga 10 mg tablet TAKE 1 TABLET BY MOUTH EVERY DAY DIRECTED 10/25 completed Not Available Not Available Not Available Jardiance 25 mg tablet Take 1 tablet every day by oral route in the morning for 90 days. 10/25 completed Not Available Not Available Not Available duloxetin e 40 mg capsule,d elayed [...] /min 15 /min Koby Lucas MD [address] [facility], [place], [address], [place] [employer] [facility] [employer] 07/04/2023 16:11:29 Date Recorded Body height Body mass index (BMI) Body weight Body temperature Heart rate Oxygen saturation Oxygen saturation in Arterial blood by Pulse oximetry Systolic And Diastolic Provider Name and Address Organization Details Last Updated DateTime 4 177.8 cm 34.4 kg/m2 280137. 73 g 98 [degF] 90 /min 97 % 97 % 138/92 mm[Hg] Rena Bee MA [facility] [employer] 14:48:33 Date Recorded Body height Body mass index (BMI) Body weight Body temperature Heart rate Oxygen saturation Oxygen saturation in Arterial blood by Pulse oximetry Systolic And Diastolic Provider Name and Address Organization Details Last Updated DateTime 4 177.8 cm 34 kg/m2 485253. 74 g 98.1 [degF] 88 /min 97 % 97 % 142/88 mm[Hg] Nahid Sellers [place] [employer] [facility] [employer] 4 15:16:28 Date Recorded Heart rate Respiratory rate Provider N chao and Address Organization Details Last Updated DateTime 10/04/2023 94 /min 22 /min Glen Auguste MD [address] [facility], [facility] [address], [place], [address], [place] [employer] [facility] [employer] 10/04/2023 17:46:52 Date Recorded Body height Body mass index (BMI) Body weight Body temperature Oxygen saturation Oxygen saturation in Arterial blood by Pulse oximetry Systolic And Diastolic Provider Name and Address Organization Details Last Updated DateTime 4 177.8 cm 34.6 kg/m2 760201. 11 g 98.1 [degF] 98 % 98 % 136/80 mm[Hg] Nahid Sellers [place] [employer] [facility] [employer] 4 17:08:09 Date Recorded Body height Body mass index (BMI) Body weight Body temperature Oxygen saturation Oxygen saturation in Arterial blood by Pulse oximetry Heart rate Systolic And Diastolic Provider Name and Address Organization Details Last Updated DateTime 5 177.8 cm 32 kg/m2 564439. 5 g 98.1 [degF] 98 % 98 % 67 /min 142/88 mm[Hg] Tracey Epps RN [facility] [employer] 5 12:46:54 Social History Question Answer Notes LastModified by Organizat ion Details LastModified Time Tobacco Smoking Status Former Smoker Kajal Gambino MA null, [place] [employer] 09/28/2022 15:55:38 Do You Have An Advance Directive? No MIGRATION.[id number] [id number] Information not available 07/15/2022 Do You Wear A Helmet When Biking? No MIGRATION.18124 95713 Information not available 07/15/2022 What Is Your Level Of Caffeine Consumption? Occasional MIGRATION.43812 66619 Information not available 07/15/2022 In The 14 Days Before Symptom Onset, Have You Had Close Contact With A Laboratory-confi rmed COVID-19 While That Case Was Ill? No MIGRATION.60285 74911 Information not available 07/15/2022 In The 14 Days Before Symptom Onset, Have You Had Close Contact With A Person Who Is Under Investigation For COVID-19 While That Person Was Ill? No MIGRATION.47897 07225 Information not available 07/15/2022 What Type Of Diet Are You Following? REGULAR MIGRATION.44578 71121 Information not available 07/15/2022 Do You Have An Electrostatic Air Filter? No Information not available 09/28/2022 Have There Been Any Changes To Your Family Or Social Situation? No MIGRATION.87406 21366 Information not available 07/15/2022 What Is The Fluoride Status Of Your Home? Unknown MIGRATION.97624 27885 Information not available 07/15/2022 When Did You Quit Smoking? 1-5yearssincelastci michael Information not available 09/28/2022 Are There Any Guns Present In Your Home? No MIGRATION.92542 84915 Information not available 07/15/2022 Do You Have A Humidifier? No Information not available 09/28/2022 Do You Use Insect Repellent Routinely? Yes MIGRATION.91106 03702 Information not available 07/15/2022 Where Do You Live? [place] MIGRATION.71174 22625 Information not available 07/15/2022 Do You Have A Medical Power Of Non Licensed Operator? No MIGRATION.57970 67778 Information not available 07/15/2022 Do You Have Moisture Problems In Your Home? No Information not available 09/28/2022 What Was The Date Of Your Most Recent Tobacco Screening? 09/28/2022 Information not available 09/28/2022 Have You Ever Been Counseled For Unhealthy Alcohol Use? No MIGRATION.77374 13468 Information not available 07/15/2022 Do You Have Any Pets? Yes MIGRATION.31176 13169 Information not available 07/15/2022 What Is Your Relationship Status? MIGRATION.82345 97091 Information not available 07/15/2022 Do You Use Your Seat Belt Or Car Seat Routinely? Yes MIGRATION.61633 27297 Information not available 07/15/2022 Do You Have Smoke And Carbon Monoxide Detectors In Your Home? Yes MIGRATION.10717 94959 Information not available 07/15/2022 Are You Passively Exposed To Smoke? No MIGRATION.57210 72396 Information not available 07/15/2022 Are There Any Smokers In Your House? Yes MIGRATION.98997 74690 Information not available 07/15/2022 How Much Tobacco Do You Smoke? No Information not available 09/28/2022 Do You Participate In Social Media? No MIGRATION.45219 92789 Information not available 07/15/2022 Do You Use Sunscreen Routinely? Yes MIGRATION.37700 05927 Information not available 07/15/2022 Has Tobacco Cessation Counseling Been Provided? No MIGRATION.31530 87613 Information not available 07/15/2022 Have You Recently Traveled Abroad? No MIGRATION.12645 26641 Information not available 07/15/2022 Are You Currently In School? No MIGRATION.62395 57497 Information not available 07/15/2022 Do You Have Any Dietary Restrictions? No MIGRATION.70101 72150 Information not available 07/15/2022 Sex: Male Functional Status Question Answer Note LastModified by Organizat ion Details LastModified Time Do you use any illicit or recreational drugs? No MIGRATION.614755 9732 Information not available 07/15/2022 Do you or have you ever used any other forms of tobacco or nicotine? No MIGRATION.978972 0951 Information not available 07/15/2022 What is your level of alcohol consumption? Occasional MIGRATION.134940 0958 Information not available 07/15/2022 Are you currently employed? Yes Information not available 09/28/2022 Have you been exposed to chemicals or toxins? 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 Heavy MIGRATION.708276 7305 Information not available 07/15/2022 Mental Status Question Answer Note LastModified by Organizat ion Details LastModified Time Do you feel stressed (tense, restless, nervous, or anxious, or unable to sleep at night)? [id number] MIGRATION.[id number] 6 Information not available 07/15/2022 Family History Relationship Description Onset Age of this Age Resolved Age Notes LastModified by Organization Details LastModified Time Paternal Grandfather Hypertensive disorder MIGRATION.261 [id number] Not available 07/15/2022 00:57:55 Paternal Grandmother Hypertensive disorder MIGRATION.861 [id number] Not available 07/15/2022 00:57:55 Maternal Grandmother Diabetes mellitus MIGRATION.547 [id number] Not available 07/15/2022 00:57:56 Paternal Aunt Obstructive sleep apnea syndrome [email or web address] Not available 2022 16:25:37 Paternal Uncle Obstructive sleep apnea syndrome [email or web address] Not available 2022 16:25:45 Medical History Condition Response BLINDNESS N RHEUMATIC FEVER N KIDNEY STONES N BLADDER PROBLEMS N MRSA N OTHER # 1 N POLIO N LUNG DISEASE/DISORDER N HISTORY OF DRUG ABUSE N RADIATION / CHEMOTHERAPY N COPD N Other # 2 N BLOOD DISEASES N SURGERY N EAR OR HEARING PROBLEMS N MUMPS N SHINGLES N FEMALE PROBLEMS / INFECTIONS N BOWEL PROBLEMS N DEPRESSION (INCLUDING POST ) N STROKE/TIA N THYROID DISEASE N ULCERS N BENIGN PROSTATIC HYPERPLASIA N MEASLES N CERVICALGIA N TB SKIN TEST N HYPOTENSION N MYOCARDIAL INFARCTION N PARAPELGIA N OBESITY [...] GLAUCOMA N FOOT PROBLEM N DIVERTICULITIS N SLEEP APNEA N CHICKENPOX N ALLERGIES/HAYFEVER N INFECTIOUS DISEASE N PROSTATE N HEART ARRHYTHMIA N INSOMNIA N HIGH CHOLESTEROL / HYPERLIPIDEMIA N EYE PROBLEMS N HYPERTHYROIDISM N EATING DISORDER N EDEMA N CHRONIC PAIN SYNDROME N CONSTIPATION N CAROTID BLOCKAGE N BACK / NECK PROBLEMS N HAVE YOU BEEN HOSPITALIZED OR SEEN IN [facility] ER IN THE PAST YEAR ? N ATHEROSCLEROSIS [...] DISORDER N ALZHEIMER'S DISEASE N PAIN N DEMENTIA N HERPES N SEIZURES/EPILEPSY N HEADACHES/MIGRAINES N VASCULAR DISEASE N PACEMAKER N DIZZINESS N HEART DISEASE/HEART PROBLEMS N KIDNEY DISEASE N SCARLET FEVER N MULTIPLE SCLEROSIS N DEVELOPMENTAL OR BEHAVIORAL DISORDERS N MENTAL DISORDER/ILLNESS N CANCER: SPECIFY N CARDIAC ARRHYTHMIA N PNEUMONIA N ATRIAL FIBRILLATION N Gall Stones N PULMONARY EMBOLISM N AUTOIMMUNE DISEASE N Past Encounters Encounter ID Performer Location Encounter Start Date Encounter Closed Date Diagnosis/Indication Diagnosis SNOMED-CT Code Diagnosis ICD10 Code Diagnosis Note [id number] Glen Auguste MD [address] [address] 09/23/2021 00:00:00 09/23/2021 15:40:58 [id number] Glen Auguste MD [address] [address] 10/08/2021 00:00:00 10/08/2021 10:20:19 [id number] Glen Auguste MD [address] [address] 10/22/2021 00:00:00 10/22/2021 14:29:56 [id number] Glen Auguste MD [address] [address] 07/28/2022 11:02:19 07/28/2022 11:40:21 Hospital inpatient stay within past 30 days 6235971882 106 Z76.89 Cellulitis and abscess of neck 484190134 L02.11 Lt side Hypertensive disorder 38 920795 I10 Uncontroll ed type 2 diabetes mellitus 232479224 E11.65 Anxiety disorder 3554421 06 F41.9 Vitamin D deficiency 347 83027 E55.9 Hyperlipidemia 29265291 E78.5 Hypertriglyceridemia 302 410880 E78.2 Obesity 646116783 E66.9 [id number] Glen Auguste MD [address] [address] 08/09/2022 11:09:48 08/09/2022 11:25:32 Sleep apnea 80440987 G47.30 [id number] Glen Auguste MD [address] [address] 08/11/2022 14:00:29 08/11/2022 14:22:43 Anxiety disorder 634165213 F41.9 Uncontroll ed type 2 diabetes mellitus 188424697 E11.65 Chronic ki dney disease stage 3 152606074 N18.30 Hypertensive disorder 38 095574 I10 Hyperlipidemia 29795481 E78.5 Hypertriglyceridemia 302 733340 E78.2 Obesity 368376588 E66.9 Ex-smoker 1855493 Z87.89 1 [id number] Glen Auguste MD [address] [address] 09/08/2022 09:57:56 09/08/2022 10:15:06 Anxiety disorder 785934341 F41.9 Uncontroll ed type 2 diabetes mellitus 349395959 E11.65 Chronic ki dney disease stage 3 472533290 N18.30 Hypertensive disorder 38 011043 I10 Hyperlipidemia 36456860 E78.5 Obesity 806140293 E66.9 Ex-smoker 4909651 Z87.89 1 Family his tory of Cardiovascular disease 668147318 Z82.49 Seasonal a llergic rhinitis 270899032 J30.2 [id number] Koby Lucas MD [facility] [address] 09/28/2022 15:39:12 09/29/2022 08:35:44 Sleep apnea 31218314 G47.30 G47.33 G47.61 G47.36 G47.419 [id number] Glen Auguste MD [address] [address] 10/26/2022 10:24:07 10/26/2022 11:06:04 Anxiety disorder 109029318 F41.9 Uncontroll ed type 2 diabetes mellitus 186219832 E11.65 Chronic ki dney disease stage 3 111099613 N18.30 Hypertensive disorder 38 677620 I10 Hyperlipidemia 39810129 E78.5 Obesity 344201320 E66.9 Ex-smoker 1947643 Z87.89 1 Family his tory of Cardiovascular disease 139355754 Z82.49 Adult heal th examination 297074599 Z00.00 Vitamin D deficiency 347 89586 E55.9 [id number] Koby Lucas MD [address] [address] 07/04/2023 14:25:44 07/05/2023 08:28:21 Obstructive sleep apnea syndrome 36732114 G47.33 Periodic l imb movement disorder 968578380 G47.61 D50.8 E83.42 [id number] Glen Auguste MD [address] [address] 09/13/2023 15:07:45 09/13/2023 15:40:16 Adult health examination 128921303 Z00.00 Anxiety disorder 9994997 06 F41.9 Uncontroll ed type 2 diabetes mellitus 627303615 E11.65 Chronic ki dney disease stage 3 558024665 N18.30 Hypertensive disorder 38 402428 I10 Hyperlipidemia 20399606 E78.5 Obesity 790438800 E66.9 Ex-smoker 4317907 Z87.89 1 Family his tory of Cardiovascular disease 142937165 Z82.49 Vitamin D deficiency 347 72660 E55.9 Hypertriglyceridemia 302 814416 E78.2 Screening for malignant neoplasm of colon 819157773 Z12.11 [id number] Glen Auguste MD [address] [address] 10/04/2023 16:59:52 10/04/2023 17:53:14 Anxiety disorder 218143292 F41.9 Uncontroll ed type 2 diabetes mellitus 294270747 E11.65 Chronic ki dney disease stage 3 916406206 N18.30 Hypertensive disorder 38 528868 I10 Hyperlipidemia 83641006 E78.5 Obesity 972608667 E66.9 Ex-smoker 6985238 Z87.89 1 Family his tory of Cardiovascular disease 594390413 Z82.49 Vitamin D deficiency 347 05233 E55.9 Hypertriglyceridemia 302 165127 E78.2 Liver enzy mes level above reference range 088636225 R74.01 [id number] Glen Auguste MD [address] [address] 10/25/2024 12:27:19 10/25/2024 13:53:43 Transition of care 9753597084 105 Z75.8 History of clinical finding in subject 879991198 Z92.89 Seen in department 62119 1009 Z76.89 Benign hypertension 1072 5009 I10 Congestive heart failure 01944889 I50.9 I42.9 Mixed hyperlipidemia 267 045083 E78.2 Obese class I 4496513255 17407 E66.811 Chronic ki dney disease stage 4 566083824 N18.4 Gastroesop hageal reflux disease without esophagitis 025173524 K21.9 Chronic anxiety 99077041 9 F41.9 Ex-cigarette smoker 2810 28828 Z87.891 Diabetes mellitus 201654 09 E11.9 [id number] Glen Auguste MD [address] [address] 11/20/2024 09:33:44 11/20/2024 09:52:18 Health Concerns Section Related Observation LastModified by Organization Detai ls LastModified Time None Recorded Concern Status LastModified by Organization Details LastModified Time None Recorded Advance Directives Directive N: Payers Insurance Date Sequence Insurance Name Policy Number Policy Mckinney Covered Member ID Mckinney Member ID Guarantor Name 11/20/2024 1 [facility] (MEDICAID REPLACEMENT - HMO) [employer] [id number] [employer] 10/25/2024 1 [place] [id number] Juno Sky [id number] [employer] 10/25/2024 1 [facility] (MEDICARE REPLACEMENT/AD VANTAGE - HMO) [employer] Sky [id number] [employer] 10/25/2024 2 [facility] - DOS ON OR AFTER 20 (MEDICAID REPLACEMENT - HMO) [employer] [id number] [employer] 10/25/2024 1 [place] [id number] [employer] [id number] [employer] Notes Date Note Type Note Provider Name and Address Organization Details Recorded Time 07/04/2023 text/html Primary care/Ref erring provider: Glen Auguste MD During the [facility] home sleep study on 09/08/22, AHI = 72, supine AHI = 73. During the [facility] titration sleep study 01/12/23, PLMI = 8. [...] high chance of dozing. Koby Lucas MD [address] [place] [address], [place] [address], [place], [address], [place] [employer] [facility] 07/04/2023 16:15:12 09/13/2023 text/html Pt is here [...] in couple months. Pt was d/c from [facility] last month. Pt was seen at [facility] last week for an abscess over his neck (from his bad teeth) and it was pushing on his airway, so pt was transferred to [facility] next day for surgery. P was found to have A1c of 11 and he has been started on Basal and bolus insulin since . Glen Auguste MD [address] [employer], [place], [address], [email or web address] 09/13/2023 15:38:07 10/04/2023 text/html Pt is here [...] in couple months. Glen Auguste MD [address], [address] [employer], [place], [address], [email or web address] 10/04/2023 17:49:55 10/25/2024 text/html Hospital fuv: Pt was seen in ED on 10/18/24 due to chest tightness and SOB and was admitted there for 4 days. Pt has been seen by Cardio and Nephro there too and he needs to see them as out pt. Overall, feeling much better. His BP is improved and he has home log to review. Last visit in 10/06 and he lost his insurance. So he has not taken any meds for last several months. Glen Auguste MD [address], [place], [address], [place] - [facility] 10/25/2024 13:08:26
--- NOTE | 2024-11-29 11:04 | ECG_ITS ---
Test Date: 2024-11-29 11:22:55 Measurements Intervals [place] Rate: 64 P: 5 LA: 147 QRS: -5 QRSD: 105 T: 46 QT: 399 QTc: 413 Interpretive Statements SINUS RHYTHM MODERATE VOLTAGE CRITERIA FOR LVH, CONSIDER NORMAL VARIANT [MEETS CRITERIA IN ONE OF: R(aVL), S(V1), R(V5), R(V5/V6)+S(V1)] NONSPECIFIC T-WAVE ABNORMALITY Compared to ECG 10/21/2024 04:40:14 ST (T wave) deviation no longer present Possible ischemia no longer present T-wave abnormality still present Electronically Signed On 11-29-2024 14:47:25 CDT by Luis E Phillips M.D.
--- OUTSIDE RECORDS SUMMARY | 2024-11-29 11:17 | XMS_ITS | Continuity of Care Document ---
Author Organization [facility] Address [address] [place] [address] [place] [address] Phone Care Team Providers Care Weather Analyst Name Role Phone Juan Carlos Tran MD [...] Diagnoses Date Provider Providers Copied on Encounter [facility], [address] [place], [place], [id number], tel:[phone] [facility] Medicine No Information 4 Marc Rangel. [address], [facility] [place], [id number] , [place]. tel:[phone] Referring Provider: Juan Carlos Tran, [address] [facility] [address], [place], [place], [id number]. tel:[phone] PREV VISIT, EST, AGE 18-39 [facility], [address] [place], [id number], tel:[phone] [facility] Medicine Physical (chief complaint) Dietary surveillance and counselingRoutine Medical ExamRoutine Medical Exam 3 Marc Rangel. [address], [address] [place], [id number] , . tel:[phone] Referring Provider: Juan Carlos Tran, [address] [facility] [address], [place], [place], [id number]. tel:[phone] OFFICE/OUTPA TIENT VISIT, [facility], [address], [place], [place], [address], [place] tel:[phone] [facility] Muscle pain (chief complaint) HTN (chief complaint) Dietary surveillance and counselingHypertens ion, UnspecifiedMyalgia and myositis, unspecified 3 Marc Rangel. [address] [facility] [address], [place], [place], [address] , [place]. tel:[phone] Family History Family Member Type Diagnosis Age At Onset Mother Problem (finding) Alive and well Mother Problem (finding) unknwno Brother Problem (finding) Alcoholism Brother Problem (finding) Alive and well Father Problem (finding) Hyperlipidemia Father Problem (finding) Hypertension Father Problem (finding) Anxiety Payers Payer name Insurance type Covered constitution party ID Authoriza tion(s) No Information Social [...]
[2024-11-29 11:22] LABS: Hematocrit 46.5 % (42.0-52.0); Hemoglobin 15.3 g/dL (14.0-18.0); Immature Granulocyte Percent A 0.9 % (0-0.5); Lymphocytes Absolute Auto 1.55 K/mm3 (0.9-3.2); Mean Corpuscular HGB Conc 32.9 g/dl (32-36); Mean Corpuscular Hemoglobin 28.4 pg (26-34); Mean Corpuscular Volume 86.4 fl (80-100); Nucleated Red Blood Cells Absolute Auto 0.000 K/mm3 (0.0-0.012); Nucleated Red Blood Cells Perc 0.0 % (0.0-0.2); Platelet Count Result 223 k/mm3 (150-375); Red Blood Count 5.38 M/mm3 (4.6-6.20); White Blood Count 8.1 K/mm3 (4.5-10.0)
[2024-11-29 11:47] LABS: Alanine Aminotransferase 33 U/L (6-50); Albumin Level 4.2 g/dL (3.5-5.1); Alkaline Phosphatase 83 U/L (38-126); Anion Gap 11 mmol/L (4-12); Aspartate Amino Transferase 31 U/L (17-59); Bilirubin,Total 0.3 mg/dL (0.2-1.3); Blood Urea Nitrogen 30 mg/dL (9-20); Calcium 9.1 mg/dL (8.4-10.2); Carbon Dioxide 20 mmol/L (22-30); Chloride 111 mmol/L (98-107); Estimated CRCL calculation 37 ml/min; Estimated Glomerular Filt Rate 24; Glucose 133 mg/dL (65-110); Potassium 4.5 mmol/L (3.4-5.0); Sodium 142 mmol/L (137-145); Total Protein 7.9 g/dL (6.3-8.2)
--- NOTE | 2024-11-29 12:06 | ED.GENADULT ---
HPI - General Adult General Chief complaint: Recheck/Abnormal Lab/Rx Stated complaint: HTN Time Seen by Provider: 11/29/24 10:48 Source: patient Mode of arrival: ambulatory Limitations: no limitations History of Present Illness HPI narrative: 49-year-old with a history of hypertension, anxiety disorder here with a complains of elevated blood pressure doses this morning. Patient states that he checked his blood pressure and his systolic was greater than 180. He was advised by his family doctor to go to the emergency room and I was his blood pressure is up. He denies having any headache, chest pain or blurred vision. Onset (ago): hour(s) (2) Associated symptoms: denies other symptoms Related Data Home Medications ?Medication ?Instructions ?Recorded ?Confirmed ?Last Taken ?Type omeprazole 20 mg tablet,delayed 20 mg PO DAILY 08/22/23 10/19/24 10/18/24 History release acetaminophen 325 mg tablet (Pain 650 mg PO Q6H PRN pain 10/19/24 10/19/24 10/19/24 History Reliever (acetaminophen)) aspirin 81 mg tablet 81 mg PO DAILY 11/07/24 11/07/24 Unknown History cyanocobalamin (vitamin B-12) 1,000 mcg PO DAILY 11/07/24 11/07/24 Unknown History 1,000 mcg capsule escitalopram oxalate 5 mg tablet 5 mg PO DAILY 11/07/24 11/07/24 Unknown History omega-3 fatty acids-fish oil 360 1 cap PO BID 11/07/24 11/07/24 Unknown History mg-1,200 mg capsule (Fish Oil) Allergies Allergy/AdvReac Type Severity Reaction Status Date / Time atorvastatin AdvReac Intermediate Muscle Pain Verified 11/29/24 10:44 Review of Systems Review of Systems: All systems reviewed & are unremarkable except as noted in HPI and below Constitutional: Constitutional: Reports no additional constitutional complaints Eyes: Eyes: Reports no additional eye complaints ENT: Reports system reviewed and no additional complaints, except as documented Cardiovascular: Cardiovascular: Reports no additional cardiovascular complaints Respiratory: Respiratory: Reports no additional respiratory complaints Gastrointestinal: Gastrointestinal: Reports no additional gastrointestinal complaints Musculoskeletal: Musculoskeletal: Reports no additional musculoskeletal complaints Integumentary/Breasts: Skin/Breast: Reports system reviewed and no additional complaints, except as docu Neurologic: Reports system reviewed and no additional complaints, except as documented Psychiatric: Psychiatric: Reports no additional psychiatric complaints PMFSH Past Medical History Medical History CALVIN on CPAP Hyperlipidemia Obesity Diabetes Fracture of scaphoid bone of left wrist Hypertension Anxiety Anxiety Surgical History Surgical History Hx of cholecystectomy Family History Family History Mother Family history of glaucoma Hypertension Father Hypertension Unknown Diabetes mellitus Other Family history of kidney disease Family history of mental disorder Social History Social History Social History: caffeine use Smoking packs per day: 1 Smoking cigarettes per day: 20.0 Years smoked: 15 Smoking pack-years: 15.00 Smoking status: Former smoker Alcohol intake: current Drinks per week: 8 Alcohol use details: Once per week, 4 beers at a time Substance use: never Substance use type: does not use Do You Feel Safe in your Home?: Yes Lack of Transportation: No Lack of Food: Never True Current Housing: I Have Housing Concerned About Future Housing: No Difficulty Paying Gas/Electric Bills: No Difficulty Paying for Meds: No Currently Unemployed: No Education: Trade/Vocational Certificate Difficulty w/ Childcare or Family Care: No Living arrangements: with family Occupation/Education: occupation 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 HEAD: Normocephalic, atraumatic. EYES: PERRLA and EOMI. ENT: Nares clear, no rhinorrhea or epistaxis. Mucous membranes moist. NECK: Supple. CHEST: Clear to auscultation. No respiratory distress. HEART: Regular rate and rhythm. No murmur heard. Normal peripheral pulses. ABDOMEN: Soft, nontender, nondistended, normal active bowel sounds. EXTREMITIES: Normal range of motion. No edema. SKIN: Warm, dry, no rash. NEURO: No focal deficits. Alert and oriented x3. PSYCH: Normal mood and affect. Course Course Emergency Course: Notified patient about his lab work. His blood pressure is much too soon. Advised him to continue his home medications, follow-up with his primary doctor Vital Signs Vital signs: Vital Signs Temperature 36.7 C 11/29/24 10:47 Pulse Rate 72 11/29/24 10:47 Respiratory Rate 18 11/29/24 10:47 Blood Pressure 161/109 H 11/29/24 10:47 Pulse Oximetry 99 11/29/24 10:47 Oxygen Delivery Room Air 11/29/24 10:47 Temperature 36.7 C 11/29/24 10:47 Pulse Rate 72 11/29/24 10:47 Respiratory Rate 19 11/29/24 11:13 Blood Pressure 161/109 H 11/29/24 10:47 Pulse Oximetry 99 11/29/24 10:47 Oxygen Delivery Room Air 11/29/24 10:47 Fraction of Inspired Oxygen 96 11/29/24 11:13 Medical Decision Making MDM Narrative Medical decision making narrative: 49-year-old with a history of high blood pressure and anxiety here with elevated blood pressure. His exam is unremarkable will do labs and EKG given clonidine 0.1 mg. Medical Records Medical records reviewed: Yes I reviewed the external patient's medical records. Vital Signs Vital Signs: Vital Signs Temperature 36.7 C 11/29/24 10:47 Pulse Rate 72 11/29/24 10:47 Respiratory Rate 18 11/29/24 10:47 Blood Pressure 161/109 H 11/29/24 10:47 Pulse Oximetry 99 11/29/24 10:47 Oxygen Delivery Room Air 11/29/24 10:47 Temperature 36.7 C 11/29/24 10:47 Pulse Rate 72 11/29/24 10:47 Respiratory Rate 19 11/29/24 11:13 Blood Pressure 161/109 H 11/29/24 10:47 Pulse Oximetry 99 11/29/24 10:47 Oxygen Delivery Room Air 11/29/24 10:47 Fraction of Inspired Oxygen 96 11/29/24 11:13 Lab Data Lab results reviewed: Yes I reviewed the patient's lab results. 11/29/24 11:13 11/29/24 11:13 Labs: Lab Results 11/29/24 Range/Units 11:13 WBC 8.1 (4.5-10.0) K/mm3 RBC 5.38 (4.6-6.20) M/mm3 Hgb 15.3 (14.0-18.0) g/dL Hct 46.5 (42.0-52.0) % MCV 86.4 (80-100) fl MCH 28.4 (26-34) pg MCHC 32.9 (32-36) g/dl RDW 12.9 (11.5-14.5) % Plt Count 223 (150-375) k/mm3 MPV 9.9 (7.4-10.4) fl Immature Gran % (Auto) 0.9 H (0-0.5) % Neut % (Auto) 72.1 (45.5-73.1) % Lymph % (Auto) 19.2 (18.3-44.2) % [facility] % (Auto) 5.0 (2.6-8.5) % Eos % (Auto) 2.1 (0-4.4) % Baso % (Auto) 0.7 (0.2-1.2) % Lymph # (Auto) 1.55 (0.9-3.2) K/mm3 [facility] # (Auto) 0.4 (0.1-0.6) K/mm3 Eos # (Auto) 0.2 (0-0.3) K/mm3 Baso # (Auto) 0.1 (0.0-0.1) K/mm3 Abs Immat Gran (auto) 0.07 H (0.00-0.031) K/mm3 Absolute Neuts (auto) 5.8 (1.3-6.7) K/mm3 Absolute Nucleated RBC 0.000 (0.0-0.012) K/mm3 Nucleated RBC % 0.0 (0.0-0.2) % Sodium 142 (137-145) mmol/L Potassium 4.5 (3.4-5.0) mmol/L Chloride 111 H (98-107) mmol/L Carbon Dioxide 20 L (22-30) mmol/L Anion Gap 11 (4-12) mmol/L BUN 30 H (9-20) mg/dL Creatinine 2.80 H (0.7-1.3) mg/dL Estim Creat Clear Calc 37 ml/min Estimated GFR 24 L (59 - ) Glucose 133 H (65-110) mg/dL Calcium 9.1 (8.4-10.2) mg/dL Total Bilirubin 0.3 (0.2-1.3) mg/dL AST 31 (17-59) U/L ALT 33 (6-50) U/L Alkaline Phosphatase 83 (38-126) U/L Total Protein 7.9 (6.3-8.2) g/dL Albumin 4.2 (3.5-5.1) g/dL ECG Data EKG #1: ECG completion date: 11/29/24 ECG completion time: 11:22 EKG Interpretation: normal rate (64), sinus rhythm, no ST changes, normal QT and NL axis Discharge Plan Discharge Clinical Impression: Hypertension Qualifiers: Hypertension type: primary hypertension Qualified Code(s): I10 - Essential (primary) hypertension Patient Disposition: Home Condition: Stable Instructions: Hypertension (ED) Additional Instructions: Continue home medication, follow-up with your primary doctor Patient Language: Albanian Prescriptions: No Action omeprazole 20 mg Tablet,Delayed Release (Dr/Ec) 20 mg PO DAILY escitalopram oxalate 5 mg tablet 5 mg PO DAILY omega-3 fatty acids-fish oil [Fish Oil] 360-1,200 mg capsule 1 cap PO BID cyanocobalamin (vitamin B-12) 1,000 mcg capsule 1,000 mcg PO DAILY aspirin 81 mg tablet 81 mg PO DAILY acetaminophen [Pain Reliever (acetaminophen)] 325 mg tablet 650 mg PO Q6H PRN (Reason: pain) Patient Comments: OTC for daily aches and pains. Last dose 10/20/19 at lunch time aside from ED dose. atorvastatin 40 mg Tablet 40 mg PO DAILY Qty: 30 0RF carvedilol [Coreg] 12.5 mg Tablet 12.5 mg PO Q12HR Qty: 30 0RF amlodipine 10 mg Tablet 10 mg PO DAILY Qty: 30 0RF Follow-up/Referrals: Molina,MD Glen [Primary Care Provider] - Time of Disposition: 12:42
== END 2024-11-29 13:20 | disposition home or self-care (01) ==
PROVIDERS: Emergency Provider Family Medicine; PCP Family Medicine
DX: I10 Essential (primary) hypertension (principal); E78.5 Hyperlipidemia, unspecified; E11.9 Type 2 diabetes mellitus without complications; G47.33 Obstructive sleep apnea (adult) (pediatric); F41.9 Anxiety disorder, unspecified; Z90.49 Acquired absence of other specified parts of digestive tract; Z87.891 Personal history of nicotine dependence; Z79.899 Other long term (current) drug therapy; R94.31 Abnormal electrocardiogram [ECG] [EKG]
CPT/HCPCS: 36415; 80053; 85025; 93005; 99283; A9270

== ENCOUNTER 2024-12-04 09:13 | Emergency (ER) | payer OTHER, SELFPAY ==
--- NOTE | 2024-12-04 09:14 | ED.DENTAL ---
HPI - Dental/Oral General Chief complaint: Dental/Oral Stated complaint: Dental / Tooth Time Seen by Provider: 12/04/24 09:14 Source: patient Mode of arrival: ambulatory Limitations: no limitations History of Present Illness HPI Narrative: Juno is a 49-year-old male patient presenting to the clinic today with complaints of right posterior lower dental pain x3 days. He is concerned about an abscess as he has had a history of a dental abscess in the past. He denies any fevers, chills, body aches. No pain at this time however when the tooth is touched rates his pain at 10/10. Has pain with biting down on the tooth. Has been taking Tylenol for pain. Does not have a dentist. Related Data Home Medications ?Medication ?Instructions ?Recorded ?Confirmed ?Last Taken ?Type omeprazole 20 mg tablet,delayed 20 mg PO DAILY 08/22/23 12/04/24 10/18/24 History release acetaminophen 325 mg tablet (Pain 650 mg PO Q6H PRN pain 10/19/24 10/19/24 10/19/24 History Reliever (acetaminophen)) aspirin 81 mg tablet 81 mg PO DAILY 11/07/24 12/04/24 Unknown History cyanocobalamin (vitamin B-12) 1,000 mcg PO DAILY 11/07/24 12/04/24 Unknown History 1,000 mcg capsule escitalopram oxalate 5 mg tablet 5 mg PO DAILY 11/07/24 12/04/24 Unknown History omega-3 fatty acids-fish oil 360 1 cap PO BID 11/07/24 12/04/24 Unknown History mg-1,200 mg capsule (Fish Oil) buspirone 10 mg tablet mg 12/04/24 Unknown History ezetimibe 10 mg tablet mg 12/04/24 Unknown History isosorbide mononitrate 30 mg mg PO 12/04/24 Unknown History tablet,extended release 24 hr Allergies Allergy/AdvReac Type Severity Reaction Status Date / Time atorvastatin AdvReac Intermediate Muscle Pain Verified 12/04/24 09:16 Review of Systems Review of Systems: Pertinent positives per HPI. Patient denies any fever, chills, rash, headache, visual changes, dizziness, cough, shortness of breath, chest pain, palpitations, nausea, vomiting, diarrhea, constipation, abdominal pain, or any urinary issues. [facility] Past Medical History Medical History CALVIN on CPAP Hyperlipidemia Obesity Diabetes Fracture of scaphoid bone of left wrist Hypertension Anxiety Anxiety Surgical History Surgical History Hx of cholecystectomy Family History Family History Mother Family history of glaucoma Hypertension Father Hypertension Unknown Diabetes mellitus Other Family history of kidney disease Family history of mental disorder Social History Social History Social History: caffeine use Smoking packs per day: 1 Smoking cigarettes per day: 20.0 Years smoked: 15 Smoking pack-years: 15.00 Smoking status: Former smoker Alcohol intake: current Drinks per week: 8 Alcohol use details: Once per week, 4 beers at a time Substance use: never Substance use type: does not use Do You Feel Safe in your Home?: Yes Lack of Transportation: No Lack of Food: Never True Current Housing: I Have Housing Concerned About Future Housing: No Difficulty Paying Gas/Electric Bills: No Difficulty Paying for Meds: No Currently Unemployed: No Education: Trade/Vocational Certificate Difficulty w/ Childcare or Family Care: No Living arrangements: with family Occupation/Education: occupation 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 There is no relevant family history pertinent to the patient complaint. Exam Narrative: General: Well-developed, well nourished, in no apparent distress Head: Normocephalic, atraumatic Eyes: Pupils equally round and reactive to light bilaterally, EOM intact, sclera and conjunctive clear, no discharge, lids normal Ears: TMs intact and clear, ear canals clear, no drainage, grossly hearing normal. Nose: Nares patent, no discharge, no inflammation, no sinus tenderness. Mouth: Oral pharynx without lesions or masses, poor dentition, decayed painful right lower posterior 3rd molar, MMM. Neck: Supple, trachea midline, no enlargement of anterior or posterior cervical nodes, no thyroid masses or goiter palpable. Cardio: Regular rate and rhythm, s1 and s2 normal, no murmur appreciated. Resp: Clear to auscultation bilaterally, no rhonchi, rales, wheezing or rubs Course Course Emergency Course: Portions of this record may have been created with voice recognition software. Level of Care: Express Care Visit Vital Signs Vital signs: Vital Signs Temperature 36.3 C L 12/04/24 09:16 Pulse Rate 57 L 12/04/24 09:16 Respiratory Rate 16 12/04/24 09:16 Blood Pressure 140/95 H 12/04/24 09:16 Pulse Oximetry 97 12/04/24 09:16 Oxygen Delivery Room Air 12/04/24 09:16 Temperature 36.3 C L 12/04/24 09:16 Pulse Rate 57 L 12/04/24 09:16 Respiratory Rate 16 12/04/24 09:16 Blood Pressure 140/95 H 12/04/24 09:16 Pulse Oximetry 97 12/04/24 09:16 Oxygen Delivery Room Air 12/04/24 09:16 Vital signs reviewed MDM - Dental/Oral MDM Narrative Medical decision making narrative: At the time of visit patient is resting comfortably on the exam table. Patient appears to be nontoxic. Patient has a painful, tender right posterior molar with localized redness around the gingiva. No visualized or palpable abscess. He denies any fevers, chills, body aches. 0/10 pain when the tooth is not touched however when the tooth is touched is 10/10. Has been taking Tylenol for pain. Cannot take NSAIDs due to poor kidney function. Vital signs are stable. Plan: I suspect patient has toothache to the right lower posterior molar. Prescription for amoxicillin was sent to the pharmacy. Recommend following up with a dentist as soon as possible. Supportive measures were discussed with the patient and they voiced understanding discharge instructions and agrees to treatment plan. Return precautions reviewed Differential Diagnosis Differential diagnosis: Likely gingival abscess, dental caries, toothache, dental abscess, fracture of tooth, aphthous ulcer and other (COVID) Discharge Plan Discharge Clinical Impression: Toothache Patient Disposition: Home Condition: Stable Instructions: Antibiotic Form, Toothache (ED) Additional Instructions: Take medications as prescribed-amoxicillin Increase fluids and stay well hydrated May take Tylenol as needed for pain or fever May apply Orajel to the affected area to help alleviate pain May apply warm or cool compress to the affected area to help alleviate pain Follow-up with your dentist as soon as possible Patient Language: Hebrew Prescriptions: New amoxicillin 875 mg tablet 875 mg PO Q12H 10 Days Qty: 20 0RF No Action omeprazole 20 mg Tablet,Delayed Release (Dr/Ec) 20 mg PO DAILY isosorbide mononitrate 30 mg tablet extended release 24 hr PO buspirone 10 mg tablet ezetimibe 10 mg tablet escitalopram oxalate 5 mg tablet 5 mg PO DAILY omega-3 fatty acids-fish oil [Fish Oil] 360-1,200 mg capsule 1 cap PO BID cyanocobalamin (vitamin B-12) 1,000 mcg capsule 1,000 mcg PO DAILY aspirin 81 mg tablet 81 mg PO DAILY acetaminophen [Pain Reliever (acetaminophen)] 325 mg tablet 650 mg PO Q6H PRN (Reason: pain) Patient Comments: OTC for daily aches and pains. Last dose 10/20/19 at lunch time aside from ED dose. atorvastatin 40 mg Tablet 40 mg PO DAILY Qty: 30 0RF carvedilol [Coreg] 12.5 mg Tablet 12.5 mg PO Q12HR Qty: 30 0RF amlodipine 10 mg Tablet 10 mg PO DAILY Qty: 30 0RF Follow-up/Referrals: Molina,MD Glen [Primary Care Provider] - Time of Disposition: 09:26 Quality NIHSS Nursing Documentation ED NIHSS nursing documentation: reviewed/agree
[2024-12-04 09:16] VITALS: BP 140/95; PULSE 57; RESP 16; TEMP 36.3; O2SAT 97
--- OUTSIDE RECORDS SUMMARY | 2024-12-04 09:16 | XMS_ITS | Continuity of Care Document ---
Author Organization [facility] Address [address] [place] [address] [place] [address] Phone Care Team Providers Care Planetarium Sky Show Technician Name Role Phone Juan Carlos Tran MD [...] PREV VISIT, EST, AGE 18-39 OFFICE/OUTPATIENT VISIT, [facility] Advance Directives Directive Yes / No Effective Date File Name No Information Encounters Encounter Description Practice Location Reason(s) For Visit Diagnoses Date Provider Providers Copied on Encounter [facility], [address] [place], [place], [id number], tel:[phone] [facility] Medicine No Information 4 Marc Rangel. [address], [facility] [place], [id number] , [place]. tel:[phone] Referring Provider: Juan Carlos Tran, [address] [facility] [address], [place], [place], [id number]. tel:[phone] PREV VISIT, EST, AGE 18-39 [facility], [address] [place], [id number], tel:[phone] [facility] Medicine Physical (chief complaint) Dietary surveillance and counselingRoutine Medical ExamRoutine Medical Exam 3 Marc Rangel. [address], [address] [place], [id number] , . tel:[phone] Referring Provider: Juan Carlos Tran, [address] [facility] [address], [place], [place], [id number]. tel:[phone] OFFICE/OUTPA TIENT VISIT, [facility], [address], [place], [place], [id number], [place] tel:[phone] [facility] Muscle pain (chief complaint) HTN (chief complaint) Dietary surveillance and counselingHypertens ion, UnspecifiedMyalgia and myositis, unspecified 3 Marc Rangel. [address] [facility] [address], [place], [place], [address] , [place]. tel:[phone] Family History Family Member Type Diagnosis Age [...]
--- OUTSIDE RECORDS SUMMARY | 2024-12-04 09:17 | XMS_ITS | Data Portability ---
Author Organization [place] [facility], Main Office Address [address] [place] [address] Care Team Providers Care Mortgage Closer Name Role Phone GLEN AUGUSTE Primary Care Provider Assessment Encounter Date Assessment Date Assessment LastModified by Organization Details LastModified Time 07/04/2023 07/04/2023 Assessment: Hypertension Rhinitis Very severe OSAHS, AHI = 72 PLMD Plan: The following were reviewed and explained to the patient: [facility] home sleep study 09/08/22 AHI = 72, supine AHI = 73 [facility] titration sleep study 01/12/23 ResMed medium AirFit [...] is an important part of PAP therapy. [employer] Air Sense 11 auto set unit with [...] carrier. Patient will setup an appointment with [facility] for supplies and pressure adjustments. A [...] in 2-3 weeks. Annual labs in 09/07. [email or web address] Not available 09/13/2023 15:37:57 10/04/2023 10/04/2023 45 [...] LFT in 01/06. Annual labs in 09/07. [email or web address] Not available 10/04/2023 17:49:04 10/25/2024 10/25/2024 I have reconcile d the patient's medications post their discharge from inpatient facility. [email or web address] Not available 10/25/2024 12:37:27 Plan of Treatment Reminders Order Date Submit Date Provider Last Modified By Organization Details Last Modified Time Details Appointments Any 2024 10:00A Kathy Auguste MD Not available Not available Not available Follow Up 2024 09:00A Kathy Auguste MD Not available Not available Not available Lab lipid panel, serum 2023 0805 024 [email or web address] [facility] (Lab), [address] [place], [address], 12/26/2023 08:03:39 HbA1c (hemoglob in A1c), blood [address] (Lab), [address] [place], [address], 12/26/2023 08:03:39 hepatic function panel, serum [address] (Lab), [address] [place], [address], 12/26/2023 08:03:39 CMP, serum or plasma 2023 024 [facility] (Lab), [address] [place], [address], 09/13/2023 21:32:57 CBC w/ auto diff 2023 024 [facility] (Lab), [address] [place], [address], 09/13/2023 19:42:50 lipid panel, blood [address] (Lab), [address] [place], [address], 09/20/2023 08:04:00 TSH, serum, reflex free T4 [address] (Lab), [address] [place], [address], 09/20/2023 08:04:00 PSA, serum or plasma [address] (Lab), [address] [place], [address], 09/20/2023 08:04:00 urinalysi s complete, reflex culture [address] (Lab), [address] [place], [address], 09/20/2023 08:04:00 vitamin D, 25-hydrox y, total, serum [address] (Lab), [address] [place], [address], 09/20/2023 08:04:01 microalbu min, urine [address] (Lab), [address] [place], [address], 09/20/2023 08:04:00 HbA1c (hemoglob in A1c), blood [address] (Lab), [address] [place], [address], 09/20/2023 08:04:00 noninvasi ve colorecta l cancer DNA + occult blood screening , QL, stool 2023 024 [place] [address] [facility] (Cologuard Orders Only), [address], [address], [place], [address], 09/20/2023 08:04:01 iron + TIBC + ferritin, serum [email or web address] [place] [address] (Lab), [address] [place], [address], 09/27/2023 11:15:15 folate, RBC [email or web address] [place] [address] (Lab), [address] [place], [address], 09/27/2023 11:15:15 vitamin B12, serum 2023 [email or web address] [place] [address] (Lab), [address] [place], [address], 09/27/2023 11:15:15 ESR (erythroc yte sedimenta tion rate), blood 2023 024 [email or web address] 5 [facility] (Lab), [address] [place], [address], 09/27/2023 11:15:15 hemoglobi n + hematocri t, blood 2023 024 [email or web address] 5 [facility] (Lab), [address] [place], [address], 09/27/2023 11:15:16 bun (blood urea nitrogen) , serum or plasma 2023 024 [email or web address] 5 [facility] (Lab), [address] [place], [address], 09/27/2023 11:15:16 creatinin e, serum or plasma 2023 024 [email or web address] 5 [facility] (Lab), [address] [place], [address], 09/27/2023 11:15:16 magnesium , serum or plasma 2023 024 [email or web address] 5 [facility] (Lab), [address] [place], [address], 09/27/2023 11:15:16 vitamin E, serum 2023 024 [email or web address] 5 [facility] (Lab), [address] [place], [address], 09/27/2023 11:15:16 Referral nephrolog ist referral - Please call patient to schedule an appointme nt. Thank you. 2024 025 AJAY Belcher MD, [address], [address], [place], [address], 10/26/2024 13:10:31 cardiolog ist referral - Please call patient to schedule an appointme nt. Thank you. 2024 025 ATHENAFAX [facility], [address], [address], [place], [address], 10/26/2024 12:15:31 nephrolog ist referral - Please call patient to schedule an appointme nt. Thank you. 2023 024 [email or web address] Maxi Belcher MD, [address], [address], [place], [address], 11/02/2023 09:05:39 psychiatr ist referral - Please call patient to schedule an appointme nt. Thank you 2023 024 [email or web address] Estuardo Aldridge MD, [address], [place], [address], 10/11/2023 09:14:43 cardiolog ist referral - Please call patient to schedule an appointme nt. Thank you. 2023 024 [email or web address] [facility], [address] [facility], [address], [place], [address], 10/11/2023 09:12:39 Procedures None recorded. Surgeries None recorded. Imaging None recorded. Medication Orders Adult Low Dose Aspirin 81 mg tablet,de layed release 2024 025 [facility]69214, [address], [place], [id number], 10/25/2024 12:57:54 atorvasta tin 40 mg tablet 2024 025 [facility] #53560, [address], [place], [id number], 10/25/2024 12:58:09 amlodipin e 10 mg tablet 2024 025 [facility] #82871, [address], [place], [id number], 10/25/2024 12:58:12 hydralazi ne 25 mg tablet 2024 025 [facility] #36204, [address] [facility], [place], [place], [id number], 10/25/2024 12:59:38 buspirone 10 mg tablet 2024 025 [facility] #70168, [address] [facility], [place], [place], [id number], 10/25/2024 12:58:18 escitalop martine 5 mg tablet 2024 025 [facility] #92487, [address] [facility], [place], [place], [id number], 10/25/2024 12:58:19 omeprazol e 20 mg capsule,d elayed release 2024 025 [facility] #29947, [address] [facility], [place], [place], [id number], 10/25/2024 12:58:01 carvedilo l 12.5 mg tablet 2024 025 [facility] #33290, [address] [facility], [place], [place], [id number], 10/25/2024 12:57:52 fenofibra te 54 mg tablet 2023 024 [email or web address] [facility] #78836, [address] [facility], [place], [place], [id number], 10/25/2024 12:54:33 amlodipin e 10 mg tablet 2023 024 [facility] #82995, [address] [facility], [place], [place], [id number], 10/04/2023 17:16:02 hydralazi ne 50 mg tablet [address] [facility]88256, [address], [place], [id number], 10/25/2024 12:54:45 losartan 100 mg tablet [address] [facility] #56480, [address] [facility], [place], [place], [id number], 10/25/2024 12:55:27 Farxiga 10 mg tablet [address] [facility] #39057, [address], [place], [id number], 10/25/2024 12:54:28 rosuvasta tin 10 mg tablet [address] [facility]24254, [address], [place], [id number], 10/25/2024 12:55:36 Adult Low Dose Aspirin 81 mg tablet,de layed release 2023 024 [facility] #59130, [address], [place], [id number], 10/04/2023 17:16:01 ergocalci ferol (vitamin D2) 1,250 mcg (50,000 unit) capsule [address] [facility]59317, [address], [place], [id number], 10/25/2024 12:55:44 metformin ER 500 mg tablet,ex tended release 24 hr [address] [facility] #08238, [address], [place], [id number], 10/25/2024 12:55:31 glipizide 5 mg tablet [address] [facility] #63404, [address] [facility], [place], [place], [id number], 10/25/2024 12:54:38 fenofibra te 54 mg tablet [address] [facility] #33785, [address] [facility], [place], [place], [id number], 10/25/2024 12:54:33 amlodipin e 10 mg tablet 2023 024 [facility], [address] [facility], [place], [place], [id number], 09/13/2023 15:28:46 hydralazi ne 50 mg tablet 2023 024 [address] [facility], [address] [facility], [place], [place], [id number], 10/25/2024 12:54:45 losartan 100 mg tablet 2023 024 [address] [facility], [address] [facility], [place], [place], [id number], 10/25/2024 12:55:27 rosuvasta tin 10 mg tablet 2023 024 [address] [facility], [address] [facility], [place], [place], [id number], 10/25/2024 12:55:36 Adult Low Dose Aspirin 81 mg tablet,de layed release 2023 024 [facility], [address] [facility], [place], [place], [id number], 09/13/2023 15:28:44 metformin ER 500 mg tablet,ex tended release 24 hr 2023 024 [email or web address] [facility] #65273, [address] [facility], [place], [place], [id number], 10/25/2024 12:55:31 glipizide 5 mg tablet 2023 024 [email or web address] [facility] #42801, [address] [facility], [place], [place], [id number], 10/25/2024 12:54:38 Patient TargetsNo targets recorded. Patient Instructions Encounter Date Encounter Id Patient Instructions Last Modified By Organization Details Last Modified Time 10/25/2024 [id number] high cholesterol : care instructions [email or web address] Not available 10/25/2024 13:02:35 high blood pressure: care instructions [email or web address] Not available 10/25/2024 13:02:35 dash diet: care instructions [email or web address] Not available 10/25/2024 13:02:35 When You Want to Lose Weight: Care Instructions [email or web address] Not available 10/25/2024 13:02:35 limiting sodium with heart failure: care instructions [email or web address] Not available 10/25/2024 13:02:35 Thank you for [...] at home, please call us to discuss. [email or web address] Not available 10/25/2024 12:37:28 Reason for Referral Electronics Engineering Professor Referral for Blair jorden history of Cardiovascular disease Strong FH of CVD Please call patient to schedule an appointment. Thank you. Referring Physician: Glen Auguste, Family Medicine, Encounter Date: 09/13/2023 Psychiatrist Referral for An xiety disorder Please call patient to schedule an appointment. Thank you Referring Physician: Glen Auguste [facility], Encounter Date: 09/13/2023 Electrical Instrumentation Technician Referral for Ch ronic kidney disease stage 3 Please call patient to schedule an appointment. Thank you. Referring Physician: Glen Auguste [facility], Encounter Date: 10/04/2023 Electronics Engineering Professor Referral for Co ngestive heart failure Please call patient to schedule an appointment. Thank you. Referring Physician: Glen Auguste [facility], Encounter Date: 10/25/2024 Electrical Instrumentation Technician Referral for Ch ronic kidney disease stage 4 Please call patient to schedule an appointment. Thank you. Referring Physician: Glen Auguste [facility], Encounter Date: 10/25/2024 Results Created Date Observation Date Name Description Value Unit Range Abnormal Flag Note LastModifiedBy Organization Detail LastModifiedTime 09/13/1909/12/2024 COLOG UARD cologuard result CANCEL LED - ORDER D not applic able Not Available [facility] (Cologuard Orders Only) [address], [place], [address], 09/12/2024 11:37:26 09/13/19 24 09/13/2023 CBC/C OMPLE TE BLD COUNT W/DIF F white blood cells 8.7 x10'3 /uL 4.2-10 .8 Not Available [facility] (Lab) [address] [place], [address], 09/13/2023 19:42:50 09/13/1909/13/2023 CBC/C OMPLE TE BLD COUNT W/DIF F red blood cells 5.64 x10'6 /uL 4.10-5 .80 Not Available [facility] (Lab) [address] [place], [address], 09/13/2023 19:42:50 09/13/19 24 09/13/2023 CBC/C OMPLE TE BLD COUNT W/DIF F hemoglobin 16.9 g/dL 13.2-1 7.0 Not Available [facility] (Lab) [address] [place], [address], 09/13/2023 19:42:50 09/13/19 24 09/13/2023 CBC/C OMPLE TE BLD COUNT W/DIF F hematocrit 51.1 % 39.3-5 0.0 high Not Available [facility] (Lab) [address] [place], [address], 09/13/2023 19:42:50 09/13/19 24 09/13/2023 CBC/C OMPLE TE BLD COUNT W/DIF F mean red cell volume 90.6 fL 80.0-9 7.0 Not Available [facility] (Lab) [address] [place], [address], 09/13/2023 19:42:50 09/13/19 24 09/13/2023 CBC/C OMPLE TE BLD COUNT W/DIF F mean red cell hemoglobin 30.0 pg 27.0-3 3.0 Not Available [facility] (Lab) [address] [place], [address], 09/13/2023 19:42:50 09/13/19 24 09/13/2023 CBC/C OMPLE TE BLD COUNT W/DIF F mean RBC HGB concentratio n 33.1 g/dL 31.0-3 6.0 Not Available [facility] (Lab) [address] [place], [address], 09/13/2023 19:42:50 09/13/19 24 09/13/2023 CBC/C OMPLE TE BLD COUNT W/DIF F red cell distribution width 13.2 % 11.8-1 5.5 Not Available [facility] (Lab) [address] [place], [address], 09/13/2023 19:42:50 09/13/19 24 09/13/2023 CBC/C OMPLE TE BLD COUNT W/DIF F platelets 283 x10'3 /uL 150-40 0 Not Available [facility] (Lab) [address] [place], [address], 09/13/2023 19:42:50 09/13/19 24 09/13/2023 CBC/C OMPLE TE BLD COUNT W/DIF F mean platelet volume 10.8 fL 9.0-12 .4 Not Available [facility] (Lab) [address] [place], [address], 09/13/2023 19:42:50 09/13/19 24 09/13/2023 CBC/C OMPLE TE BLD COUNT W/DIF F neutrophils 70.0 % 39.0-7 2.0 Not Available [facility] (Lab) [address] [place], [address], 09/13/2023 19:42:50 09/13/19 24 09/13/2023 CBC/C OMPLE TE BLD COUNT W/DIF F lymphocytes 21.4 % 16.0-4 7.0 Not Available [facility] (Lab) [address] [place], [address], 09/13/2023 19:42:50 09/13/19 24 09/13/2023 CBC/C OMPLE TE BLD COUNT W/DIF F monocytes 6.2 % 5.0-12 .0 Not Available [facility] (Lab) [address] [place], [address], 09/13/2023 19:42:50 09/13/19 24 09/13/2023 CBC/C OMPLE TE BLD COUNT W/DIF F eosinophils 1.3 % 1.0-7. 0 Not Available [facility] (Lab) [address] [place], [address], 09/13/2023 19:42:50 09/13/19 24 09/13/2023 CBC/C OMPLE TE BLD COUNT W/DIF F basophils 0.6 % 0.0-2. 0 Not Available [facility] (Lab) [address] [place], [address], 09/13/2023 19:42:50 09/13/19 24 09/13/2023 CBC/C OMPLE TE BLD COUNT W/DIF F immature granulocytes 0.5 % 0.00-0 .50 Not Available [facility] (Lab) [address] [place], [address], 09/13/2023 19:42:50 09/13/19 24 09/13/2023 CBC/C OMPLE TE BLD COUNT W/DIF F neutrophils, absolute count 6.06 x10'3 /uL 1.5-8. 0 Not Available [facility] (Lab) [address] [place], [address], 09/13/2023 19:42:50 09/13/19 24 09/13/2023 CBC/C OMPLE TE BLD COUNT W/DIF F lymphocytes, absolute count 1.85 x10'3 /uL 1.07-3 .43 Not Available [facility] (Lab) [address] [place], [address], 09/13/2023 19:42:50 09/13/19 24 09/13/2023 CBC/C OMPLE TE BLD COUNT W/DIF F monocytes, absolute count 0.54 x10'3 /uL 0.29-0 .99 Not Available [facility] (Lab) [address] [place], [address], 09/13/2023 19:42:50 09/13/19 24 09/13/2023 CBC/C OMPLE TE BLD COUNT W/DIF F eosinophils, absolute count 0.11 x10'3 /uL 0.02-0 .53 Not Available [facility] (Lab) [address] [place], [address], 09/13/2023 19:42:50 09/13/19 24 09/13/2023 CBC/C OMPLE TE BLD COUNT W/DIF F basophils, absolute count 0.05 x10'3 /uL 0.01-0 .08 Not Available [facility] (Lab) [address] [place], [address], 09/13/2023 19:42:50 09/13/19 24 09/13/2023 CBC/C OMPLE TE BLD COUNT W/DIF F immature granulocytes ,absolute 0.04 x10'3 /uL 0.00-0 .05 Not Available [facility] (Lab) [address] [place], [address], 09/13/2023 19:42:50 09/13/19 24 09/13/2023 CBC/C OMPLE TE BLD COUNT W/DIF F nucleated red blood cells 0.0 % -0 Not Available [facility] (Lab) [address] [place], [address], 09/13/2023 19:42:50 09/13/19 24 09/13/2023 CBC/C OMPLE TE BLD COUNT W/DIF F NRBC# 0.00 x10'3 /uL Not Available [facility] (Lab) [address] [place], [address], 09/13/2023 19:42:50 09/13/19 24 09/13/2023 HEMOG LOBIN A1C HA1C 5.5 % 4.0-6. 0 Diabe melissa Scree jocelynn Crite denny: <5.7% Consi stent with absen ce of diabe melissa 5.7-6 .4% Consi stent with incre ased risk for diabe melissa (pred iabet es) >OR=6 .5% Consi stent with diabe melissa REFER ENCE: Diabe melissa Care 2016, 39(Posadas ppl.1 ):s13 -s22 Not Available [facility] (Lab) [address] [place], [address], 09/13/2023 21:06:25 09/13/19 24 09/13/2023 VITAM IN D 25-HY DROXY [id number] <12.8 NG/mL 30-100 low Vitam in D Statu s: Defic ient: <20 ng/mL Insuf ficie nt: 20-29 ng/mL Suffi cient : 30-10 0 ng/mL Not Available [facility] (Lab) [address] [place], [address], 09/13/2023 21:16:35 09/13/19 24 09/13/2023 TSH W/REF ANAYA FT4 TSH with reflex free T4 2.320 uIU/m L 0.465- 4.680 Not Available [facility] (Lab) [address] [place], [address], 09/13/2023 21:20:18 09/13/19 24 09/13/2023 PSA SCREE N PSA medicare screen 0.86 NG/mL 0.00-4 .00 Not Available [facility] (Lab) [address] [place], [address], 09/13/2023 21:20:19 09/13/19 24 09/13/2023 COMPR EHENS ENID METAB OLIC PANEL sodium 140 mmol/ L 137-14 5 Not Available [facility] (Lab) [address] [place], [address], 09/13/2023 21:32:57 09/13/19 24 09/13/2023 COMPR EHENS ENID METAB OLIC PANEL potassium 4.5 mmol/ L 3.5-5. 1 Not Available [facility] (Lab) [address] [place], [address], 09/13/2023 21:32:57 09/13/19 24 09/13/2023 COMPR EHENS ENID METAB OLIC PANEL chloride 108 mmol/ L 98-107 high Not Available [facility] (Lab) [address] [place], [address], 09/13/2023 21:32:57 09/13/19 24 09/13/2023 COMPR EHENS ENID METAB OLIC PANEL carbon dioxide 19 mmol/ L 22-30 low Not Available [facility] (Lab) [address] [place], [address], 09/13/2023 21:32:57 09/13/19 24 09/13/2023 COMPR EHENS ENID METAB OLIC PANEL anion gap 17.5 mmol/ L 14-22 Not Available [facility] (Lab) [address] [place], [address], 09/13/2023 21:32:57 09/13/19 24 09/13/2023 COMPR EHENS ENID METAB OLIC PANEL glucose 84 mg/dL 70-99 Not Available [facility] (Lab) [address] [place], [address], 09/13/2023 21:32:57 09/13/19 24 09/13/2023 COMPR EHENS ENID METAB OLIC PANEL BUN 31 mg/dL 8-19 high Not Available [facility] (Lab) [address] [place], [address], 09/13/2023 21:32:57 09/13/19 24 09/13/2023 COMPR EHENS ENID METAB OLIC PANEL creatinine 2.15 mg/dL 0.66-1 .25 high Not Available [facility] (Lab) [address] [place], [address], 09/13/2023 21:32:57 09/13/19 24 09/13/2023 COMPR EHENS ENID METAB OLIC PANEL GFR 33 Refer ence Range : [place] ge GFR Healt hy Adult : >60 [...] calcu lator is avail able on the [facility] websi te: [email or web address] :[email or web address] [email or web address] rg/pr ofess ional s/kdo qi/gf r_cal culat or Not Available [facility] (Lab) [address] [place], [address], 09/13/2023 21:32:57 09/13/19 24 09/13/2023 COMPR EHENS ENID METAB OLIC PANEL alkaline phosphatase 68 U/L 38-126 Not Available [facility] (Lab) [address] [place], [address], 09/13/2023 21:32:57 09/13/19 24 09/13/2023 COMPR EHENS ENID METAB OLIC PANEL alanine aminotransfe rase 67 U/L 0-50 high Not Available [facility] (Lab) [address] [place], [address], 09/13/2023 21:32:57 09/13/19 24 09/13/2023 COMPR EHENS ENID METAB OLIC PANEL aspartate aminotransfe rase 130 U/L 15-46 high Not Available [facility] (Lab) [address] [place], [address], 09/13/2023 21:32:57 09/13/19 24 09/13/2023 COMPR EHENS ENID METAB OLIC PANEL bilirubin, total 0.80 mg/dL 0.20-1 .30 Not Available [facility] (Lab) [address] [place], [address], 09/13/2023 21:32:57 09/13/19 24 09/13/2023 COMPR EHENS ENID METAB OLIC PANEL calcium 9.7 mg/dL 8.4-10 .2 Not Available [facility] (Lab) [address] [place], [address], 09/13/2023 21:32:57 09/13/19 24 09/13/2023 COMPR EHENS ENID METAB OLIC PANEL total protein 8.0 g/dL 6.3-8. 2 Not Available [facility] (Lab) [address] [place], [address], 09/13/2023 21:32:57 09/13/19 24 09/13/2023 COMPR EHENS ENID METAB OLIC PANEL albumin 4.7 g/dL 3.4-5. 0 Not Available [facility] (Lab) [address] [place], [address], 09/13/2023 21:32:57 09/13/19 24 09/13/2023 COMPR EHENS ENID METAB OLIC PANEL globulin 3.3 g/dL 2.6-4. 2 Not Available [facility] (Lab) [address] [place], [address], 09/13/2023 21:32:57 09/13/19 24 09/13/2023 COMPR EHENS ENID METAB OLIC PANEL A/G ratio 1.4 ratio 1.0-2. 0 Not Available [facility] (Lab) [address] [place], [address], 09/13/2023 21:32:57 09/13/1909/13/2023 LIPID PANEL cholesterol 257 mg/dL 140-19 9 high NIH KO NSUS RECOM MENDA TION FOR BARTOLOME STERO L: ADULT CHILD LOW RISK: <200 <170 BORDE RLINE : <200- 239 ----- HIGH RISK: >240 >200 Not Available [facility] (Lab) [address] [place], [address], 09/13/2023 21:33:07 09/13/1909/13/2023 LIPID PANEL triglyceride s 219 mg/dL 0-150 high NIH KO NSUS REPOR T RECOM MENDA TION FOR TRIGL YCERI LORE: ADULT CHILD LOW RISK: <150 ----- BODER LINE: 150-1 99 ----- HIGH RISK: >200 ----- Not Available [facility] (Lab) [address] [place], [address], 09/13/2023 21:33:07 09/13/19 24 09/13/2023 LIPID PANEL HDL cholesterol 62 mg/dL 40- Not Available [facility] (Lab) [address] [place], [address], 09/13/2023 21:33:07 09/13/19 24 09/13/2023 LIPID PANEL [...] WILL NOT BE REPOR ANTONIO. Not Available [facility] (Lab) [address] [place], [address], 09/13/2023 21:33:07 09/13/19 24 09/13/2023 TEST NOT PERFO RMED test not performed SEE COMMEN T NO URINE REC'D IN LAB. UNABL E TO PERFO RM MALB AND URINA LYSIS COMPL ETE W/RFX Not Available [facility] (Lab) [address] [place], [address], 09/13/2023 22:10:55 08/22/19 24 08/22/2023 XR, wrist No observ ation record ed. [address], [place], [address], 09/13/2023 15:20:59 10/19/19 25 10/18/2024 XR, chest , 2 view No observ ation record ed. [address], [place], [address], 10/25/2024 12:48:25 10/19/19 25 10/18/2024 CT, brain , w/o contr ast No observ ation record ed. [address], [place], [address], 10/25/2024 12:48:25 10/20/19 25 10/19/2024 US, doppl er echoc ardio gram No observ ation record ed. [address], [place], [address], 10/25/2024 12:48:24 10/20/19 25 10/19/2024 US, duple x, renal arter y No observ ation record ed. [address], [place], [address], 10/25/2024 12:48:24 10/20/19 25 10/19/2024 US, renal arter y No observ ation record ed. [address], [place], [address], 10/25/2024 12:48:24 10/23/19 25 10/18/2024 cardi ac stres s test No observ ation record ed. [address], [place], [address], 10/25/2024 12:48:24 10/23/19 25 10/22/2024 marisol can cardi olite stres s test (PROC ) No observ ation record ed. [place] [id number] [facility] [address], [place], [address], 10/25/2024 12:48:24 Result Notes None recorded. Problems Name Problem SNOMED Code Status Onset Date Resolution Date Notes Provider Name and Address Organization Details Recorded Time Anxiety disorder 404577210 Active 2021 Not Available [facility] 3 00:59:08 Hypertensi ve disorder 32524114 Active 2021 Not Available [facility] 3 00:59:08 Obesity 457797793 Active 2021 Not Available [facility] 3 00:59:08 Uncontroll ed type 2 diabetes mellitus 232514159 Active 2022 Glen Auguste MD [address], [place], [address] , [employer] 3 11:23:56 Vitamin D deficiency 79015161 Active 2022 Glen Auguste MD [address], [place], [address] , [employer] 3 11:27:39 Hypertrigl yceridemia 302255543 Active 2022 Glen Auguste MD [address], [place], [address] , [employer] 3 11:28:23 Chronic kidney disease stage 3 480876835 Active 2022 Glen Auguste MD [address], [place], [address] , [employer] 3 14:13:05 Ex-smoker 2939782 Active 2022 Glen Auguste MD [address], [place], [address] , [facility] 3 14:28:26 Seasonal allergic rhinitis 974155265 Active 2022 Glen Auguste MD [address], [address], [place], [address] , [facility] 3 10:13:55 Periodic limb movement disorder 917316679 Active 2023 Koby Lucas MD [address], [address], [place], [address] , [facility] 4 16:09:54 Hyperlipid emia 38583373 Active 2023 Glen Auguste MD [address], [place], [address] , [facility] [employer] [facility] 4 15:19:41 Family history of Cardiovasc ular disease 399393499 Active 2023 Glen Auguste MD [address], [address], [place], [address] , [facility] [employer] [facility] 4 15:21:31 Liver enzymes level above reference range 308810861 Active 2023 Glen Auguste MD [address], [place], [address] , [facility] [employer] [facility] 4 17:16:47 Benign hypertensi on 08238896 Active 2024 Glen Auguste MD [address], [place], [address] , [facility] [employer] [facility] 5 12:49:04 Congestive heart failure 09394205 Active 2024 Glen Auguste MD [address], [place], [address] , [facility] [employer] [facility] 5 12:49:18 Mixed hyperlipid emia 607749548 Active 2024 Glen Auguste MD [address], [place], [address] , [facility] [employer] [facility] 5 12:49:27 Obese class I 0094345620097 07 Active 2024 Glen Auguste MD [address], [place], [address] , [facility] [employer] [facility] [employer] [facility] 5 12:49:35 Chronic kidney disease stage 4 594204910 Active 2024 Glen Auguste MD [address], [place], [address] , [facility] [employer] [facility] [employer] [facility] 5 12:51:48 Gastroesop hageal reflux disease without esophagiti s 278144231 Active 2024 Glen Auguste MD [address], [place], [address] , [facility] [employer] [facility] [employer] [facility] 5 12:53:52 Chronic anxiety 060171364 Active 2024 Glen Auguste MD [address], [place], [address] , [facility] [employer] [facility] [employer] [facility] 5 12:56:05 Ex-cigaret te smoker 751322374 Active 2024 Glen Auguste MD [address], [place], [address] , [facility] [employer] [facility] 5 13:01:18 Diabetes mellitus 06815256 Active 2024 Glen Auguste MD [address], [place], [address] , [facility] [employer] [facility] 5 13:07:47 Obstructiv e sleep apnea syndrome 43778260 Active 2024 Lauren Ram NP [address], [place], [address] , [place] [employer] 5 16:22:31 Notes:Medical History: Anxie ty Rhinitis with postnasal drip Erythrocytosis Early REM onset Obesity with very severe OSAHS, AHI = 72, 09/08/22, on autoCPAP c/o IVRC Hypertension Mixed hyperlipidemia T2DM DELROY Stage 3 CKD PLMD Vit D deficiency Procedure History: Cholecystectomy 2018 Left neck abscess I&D 2022 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 Procedures Surgical History Date Name Laterality Status Provider Name and Address Organization Details Recorded Time 10/25/2024 Transition al_Care_Ma nagement completed Tracey EppsRN [facility] [employer] 10/25/2024 12:37:28 Imaging Results None recorded. Procedure Notes None recorded. Medical Equipment None Reported. Allergies Allergen ID Allergen Name Allergen Category Reaction Reaction Severity Criticality Documentation Date Start Date Code Code System Note Provider Name and Address Organization Details Recorded Time 02861 venlafaxi ne medicatio n confusion moderate Not available 08/11/2022 18478 RxNorm Glen Auguste MD [address] [facility], [facility] [address], [place], [address], [facility] 3 14:10:59 Medications Name Sig Start Date Stop [...] Available TRUEplus Pen Needle 31 gauge x /16 01/13 completed Not Available Not Available Not [...] 90 /min 15 /min Koby Lucas MD [address] [facility], [facility] [address], [place], [address], [facility] [employer] [facility] 07/04/2023 16:11:29 Date Recorded Body height Body mass index (BMI) Body weight Body temperature Heart rate Oxygen saturation Oxygen saturation in Arterial blood by Pulse oximetry Systolic And Diastolic Provider Name and Address Organization Details Last Updated DateTime 4 177.8 cm 34.4 kg/m2 235636. 73 g 98 [degF] 90 /min 97 % 97 % 138/92 mm[Hg] Rena Bee MA [facility] [employer] 14:48:33 Date Recorded Body height Body mass index (BMI) Body weight Body temperature Heart rate Oxygen saturation Oxygen saturation in Arterial blood by Pulse oximetry Systolic And Diastolic Provider Name and Address Organization Details Last Updated DateTime 4 177.8 cm 34 kg/m2 912950. 74 g 98.1 [degF] 88 /min 97 % 97 % 142/88 mm[Hg] Nahid Sellers [facility] [employer] 4 15:16:28 Date Recorded Heart rate Respiratory rate Provider N chao and Address Organization Details Last Updated DateTime 10/04/2023 94 /min 22 /min Glen Auguste MD [address] [facility], [address] [address], [place], [address], [facility] [employer] 10/04/2023 17:46:52 Date Recorded Body height Body mass index (BMI) Body weight Body temperature Oxygen saturation Oxygen saturation in Arterial blood by Pulse oximetry Systolic And Diastolic Provider Name and Address Organization Details Last Updated DateTime 4 177.8 cm 34.6 kg/m2 310192. 11 g 98.1 [degF] 98 % 98 % 136/80 mm[Hg] Nahid Sellers [facility] [employer] 4 17:08:09 Date Recorded Body height Body mass index (BMI) Body weight Body temperature Oxygen saturation Oxygen saturation in Arterial blood by Pulse oximetry Heart rate Systolic And Diastolic Provider Name and Address Organization Details Last Updated DateTime 5 177.8 cm 32 kg/m2 617541. 5 g 98.1 [degF] 98 % 98 % 67 /min 142/88 mm[Hg] Tracey Epps RN [facility] [employer] [facility] 5 12:46:54 Social History Question Answer Notes LastModified by Organizat ion Details LastModified Time Tobacco Smoking Status Former Smoker [place] [employer] [facility] [employer] 09/28/2022 15:55:38 Do You Have An Advance Directive? No MIGRATION.78505 04677 Information not available 07/15/2022 Do You Wear A Helmet When Biking? No MIGRATION.06260 52309 Information not available 07/15/2022 What Is Your Level Of Caffeine Consumption? Occasional MIGRATION.63047 71353 Information not available 07/15/2022 In The 14 Days Before Symptom Onset, Have You Had Close Contact With A Laboratory-confi rmed COVID-19 While That Case Was Ill? No MIGRATION.44640 15562 Information not available 07/15/2022 In The 14 Days Before Symptom Onset, Have You Had Close Contact With A Person Who Is Under Investigation For COVID-19 While That Person Was Ill? No MIGRATION.52721 19780 Information not available 07/15/2022 What Type Of Diet Are You Following? REGULAR MIGRATION.73266 16009 Information not available 07/15/2022 Do You Have An Electrostatic Air Filter? No Information not available 09/28/2022 Have There Been Any Changes To Your Family Or Social Situation? No MIGRATION.76624 38200 Information not available 07/15/2022 What Is The Fluoride Status Of Your Home? Unknown MIGRATION.96927 06908 Information not available 07/15/2022 When Did You Quit Smoking? 1-5yearssincelastotilio rodriguez Information not available 09/28/2022 Are There Any Guns Present In Your Home? No MIGRATION.12259 64969 Information not available 07/15/2022 Do You Have A Humidifier? No Information not available 09/28/2022 Do You Use Insect Repellent Routinely? Yes MIGRATION.00264 74376 Information not available 07/15/2022 Where Do You Live? SingleLevelHouse MIGRATION.46920 20411 Information not available 07/15/2022 Do You Have A Medical Power Of Rubber Cutter? No MIGRATION.42733 51938 Information not available 07/15/2022 Do You Have Moisture Problems In Your Home? No Information not available 09/28/2022 What Was The Date Of Your Most Recent Tobacco Screening? 09/28/2022 Information not available 09/28/2022 Have You Ever Been Counseled For Unhealthy Alcohol Use? No MIGRATION.80222 29356 Information not available 07/15/2022 Do You Have Any Pets? Yes MIGRATION.13444 60434 Information not available 07/15/2022 What Is Your Relationship Status? MIGRATION.60395 11341 Information not available 07/15/2022 Do You Use Your Seat Belt Or Car Seat Routinely? Yes MIGRATION.37172 10197 Information not available 07/15/2022 Do You Have Smoke And Carbon Monoxide Detectors In Your Home? Yes MIGRATION.24025 00060 Information not available 07/15/2022 Are You Passively Exposed To Smoke? No MIGRATION.34998 44136 Information not available 07/15/2022 Are There Any Smokers In Your House? Yes MIGRATION.86255 56554 Information not available 07/15/2022 How Much Tobacco Do You Smoke? No Information not available 09/28/2022 Do You Participate In Social Media? No MIGRATION.71286 51025 Information not available 07/15/2022 Do You Use Sunscreen Routinely? Yes MIGRATION.65626 34024 Information not available 07/15/2022 Has Tobacco Cessation Counseling Been Provided? No MIGRATION.54793 21649 Information not available 07/15/2022 Have You Recently Traveled Abroad? No MIGRATION.21829 72380 Information not available 07/15/2022 Are You Currently In School? No MIGRATION.26797 74142 Information not available 07/15/2022 Do You Have Any Dietary Restrictions? No MIGRATION.71982 77403 Information not available 07/15/2022 Sex: Male Functional Status Question Answer Note LastModified by Organizat ion Details LastModified Time Do you use any illicit or recreational drugs? No MIGRATION.393760 0267 Information not available 07/15/2022 Do you or have you ever used any other forms of tobacco or nicotine? No MIGRATION.444461 6306 Information not available 07/15/2022 What is your level of alcohol consumption? Occasional MIGRATION.150601 9037 Information not available 07/15/2022 Are you currently employed? Yes Information not available 09/28/2022 Have you been exposed to chemicals or toxins? 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 Heavy MIGRATION.448181 6732 Information not available 07/15/2022 Mental Status Question Answer Note LastModified by Organizat ion Details LastModified Time Do you feel stressed (tense, restless, nervous, or anxious, or unable to sleep at night)? [id number] MIGRATION.[id number] 6 Information not available 07/15/2022 Family History Relationship Description Onset Age of this Age Resolved Age Notes LastModified by Organization Details LastModified Time Paternal Grandfather Hypertensive disorder MIGRATION.262 [id number] Not available 07/15/2022 00:57:55 Paternal Grandmother Hypertensive disorder MIGRATION.629 [id number] Not available 07/15/2022 00:57:55 Maternal Grandmother Diabetes mellitus MIGRATION.960 9918270 Not available 07/15/2022 00:57:56 Paternal Aunt Obstructive [...] HAVE YOU BEEN HOSPITALIZED OR SEEN IN [facility] IN THE PAST YEAR ? N ATHEROSCLEROSIS [...] SNOMED-CT Code Diagnosis ICD10 Code Diagnosis Note [id number] Glen Auguste MD [address] [address] 09/23/2021 00:00:00 09/23/2021 15:40:58 [id number] Glen Auguste MD [address] [address] 10/08/2021 00:00:00 10/08/2021 10:20:19 [id number] Glen Auguste MD [address] [address] 10/22/2021 00:00:00 10/22/2021 14:29:56 [id number] Glen Auguste MD [address] [address] 07/28/2022 11:02:19 07/28/2022 11:40:21 Hospital inpatient stay within past 30 days 5461678523 106 Z76.89 Cellulitis and abscess of neck 464727983 L02.11 Lt side Hypertensive disorder 38 387383 I10 Uncontroll ed type 2 diabetes mellitus 698565991 E11.65 Anxiety disorder 9536855 06 F41.9 Vitamin D deficiency 347 22838 E55.9 Hyperlipidemia 71892161 E78.5 Hypertriglyceridemia 302 625220 E78.2 Obesity 912867474 E66.9 [id number] Glen Auguste MD [address] [address] 08/09/2022 11:09:48 08/09/2022 11:25:32 Sleep apnea 57345295 G47.30 [id number] Glen Auguste MD [address] [address] 08/11/2022 14:00:29 08/11/2022 14:22:43 Anxiety disorder 065613446 F41.9 Uncontroll ed type 2 diabetes mellitus 264211522 E11.65 Chronic ki dney disease stage 3 768034020 N18.30 Hypertensive disorder 38 834705 I10 Hyperlipidemia 24264423 E78.5 Hypertriglyceridemia 302 251137 E78.2 Obesity 950188609 E66.9 Ex-smoker 8119342 Z87.89 1 [id number] Glen Auguste MD [address] [address] 09/08/2022 09:57:56 09/08/2022 10:15:06 Anxiety disorder 517130946 F41.9 Uncontroll ed type 2 diabetes mellitus 293099653 E11.65 Chronic ki dney disease stage 3 422170106 N18.30 Hypertensive disorder 38 396100 I10 Hyperlipidemia 10009585 E78.5 Obesity 455091161 E66.9 Ex-smoker 4313111 Z87.89 1 Family his tory of Cardiovascular disease 841814377 Z82.49 Seasonal a llergic rhinitis 716140495 J30.2 [id number] Koby Lucas MD [address] [address] 09/28/2022 15:39:12 09/29/2022 08:35:44 Sleep apnea 52504115 G47.30 G47.33 G47.61 G47.36 G47.419 [id number] Glen Auguste MD [address] [address] 10/26/2022 10:24:07 10/26/2022 11:06:04 Anxiety disorder 355469000 F41.9 Uncontroll ed type 2 diabetes mellitus 200825546 E11.65 Chronic ki dney disease stage 3 488326543 N18.30 Hypertensive disorder 38 385080 I10 Hyperlipidemia 57051764 E78.5 Obesity 182376399 E66.9 Ex-smoker 4454076 Z87.89 1 Family his tory of Cardiovascular disease 322677994 Z82.49 Adult heal th examination 839627476 Z00.00 Vitamin D deficiency 347 74947 E55.9 [id number] Koby Lucas MD [address] [address] 07/04/2023 14:25:44 07/05/2023 08:28:21 Obstructive sleep apnea syndrome 65098981 G47.33 Periodic l imb movement disorder 866868210 G47.61 D50.8 E83.42 [id number] Glen Auguste MD [address] [address] 09/13/2023 15:07:45 09/13/2023 15:40:16 Adult health examination 589560057 Z00.00 Anxiety disorder 6467129 06 F41.9 Uncontroll ed type 2 diabetes mellitus 949962135 E11.65 Chronic ki dney disease stage 3 471074023 N18.30 Hypertensive disorder 38 181893 I10 Hyperlipidemia 07388960 E78.5 Obesity 175387629 E66.9 Ex-smoker 3793177 Z87.89 1 Family his tory of Cardiovascular disease 221537334 Z82.49 Vitamin D deficiency 347 68907 E55.9 Hypertriglyceridemia 302 504504 E78.2 Screening for malignant neoplasm of colon 242485374 Z12.11 [id number] Glen Auguste MD [address] [address] 10/04/2023 16:59:52 10/04/2023 17:53:14 Anxiety disorder 696597818 F41.9 Uncontroll ed type 2 diabetes mellitus 857081339 E11.65 Chronic ki dney disease stage 3 077303575 N18.30 Hypertensive disorder 38 562333 I10 Hyperlipidemia 47011377 E78.5 Obesity 105930998 E66.9 Ex-smoker 2837667 Z87.89 1 Family his tory of Cardiovascular disease 664329448 Z82.49 Vitamin D deficiency 347 68125 E55.9 Hypertriglyceridemia 302 752957 E78.2 Liver enzy mes level above reference range 367807813 R74.01 [id number] Glen Auguste MD [address] [address] 10/25/2024 12:27:19 10/25/2024 13:53:43 Transition of care 7597046313 105 Z75.8 History of clinical finding in subject 959301308 Z92.89 Seen in department 20691 1009 Z76.89 Benign hypertension 1072 5009 I10 Congestive heart failure 48761511 I50.9 I42.9 Mixed hyperlipidemia 267 196807 E78.2 Obese class I 4183473830 48366 E66.811 Chronic ki dney disease stage 4 836734087 N18.4 Gastroesop hageal reflux disease without esophagitis 973983702 K21.9 Chronic anxiety 04215948 9 F41.9 Ex-cigarette smoker 2810 64789 Z87.891 Diabetes mellitus 011868 09 E11.9 [id number] Glen Auguste MD [address] [address] 11/20/2024 09:33:44 11/20/2024 09:52:18 Health Concerns Section Related Observation LastModified by Organization Detai ls LastModified Time None Recorded Concern Status LastModified by Organization Details LastModified Time None Recorded Advance Directives Directive N: Payers Insurance Date Sequence Insurance Name Policy Number Policy Mckinney Covered Member ID Mckinney Member ID Guarantor Name 11/20/2024 1 [facility] (MEDICAID REPLACEMENT - HMO) Juno Sky [id number] Jun[employer] 10/25/2024 1 [place] [id number] Juno Sky [id number] Juno Sky 10/25/2024 1 [facility] (MEDICARE REPLACEMENT/AD VANTAGE - HMO) Juno Asya [id number] Juno Sky 10/25/2024 2 [facility] - DOS ON OR AFTER 20 (MEDICAID REPLACEMENT - HMO) Juno Sky [id number] Jun[employer] 10/25/2024 1 [place] [id number] Juno Sky [id number] Juno Sky Notes Date Note Type Note Provider Name and Address Organization Details Recorded Time 07/04/2023 text/html Primary care/Ref erring provider: Glen Auguste MD During the [facility] home sleep study on 09/08/22, AHI = 72, supine AHI = 73. During the [facility] titration sleep study 01/12/23, PLMI = 8. [...] high chance of dozing. Koby Lucas MD [address] [place] [address], [address], [employer] 07/04/2023 16:15:12 09/13/2023 text/html Pt is here [...] in couple months. Pt was d/c from [facility] last month. Pt was seen at [facility] last week for an abscess over his neck (from his bad teeth) and it was pushing on his airway, so pt was transferred to [facility] next day for surgery. P was found to have A1c of 11 and he has been started on Basal and bolus insulin since . Glen Auguste MD [address], [place], [address], [employer] 09/13/2023 15:38:07 10/04/2023 text/html Pt is here [...] in couple months. Glen Auguste MD [address], [place], [address], [employer] 10/04/2023 17:49:55 10/25/2024 text/html Hospital fuv: Pt was seen in ED on 10/18/24 due to chest tightness and SOB and was admitted there for 4 days. Pt has been seen by Cardio and Nephro there too and he needs to see them as out pt. Overall, feeling much better. His BP is improved and he has home log to review. Last visit in 05/24 and he lost his insurance. So he has not taken any meds for last several months. Glen Auguste MD [address] [place] [address], [place], [address], [place] [facility] [employer] 10/25/2024 13:08:26
--- OUTSIDE RECORDS SUMMARY | 2024-12-04 09:17 | XMS_ITS | Clinical Summary ---
Author Organization [facility] Address [address] [place] [address] Care Team Providers Care Route Agent Name Role Phone None, Provider MD Primary Care Provider Unavaila ble Allergies No known active allergies Medications losartan 100 MG tablet Take 1 tablet (100 mg total) by mouth daily. 30 tablet 09/17/2021 Active amLODIPine 10 MG tablet Take 1 tablet (10 mg total) by mouth daily. 30 tablet 09/18/2021 Active cetirizine 10 MG tablet Take 1 tablet (10 mg total) by mouth daily. 30 tablet 09/18/2021 Active fluticasone propionate 50 MCG/ACT nasal spray 1 spray by Each Nostril route 2 (two) times daily. 9.9 mL 09/17/2021 Active Active Problems Problem Noted Date Diagnosed Date HAZEL (acute kidney injury) 09/14/2021 Hypertensive emergency 09/12/2021 Social History Tobacco Use Types Packs/Day Years Used Date Smoking Tobacco: Every Day Cigarettes Smokeless Tobacco: Never Alcohol Use Standard Drinks/Week Comments Yes 8.3 (1 standard drink = 0.6 oz p ure alcohol) Sex and Gender Information Value Date Recorded Sex Assigned at Not on file Legal Sex Male 7:46 PM CDT Gender Identity Not on file Sexual Orientation Not on file Last Filed Vital Signs Vital Sign Reading Time Taken Comments Blood Pressure 128/80 09/17/2021 12:00 PM CDT Pulse 95 09/17/2021 12:00 PM CDT Temperature 36.4 C (97.5 F) 09/17/2021 12:00 PM CDT Respiratory Rate 18 09/17/2021 12:00 PM CDT Oxygen Saturation 96% 09/17/2021 12:00 PM CDT Inhaled Oxygen Concentration - - Weight 105.8 kg (233 lb 4 oz) 09/17/2021 4:00 AM CDT Height 177.8 cm (5' 10) 09/13/2021 3:57 AM CDT Body Mass Index 33.47 09/13/2021 3:57 AM CDT Plan of Treatment Health Maintenance Due Date Last Done Comments Colorectal Cancer Screening Colonoscopy (10 Years) 1977 Annual Physical 1980 Hepatitis C 11/24/1995 DTaP, Tdap and Td Vaccines ( 1 - Tdap) 1996 Hepatitis B Vaccines (1 of 3 - 19+ 3-dose series) 1996 Pneumococcal Vaccine: Pediat rics (0 to 5 Years) and At-Risk Patients (6 to 49 Years) (1 of 2 - PCV) 1996 COVID-19 Vaccine (2 - 2023-2 5 season) 2024 01/13/2021 Meningococcal B Vaccine Aged Out No l onger eligible based on patient's age to complete this topic Meningococcal Vaccine Aged Out No gideon heron eligible based on patient's age to complete this topic RSV Immunizations Under 20 Months Aged Out No longer eligible based on patient's age to complete this topic Goals Goal Patient Goal Type Associated Problems Recent Progress Patient-Stated? Author Health - patient able to perform ADLs independently General No Sary Newsome, RN Insurance SWAIN Advance Directives * Full Code (Latest Code Status on File) Date Activated Date Inactivated Comments 09/14/2021 1:52 PM 09/17/2021 2:40 PM Care Teams Route Agent Relationship Specialty Start Date End Date None, Provider, PCP - General 09/12/21
--- OUTSIDE RECORDS SUMMARY | 2024-12-04 09:17 | XMS_ITS | Patient Health Record ---
Author Organization [facility] [employer] Address [address] [place] [address] Care Team Providers Care Training Assistant Name Role Phone Joslyn Kunz Unavailable [phone] Reason For Referral No Information Medications Medication SIG (Take, Route, Frequency, Duration) Notes Start Date End Date Status amLODIPine Besylate 10 MG Oral Active Januvia 50 MG Oral Active OneTouch Verio In Vitro Activ e Aspirin Adult Low Strength 81 MG Oral Active OneTouch Delica Plus Fhomeb78F Active Venlafaxine HCl ER 75 MG Oral Active Fenofibrate 54 MG Oral Ac tive Amoxicillin-Pot Clavulanate 875-125 MG Oral Active Escitalopram Oxalate 10 MG Oral Active Ergocalciferol 1.25 MG (21064 UT) Oral Active hydrOXYzine HCl 50 MG [...] Insured Coverage Start Date Coverage End Date [facility] Ppo [address] [place] [address] [id number] PHILL BING[place] Self - patient is the insured
--- OUTSIDE RECORDS SUMMARY | 2024-12-04 09:22 | XMS_ITS | Continuity of Care Document ---
Author Organization [facility] Address [address] [place] [address] [place] [address] Phone Care Team Providers Care Purchasing Manager Name Role Phone Juan Carlos Tran MD [...] PREV VISIT, EST, AGE 18-39 OFFICE/OUTPATIENT VISIT, [employer] [facility] [employer] [facility] Advance Directives Directive Yes / No Effective Date File Name No Information Encounters Encounter Description Practice Location Reason(s) For Visit Diagnoses Date Provider Providers Copied on Encounter [facility], [address] [employer] [place], [place], [id number], tel:[phone] [facility] No Information 4 Marc Rangel. [address], [facility] [place], [id number] , [place]. tel:[phone] Referring Provider: Juan Carlos Tran, [address], [place], [place], [id number]. tel:[phone] PREV VISIT, EST, AGE 18-39 [facility], [address] [employer] [place], [id number], tel:[phone] [facility] Physical (chief complaint) Dietary surveillance and counselingRoutine Medical ExamRoutine Medical Exam 3 Marc Rangel. [address], [address] [place], [id number] , . tel:[phone] Referring Provider: Juan Carlos Tran, [address] [facility] [address], [place], [place], [id number]. tel:[phone] OFFICE/OUTPA TIENT VISIT, [facility], [address], [place], [place], [id number], [place] tel:[phone] [facility] Muscle pain (chief complaint) HTN (chief complaint) Dietary surveillance and counselingHypertens ion, UnspecifiedMyalgia and myositis, unspecified 3 Marc Rangel. [address] [facility] [address], [place], [place], [id number] , [place]. tel:[phone] Family History Family Member Type Diagnosis Age At Onset Mother Problem (finding) Alive and well Mother Problem (finding) unknwno Brother Problem (finding) Alcoholism Brother Problem (finding) Alive and well Father Problem (finding) Hyperlipidemia Father Problem (finding) Hypertension Father Problem (finding) Anxiety Payers Payer name Insurance type Covered green party ID Authoriza tion(s) No Information Social [...]
== END 2024-12-04 09:27 | disposition home or self-care (01) ==
PROVIDERS: Emergency Provider Nurse Practitioner Family; PCP Family Medicine
DX: K08.89 Other specified disorders of teeth and supporting structures (principal); Z87.891 Personal history of nicotine dependence; E11.9 Type 2 diabetes mellitus without complications; I10 Essential (primary) hypertension; E78.5 Hyperlipidemia, unspecified; G47.33 Obstructive sleep apnea (adult) (pediatric); E66.9 Obesity, unspecified; Z68.32 Body mass index [BMI] 32.0-32.9, adult; F41.9 Anxiety disorder, unspecified; Z79.82 Long term (current) use of aspirin
CPT/HCPCS: 99213; G0463